=== PATIENT | male | born 1955 | race Caucasian/White ===

== ENCOUNTER → 2017-10-10 10:16 | Outpatient (CLI) | payer MEDICARE, SELFPAY ==
[2017-10-10 12:49] LABS: Anion Gap 10 (5-15); BUN 11 mg/dL (7-18); BUN/Creat Ratio 14.2 RATIO (10-20); Calcium,Total 8.2 mg/dL (8.5-10.1); Chloride 101 mmol/L (98-107); Cholesterol 176 mg/dL (200); Creatinine, Serum 0.78 mg/dL (0.70-1.30); EST Glomerular Filtration Rate 109 mL/min (>60); Est Glom Filt Rate - Afr Amer 131 mL/min (>60); Glucose 101 mg/dL (74-106); High Density Lipoprotein 30 mg/dL; Potassium 3.9 mmol/L (3.5-5.1); Sodium Level 134 mmol/L (136-145); Triglycerides 336 mg/dL; Very Low Density Lipoprotein 67 mg/dL (5-40)
== END ==
PROVIDERS: Family Provider Family Medicine; PCP Family Medicine; Visit Provider Family Medicine
DX: I10 Essential (primary) hypertension (principal)
CPT/HCPCS: 36415; 80048; 80061

== ENCOUNTER → 2018-04-12 08:56 | Outpatient (CLI) | payer MEDICARE, SELFPAY ==
[2018-04-12 10:44] LABS: Anion Gap 6 (5-15); BUN 10 mg/dL (7-18); BUN/Creat Ratio 11.1 RATIO (10-20); Calcium,Total 8.6 mg/dL (8.5-10.1); Chloride 101 mmol/L (98-107); Cholesterol 181 mg/dL (200); EST Glomerular Filtration Rate 91 mL/min (>60); Est Glom Filt Rate - Afr Amer 110 mL/min (>60); Glucose 114 mg/dL (74-106); High Density Lipoprotein 31 mg/dL; PSA,Total - Annual Screen 4.51 ng/mL (0.00-4.00); Potassium 4.2 mmol/L (3.5-5.1); Sodium Level 134 mmol/L (136-145); Triglycerides 270 mg/dL; Very Low Density Lipoprotein 54 mg/dL (5-40)
== END ==
PROVIDERS: Family Provider Family Medicine; PCP Family Medicine; Visit Provider Family Medicine
DX: Z00.00 Encounter for general adult medical examination without abnormal findings (principal); I10 Essential (primary) hypertension
CPT/HCPCS: 36415; 80048; 80061; 84153; G0103

== ENCOUNTER → 2018-10-13 15:08 | Outpatient (CLI) | payer MEDICARE, SELFPAY ==
[2018-10-13 18:01] LABS: PSA,Total - Annual Screen 5.21 ng/mL (0.00-4.00)
== END ==
PROVIDERS: Family Provider Family Medicine; PCP Family Medicine; Referring Provider Family Medicine; Visit Provider Family Medicine
DX: N40.0 Benign prostatic hyperplasia without lower urinary tract symptoms (principal)
CPT/HCPCS: 36415; 84153; G0103

== ENCOUNTER 2018-12-03 04:43 | Inpatient (IN) | payer MEDICARE, MEDICAID, SELFPAY ==
[2018-12-03] VITALS (28 sets, daily range): BP systolic 104–141; BP diastolic 60–85; PULSE 103–135; RESP 12–34; TEMP 36.6–37; O2SAT 89–96; BMI 33.5; BMI 29.5
[2018-12-03 05:02] LABS: Bedside Glucose > 500 mg/dL (70-110)
--- NOTE | 2018-12-03 05:02 | ED.DCSUM_ITS ---
- ER Visit Summary Date of Service: 12/03/18 Chief Complaint: Hyperglycemia History of Present Illness: The patient is a 63 M who presents with elevated blood sugar that was noticed today. EMS reports that the patient's blood sugar on their fingerstick was reading high. Patient is confused and is a poor h istorian. EMS reports that the patient had been having some polyuria at the care home today. Patient denies any fevers. Physical Examination: Vital signs are stable except for mild tachycardia of 107. Patient is afebrile. Oral mucosa is dry. Neck is supple. Trachea is midline. There is no JVD noted. Heart was regular and tachycardic. Lungs are clear and equal bilaterally. Abdomen is soft and nontender. Cranial nerves II through XII are intact. There are no focal motor or sensory deficits noted. Patient is alert and oriented to person only. Test Results: CBC was essentially within normal limits. Metabolic profile showed an elevated glucose of 1518, BUN was elevated at 38, and creatinine was elevated 2.68. These values are new compared to previous results. Arterial blood gas showed a pH of 7.28, PCO2 of 31.2, PO2 of 70, bicarb of 14, and oxygen saturation 92%. Emergency Department Course and Treatment: Patient was given IV fluids. Patient was started on insulin IV drip. Case was discussed with the hospitalist. She will be in to evaluate the patient and admit the patient to the hospital. Disposition: Admit to ICU Impression: 1. Diabetic ketoacidosis 2. Acute kidney injury Critical care time was 30 minutes independent of procedures. This note was generated with [employer] dictation software. It may contain incorrect words, spelling, and punctuation that were not noted in review of the chart prior to signing ED Disposition - Plan for ED Patient: Disposition: Acute Care Hospital [facility] Diagnosis: DKA (diabetic ketoacidoses), Acute kidney injury
[2018-12-03 05:15] LABS: Absolute Lymphocyte Count 1.28 X10^3/ul (0.83-4.51); Absolute Neutrophil Count 5.1 X10^3/uL (2.0-7.7); Basophil# 0.06 X10^3/uL; Basophil% 0.8 % (0-1); Hemoglobin 12.7 g/dl (13.0-16.5); Lymphocyte # 1.28 X10^3/ul (4.0); Lymphocyte % 17.6 % (19-41); Mean Corp Hgb Conc 29.5 g/gl (32-36); Mean Corpuscular Hgb 30.1 pg (27.0-32.0); Mean Corpuscular Volume 101.9 fL (80-94); Mean Platelet Vol. 11.5 fl (6.2-12.0); Monocyte# 0.86 X10^3/uL; Monocyte% 11.8 % (0-10); Neutrophil # 5.05 X10^3/uL (2.7-7.7); Neutrophil % 69.7 % (47-70); POSITIVE COUNT NO; POSITIVE DIFFERENTIAL NO; POSITIVE MORPHOLOGY NO; Platelet Count 330 K/mm3 (150-450); RBC Distribution Width SD 55.8 fl (35.1-43.9); Red Blood Count 4.22 M/mm3 (4.6-6.2); White Blood Count 7.3 K/mm3 (4.4-11.0)
[2018-12-03] MEDS: 0.9% Normal Saline 1,000 ML 1000 ML IV ×3 (05:19→05:49)
[2018-12-03 05:21] LABS: Allen Test POS; Base Excess -12 mmol/L (-2 to +2); Bicarbonate 14.7 mmol/L (22-26); Blood Gas Specimen Type ART; O2 Delivery Device Nasal Can; PO2 70 mmHG (75-100); SITE R Radial; SO2 92 % (95-99); Time Given 510; Total Carbon Dioxide 16 mmol/L; pCO2 31.2 mmHg (35-45); pH 7.28 (7.35-7.45)
[2018-12-03 05:40] LABS: ALB/GLOB Ratio 0.6 RATIO (0.9-2.4); AST(SGOT) 11 U/L (15-37); Alanine Aminotransfer ALT/SGPT 24 U/L (16-61); Albumin, Serum 3.3 g/dL (3.2-5.0); Alkaline Phosphatase 178 U/L (45-117); Anion Gap 19 (5-15); BUN 38 mg/dL (7-18); BUN/Creat Ratio 14.2 RATIO (10-20); Calcium,Total 10.7 mg/dL (8.5-10.1); Chloride 93 mmol/L (98-107); Creatinine, Serum 2.68 mg/dL (0.70-1.30); EST Glomerular Filtration Rate 26 mL/min (>60); Est Glom Filt Rate - Afr Amer 31 mL/min (>60); Globulin 5.8 g/dL (2.2-4.2); Glucose 1518 mg/dL (74-106); Protein, Total 9.1 g/dL (6.4-8.2); Sodium Level 128 mmol/L (136-145)
--- NOTE | 2018-12-03 05:42 | ED.RN ---
DR OLVERA NOTIFIED OF GLUCOSE
[2018-12-03 05:43] LABS: Lactic Acid 1.5 mmol/L (0.4-2.0)
--- NOTE | 2018-12-03 05:46 | PCM.HP.STD ---
Problem List (1) DKA (diabetic ketoacidoses) Status: Acute Qualifiers: Diabetes mellitus type: type 2 (2) HTN (hypertension) Status: Chronic Qualifiers: Hypertension type: essential hypertension Qualified Code(s): I10 - Essential (primary) hypertension (3) Anxiety and depression Status: Chronic (4) Tobacco use Status: Chronic History of Present Illness Date of Admission: 12/03/18 Chief Complaint: Hyperglycemia, polyuria, confusion The patient is a 63 y/o M [facility] w/ PMHx: Anxiety and Depression/Bipolar disorder, HTN, Obesity, Tobacco use who presents to the [facility] ED on 12/03/18 with history of elevated BS at facility, unclear why they had been checking, but no history per family present of diabetes mellitus. The alf report noted patient w/ increased confusion without any recent illnesses. No alf staff present. Family present noted that he has been complaining of increased thirst and polyuria. Work-up in the ED included T 98.6, heart rate 106, BP 111/68, respiratory rate 20 initially 89% on room air with improvement to 92 on 2 L nasal cannula, CBC with WBC 7.3, hemoglobin 12.7, platelet 330 without market left shift, ABG with pH 7.28, bicarb 14.7, oxygen saturation 92, PCO2 31.2, PO2 70 on 2 L nasal cannula, CMP with sodium 128, chloride 93, carbon dioxide 16, anion gap 19, BUN/creatinine 38/2.68, glucose 1518, lactic acid 1.5, acetone moderate. In the ED patient initiated on insulin drip. Past Medical History Past Medical History (Chronic Problems): Chronic Problems HTN (hypertension) (Chronic) Anxiety and depression (Chronic) Tobacco use (Chronic) Allergies No Known Allergies Allergy (Verified 08/11/14 12:25) Home Medications: Ambulatory Orders Medication Instructions Recorded Amlodipine [Norvasc] 10 mg PO DAILY 12/03/18 Doxazosin Mesylate 2 mg PO DAILY 12/03/18 Haloperidol Decanoate 100 mg IM QWEEK 12/03/18 Lisinopril [Zestril] 20 mg PO DAILY 12/03/18 Oxcarbazepine 300 mg PO DAILY 12/03/18 Quetiapine Fumarate 100 mg PO DAILY 12/03/18 Surgical History: - - Left lower extremity surgery secondary to fracture, hernia repair. Psychiatric History: Schizophrenia Lives: - - She lives in a alf. Smoking Status: Current every day smoker - Approximately 1 pack/day cigarette tobacco usage. Tobacco Use: Cigarettes Alcohol: None Drugs: None - *Family History Maternal History Items: - - Patient with maternal family history of hypertension. Paternal History Items: - - Patient with a paternal family history of hypertension, coronary disease, [place] at age 75. Review of Systems Constitutional: Reports: Malaise, Weakness, Fatigue. Denies: Chills, Fever, Weight Change HEENT: Denies: Head Aches, Sinus Congestion, Sinus Drainage Cardiovascular: Denies: Chest Pain, Palpitations Respiratory: Denies: Cough, Shortness of breath at rest, Sputum production Gastrointestinal: Denies: Abdominal Pain, Nausea, Vomiting Genitourinary: Denies: Dysuria Musculoskeletal: Denies: Joint Pain, Joint Tenderness Skin: Denies: Rash, Wounds Neurological: Reports: Confusion. Denies: Focal weakness, Numbness, Tingling Psychiatric: Reports: - - Schiophrenia. Denies: Anxiety, Depression, Homicidal Ideations, Suicidal Ideations Endocrine: Reports: Polydipsia, Polyuria Hematologic/ Lymphatic: Denies: Easy Bruising, Easy Bleeding VTE Information - Inpt Only VTE Present on Admission: No VTE Mechan Device Prophylaxis: SCD's VTE Pharm Prophylaxis ordered?: Yes Patient Problems: Active and Suspected Problems DKA (diabetic ketoacidoses) (Acute) Subjective: Patient is seated upright in ED bed, improved appearance, more alert and awake, answering questions appropriately. Objective: Physical Examination: General: awake, alert, oriented to self, place, recent events, improved since initial presentation is very lethargic encephalopathic upon initial ED hesitation, remains cooperative, seated upright in ED bed, notes feeling improved. Skin: normal color, turgor, no icterus, cyanosis. HEENT: AT/NC, EOMI, PERRLA, dry MM, no carotid bruits or JVD noted. Lungs: CTA bilaterally, moderate effort, mild decrease BL bases, no rales, ronchi or wheezing. Heart: Tachycardic with regular rhythm; no gallop, rub audible. Abdomen: soft, obese, NTTP, ND, normal BS, no HSM. Extremities: no cyanosis, clubbing, or edema. Neurological: patient awake, alert, oriented as noted; cognitive function improving since initial presentation, suspect not yet baseline intact; pupils equally reactive to light and accomodation; cranial nerves II-XII grossly normal, moving all 4 extremities, no focal deficits, strength severely globally decreased secondary to acute presentation. Psychiatric: affect appears fatigued, no acute evidence of depressive or anxiety feelings. - Physical Exam Vital Signs Temp Pulse Resp BP Pulse Ox 98.6 F 107 H 20 H 111/68 92 12/03/18 04:46 12/03/18 04:46 12/03/18 04:46 12/03/18 04:46 12/03/18 04:46 Oxygen Flow Rate (L/min) 2 Oxygen Delivery Method Nasal Cannula Weight: 220 lb 7.396 oz Body Mass Index (BMI) 33.5 Finger Stick Blood Glucose 600 Laboratory Tests Past 24 Hrs 12/03/18 12/03/18 12/03/18 04:45 04:45 04:45 WBC 7.3 RBC 4.22 L Hgb 12.7 L Hct 43.0 MCV 101.9 H MCH 30.1 MCHC 29.5 L RDW 15.0 H RDW Differential 55.8 H Plt Count 330 MPV 11.5 Immature Gran % (Auto) 0.100 Neut % (Auto) 69.7 Lymph % (Auto) 17.6 L [place] % (Auto) 11.8 H Eos % (Auto) 0.0 Baso % (Auto) 0.8 Absolute Neuts (auto) 5.1 Absolute Lymphs (auto) 1.28 Total Counted Not Reportable Specimen Type Sample Site pH Bicarbonate Actual POC Total CO2 Base Excess O2 Saturation ABG pCO2 ABG pO2 Ben Test O2 Delivery Device Liter Flow Blood Gas Notified Whom Blood Gas Notified Time Sodium 128 L Potassium 5.0 Chloride 93 L Carbon Dioxide 16.0 L Anion Gap 19 H BUN 38 H Creatinine 2.68 H Estim Creat Clear Calc 28.00 Est GFR (MDRD) Af Amer 31 L Est GFR (MDRD) Non-Af 26 L BUN/Creatinine Ratio 14.2 Glucose 1518 H* Lactic Acid Calcium 10.7 H Total Bilirubin 0.60 AST 11 L ALT 24 Alkaline Phosphatase 178 H Total Protein 9.1 H Albumin 3.3 Globulin 5.8 H Albumin/Globulin Ratio 0.6 L Acetone Level MODERATE H 12/03/18 12/03/18 05:14 05:15 WBC RBC Hgb Hct MCV MCH MCHC RDW RDW Differential Plt Count MPV Immature Gran % (Auto) Neut % (Auto) Lymph % (Auto) [place] % (Auto) Eos % (Auto) Baso % (Auto) Absolute Neuts (auto) Absolute Lymphs (auto) Total Counted Specimen Type ART Sample Site R Radial pH 7.28 L Bicarbonate Actual 14.7 L POC Total CO2 16 Base Excess -12 L O2 Saturation 92 L ABG pCO2 31.2 L ABG pO2 70 L Ben Test POS O2 Delivery Device Nasal Can Liter Flow 2.0 Blood Gas Notified Whom ED MD Blood Gas Notified Time 510 Sodium Potassium Chloride Carbon Dioxide Anion Gap BUN Creatinine Estim Creat Clear Calc Est GFR (MDRD) Af Amer Est GFR (MDRD) Non-Af BUN/Creatinine Ratio Glucose Lactic Acid 1.5 Calcium Total Bilirubin AST ALT Alkaline Phosphatase Total Protein Albumin Globulin Albumin/Globulin Ratio Acetone Level POC Glucose 12/03/18 04:48 POC Glucose > 500 H* Assessment/Plan All Active Problems DKA (diabetic ketoacidoses) (Acute) The patient is a 63 y/o M living [facility] w/ PMHx: Anxiety and Depression/Bipolar disorder, HTN, Obesity, Tobacco use who presents to the [facility] ED on 12/03/18 with history of elevated BS at facility, unclear why they had been checking, but no history per family present of diabetes mellitus. The alf report noted patient w/ increased confusion without any recent illnesses. No alf staff present. (1) Acute Encephalopathy (metabolic) secondary to Acute DKA w/ New Diabetes mellitus diagnosis: Work-up in the ED included T 98.6, heart rate 106, BP 111/68, respiratory rate 20 initially 89% on room air with improvement to 92 on 2 L nasal cannula, CBC with WBC 7.3, hemoglobin 12.7, platelet 330 without market left shift, ABG with pH 7.28, bicarb 14.7, oxygen saturation 92, PCO2 31.2, PO2 70 on 2 L nasal cannula, CMP with sodium 128, chloride 93, carbon dioxide 16, anion gap 19, BUN/creatinine 38/2.68, glucose 1518, lactic acid 1.5, acetone moderate. Will admit to the ICU, continue on insulin drip, check serial K+, glucose w/ IVF changes pending these levels, serial chemistry, obtain mag, phos daily w/ repletion as needed, transition to home SC regimen when gap closed w/ overlap on drip, nutrition consultation. Encouraged diet and insulin regimen compliance. Requested UA, UCx and CXR. HgBA1c pending. (2) Acute kidney injury: Secondary to acute presentation #1. Admission BUN/Cr 38/2.68, prior baseline creatinine noted to be 0.8. Will hydrate, hold nephrotoxic medications and repeat chemistry in AM. (3) Hypertension: Continue home regimen including Norvasc, holding lisinopril given acute kidney injury, PRN hydralazine. (4) Schizophrenia: We will continue home psychiatric regimen including oxcarbazepine, Seroquel and patient of note receives IM weekly Haldol with requested check on last dosing. Family present notes he becomes agitated if he does receive his medications. (5) Tobacco Abuse: Encouraged cessation, inpatient consultation per RT, NR if desired, declined upon admission. (6) DVT Prophylaxis: SCDs, heparin. Code Visit Inpatient E&M: 53452 Init Hosp L3
--- NOTE | 2018-12-03 05:54 | HP.PCM_ITS ---
Problem List (1) DKA (diabetic ketoacidoses) Status: Acute Qualifiers: Diabetes mellitus type: type 2 (2) HTN (hypertension) Status: Chronic Qualifiers: Hypertension type: essential hypertension Qualified Code(s): I10 - Essential (primary) hypertension (3) Anxiety and depression Status: Chronic (4) Tobacco use Status: Chronic History of Present Illness Date of Admission: 12/03/18 Chief Complaint: Hyperglycemia, polyuria, confusion The patient is a 63 y/o M living in [facility] w/ PMHx: Anxiety and Depression/Bipolar disorder, HTN, Obesity, Tobacco use who presents to the [facility] ED on 12/03/18 with history of elevated BS at facility, unclear why they had been checking, but no history per family present of diabetes mellitus. The senior care report noted patient w/ increased confusion without any recent illnesses. No senior care staff present. Family present noted that he has been complaining of increased thirst and polyuria. Work-up in the ED included T 98.6, heart rate 106, BP 111/68, respiratory rate 20 initially 89% on room air with improvement to 92 on 2 L nasal cannula, CBC with WBC 7.3, hemoglobin 12.7, platelet 330 without market left shift, ABG with pH 7.28, bicarb 14.7, oxygen saturation 92, PCO2 31.2, PO2 70 on 2 L nasal cannula, CMP with sodium 128, chloride 93, carbon dioxide 16, anion gap 19, BUN/creatinine 38/2.68, glucose 1518, lactic acid 1.5, acetone moderate. In the ED patient initiated on insulin drip. Past Medical History Past Medical History (Chronic Problems): Chronic Problems HTN (hypertension) (Chronic) Anxiety and depression (Chronic) Tobacco use (Chronic) Allergies No Known Allergies Allergy (Verified 08/11/14 12:25) Home Medications: Ambulatory Orders Medication Instructions Recorded Amlodipine [Norvasc] 10 mg PO DAILY 12/03/18 Doxazosin Mesylate 2 mg PO DAILY 12/03/18 Haloperidol Decanoate 100 mg IM QWEEK 12/03/18 Lisinopril [Zestril] 20 mg PO DAILY 12/03/18 Oxcarbazepine 300 mg PO DAILY 12/03/18 Quetiapine Fumarate 100 mg PO DAILY 12/03/18 Surgical History: - - Left lower extremity surgery secondary to fracture, hernia repair. Psychiatric History: Schizophrenia Lives: - - She lives in a senior care. Smoking Status: Current every day smoker - Approximately 1 pack/day cigarette tobacco usage. Tobacco Use: Cigarettes Alcohol: None Drugs: None - *Family History Maternal History Items: - - Patient with maternal family history of hypertension. Paternal History Items: - - Patient with a paternal family history of hypertension, coronary disease, [place] at age 75. Review of Systems Constitutional: Reports: Malaise, Weakness, Fatigue. Denies: Chills, Fever, Weight Change HEENT: Denies: Head Aches, Sinus Congestion, Sinus Drainage Cardiovascular: Denies: Chest Pain, Palpitations Respiratory: Denies: Cough, Shortness of breath at rest, Sputum production Gastrointestinal: Denies: Abdominal Pain, Nausea, Vomiting Genitourinary: Denies: Dysuria Musculoskeletal: Denies: Joint Pain, Joint Tenderness Skin: Denies: Rash, Wounds Neurological: Reports: Confusion. Denies: Focal weakness, Numbness, Tingling Psychiatric: Reports: - - Schiophrenia. Denies: Anxiety, Depression, Homicidal Ideations, Suicidal Ideations Endocrine: Reports: Polydipsia, Polyuria Hematologic/ Lymphatic: Denies: Easy Bruising, Easy Bleeding VTE Information - Inpt Only VTE Present on Admission: No VTE Mechan Device Prophylaxis: SCD's VTE Pharm Prophylaxis ordered?: Yes Patient Problems: Active and Suspected Problems DKA (diabetic ketoacidoses) (Acute) Subjective: Patient is seated upright in ED bed, improved appearance, more alert and awake, answering questions appropriately. Objective: Physical Examination: General: awake, alert, oriented to self, place, recent events, improved since initial presentation is very lethargic encephalopathic upon initial ED hesitation, remains cooperative, seated upright in ED bed, notes feeling improved. Skin: normal color, turgor, no icterus, cyanosis. HEENT: AT/NC, EOMI, PERRLA, dry MM, no carotid bruits or JVD noted. Lungs: CTA bilaterally, moderate effort, mild decrease BL bases, no rales, ronchi or wheezing. Heart: Tachycardic with regular rhythm; no gallop, rub audible. Abdomen: soft, obese, NTTP, ND, normal BS, no HSM. Extremities: no cyanosis, clubbing, or edema. Neurological: patient awake, alert, oriented as noted; cognitive function improving since initial presentation, suspect not yet baseline intact; pupils equally reactive to light and accomodation; cranial nerves II-XII grossly normal, moving all 4 extremities, no focal deficits, strength severely globally decreased secondary to acute presentation. Psychiatric: affect appears fatigued, no acute evidence of depressive or anxiety feelings. - Physical Exam Vital Signs Temp Pulse Resp BP Pulse Ox 98.6 F 107 H 20 H 111/68 92 12/03/18 04:46 12/03/18 04:46 12/03/18 04:46 12/03/18 04:46 12/03/18 04:46 Oxygen Flow Rate (L/min) 2 Oxygen Delivery Method Nasal Cannula Weight: 220 lb 7.396 oz Body Mass Index (BMI) 33.5 Finger Stick Blood Glucose 600 Laboratory Tests Past 24 Hrs 12/03/18 12/03/18 12/03/18 04:45 04:45 04:45 WBC 7.3 RBC 4.22 L Hgb 12.7 L Hct 43.0 MCV 101.9 H MCH 30.1 MCHC 29.5 L RDW 15.0 H RDW Differential 55.8 H Plt Count 330 MPV 11.5 Immature Gran % (Auto) 0.100 Neut % (Auto) 69.7 Lymph % (Auto) 17.6 L [place] % (Auto) 11.8 H Eos % (Auto) 0.0 Baso % (Auto) 0.8 Absolute Neuts (auto) 5.1 Absolute Lymphs (auto) 1.28 Total Counted Not Reportable Specimen Type Sample Site pH Bicarbonate Actual POC Total CO2 Base Excess O2 Saturation ABG pCO2 ABG pO2 Ben Test O2 Delivery Device Liter Flow Blood Gas Notified Whom Blood Gas Notified Time Sodium 128 L Potassium 5.0 Chloride 93 L Carbon Dioxide 16.0 L Anion Gap 19 H BUN 38 H Creatinine 2.68 H Estim Creat Clear Calc 28.00 Est GFR (MDRD) Af Amer 31 L Est GFR (MDRD) Non-Af 26 L BUN/Creatinine Ratio 14.2 Glucose 1518 H* Lactic Acid Calcium 10.7 H Total Bilirubin 0.60 AST 11 L ALT 24 Alkaline Phosphatase 178 H Total Protein 9.1 H Albumin 3.3 Globulin 5.8 H Albumin/Globulin Ratio 0.6 L Acetone Level MODERATE H 12/03/18 12/03/18 05:14 05:15 WBC RBC Hgb Hct MCV MCH MCHC RDW RDW Differential Plt Count MPV Immature Gran % (Auto) Neut % (Auto) Lymph % (Auto) [place] % (Auto) Eos % (Auto) Baso % (Auto) Absolute Neuts (auto) Absolute Lymphs (auto) Total Counted Specimen Type ART Sample Site R Radial pH 7.28 L Bicarbonate Actual 14.7 L POC Total CO2 16 Base Excess -12 L O2 Saturation 92 L ABG pCO2 31.2 L ABG pO2 70 L Ben Test POS O2 Delivery Device Nasal Can Liter Flow 2.0 Blood Gas Notified Whom ED MD Blood Gas Notified Time 510 Sodium Potassium Chloride Carbon Dioxide Anion Gap BUN Creatinine Estim Creat Clear Calc Est GFR (MDRD) Af Amer Est GFR (MDRD) Non-Af BUN/Creatinine Ratio Glucose Lactic Acid 1.5 Calcium Total Bilirubin AST ALT Alkaline Phosphatase Total Protein Albumin Globulin Albumin/Globulin Ratio Acetone Level POC Glucose 12/03/18 04:48 POC Glucose > 500 H* Assessment/Plan All Active Problems DKA (diabetic ketoacidoses) (Acute) The patient is a 63 y/o M living in [facility] w/ PMHx: Anxiety and Depression/Bipolar disorder, HTN, Obesity, Tobacco use who presents to the [facility] ED on 12/03/18 with history of elevated BS at facility, unclear why they had been checking, but no history per family present of diabetes mellitus. The senior care report noted patient w/ increased confusion without any recent illnesses. No senior care staff present. (1) Acute Encephalopathy (metabolic) secondary to Acute DKA w/ New Diabetes mellitus diagnosis: Work-up in the ED included T 98.6, heart rate 106, BP 111/68, respiratory rate 20 initially 89% on room air with improvement to 92 on 2 L nasal cannula, CBC with WBC 7.3, hemoglobin 12.7, platelet 330 without market left shift, ABG with pH 7.28, bicarb 14.7, oxygen saturation 92, PCO2 31.2, PO2 70 on 2 L nasal cannula, CMP with sodium 128, chloride 93, carbon dioxide 16, anion gap 19, BUN/creatinine 38/2.68, glucose 1518, lactic acid 1.5, acetone moderate. Will admit to the ICU, continue on insulin drip, check serial K+, glucose w/ IVF changes pending these levels, serial chemistry, obtain mag, phos daily w/ repletion as needed, transition to home SC regimen when gap closed w/ overlap on drip, nutrition consultation. Encouraged diet and insulin regimen compliance. Requested UA, UCx and CXR. HgBA1c pending. (2) Acute kidney injury: Secondary to acute presentation #1. Admission BUN/Cr 38/2.68, prior baseline creatinine noted to be 0.8. Will hydrate, hold nephrotoxic medications and repeat chemistry in AM. (3) Hypertension: Continue home regimen including Norvasc, holding lisinopril given acute kidney injury, PRN hydralazine. (4) Schizophrenia: We will continue home psychiatric regimen including oxcarbazepine, Seroquel and patient of note receives IM weekly Haldol with requested check on last dosing. Family present notes he becomes agitated if he does receive his medications. (5) Tobacco Abuse: Encouraged cessation, inpatient consultation per RT, NR if desired, declined upon admission. (6) DVT Prophylaxis: SCDs, heparin. Code Visit Inpatient E&M: 22522 Init Hosp L3
[2018-12-03 05:56] LABS: Bacteria 0 SEEN /hpf (None Seen); Mucous, Urine 0 SEEN /hpf (<or=2+); Red Blood Cells-Urine 0 SEEN /hpf (0-5); Squamous Epithelial Cells - UA 0 SEEN /hpf (0-5); White Blood Cells 0 SEEN /hpf (0-5)
--- NOTE | 2018-12-03 06:00 | RAD_ITS ---
STUDY: X-RAY CHEST REASON FOR EXAM: Male, 63 years old. Shortness of breath TECHNIQUE: Frontal view COMPARISON: None. FINDINGS: Lungs are well expanded. There are mild fibrotic lung changes. There are NO acute infiltrates. There is no demonstrated pleural abnormality. Normal size heart. Normal mediastinum and william. Normal visualized pulmonary arteries. Normal visualized aortic arch and descending thoracic aorta. Normal visualized thoracic spine. Normal visualized ribs, clavicles, and shoulders. There is no demonstrated abnormality of the visualized soft tissue structures of the upper abdomen. RAD/Chest 1 View (Portable) IMPRESSION: Lungs are well expanded. There are mild fibrotic lung changes. There are NO acute infiltrates. There is no demonstrated pleural abnormality. Normal size heart. Electronically Signed: Rafy Vega MD at 7:04 EDT , Service support ,
[2018-12-03 06:06] LABS: Bedside Glucose > 500 mg/dL (70-110)
--- NOTE | 2018-12-03 06:16 | NURSING ---
patient received last dose of haldol 10/30/18 and is due for a dose 12/04/18, per family he does get agitated when he does not receive. Info passed on to AUTHOR
[2018-12-03 06:18] LABS: Color, Urine Yellow (Yellow); Glucose, Dipstick 1000 mg/dl (Normal); Ketone-Dipstick 15 mg/dl (Negative); Leukocyte Esterase-Dipstick Negative /ul (Negative); Nitrite-Dipstick Negative (Negative); Occult Blood-Urine 50 /ul (Negative); Protein-Dipstick 15 mg/dl (Negative); Urine Bilirubin Dipstick Negative (Negative); Urine Clarity Clear (Clear); Urine Urobilinogen Normal (Normal)
[2018-12-03 07:28] LABS: Magnesium 2.9 mg/dL (1.6-2.6); Phosphorus 6.2 mg/dL (2.5-4.9)
--- NOTE | 2018-12-03 07:32 | PCM.CON.CC ---
Reason for Consult Date of Consultation: 12/03/18 Reason for Consultation: Diabetic ketoacidosis History of Present Illness: The patient is a 63-year-old male, with a history as outlined below, who presented to the emergency department on December 03 with hyperglycemia, polyuria and increased confusion. The patient has a known history of underlying bipolar disorder and tobacco dependency, but had never previously been diagnosed with diabetes previously, per report. On presentation to the emergency department, the patient was noted to be afebrile and hemodynamically stable. Laboratory evaluation revealed no evidence of a leukocytosis. Chemistry profile revealed a sodium of 128, chloride of 93, bicarbonate of 16 and creatinine of 2.68. Glucose was increased to 1518. Hemoglobin A1c was noted to be 11.0. Moderate serum acetone was noted. The patient received supplemental IV fluid hydration was started on an insulin infusion. Plain film chest x-ray revealed no acute cardiopulmonary process. He was subsequently transferred to the medical intensive care unit for ongoing management. Past Medical History Past Medical History (Chronic Problems): Chronic Problems HTN (hypertension) (Chronic) Anxiety and depression (Chronic) Bipolar disorder (Chronic) Tobacco use (Chronic) Allergies No Known Allergies Allergy (Verified 08/11/14 12:25) Home Medications: Ambulatory Orders Medication Instructions Recorded Amlodipine [Norvasc] 10 mg PO DAILY 12/03/18 Doxazosin Mesylate 2 mg PO DAILY 12/03/18 Haloperidol Decanoate 100 mg IM QWEEK 12/03/18 Lisinopril [Zestril] 20 mg PO DAILY 12/03/18 Oxcarbazepine 300 mg PO DAILY 12/03/18 Quetiapine Fumarate 100 mg PO DAILY 12/03/18 Surgical History: - - Left lower extremity surgery secondary to fracture, hernia repair. Psychiatric History: Schizophrenia Lives: - - She lives in a snf. Smoking Status: Current every day smoker - Approximately 1 pack/day cigarette tobacco usage. Tobacco Use: Cigarettes Alcohol: None Drugs: None - *Family History Maternal History Items: - - Patient with maternal family history of hypertension. Paternal History Items: - - Patient with a paternal family history of hypertension, coronary disease, OR at age 75. Review of Systems Constitutional: Denies: Chills, Fever Eyes: Denies: Blurred vision, Double vision HEENT: Denies: Head Aches, Sinus Congestion, Sinus Drainage Cardiovascular: Denies: Chest Pain, Palpitations Respiratory: Denies: Cough, Shortness of breath at rest, Sputum production Gastrointestinal: Denies: Abdominal Pain, Nausea, Vomiting Genitourinary: Reports: Frequency Musculoskeletal: Denies: Joint Pain, Joint Tenderness Skin: Denies: Rash, Wounds Neurological: Denies: Numbness, Tingling, Focal weakness Psychiatric: Reports: - - Schizophrenia Hematologic/ Lymphatic: Denies: Easy Bruising, Easy Bleeding Patient Problems: Active and Suspected Problems DKA (diabetic ketoacidoses) (Acute) Acute kidney injury (Acute) Objective: The patient's most recent lab work, culture data and imaging studies have all been personally reviewed. - Physical Exam General: Alert, Cooperative, No apparent distress HEENT: Atraumatic, PERRLA, Normocephalic Oral: Dry Mucosa Neck: Supple, No Nodes, Trachea Midline Lungs: No rhonchi, No wheeze, No rales, Diminished, Tachypneic Cardiovascular: Normal S1, Normal S2, No murmurs, Tachycardic Abdomen: Bowel Sounds Present, Soft, Non Tender, Non-Distended Extremities: No clubbing, No cyanosis, No edema Skin: No breakdown Musculoskeletal: No Tenderness to Palpation of Joints or Extremities, No Muscle Wasting Lymphatic: No Cervical, Supraclavicular, or Inguinal Adenopathy Neurological: Neuro grossly intact Psych/Mental Status: Flat Affect Vital Signs Temp Pulse Resp BP Pulse Ox 98.2 F 105 H 25 H 120/69 94 12/03/18 07:00 12/03/18 07:00 12/03/18 07:00 12/03/18 07:00 12/03/18 07:00 Oxygen Flow Rate (L/min) 3 Oxygen Delivery Method Venturi Mask Weight: 194 lb 10.691 oz Body Mass Index (BMI) 29.5 Finger Stick Blood Glucose 600 Laboratory Tests Past 24 Hrs 12/03/18 12/03/18 12/03/18 04:45 04:45 04:45 WBC 7.3 RBC 4.22 L Hgb 12.7 L Hct 43.0 MCV 101.9 H MCH 30.1 MCHC 29.5 L RDW 15.0 H RDW Differential 55.8 H Plt Count 330 MPV 11.5 Immature Gran % (Auto) 0.100 Neut % (Auto) 69.7 Lymph % (Auto) 17.6 L [place] % (Auto) 11.8 H Eos % (Auto) 0.0 Baso % (Auto) 0.8 Absolute Neuts (auto) 5.1 Absolute Lymphs (auto) 1.28 Total Counted Not Reportable Specimen Type Sample Site pH Bicarbonate Actual POC Total CO2 Base Excess O2 Saturation ABG pCO2 ABG pO2 Ben Test O2 Delivery Device Liter Flow Blood Gas Notified Whom Blood Gas Notified Time Sodium 128 L Potassium 5.0 Chloride 93 L Carbon Dioxide 16.0 L Anion Gap 19 H BUN 38 H Creatinine 2.68 H Estim Creat Clear Calc 28.00 Est GFR (MDRD) Af Amer 31 L Est GFR (MDRD) Non-Af 26 L BUN/Creatinine Ratio 14.2 Glucose 1518 H* Hemoglobin A1c Lactic Acid Calcium 10.7 H Phosphorus Magnesium Total Bilirubin 0.60 AST 11 L ALT 24 Alkaline Phosphatase 178 H Total Protein 9.1 H Albumin 3.3 Globulin 5.8 H Albumin/Globulin Ratio 0.6 L Urine Color Urine Clarity Urine pH Ur Specific [place] Urine Protein Urine Glucose (UA) Urine Ketones Urine Occult Blood Urine Nitrite Urine Bilirubin Urine Urobilinogen Ur Leukocyte Esterase Urine RBC Urine WBC Ur Squamous Epith Cells Urine Bacteria Urine Mucus Acetone Level MODERATE H 12/03/18 12/03/18 12/03/18 04:45 04:45 05:14 WBC RBC Hgb Hct MCV MCH MCHC RDW RDW Differential Plt Count MPV Immature Gran % (Auto) Neut % (Auto) Lymph % (Auto) [place] % (Auto) Eos % (Auto) Baso % (Auto) Absolute Neuts (auto) Absolute Lymphs (auto) Total Counted Specimen Type ART Sample Site R Radial pH 7.28 L Bicarbonate Actual 14.7 L POC Total CO2 16 Base Excess -12 L O2 Saturation 92 L ABG pCO2 31.2 L ABG pO2 70 L Ben Test POS O2 Delivery Device Nasal Can Liter Flow 2.0 Blood Gas Notified Whom ED Blood Gas Notified Time 510 Sodium Potassium Chloride Carbon Dioxide Anion Gap BUN Creatinine Estim Creat Clear Calc Est GFR (MDRD) Af Amer Est GFR (MDRD) Non-Af BUN/Creatinine Ratio Glucose Hemoglobin A1c 11.0 H Lactic Acid Calcium Phosphorus 6.2 H Magnesium 2.9 H Total Bilirubin AST ALT Alkaline Phosphatase Total Protein Albumin Globulin Albumin/Globulin Ratio Urine Color Urine Clarity Urine pH Ur Specific [place] Urine Protein Urine Glucose (UA) Urine Ketones Urine Occult Blood Urine Nitrite Urine Bilirubin Urine Urobilinogen Ur Leukocyte Esterase Urine RBC Urine WBC Ur Squamous Epith Cells Urine Bacteria Urine Mucus Acetone Level 12/03/18 12/03/18 05:15 05:40 WBC RBC Hgb Hct MCV MCH MCHC RDW RDW Differential Plt Count MPV Immature Gran % (Auto) Neut % (Auto) Lymph % (Auto) [place] % (Auto) Eos % (Auto) Baso % (Auto) Absolute Neuts (auto) Absolute Lymphs (auto) Total Counted Specimen Type Sample Site pH Bicarbonate Actual POC Total CO2 Base Excess O2 Saturation ABG pCO2 ABG pO2 Ben Test O2 Delivery Device Liter Flow Blood Gas Notified Whom Blood Gas Notified Time Sodium Potassium Chloride Carbon Dioxide Anion Gap BUN Creatinine Estim Creat Clear Calc Est GFR (MDRD) Af Amer Est GFR (MDRD) Non-Af BUN/Creatinine Ratio Glucose Hemoglobin A1c Lactic Acid 1.5 Calcium Phosphorus Magnesium Total Bilirubin AST ALT Alkaline Phosphatase Total Protein Albumin Globulin Albumin/Globulin Ratio Urine Color Yellow Urine Clarity Clear Urine pH 6.0 Ur Specific [place] 1.010 Urine Protein 15 H Urine Glucose (UA) 1000 H Urine Ketones 15 H Urine Occult Blood 50 H Urine Nitrite Negative Urine Bilirubin Negative Urine Urobilinogen Normal Ur Leukocyte Esterase Negative Urine RBC 0 SEEN Urine WBC 0 SEEN Ur Squamous Epith Cells 0 SEEN Urine Bacteria 0 SEEN Urine Mucus 0 SEEN Acetone Level POC Glucose 12/03/18 12/03/18 05:59 04:48 POC Glucose > 500 H* > 500 H* Clinical Impression(s) from Imaging Studies Chest X-Ray 12/03/18 06:00 IMPRESSION: Lungs are well expanded. There are mild fibrotic lung changes. There are NO acute infiltrates. There is no demonstrated pleural abnormality. Normal size heart. Electronically Signed: Rafy Vega MD at 7:04 EDT , Service support , Assessment/Plan Active and Suspected Problems DKA (diabetic ketoacidoses) (Acute) Acute kidney injury (Acute) RECOMMENDATIONS: 1. Continue supplemental IV fluid hydration and insulin infusion per DKA protocol. 2. Continue serial monitoring of metabolic profiles. 3. Transition to basal insulin, once anion gap has been closed x2. 4. Aggressive electrolyte repletion as needed. 5. Continue bronchodilators, given the patient's tobacco abuse history. 6. Wean supplemental oxygen as tolerated. Encourage incentive spirometer use. IMPRESSIONS: 1. Diabetic ketoacidosis Although the patient presented with a hemoglobin A1c of 11.0, he was reportedly never previously diagnosed with diabetes. We will continue current supportive measures per DKA protocol with supplemental IV fluid hydration and continuous insulin infusion. Continue to monitor metabolic profiles. Continue electrolyte repletion as needed. The patient will require diabetic education. 2. Acute kidney injury/anion gap metabolic acidosis Likely prerenal in etiology. Anticipate improvement with volume expansion. Continue to monitor urine output. No indication for renal replacement therapy. 3. Tobacco dependency/schizophrenia/bipolar/hypertension Complicates care, management, recovery and prognosis. Consideration can be given to initiating nicotine replacement therapy while the patient is admitted to the hospital. This note was generated with [employer] dictation software. It may contain incorrect words, spelling, and punctuation that were not noted in checking the note before signing. Code Visit Inpatient E&M: 03486 Init Hosp L3
[2018-12-03] MEDS: 0.9% Normal Saline 1,000 ML 999 ML IV (07:42)
[2018-12-03 07:47] LABS: Bacteria 0 SEEN /hpf (None Seen); Mucous, Urine 0 SEEN /hpf (<or=2+); Squamous Epithelial Cells - UA 0 SEEN /hpf (0-5); White Blood Cells 0 SEEN /hpf (0-5)
[2018-12-03 08:05] LABS: Anion Gap 10 (5-15); BUN 36 mg/dL (7-18); BUN/Creat Ratio 15.3 RATIO (10-20); Calcium,Total 9.6 mg/dL (8.5-10.1); Chloride 108 mmol/L (98-107); Creatinine, Serum 2.36 mg/dL (0.70-1.30); EST Glomerular Filtration Rate 30 mL/min (>60); Est Glom Filt Rate - Afr Amer 36 mL/min (>60); Glucose 1129 mg/dL (74-106); Potassium 4.4 mmol/L (3.5-5.1); Sodium Level 137 mmol/L (136-145)
[2018-12-03 08:39] LABS: Color, Urine Yellow (Yellow); Glucose, Dipstick 1000 mg/dl (Normal); Ketone-Dipstick 15 mg/dl (Negative); Leukocyte Esterase-Dipstick Negative /ul (Negative); Nitrite-Dipstick Negative (Negative); Occult Blood-Urine 150 /ul (Negative); Protein-Dipstick 15 mg/dl (Negative); Urine Bilirubin Dipstick Negative (Negative); Urine Clarity Clear (Clear); Urine Urobilinogen Normal (Normal)
[2018-12-03] MEDS: 0.9% Normal Saline 1,000 ML 150 ML IV (08:46)
[2018-12-03 08:57] LABS: Red Blood Cells-Urine 0-5 SEEN /hpf (0-5)
[2018-12-03 09:01] LABS: Glucose 934 mg/dL (74-106)
--- NOTE | 2018-12-03 09:45 | PCM.PN.HOSP ---
Patient Problems: Active and Suspected Problems DKA (diabetic ketoacidoses) (Acute) Acute kidney injury (Acute) Subjective: Patient seen and examined. He was admitted in the early hours of this morning from his senior care with a complaint of increased confusion and was found to have hypoglycemia. He had also been complaining of polyuria and polydipsia. He did have any previous diagnosis of diabetes. Blood sugar was thousand 518 on admission and A1c check was 11.8. He also had moderate acetone level and anion gap was 19 with sodium of 128. He has been hydrated with IV fluids and is on insulin drip. Patient had no complaints at time of review this morning. He denied any shortness of breath, chest pain, palpitations or dizziness, diarrhea vomiting. He was alert and oriented and confusion seems to have improved. Labs and vitals reviewed. Vitals/I&O's: Vital Signs Temp Pulse Resp BP Pulse Ox 98.2 F 112 H 18 115/73 93 12/03/18 07:00 12/03/18 09:00 12/03/18 09:00 12/03/18 09:00 12/03/18 09:00 Oxygen Flow Rate (L/min) 3 Oxygen Delivery Method Nasal Cannula Weight: 194 lb 10.691 oz Body Mass Index (BMI) 29.5 Finger Stick Blood Glucose 934 General: Alert, Oriented x3, Cooperative, No apparent distress HEENT: Atraumatic, PERRLA, EOMI, Normocephalic Oral: Dry Mucosa Neck: Supple, No JVD, Negative Carotid Bruits Lungs: Clear to auscultation, Normal air movement, No rhonchi, No wheeze, No rales Cardiovascular: Regular rate, Regular Rhythm, Normal S1, Normal S2, No murmurs Abdomen: Bowel Sounds Present, Soft, Non Tender, Non-Distended, No Hepato-splenomegaly Extremities: No clubbing, No cyanosis, No edema, Capillary Refill Less than 3 Seconds Skin: No rashes, No breakdown, Ulcer/ Wound Musculoskeletal: No Tenderness to Palpation of Joints or Extremities Lymphatic: No Cervical, Supraclavicular, or Inguinal Adenopathy Neurological: Cranial nerves II-XII grossly intact, Neuro grossly intact, Motor Exam 5/5 strength throughout Psych/Mental Status: Normal Affect, Appropriate, Alert and oriented to time, place, person, mood and affect Laboratory Results 12/03/18 04:45: WBC 7.3, RBC 4.22 L, Hgb 12.7 L, Hct 43.0, MCV 101.9 H, MCH 30.1, MCHC 29.5 L, RDW 15.0 H, RDW Differential 55.8 H, Plt Count 330, MPV 11.5, Immature Gran % (Auto) 0.100, Neut % (Auto) 69.7, Lymph % (Auto) 17.6 L, [place] % (Auto) 11.8 H, Eos % (Auto) 0.0, Baso % (Auto) 0.8, Absolute Neuts (auto) 5.1, Absolute Lymphs (auto) 1.28, Total Counted Not Reportable 12/03/18 04:45: Sodium 128 L, Potassium 5.0, Chloride 93 L, Carbon Dioxide 16.0 L, Anion Gap 19 H, BUN 38 H, Creatinine 2.68 H, Estim Creat Clear Calc 28.00, Est GFR (MDRD) Af Amer 31 L, Est GFR (MDRD) Non-Af 26 L, BUN/Creatinine Ratio 14.2, Glucose 1518 H*, Calcium 10.7 H, Total Bilirubin 0.60, AST 11 L, ALT 24, Alkaline Phosphatase 178 H, Total Protein 9.1 H, Albumin 3.3, Globulin 5.8 H, Albumin/Globulin Ratio 0.6 L 12/03/18 04:45: Acetone Level MODERATE H 12/03/18 04:45: Phosphorus 6.2 H, Magnesium 2.9 H 12/03/18 04:45: Hemoglobin A1c 11.0 H 12/03/18 04:48: POC Glucose > 500 H* 12/03/18 05:14: Specimen Type ART, Sample Site R Radial, pH 7.28 L, Bicarbonate Actual 14.7 L, POC Total CO2 16, Base Excess -12 L, O2 Saturation 92 L, ABG pCO2 31.2 L, ABG pO2 70 L, Ben Test POS, O2 Delivery Device Nasal Can, Liter Flow 2.0, Blood Gas Notified Whom ED , Blood Gas Notified Time 510 12/03/18 05:15: Lactic Acid 1.5 12/03/18 05:40: Urine Color Yellow, Urine Clarity Clear, Urine pH 6.0, Ur Specific [place] 1.010, Urine Protein 15 H, Urine Glucose (UA) 1000 H, Urine Ketones 15 H, Urine Occult Blood 50 H, Urine Nitrite Negative, Urine Bilirubin Negative, Urine Urobilinogen Normal, Ur Leukocyte Esterase Negative, Urine RBC 0 SEEN, Urine WBC 0 SEEN, Ur Squamous Epith Cells 0 SEEN, Urine Bacteria 0 SEEN, Urine Mucus 0 SEEN 12/03/18 05:59: POC Glucose > 500 H* 12/03/18 07:35: Sodium 137, Potassium 4.4, Chloride 108 H, Carbon Dioxide 19.0 L, Anion Gap 10, BUN 36 H, Creatinine 2.36 H, Estim Creat Clear Calc 31.80, Est GFR (MDRD) Af Amer 36 L, Est GFR (MDRD) Non-Af 30 L, BUN/Creatinine Ratio 15.3, Glucose 1129 H*, Calcium 9.6 12/03/18 07:35: Troponin I < 0.015 12/03/18 07:40: Urine Color Yellow, Urine Clarity Clear, Urine pH 6.0, Ur Specific [place] 1.010, Urine Protein 15 H, Urine Glucose (UA) 1000 H, Urine Ketones 15 H, Urine Occult Blood 150 H, Urine Nitrite Negative, Urine Bilirubin Negative, Urine Urobilinogen Normal, Ur Leukocyte Esterase Negative, Urine RBC 0-5 SEEN, Urine WBC 0 SEEN, Ur Squamous Epith Cells 0 SEEN, Urine Bacteria 0 SEEN, Urine Mucus 0 SEEN 12/03/18 08:40: Glucose 934 H* 12/03/18 09:35: Glucose Pending Diagnostic Data Chest X-Ray 12/03/18 06:00 IMPRESSION: Lungs are well expanded. There are mild fibrotic lung changes. There are NO acute infiltrates. There is no demonstrated pleural abnormality. Normal size heart. Electronically Signed: aRfy Vega MD at 7:04 EDT , Service support , Current Medications Acetaminophen (Tylenol) 650 mg PO Q6H PRN PRN PRN Reason: Non-cardiac pain (mod-severe) Hydrocodone Bitart/Acetaminophen ([place] 5mg-325mg) 1 - 2 tablet PO Q6H PRN PRN PRN Reason: MOD-SEVERE PAIN (4-10/10) Albuterol Sulfate (Ventolin Aerosols) 2.5 mg INHALATION Q2H PRN PRN PRN Reason: dyspnea, wheezing Albuterol/Ipratropium (Duoneb) 3 ml INHALATION Q4HWA.RT BERNIE Amlodipine Besylate (Norvasc) 10 mg PO DAILY [facility] Dextrose (D50w Syringe) 0 gm IV X1 PRN; Protocol PRN Reason: HYPOGLYCEMIA Doxazosin Mesylate (Cardura) 2 mg PO DAILY [facility] Heparin Sodium (Porcine) (Heparin Na) 5,000 unit SC Q12 BERNIE Hydralazine HCl (Apresoline Iv) 10 mg IV Q4H PRN PRN PRN Reason: SBP > 160 Insulin Human Lispro 100 unit/ (Sodium Chloride) 100 mls @ 5 mls/hr IV .Q20H BERNIE; Protocol Last Admin: 12/03/18 06:04 Dose: 5 mls/hr Sodium Chloride () 250 mls @ 15 mls/hr IV .[id number] PRN PRN Reason: SALINE FLUSH Sodium Chloride () 1,000 mls @ 150 mls/hr IV .[id number] [facility] Last Admin: 12/03/18 08:46 Dose: 150 mls/hr Pantoprazole Sodium 40 mg/ (Sodium Chloride) 110 mls @ 330 mls/hr IV Q12 [facility] Lorazepam (Ativan) 0.5 mg PO Q4H PRN PRN PRN Reason: ANXIETY Magnesium Hydroxide (Milk Of Magnesia) 30 ml PO DAILY PRN PRN PRN Reason: Constipation Morphine Sulfate () 1 - 2 mg IV Q4H PRN PRN PRN Reason: PAIN Ondansetron HCl (Zofran) 4 mg IV Q8H PRN PRN PRN Reason: NAUSEA/VOMITING Oxcarbazepine (Trileptal) 300 mg PO DAILY [facility] Quetiapine Fumarate (Seroquel) 100 mg PO DAILY [facility] Sodium Chloride () 5 - 15 ml IV UD PRN PRN Reason: SALINE FLUSH Medical Necessity - Tobacco Use Smoking Status: Current every day smoker - Approximately 1 pack/day cigarette tobacco usage. Tobacco Use: Cigarettes Assessment/Plan All Active Problems DKA (diabetic ketoacidoses) (Acute) Acute kidney injury (Acute) 1. Acute metabolic encephalopathy due to DKA in a newly diagnosed diabetic currenlty on heparin drip and IVF anion gap was 19, and blood glucose was 1518; came down to 934 this morning phosphorous is elevated at 6.2 and magnesium also elevated at 2.9 continue insulin drip; switch to D5 1/2 NS when blood glucose drops to <250 and transition to sc insulin dose UA showed no evidence of infection accuchecks q1hrly; BMP q2 hourly manager bilingual on board 2. DKA: as under 1. 3. Newly diagnosed diabetes mellitus: as under 1 4. ADRIEL: ]Cr on admission was 2.68, with baseline being <1. Cr is down to 2.36. Likely due to dehydration. WIll continue hydrating with IVF 5. Hypertension: on norvasc. lisinopril on hold o/a of ADRIEL. Hydralazine prn 6. Schizophrenia: On oxcarbazepine and Seroquel. Also on IM Haldol, per discussion with manager bilingual, seems to be on a dose of around 100 mg which is quite high. We will hold IM Haldol and give IM Haldol 1 mg as needed as needed. 7. Nicotine dependence: Nicotine patch. Counseled to quit DVT prophylaxis: Heparin Code Visit Inpatient E&M: 07734 Subs Hosp L3
--- NOTE | 2018-12-03 09:53 | PN_ITS ---
Patient Problems: Active and Suspected Problems DKA (diabetic ketoacidoses) (Acute) Acute kidney injury (Acute) Subjective: Patient seen and examined. He was admitted in the early hours of this morning from his assisted with a complaint of increased confusion and was found to have hypoglycemia. He had also been complaining of polyuria and polydipsia. He did have any previous diagnosis of diabetes. Blood sugar was thousand 518 on admission and A1c check was 11.8. He also had moderate acetone level and anion gap was 19 with sodium of 128. He has been hydrated with IV fluids and is on insulin drip. Patient had no complaints at time of review this morning. He denied any shortness of breath, chest pain, palpitations or dizziness, diarrhea vomiting. He was alert and oriented and confusion seems to have improved. Labs and vitals reviewed. Vitals/I&O's: Vital Signs Temp Pulse Resp BP Pulse Ox 98.2 F 112 H 18 115/73 93 12/03/18 07:00 12/03/18 09:00 12/03/18 09:00 12/03/18 09:00 12/03/18 09:00 Oxygen Flow Rate (L/min) 3 Oxygen Delivery Method Nasal Cannula Weight: 194 lb 10.691 oz Body Mass Index (BMI) 29.5 Finger Stick Blood Glucose 934 General: Alert, Oriented x3, Cooperative, No apparent distress HEENT: Atraumatic, PERRLA, EOMI, Normocephalic Oral: Dry Mucosa Neck: Supple, No JVD, Negative Carotid Bruits Lungs: Clear to auscultation, Normal air movement, No rhonchi, No wheeze, No rales Cardiovascular: Regular rate, Regular Rhythm, Normal S1, Normal S2, No murmurs Abdomen: Bowel Sounds Present, Soft, Non Tender, Non-Distended, No Hepato- splenomegaly Extremities: No clubbing, No cyanosis, No edema, Capillary Refill Less than 3 Seconds Skin: No rashes, No breakdown, Ulcer/ Wound Musculoskeletal: No Tenderness to Palpation of Joints or Extremities Lymphatic: No Cervical, Supraclavicular, or Inguinal Adenopathy Neurological: Cranial nerves II-XII grossly intact, Neuro grossly intact, Motor Exam 5/5 strength throughout Psych/Mental Status: Normal Affect, Appropriate, Alert and oriented to time, place, person, mood and affect Laboratory Results 12/03/18 04:45: WBC 7.3, RBC 4.22 L, Hgb 12.7 L, Hct 43.0, MCV 101.9 H, MCH 30.1, MCHC 29.5 L, RDW 15.0 H, RDW Differential 55.8 H, Plt Count 330, MPV 11.5, Immature Gran % (Auto) 0.100, Neut % (Auto) 69.7, Lymph % (Auto) 17.6 L, [place] % (Auto) 11.8 H, Eos % (Auto) 0.0, Baso % (Auto) 0.8, Absolute Neuts (auto) 5.1, Absolute Lymphs (auto) 1.28, Total Counted Not Reportable 12/03/18 04:45: Sodium 128 L, Potassium 5.0, Chloride 93 L, Carbon Dioxide 16.0 L, Anion Gap 19 H, BUN 38 H, Creatinine 2.68 H, Estim Creat Clear Calc 28.00, Est GFR (MDRD) Af Amer 31 L, Est GFR (MDRD) Non-Af 26 L, BUN/Creatinine Ratio 14.2, Glucose 1518 H*, Calcium 10.7 H, Total Bilirubin 0.60, AST 11 L, ALT 24, Alkaline Phosphatase 178 H, Total Protein 9.1 H, Albumin 3.3, Globulin 5.8 H, Albumin/Globulin Ratio 0.6 L 12/03/18 04:45: Acetone Level MODERATE H 12/03/18 04:45: Phosphorus 6.2 H, Magnesium 2.9 H 12/03/18 04:45: Hemoglobin A1c 11.0 H 12/03/18 04:48: POC Glucose > 500 H* 12/03/18 05:14: Specimen Type ART, Sample Site R Radial, pH 7.28 L, Bicarbonate Actual 14.7 L, POC Total CO2 16, Base Excess -12 L, O2 Saturation 92 L, ABG pCO2 31.2 L, ABG pO2 70 L, Ben Test POS, O2 Delivery Device Nasal Can, Liter Flow 2.0, Blood Gas Notified Whom ED , Blood Gas Notified Time 510 12/03/18 05:15: Lactic Acid 1.5 12/03/18 05:40: Urine Color Yellow, Urine Clarity Clear, Urine pH 6.0, Ur Specific [place] 1.010, Urine Protein 15 H, Urine Glucose (UA) 1000 H, Urine Ketones 15 H, Urine Occult Blood 50 H, Urine Nitrite Negative, Urine Bilirubin Negative, Urine Urobilinogen Normal, Ur Leukocyte Esterase Negative, Urine RBC 0 SEEN, Urine WBC 0 SEEN, Ur Squamous Epith Cells 0 SEEN, Urine Bacteria 0 SEEN, Urine Mucus 0 SEEN 12/03/18 05:59: POC Glucose > 500 H* 12/03/18 07:35: Sodium 137, Potassium 4.4, Chloride 108 H, Carbon Dioxide 19.0 L , Anion Gap 10, BUN 36 H, Creatinine 2.36 H, Estim Creat Clear Calc 31.80, Est GFR (MDRD) Af Amer 36 L, Est GFR (MDRD) Non-Af 30 L, BUN/Creatinine Ratio 15.3, Glucose 1129 H*, Calcium 9.6 12/03/18 07:35: Troponin I < 0.015 12/03/18 07:40: Urine Color Yellow, Urine Clarity Clear, Urine pH 6.0, Ur Specific [place] 1.010, Urine Protein 15 H, Urine Glucose (UA) 1000 H, Urine Ketones 15 H, Urine Occult Blood 150 H, Urine Nitrite Negative, Urine Bilirubin Negative, Urine Urobilinogen Normal, Ur Leukocyte Esterase Negative, Urine RBC 0-5 SEEN, Urine WBC 0 SEEN, Ur Squamous Epith Cells 0 SEEN, Urine Bacteria 0 SEEN, Urine Mucus 0 SEEN 12/03/18 08:40: Glucose 934 H* 12/03/18 09:35: Glucose Pending Diagnostic Data Chest X-Ray 12/03/18 06:00 IMPRESSION: Lungs are well expanded. There are mild fibrotic lung changes. There are NO acute infiltrates. There is no demonstrated pleural abnormality. Normal size heart. Electronically Signed: Rafy Vega MD at 7:04 EDT , Service support , Current Medications Acetaminophen (Tylenol) 650 mg PO Q6H PRN PRN PRN Reason: Non-cardiac pain (mod-severe) Hydrocodone Bitart/Acetaminophen ([place] 5mg-325mg) 1 - 2 tablet PO Q6H PRN PRN PRN Reason: MOD-SEVERE PAIN (4-10/10) Albuterol Sulfate (Ventolin Aerosols) 2.5 mg INHALATION Q2H PRN PRN PRN Reason: dyspnea, wheezing Albuterol/Ipratropium (Duoneb) 3 ml INHALATION Q4HWA.RT [facility] Amlodipine Besylate (Norvasc) 10 mg PO DAILY [facility] Dextrose (D50w Syringe) 0 gm IV X1 PRN; Protocol PRN Reason: HYPOGLYCEMIA Doxazosin Mesylate (Cardura) 2 mg PO DAILY [facility] Heparin Sodium (Porcine) (Heparin Na) 5,000 unit SC Q12 [facility] Hydralazine HCl (Apresoline Iv) 10 mg IV Q4H PRN PRN PRN Reason: SBP > 160 Insulin Human Lispro 100 unit/ (Sodium Chloride) 100 mls @ 5 mls/hr IV .Q20H BERNIE; Protocol Last Admin: 12/03/18 06:04 Dose: 5 mls/hr Sodium Chloride () 250 mls @ 15 mls/hr IV .[id number] PRN PRN Reason: SALINE FLUSH Sodium Chloride () 1,000 mls @ 150 mls/hr IV .Q6H40M [facility] Last Admin: 12/03/18 08:46 Dose: 150 mls/hr Pantoprazole Sodium 40 mg/ (Sodium Chloride) 110 mls @ 330 mls/hr IV Q12 [facility] Lorazepam (Ativan) 0.5 mg PO Q4H PRN PRN PRN Reason: ANXIETY Magnesium Hydroxide (Milk Of Magnesia) 30 ml PO DAILY PRN PRN PRN Reason: Constipation Morphine Sulfate () 1 - 2 mg IV Q4H PRN PRN PRN Reason: PAIN Ondansetron HCl (Zofran) 4 mg IV Q8H PRN PRN PRN Reason: NAUSEA/VOMITING Oxcarbazepine (Trileptal) 300 mg PO DAILY [facility] Quetiapine Fumarate (Seroquel) 100 mg PO DAILY [facility] Sodium Chloride () 5 - 15 ml IV UD PRN PRN Reason: SALINE FLUSH Medical Necessity - Tobacco Use Smoking Status: Current every day smoker - Approximately 1 pack/day cigarette tobacco usage. Tobacco Use: Cigarettes Assessment/Plan All Active Problems DKA (diabetic ketoacidoses) (Acute) Acute kidney injury (Acute) 1. Acute metabolic encephalopathy due to DKA in a newly diagnosed diabetic * currenlty on heparin drip and IVF * anion gap was 19, and blood glucose was 1518; came down to 934 this morning * phosphorous is elevated at 6.2 and magnesium also elevated at 2.9 * continue insulin drip; switch to D5 1/2 NS when blood glucose drops to <250 and transition to sc insulin dose * UA showed no evidence of infection * accuchecks q1hrly; BMP q2 hourly * atmospheric drier tender on board * 2. DKA: as under 1. 3. Newly diagnosed diabetes mellitus: as under 1 4. ADRIEL: * ]Cr on admission was 2.68, with baseline being <1. * Cr is down to 2.36. Likely due to dehydration. * WIll continue hydrating with IVF * 5. Hypertension: on norvasc. lisinopril on hold o/a of ADRIEL. Hydralazine prn 6. Schizophrenia: * On oxcarbazepine and Seroquel. * Also on IM Haldol, per discussion with atmospheric drier tender, seems to be on a dose of around 100 mg which is quite high. We will hold IM Haldol and give IM Haldol 1 mg as needed as needed. * 7. Nicotine dependence: Nicotine patch. Counseled to quit DVT prophylaxis: Heparin Code Visit Inpatient E&M: 18757 Subs Hosp L3
[2018-12-03 09:58] LABS: Glucose 885 mg/dL (74-106)
[2018-12-03] MEDS: Ipratropium/Albuterol Sulfate 3 ML AMPUL.NEB INHALATION ×3 (09:58→19:06)
[2018-12-03 10:59] LABS: Glucose 795 mg/dL (74-106)
[2018-12-03] MEDS: amLODIPine 10 MG Tablet PO (11:22)
[2018-12-03] MEDS: Doxazosin 1 MG Tablet 2 MG PO (11:22)
[2018-12-03] MEDS: QUEtiapine 100 MG Tablet PO (11:22)
[2018-12-03 11:53] LABS: Anion Gap 9 (5-15); BUN 31 mg/dL (7-18); BUN/Creat Ratio 16.9 RATIO (10-20); Calcium,Total 9.4 mg/dL (8.5-10.1); Chloride 119 mmol/L (98-107); Creatinine, Serum 1.83 mg/dL (0.70-1.30); EST Glomerular Filtration Rate 40 mL/min (>60); Est Glom Filt Rate - Afr Amer 49 mL/min (>60); Estimated Creatinine Clearance 41.01 ml/min; Glucose 722 mg/dL (74-106); Potassium 4.3 mmol/L (3.5-5.1); Sodium Level 148 mmol/L (136-145)
[2018-12-03 13:00] LABS: Glucose 581 mg/dL (74-106)
[2018-12-03 13:31] LABS: Bedside Glucose > 500 mg/dL (70-110)
[2018-12-03 14:04] LABS: Glucose 659 mg/dL (74-106)
[2018-12-03] MEDS: 0.45% Normal Saline 1,000 ML 150 ML IV ×2 (14:15→20:59)
[2018-12-03 15:25] LABS: Anion Gap 9 (5-15); BUN 29 mg/dL (7-18); BUN/Creat Ratio 17.3 RATIO (10-20); Calcium,Total 9.6 mg/dL (8.5-10.1); Chloride 122 mmol/L (98-107); Creatinine, Serum 1.68 mg/dL (0.70-1.30); EST Glomerular Filtration Rate 44 mL/min (>60); Est Glom Filt Rate - Afr Amer 54 mL/min (>60); Estimated Creatinine Clearance 44.67 ml/min; Glucose 617 mg/dL (74-106); Potassium 4.3 mmol/L (3.5-5.1); Sodium Level 151 mmol/L (136-145)
--- NOTE | 2018-12-03 16:00 | RAD_ITS ---
STUDY: X-RAY CHEST REASON FOR EXAM: Male, 63 years old. Shortness of breath TECHNIQUE: Single AP portable view of the chest. COMPARISON: Previous study of 12/03/2018 FINDINGS: program coordinator leads are present. The lungs are clear and expanded. There is no demonstrated pleural abnormality. Normal size heart. Normal mediastinum and william. Normal visualized pulmonary arteries. Normal visualized aortic arch and descending thoracic aorta. Normal visualized thoracic spine. Normal visualized ribs, clavicles, and shoulders. There is no demonstrated abnormality of the visualized soft tissue structures of the upper abdomen. RAD/Chest 1 View (Portable) IMPRESSION: Normal x-ray examination of the chest. Electronically Signed: Doc Rubi MD at 18:02 EDT , Service support ,
[2018-12-03 16:37] LABS: Glucose 529 mg/dL (74-106)
[2018-12-03 17:40] LABS: Glucose 476 mg/dL (74-106)
[2018-12-03 18:11] LABS: Bedside Glucose 406 mg/dL (70-110)
[2018-12-03 20:11] LABS: Bedside Glucose 404 mg/dL (70-110)
[2018-12-03] MEDS: Heparin Injection (Vial) 5,000 UNIT/ML VIAL 5000 UNIT SC (20:59)
[2018-12-03 21:00] LABS: Bedside Glucose 398 mg/dL (70-110)
[2018-12-03 21:56] LABS: Anion Gap 4 (5-15); BUN 27 mg/dL (7-18); BUN/Creat Ratio 18.2 RATIO (10-20); Calcium,Total 9.3 mg/dL (8.5-10.1); Chloride 126 mmol/L (98-107); Creatinine, Serum 1.48 mg/dL (0.70-1.30); EST Glomerular Filtration Rate 51 mL/min (>60); Est Glom Filt Rate - Afr Amer 62 mL/min (>60); Estimated Creatinine Clearance 50.71 ml/min; Glucose 366 mg/dL (74-106); Potassium 3.9 mmol/L (3.5-5.1); Sodium Level 154 mmol/L (136-145)
[2018-12-03 22:01] LABS: Bedside Glucose 328 mg/dL (70-110)
[2018-12-03 23:01] LABS: Bedside Glucose 340 mg/dL (70-110)
--- NOTE | 2018-12-03 23:46 | NURSING ---
pt dentures removed, placed in denture cup at bedside.
[2018-12-04] VITALS (27 sets, daily range): BP systolic 103–140; BP diastolic 56–88; PULSE 99–120; RESP 12–27; TEMP 36.6–37.1; O2SAT 90–97
[2018-12-04 00:01] LABS: Bedside Glucose 317 mg/dL (70-110)
[2018-12-04 01:16] LABS: Bedside Glucose 350 mg/dL (70-110)
[2018-12-04 01:39] LABS: Anion Gap 2 (5-15); BUN 27 mg/dL (7-18); BUN/Creat Ratio 16.5 RATIO (10-20); Calcium,Total 9.4 mg/dL (8.5-10.1); Chloride 126 mmol/L (98-107); Creatinine, Serum 1.64 mg/dL (0.70-1.30); EST Glomerular Filtration Rate 46 mL/min (>60); Est Glom Filt Rate - Afr Amer 55 mL/min (>60); Estimated Creatinine Clearance 45.76 ml/min; Glucose 345 mg/dL (74-106); Potassium 3.8 mmol/L (3.5-5.1); Sodium Level 154 mmol/L (136-145)
[2018-12-04 02:11] LABS: Bedside Glucose 300 mg/dL (70-110)
[2018-12-04 03:11] LABS: Bedside Glucose 343 mg/dL (70-110)
[2018-12-04 04:06] LABS: Bedside Glucose 293 mg/dL (70-110)
[2018-12-04 05:01] LABS: Bedside Glucose 272 mg/dL (70-110)
[2018-12-04 05:35] LABS: Anion Gap 3 (5-15); BUN 28 mg/dL (7-18); BUN/Creat Ratio 15.8 RATIO (10-20); Calcium,Total 9.3 mg/dL (8.5-10.1); Chloride 128 mmol/L (98-107); Creatinine, Serum 1.77 mg/dL (0.70-1.30); EST Glomerular Filtration Rate 42 mL/min (>60); Est Glom Filt Rate - Afr Amer 51 mL/min (>60); Glucose 275 mg/dL (74-106); Potassium 3.6 mmol/L (3.5-5.1); Sodium Level 156 mmol/L (136-145)
[2018-12-04 06:00] LABS: Bedside Glucose 236 mg/dL (70-110)
[2018-12-04 06:02] LABS: Absolute Lymphocyte Count 2.87 X10^3/ul (0.83-4.51); Absolute Neutrophil Count 8.3 X10^3/uL (2.0-7.7); Basophil# 0.06 X10^3/uL; Basophil% 0.5 % (0-1); Hematocrit 37.3 % (40-54); Hemoglobin 12.1 g/dl (13.0-16.5); Lymphocyte # 2.87 X10^3/ul (4.0); Lymphocyte % 23.2 % (19-41); Mean Corp Hgb Conc 32.4 g/gl (32-36); Mean Corpuscular Hgb 29.2 pg (27.0-32.0); Mean Corpuscular Volume 90.1 fL (80-94); Mean Platelet Vol. 10.7 fl (6.2-12.0); Monocyte# 1.11 X10^3/uL; Neutrophil % 67.1 % (47-70); Platelet Count 326 K/mm3 (150-450); RBC Distribution Width CV 14.9 % (11.6-14.6); RBC Distribution Width SD 48.3 fl (35.1-43.9); Red Blood Count 4.14 M/mm3 (4.6-6.2); White Blood Count 12.4 K/mm3 (4.4-11.0)
[2018-12-04 06:03] LABS: POSITIVE COUNT NO; POSITIVE DIFFERENTIAL NO; POSITIVE MORPHOLOGY NO
[2018-12-04 07:01] LABS: Bedside Glucose 217 mg/dL (70-110)
[2018-12-04] MEDS: Ipratropium/Albuterol Sulfate 3 ML AMPUL.NEB INHALATION (07:01)
[2018-12-04 07:55] LABS: Bedside Glucose 222 mg/dL (70-110)
--- NOTE | 2018-12-04 08:10 | PCM.PN.INT ---
Subjective: Patient did okay overnight. No hemodynamic instability has been reported. Patient's remained confused, but directable. Patient has remained on an insulin drip overnight. Patient is currently n.p.o. Patient is reporting thirst, but otherwise no complaints. Objective: Just called from microbiology. Patient has staph, MSSA, reported in a blood culture. General: Alert, Cooperative, No apparent distress, Disoriented, - - No conversational dyspnea noted. RASS 0. HEENT: Atraumatic, PERRLA, EOMI, Normocephalic, - - No scleral icterus or injection noted. Oral: Moist Mucosa, No Gingival or Mucosal Lesions/ Ulcerations Neck: Supple, No JVD, No Nodes, Trachea Midline Lungs: No rhonchi, No wheeze, No rales, Diminished, - - Fair effort. Cardiovascular: Normal S1, Normal S2, No murmurs, No rub noted, No Gallop, Tachycardic Abdomen: Bowel Sounds Present, Soft, Non Tender, Non-Distended Extremities: No clubbing, No cyanosis, No edema, Capillary Refill Less than 3 Seconds Skin: No rashes, No breakdown Musculoskeletal: No Tenderness to Palpation of Joints or Extremities Lymphatic: No Cervical, Supraclavicular, or Inguinal Adenopathy Neurological: Cranial nerves II-XII grossly intact, Neuro grossly intact, Motor Exam 5/5 strength throughout Psych/Mental Status: Anxious Vital Signs Temp Pulse Resp BP Pulse Ox 37.1 C 115 H 20 H 139/84 H 93 12/04/18 04:00 12/04/18 07:05 12/04/18 07:01 12/04/18 07:00 12/04/18 07:01 Oxygen Flow Rate (L/min) 2 Oxygen Delivery Method Nasal Cannula Weight: 87.5 kg Body Mass Index (BMI) 29.5 Finger Stick Blood Glucose 217 Intake and Output for Last 24 Hours 12/02/18 12/03/18 12/04/18 23:59 23:59 23:59 Intake Total 4615 / 4615 1905 / 1905 Output Total 2950 / 2950 450 / 450 Balance 1665 / 1665 1455 / 1455 Labs (Last 48 Hours) 12/03/18 12/03/18 12/03/18 04:45 04:45 04:45 WBC 7.3 RBC 4.22 L Hgb 12.7 L Hct 43.0 MCV 101.9 H MCH 30.1 MCHC 29.5 L RDW 15.0 H RDW Differential 55.8 H Plt Count 330 MPV 11.5 Immature Gran % (Auto) 0.100 Neut % (Auto) 69.7 Lymph % (Auto) 17.6 L [place] % (Auto) 11.8 H Eos % (Auto) 0.0 Baso % (Auto) 0.8 Absolute Neuts (auto) 5.1 Absolute Lymphs (auto) 1.28 Total Counted Not Reportable Specimen Type Sample Site pH Bicarbonate Actual POC Total CO2 Base Excess O2 Saturation ABG pCO2 ABG pO2 Ben Test O2 Delivery Device Liter Flow Blood Gas Notified Whom Blood Gas Notified Time Sodium 128 L Potassium 5.0 Chloride 93 L Carbon Dioxide 16.0 L Anion Gap 19 H BUN 38 H Creatinine 2.68 H Estim Creat Clear Calc 28.00 Est GFR (MDRD) Af Amer 31 L Est GFR (MDRD) Non-Af 26 L BUN/Creatinine Ratio 14.2 Glucose 1518 H* Hemoglobin A1c Lactic Acid Calcium 10.7 H Phosphorus Magnesium Total Bilirubin 0.60 AST 11 L ALT 24 Alkaline Phosphatase 178 H Troponin I Total Protein 9.1 H Albumin 3.3 Globulin 5.8 H Albumin/Globulin Ratio 0.6 L Urine Color Urine Clarity Urine pH Ur Specific [place] Urine Protein Urine Glucose (UA) Urine Ketones Urine Occult Blood Urine Nitrite Urine Bilirubin Urine Urobilinogen Ur Leukocyte Esterase Urine RBC Urine WBC Ur Squamous Epith Cells Urine Bacteria Urine Mucus Acetone Level MODERATE H POC Glucose 12/03/18 12/03/18 12/03/18 04:45 04:45 04:48 WBC RBC Hgb Hct MCV MCH MCHC RDW RDW Differential Plt Count MPV Immature Gran % (Auto) Neut % (Auto) Lymph % (Auto) [place] % (Auto) Eos % (Auto) Baso % (Auto) Absolute Neuts (auto) Absolute Lymphs (auto) Total Counted Specimen Type Sample Site pH Bicarbonate Actual POC Total CO2 Base Excess O2 Saturation ABG pCO2 ABG pO2 Ben Test O2 Delivery Device Liter Flow Blood Gas Notified Whom Blood Gas Notified Time Sodium Potassium Chloride Carbon Dioxide Anion Gap BUN Creatinine Estim Creat Clear Calc Est GFR (MDRD) Af Amer Est GFR (MDRD) Non-Af BUN/Creatinine Ratio Glucose Hemoglobin A1c 11.0 H Lactic Acid Calcium Phosphorus 6.2 H Magnesium 2.9 H Total Bilirubin AST ALT Alkaline Phosphatase Troponin I Total Protein Albumin Globulin Albumin/Globulin Ratio Urine Color Urine Clarity Urine pH Ur Specific [place] Urine Protein Urine Glucose (UA) Urine Ketones Urine Occult Blood Urine Nitrite Urine Bilirubin Urine Urobilinogen Ur Leukocyte Esterase Urine RBC Urine WBC Ur Squamous Epith Cells Urine Bacteria Urine Mucus Acetone Level POC Glucose > 500 H* 12/03/18 12/03/18 12/03/18 05:14 05:15 05:40 WBC RBC Hgb Hct MCV MCH MCHC RDW RDW Differential Plt Count MPV Immature Gran % (Auto) Neut % (Auto) Lymph % (Auto) [place] % (Auto) Eos % (Auto) Baso % (Auto) Absolute Neuts (auto) Absolute Lymphs (auto) Total Counted Specimen Type ART Sample Site R Radial pH 7.28 L Bicarbonate Actual 14.7 L POC Total CO2 16 Base Excess -12 L O2 Saturation 92 L ABG pCO2 31.2 L ABG pO2 70 L Ben Test POS O2 Delivery Device Nasal Can Liter Flow 2.0 Blood Gas Notified Whom ED MD Blood Gas Notified Time 510 Sodium Potassium Chloride Carbon Dioxide Anion Gap BUN Creatinine Estim Creat Clear Calc Est GFR (MDRD) Af Amer Est GFR (MDRD) Non-Af BUN/Creatinine Ratio Glucose Hemoglobin A1c Lactic Acid 1.5 Calcium Phosphorus Magnesium Total Bilirubin AST ALT Alkaline Phosphatase Troponin I Total Protein Albumin Globulin Albumin/Globulin Ratio Urine Color Yellow Urine Clarity Clear Urine pH 6.0 Ur Specific [place] 1.010 Urine Protein 15 H Urine Glucose (UA) 1000 H Urine Ketones 15 H Urine Occult Blood 50 H Urine Nitrite Negative Urine Bilirubin Negative Urine Urobilinogen Normal Ur Leukocyte Esterase Negative Urine RBC 0 SEEN Urine WBC 0 SEEN Ur Squamous Epith Cells 0 SEEN Urine Bacteria 0 SEEN Urine Mucus 0 SEEN Acetone Level POC Glucose 12/03/18 12/03/18 12/03/18 05:59 07:35 07:35 WBC RBC Hgb Hct MCV MCH MCHC RDW RDW Differential Plt Count MPV Immature Gran % (Auto) Neut % (Auto) Lymph % (Auto) [place] % (Auto) Eos % (Auto) Baso % (Auto) Absolute Neuts (auto) Absolute Lymphs (auto) Total Counted Specimen Type Sample Site pH Bicarbonate Actual POC Total CO2 Base Excess O2 Saturation ABG pCO2 ABG pO2 Ben Test O2 Delivery Device Liter Flow Blood Gas Notified Whom Blood Gas Notified Time Sodium 137 Potassium 4.4 Chloride 108 H Carbon Dioxide 19.0 L Anion Gap 10 BUN 36 H Creatinine 2.36 H Estim Creat Clear Calc 31.80 Est GFR (MDRD) Af Amer 36 L Est GFR (MDRD) Non-Af 30 L BUN/Creatinine Ratio 15.3 Glucose 1129 H* Hemoglobin A1c Lactic Acid Calcium 9.6 Phosphorus Magnesium Total Bilirubin AST ALT Alkaline Phosphatase Troponin I < 0.015 Total Protein Albumin Globulin Albumin/Globulin Ratio Urine Color Urine Clarity Urine pH Ur Specific [place] Urine Protein Urine Glucose (UA) Urine Ketones Urine Occult Blood Urine Nitrite Urine Bilirubin Urine Urobilinogen Ur Leukocyte Esterase Urine RBC Urine WBC Ur Squamous Epith Cells Urine Bacteria Urine Mucus Acetone Level POC Glucose > 500 H* 12/03/18 12/03/18 12/03/18 07:40 08:40 09:35 WBC RBC Hgb Hct MCV MCH MCHC RDW RDW Differential Plt Count MPV Immature Gran % (Auto) Neut % (Auto) Lymph % (Auto) [place] % (Auto) Eos % (Auto) Baso % (Auto) Absolute Neuts (auto) Absolute Lymphs (auto) Total Counted Specimen Type Sample Site pH Bicarbonate Actual POC Total CO2 Base Excess O2 Saturation ABG pCO2 ABG pO2 Ben Test O2 Delivery Device Liter Flow Blood Gas Notified Whom Blood Gas Notified Time Sodium Potassium Chloride Carbon Dioxide Anion Gap BUN Creatinine Estim Creat Clear Calc Est GFR (MDRD) Af Amer Est GFR (MDRD) Non-Af BUN/Creatinine Ratio Glucose 934 H* 885 H* Hemoglobin A1c Lactic Acid Calcium Phosphorus Magnesium Total Bilirubin AST ALT Alkaline Phosphatase Troponin I Total Protein Albumin Globulin Albumin/Globulin Ratio Urine Color Yellow Urine Clarity Clear Urine pH 6.0 Ur Specific [place] 1.010 Urine Protein 15 H Urine Glucose (UA) 1000 H Urine Ketones 15 H Urine Occult Blood 150 H Urine Nitrite Negative Urine Bilirubin Negative Urine Urobilinogen Normal Ur Leukocyte Esterase Negative Urine RBC 0-5 SEEN Urine WBC 0 SEEN Ur Squamous Epith Cells 0 SEEN Urine Bacteria 0 SEEN Urine Mucus 0 SEEN Acetone Level POC Glucose 12/03/18 12/03/18 12/03/18 10:30 11:30 12:35 WBC RBC Hgb Hct MCV MCH MCHC RDW RDW Differential Plt Count MPV Immature Gran % (Auto) Neut % (Auto) Lymph % (Auto) [place] % (Auto) Eos % (Auto) Baso % (Auto) Absolute Neuts (auto) Absolute Lymphs (auto) Total Counted Specimen Type Sample Site pH Bicarbonate Actual POC Total CO2 Base Excess O2 Saturation ABG pCO2 ABG pO2 Ben Test O2 Delivery Device Liter Flow Blood Gas Notified Whom Blood Gas Notified Time Sodium 148 H Potassium 4.3 Chloride 119 H Carbon Dioxide 20.0 L Anion Gap 9 BUN 31 H Creatinine 1.83 H Estim Creat Clear Calc 41.01 Est GFR (MDRD) Af Amer 49 L Est GFR (MDRD) Non-Af 40 L BUN/Creatinine Ratio 16.9 Glucose 795 H* 722 H* 581 H* Hemoglobin A1c Lactic Acid Calcium 9.4 Phosphorus Magnesium Total Bilirubin AST ALT Alkaline Phosphatase Troponin I Total Protein Albumin Globulin Albumin/Globulin Ratio Urine Color Urine Clarity Urine pH Ur Specific [place] Urine Protein Urine Glucose (UA) Urine Ketones Urine Occult Blood Urine Nitrite Urine Bilirubin Urine Urobilinogen Ur Leukocyte Esterase Urine RBC Urine WBC Ur Squamous Epith Cells Urine Bacteria Urine Mucus Acetone Level POC Glucose 12/03/18 12/03/18 12/03/18 13:24 13:30 14:50 WBC RBC Hgb Hct MCV MCH MCHC RDW RDW Differential Plt Count MPV Immature Gran % (Auto) Neut % (Auto) Lymph % (Auto) [place] % (Auto) Eos % (Auto) Baso % (Auto) Absolute Neuts (auto) Absolute Lymphs (auto) Total Counted Specimen Type Sample Site pH Bicarbonate Actual POC Total CO2 Base Excess O2 Saturation ABG pCO2 ABG pO2 Ben Test O2 Delivery Device Liter Flow Blood Gas Notified Whom Blood Gas Notified Time Sodium 151 H Potassium 4.3 Chloride 122 H Carbon Dioxide 20.0 L Anion Gap 9 BUN 29 H Creatinine 1.68 H Estim Creat Clear Calc 44.67 Est GFR (MDRD) Af Amer 54 L Est GFR (MDRD) Non-Af 44 L BUN/Creatinine Ratio 17.3 Glucose 659 H* 617 H* Hemoglobin A1c Lactic Acid Calcium 9.6 Phosphorus Magnesium Total Bilirubin AST ALT Alkaline Phosphatase Troponin I Total Protein Albumin Globulin Albumin/Globulin Ratio Urine Color Urine Clarity Urine pH Ur Specific [place] Urine Protein Urine Glucose (UA) Urine Ketones Urine Occult Blood Urine Nitrite Urine Bilirubin Urine Urobilinogen Ur Leukocyte Esterase Urine RBC Urine WBC Ur Squamous Epith Cells Urine Bacteria Urine Mucus Acetone Level POC Glucose > 500 H* 12/03/18 12/03/18 12/03/18 16:00 17:05 18:07 WBC RBC Hgb Hct MCV MCH MCHC RDW RDW Differential Plt Count MPV Immature Gran % (Auto) Neut % (Auto) Lymph % (Auto) [place] % (Auto) Eos % (Auto) Baso % (Auto) Absolute Neuts (auto) Absolute Lymphs (auto) Total Counted Specimen Type Sample Site pH Bicarbonate Actual POC Total CO2 Base Excess O2 Saturation ABG pCO2 ABG pO2 Ben Test O2 Delivery Device Liter Flow Blood Gas Notified Whom Blood Gas Notified Time Sodium Potassium Chloride Carbon Dioxide Anion Gap BUN Creatinine Estim Creat Clear Calc Est GFR (MDRD) Af Amer Est GFR (MDRD) Non-Af BUN/Creatinine Ratio Glucose 529 H* 476 H* Hemoglobin A1c Lactic Acid Calcium Phosphorus Magnesium Total Bilirubin AST ALT Alkaline Phosphatase Troponin I Total Protein Albumin Globulin Albumin/Globulin Ratio Urine Color Urine Clarity Urine pH Ur Specific [place] Urine Protein Urine Glucose (UA) Urine Ketones Urine Occult Blood Urine Nitrite Urine Bilirubin Urine Urobilinogen Ur Leukocyte Esterase Urine RBC Urine WBC Ur Squamous Epith Cells Urine Bacteria Urine Mucus Acetone Level POC Glucose 406 H 12/03/18 12/03/18 12/03/18 20:04 20:55 21:30 WBC RBC Hgb Hct MCV MCH MCHC RDW RDW Differential Plt Count MPV Immature Gran % (Auto) Neut % (Auto) Lymph % (Auto) [place] % (Auto) Eos % (Auto) Baso % (Auto) Absolute Neuts (auto) Absolute Lymphs (auto) Total Counted Specimen Type Sample Site pH Bicarbonate Actual POC Total CO2 Base Excess O2 Saturation ABG pCO2 ABG pO2 Ben Test O2 Delivery Device Liter Flow Blood Gas Notified Whom Blood Gas Notified Time Sodium 154 H Potassium 3.9 Chloride 126 H Carbon Dioxide 24.0 Anion Gap 4 L BUN 27 H Creatinine 1.48 H Estim Creat Clear Calc 50.71 Est GFR (MDRD) Af Amer 62 Est GFR (MDRD) Non-Af 51 L BUN/Creatinine Ratio 18.2 Glucose 366 H Hemoglobin A1c Lactic Acid Calcium 9.3 Phosphorus Magnesium Total Bilirubin AST ALT Alkaline Phosphatase Troponin I Total Protein Albumin Globulin Albumin/Globulin Ratio Urine Color Urine Clarity Urine pH Ur Specific [place] Urine Protein Urine Glucose (UA) Urine Ketones Urine Occult Blood Urine Nitrite Urine Bilirubin Urine Urobilinogen Ur Leukocyte Esterase Urine RBC Urine WBC Ur Squamous Epith Cells Urine Bacteria Urine Mucus Acetone Level POC Glucose 404 H 398 H 12/03/18 12/03/18 12/03/18 21:58 22:53 23:55 WBC RBC Hgb Hct MCV MCH MCHC RDW RDW Differential Plt Count MPV Immature Gran % (Auto) Neut % (Auto) Lymph % (Auto) [place] % (Auto) Eos % (Auto) Baso % (Auto) Absolute Neuts (auto) Absolute Lymphs (auto) Total Counted Specimen Type Sample Site pH Bicarbonate Actual POC Total CO2 Base Excess O2 Saturation ABG pCO2 ABG pO2 Ben Test O2 Delivery Device Liter Flow Blood Gas Notified Whom Blood Gas Notified Time Sodium Potassium Chloride Carbon Dioxide Anion Gap BUN Creatinine Estim Creat Clear Calc Est GFR (MDRD) Af Amer Est GFR (MDRD) Non-Af BUN/Creatinine Ratio Glucose Hemoglobin A1c Lactic Acid Calcium Phosphorus Magnesium Total Bilirubin AST ALT Alkaline Phosphatase Troponin I Total Protein Albumin Globulin Albumin/Globulin Ratio Urine Color Urine Clarity Urine pH Ur Specific [place] Urine Protein Urine Glucose (UA) Urine Ketones Urine Occult Blood Urine Nitrite Urine Bilirubin Urine Urobilinogen Ur Leukocyte Esterase Urine RBC Urine WBC Ur Squamous Epith Cells Urine Bacteria Urine Mucus Acetone Level POC Glucose 328 H 340 H 317 H 12/04/18 12/04/18 12/04/18 01:02 01:05 02:05 WBC RBC Hgb Hct MCV MCH MCHC RDW RDW Differential Plt Count MPV Immature Gran % (Auto) Neut % (Auto) Lymph % (Auto) [place] % (Auto) Eos % (Auto) Baso % (Auto) Absolute Neuts (auto) Absolute Lymphs (auto) Total Counted Specimen Type Sample Site pH Bicarbonate Actual POC Total CO2 Base Excess O2 Saturation ABG pCO2 ABG pO2 Ben Test O2 Delivery Device Liter Flow Blood Gas Notified Whom Blood Gas Notified Time Sodium 154 H Potassium 3.8 Chloride 126 H Carbon Dioxide 26.0 Anion Gap 2 L BUN 27 H Creatinine 1.64 H Estim Creat Clear Calc 45.76 Est GFR (MDRD) Af Amer 55 L Est GFR (MDRD) Non-Af 46 L BUN/Creatinine Ratio 16.5 Glucose 345 H Hemoglobin A1c Lactic Acid Calcium 9.4 Phosphorus Magnesium Total Bilirubin AST ALT Alkaline Phosphatase Troponin I Total Protein Albumin Globulin Albumin/Globulin Ratio Urine Color Urine Clarity Urine pH Ur Specific [place] Urine Protein Urine Glucose (UA) Urine Ketones Urine Occult Blood Urine Nitrite Urine Bilirubin Urine Urobilinogen Ur Leukocyte Esterase Urine RBC Urine WBC Ur Squamous Epith Cells Urine Bacteria Urine Mucus Acetone Level POC Glucose 350 H 300 H 12/04/18 12/04/18 12/04/18 03:02 04:00 04:55 WBC RBC Hgb Hct MCV MCH MCHC RDW RDW Differential Plt Count MPV Immature Gran % (Auto) Neut % (Auto) Lymph % (Auto) [place] % (Auto) Eos % (Auto) Baso % (Auto) Absolute Neuts (auto) Absolute Lymphs (auto) Total Counted Specimen Type Sample Site pH Bicarbonate Actual POC Total CO2 Base Excess O2 Saturation ABG pCO2 ABG pO2 Ben Test O2 Delivery Device Liter Flow Blood Gas Notified Whom Blood Gas Notified Time Sodium Potassium Chloride Carbon Dioxide Anion Gap BUN Creatinine Estim Creat Clear Calc Est GFR (MDRD) Af Amer Est GFR (MDRD) Non-Af BUN/Creatinine Ratio Glucose Hemoglobin A1c Lactic Acid Calcium Phosphorus Magnesium Total Bilirubin AST ALT Alkaline Phosphatase Troponin I Total Protein Albumin Globulin Albumin/Globulin Ratio Urine Color Urine Clarity Urine pH Ur Specific [place] Urine Protein Urine Glucose (UA) Urine Ketones Urine Occult Blood Urine Nitrite Urine Bilirubin Urine Urobilinogen Ur Leukocyte Esterase Urine RBC Urine WBC Ur Squamous Epith Cells Urine Bacteria Urine Mucus Acetone Level POC Glucose 343 H 293 H 272 H 12/04/18 12/04/18 12/04/18 05:00 05:00 05:55 WBC 12.4 H RBC 4.14 L Hgb 12.1 L Hct 37.3 L MCV 90.1 MCH 29.2 MCHC 32.4 RDW 14.9 H RDW Differential 48.3 H Plt Count 326 MPV 10.7 Immature Gran % (Auto) 0.200 Neut % (Auto) 67.1 Lymph % (Auto) 23.2 [place] % (Auto) 9.0 Eos % (Auto) 0.0 Baso % (Auto) 0.5 Absolute Neuts (auto) 8.3 H Absolute Lymphs (auto) 2.87 Total Counted Not Reportable Specimen Type Sample Site pH Bicarbonate Actual POC Total CO2 Base Excess O2 Saturation ABG pCO2 ABG pO2 Ben Test O2 Delivery Device Liter Flow Blood Gas Notified Whom Blood Gas Notified Time Sodium 156 H Potassium 3.6 Chloride 128 H* Carbon Dioxide 25.0 Anion Gap 3 L BUN 28 H Creatinine 1.77 H Estim Creat Clear Calc 42.40 Est GFR (MDRD) Af Amer 51 L Est GFR (MDRD) Non-Af 42 L BUN/Creatinine Ratio 15.8 Glucose 275 H Hemoglobin A1c Lactic Acid Calcium 9.3 Phosphorus Magnesium Total Bilirubin AST ALT Alkaline Phosphatase Troponin I Total Protein Albumin Globulin Albumin/Globulin Ratio Urine Color Urine Clarity Urine pH Ur Specific [place] Urine Protein Urine Glucose (UA) Urine Ketones Urine Occult Blood Urine Nitrite Urine Bilirubin Urine Urobilinogen Ur Leukocyte Esterase Urine RBC Urine WBC Ur Squamous Epith Cells Urine Bacteria Urine Mucus Acetone Level POC Glucose 236 H 12/04/18 12/04/18 06:58 07:48 WBC RBC Hgb Hct MCV MCH MCHC RDW RDW Differential Plt Count MPV Immature Gran % (Auto) Neut % (Auto) Lymph % (Auto) [place] % (Auto) Eos % (Auto) Baso % (Auto) Absolute Neuts (auto) Absolute Lymphs (auto) Total Counted Specimen Type Sample Site pH Bicarbonate Actual POC Total CO2 Base Excess O2 Saturation ABG pCO2 ABG pO2 Ben Test O2 Delivery Device Liter Flow Blood Gas Notified Whom Blood Gas Notified Time Sodium Potassium Chloride Carbon Dioxide Anion Gap BUN Creatinine Estim Creat Clear Calc Est GFR (MDRD) Af Amer Est GFR (MDRD) Non-Af BUN/Creatinine Ratio Glucose Hemoglobin A1c Lactic Acid Calcium Phosphorus Magnesium Total Bilirubin AST ALT Alkaline Phosphatase Troponin I Total Protein Albumin Globulin Albumin/Globulin Ratio Urine Color Urine Clarity Urine pH Ur Specific [place] Urine Protein Urine Glucose (UA) Urine Ketones Urine Occult Blood Urine Nitrite Urine Bilirubin Urine Urobilinogen Ur Leukocyte Esterase Urine RBC Urine WBC Ur Squamous Epith Cells Urine Bacteria Urine Mucus Acetone Level POC Glucose 217 H 222 H Clinical Impression(s) from Imaging Studies Chest X-Ray 12/03/18 16:00 IMPRESSION: Normal x-ray examination of the chest. Electronically Signed: Doc Rubi MD at 18:02 EDT , Service support , Medical Necessity - Tobacco Use Smoking Status: Current every day smoker Tobacco Use: Cigarettes Assessment/Plan All Active Problems DKA (diabetic ketoacidoses) (Acute) Acute kidney injury (Acute) RECOMMENDATIONS: 1. Continue supplemental IV fluid hydration and insulin infusion per DKA protocol. 2. Continue serial monitoring of metabolic profiles. 3. Transition to basal insulin, once anion gap has been closed x2. 4. Aggressive electrolyte repletion as needed. 5. Continue bronchodilators, given the patient's tobacco abuse history. 6. Wean supplemental oxygen as tolerated. Encourage incentive spirometer use. 7. Monitor in the intensive care unit following initiation of antibiotics, possible transition to the floor later today. IMPRESSIONS: 1. Diabetic ketoacidosis Although the patient presented with a hemoglobin A1c of 11.0, he was reportedly never previously diagnosed with diabetes. Patient will be transitioned over to subcutaneous insulin. Electrolyte repletion as indicated with daily labs. Patient still with significant hypernatremia and hyperchloremia, likely secondary to resuscitation. 2. Acute kidney injury/anion gap metabolic acidosis Appears to be improving. Likely prerenal in etiology. Anticipate improvement with volume expansion. Continue to monitor urine output. No indication for renal replacement therapy. 3. Tobacco dependency/schizophrenia/bipolar/hypertension Complicates care, management, recovery and prognosis. Consideration can be given to initiating nicotine replacement therapy while the patient is admitted to the hospital. 4. Reported positive blood culture Unclear etiology at this time. Patient does have staph growing in his blood and has continued to have leukocytosis. Will start patient on appropriate antibiotics. Repeat blood cultures. Possible contaminant. Code Visit Inpatient E&M: 14141 Subs Hosp L3
[2018-12-04] MEDS: Cefazolin 1 GM/50 ML BAG IV (09:15)
[2018-12-04] MEDS: QUEtiapine 100 MG Tablet PO (10:18)
[2018-12-04] MEDS: amLODIPine 10 MG Tablet PO (10:18)
[2018-12-04] MEDS: Doxazosin 1 MG Tablet 2 MG PO (10:18)
[2018-12-04] MEDS: Heparin Injection (Vial) 5,000 UNIT/ML VIAL 5000 UNIT SC ×2 (10:19→21:39)
[2018-12-04] MEDS: CHLORHEXIDINE GLUC 2% CLOTH 1 EACH TOWELETTE TOPICAL (10:19)
[2018-12-04] MEDS: OXcarbazepine 300 MG Tablet PO ×2 (10:19)
[2018-12-04] MEDS: Insulin Lispro 100 UNIT/ML INSULN.PEN SC ×3 (11:47→21:39)
[2018-12-04] MEDS: Haloperidol 5 MG Tablet PO ×2 (11:48→21:39)
[2018-12-04 12:01] LABS: Bedside Glucose 304 mg/dL (70-110)
--- NOTE | 2018-12-04 12:45 | CASEMGMT ---
RN CM Assessment Presentation: DKA. BS on admission 1518. HgA1C 11 Intro role of CM and purpose of RN CM assessment. Demographics, PCP and Pharmacy verified. PCP: Dr. Uriostegui Preferred [facility]acy: [facility], entered in chart Insurance: [facility], [facility] Prescription Benefit: yes LNOK: SisterMadai (reg notified to update chart as listed LNOK sister Sury is ) Living Arrangements: Shelter Transportation: Pt will call taxi if needs ride, or family will assist. SW Referral: detention resident Patient DC goals: Pt verbalizes wish to return to Shelter DC PLAN: PT/OT evaluations pending. SNF vs return [facility] prison. If pt returns home- Pt will need script for Blood Glucose monitoring machine and supplies. Possible [facility] for PT/OT, diabetic reinforcement. Sonido HOANGN RN ACM
--- NOTE | 2018-12-04 13:15 | PCM.PN.HOSP ---
Patient Problems: Active and Suspected Problems DKA (diabetic ketoacidoses) (Acute) Acute kidney injury (Acute) Subjective: Feels good. Requests me to call a family member so they can bring over his [employer]. Vitals/I&O's: Vital Signs Temp Pulse Resp BP Pulse Ox 37.1 C 100 20 H 135/79 H 93 12/04/18 08:00 12/04/18 11:00 12/04/18 11:00 12/04/18 11:00 12/04/18 11:00 Oxygen Flow Rate (L/min) 2 Oxygen Delivery Method Nasal Cannula Weight: 87.5 kg Body Mass Index (BMI) 29.5 Finger Stick Blood Glucose 222 Intake and Output for Last 24 Hours 12/02/18 12/03/18 12/04/18 23:59 23:59 23:59 Intake Total 4615 / 4615 3165 / 3165 Output Total 2950 / 2950 675 / 675 Balance 1665 / 1665 2490 / 2490 General: Alert, No apparent distress, - HEENT: Atraumatic, Normocephalic Oral: Moist Mucosa, No Gingival or Mucosal Lesions/ Ulcerations Neck: No Nodes, Thyroid Normal Size and Texture Lungs: Clear to auscultation, Normal air movement, No rhonchi, No wheeze Cardiovascular: Regular rate, Regular Rhythm, Normal S1, Normal S2, No murmurs Abdomen: Bowel Sounds Present, Soft, Non Tender, Non-Distended, No Hepato-splenomegaly Extremities: No edema, No Calf Tenderness Skin: No rashes, No breakdown Psych/Mental Status: Normal Affect, Appropriate Laboratory Results 12/03/18 13:24: POC Glucose > 500 H* 12/03/18 13:30: Glucose 659 H* 12/03/18 14:50: Sodium 151 H, Potassium 4.3, Chloride 122 H, Carbon Dioxide 20.0 L, Anion Gap 9, BUN 29 H, Creatinine 1.68 H, Estim Creat Clear Calc 44.67, Est GFR (MDRD) Af Amer 54 L, Est GFR (MDRD) Non-Af 44 L, BUN/Creatinine Ratio 17.3, Glucose 617 H*, Calcium 9.6 12/03/18 16:00: Glucose 529 H* 12/03/18 17:05: Glucose 476 H* 12/03/18 18:07: POC Glucose 406 H 12/03/18 19:11: POC Glucose Pending 12/03/18 20:04: POC Glucose 404 H 12/03/18 20:55: POC Glucose 398 H 12/03/18 21:30: Sodium 154 H, Potassium 3.9, Chloride 126 H, Carbon Dioxide 24.0, Anion Gap 4 L, BUN 27 H, Creatinine 1.48 H, Estim Creat Clear Calc 50.71, Est GFR (MDRD) Af Amer 62, Est GFR (MDRD) Non-Af 51 L, BUN/Creatinine Ratio 18.2, Glucose 366 H, Calcium 9.3 12/03/18 21:58: POC Glucose 328 H 12/03/18 22:53: POC Glucose 340 H 12/03/18 23:55: POC Glucose 317 H 12/04/18 01:02: POC Glucose 350 H 12/04/18 01:05: Sodium 154 H, Potassium 3.8, Chloride 126 H, Carbon Dioxide 26.0, Anion Gap 2 L, BUN 27 H, Creatinine 1.64 H, Estim Creat Clear Calc 45.76, Est GFR (MDRD) Af Amer 55 L, Est GFR (MDRD) Non-Af 46 L, BUN/Creatinine Ratio 16.5, Glucose 345 H, Calcium 9.4 12/04/18 02:05: POC Glucose 300 H 12/04/18 03:02: POC Glucose 343 H 12/04/18 04:00: POC Glucose 293 H 12/04/18 04:55: POC Glucose 272 H 12/04/18 05:00: WBC 12.4 H, RBC 4.14 L, Hgb 12.1 L, Hct 37.3 L, MCV 90.1, MCH 29.2, MCHC 32.4, RDW 14.9 H, RDW Differential 48.3 H, Plt Count 326, MPV 10.7, Immature Gran % (Auto) 0.200, Neut % (Auto) 67.1, Lymph % (Auto) 23.2, [place] % (Auto) 9.0, Eos % (Auto) 0.0, Baso % (Auto) 0.5, Absolute Neuts (auto) 8.3 H, Absolute Lymphs (auto) 2.87, Total Counted Not Reportable 12/04/18 05:00: Sodium 156 H, Potassium 3.6, Chloride 128 H*, Carbon Dioxide 25.0, Anion Gap 3 L, BUN 28 H, Creatinine 1.77 H, Estim Creat Clear Calc 42.40, Est GFR (MDRD) Af Amer 51 L, Est GFR (MDRD) Non-Af 42 L, BUN/Creatinine Ratio 15.8, Glucose 275 H, Calcium 9.3 12/04/18 05:55: POC Glucose 236 H 12/04/18 06:58: POC Glucose 217 H 12/04/18 07:48: POC Glucose 222 H 12/04/18 11:39: POC Glucose 304 H Current Medications Acetaminophen (Tylenol) 650 mg PO Q6H PRN PRN PRN Reason: Non-cardiac pain (mod-severe) Hydrocodone Bitart/Acetaminophen ([place] 5mg-325mg) 1 - 2 tablet PO Q6H PRN PRN PRN Reason: MOD-SEVERE PAIN (4-10/10) Albuterol Sulfate (Ventolin Aerosols) 2.5 mg INHALATION Q2H PRN PRN PRN Reason: dyspnea, wheezing Albuterol/Ipratropium (Duoneb) 3 ml INHALATION Q6HWA.RT BERNIE Amlodipine Besylate (Norvasc) 10 mg PO DAILY [facility] Last Admin: 12/04/18 10:18 Dose: 10 mg Chlorhexidine Gluconate () 1 each TOPICAL DAILY [facility] Last Admin: 12/04/18 10:19 Dose: 1 each Dextrose (D50w Syringe) 0 gm IV X1 PRN; Protocol PRN Reason: HYPOGLYCEMIA Doxazosin Mesylate (Cardura) 2 mg PO DAILY [facility] Last Admin: 12/04/18 10:18 Dose: 2 mg Haloperidol (Haldol) 5 mg PO BID [facility] Last Admin: 12/04/18 11:48 Dose: 5 mg Heparin Sodium (Porcine) (Heparin Na) 5,000 unit SC Q12 [facility] Last Admin: 12/04/18 10:19 Dose: 5,000 unit Hydralazine HCl (Apresoline Iv) 10 mg IV Q4H PRN PRN PRN Reason: SBP > 160 Sodium Chloride () 250 mls @ 15 mls/hr IV .[id number] PRN PRN Reason: SALINE FLUSH Pantoprazole Sodium 40 mg/ (Sodium Chloride) 110 mls @ 330 mls/hr IV Q12 [facility] Last Admin: 12/04/18 10:23 Dose: 330 mls/hr Cefazolin Sodium () 1 gm in 50 mls @ 100 mls/hr IV Q8 [facility] Last Admin: 12/04/18 09:15 Dose: 100 mls/hr Insulin Glargine (Lantus (Bkc)) 30 units SC BID [facility] Last Admin: 12/04/18 09:02 Dose: 30 u Insulin Human Lispro (Humalog Kwikpen (Bkc)) 0 unit SC ACHS [facility]; Protocol Last Admin: 12/04/18 11:47 Dose: 6 u Lorazepam (Ativan) 0.5 mg PO Q4H PRN PRN PRN Reason: ANXIETY Magnesium Hydroxide (Milk Of Magnesia) 30 ml PO DAILY PRN PRN PRN Reason: Constipation Morphine Sulfate () 1 - 2 mg IV Q4H PRN PRN PRN Reason: PAIN Ondansetron HCl (Zofran) 4 mg IV Q8H PRN PRN PRN Reason: NAUSEA/VOMITING Oxcarbazepine (Trileptal) 300 mg PO DAILY [facility] Last Admin: 12/04/18 10:19 Dose: 300 mg Quetiapine Fumarate (Seroquel) 100 mg PO DAILY [facility] Last Admin: 12/04/18 10:18 Dose: 100 mg Sodium Chloride () 5 - 15 ml IV UD PRN PRN Reason: SALINE FLUSH Medical Necessity - Tobacco Use Smoking Status: Current every day smoker Tobacco Use: Cigarettes Assessment/Plan All Active Problems DKA (diabetic ketoacidoses) (Acute) Acute kidney injury (Acute) 1. DKA resolved changed to Basal and SSI 2. DM, uncontrolled A1c 11 Add scheduled log in addition to basal and SSI check c-peptide 3. Bacteremia: ruled out DW nursing, who saw + blood cultures earlier, but was on another patient. BCx drawn today 4. hypernatremia 2/2 IVF replacement monitor 5. ADRIEL: likely prerenal +/- ATN monitor 6. VTE prophylaxis: SQ heparin 7. Disposition: anticipate another 24-48h will need to ensure no bacteremia and improved glycemic control. [facility]. Await PT/OT eval. Code Visit Inpatient E&M: 63338 Subs Hosp L2
[2018-12-04 13:16] LABS: Bedside Glucose 457 mg/dL (70-110)
--- NOTE | 2018-12-04 13:35 | PN_ITS ---
Patient Problems: Active and Suspected Problems DKA (diabetic ketoacidoses) (Acute) Acute kidney injury (Acute) Subjective: Feels good. Requests me to call a family member so they can bring over his [employer]. Vitals/I&O's: Vital Signs Temp Pulse Resp BP Pulse Ox 37.1 C 100 20 H 135/79 H 93 12/04/18 08:00 12/04/18 11:00 12/04/18 11:00 12/04/18 11:00 12/04/18 11:00 Oxygen Flow Rate (L/min) 2 Oxygen Delivery Method Nasal Cannula Weight: 87.5 kg Body Mass Index (BMI) 29.5 Finger Stick Blood Glucose 222 Intake and Output for Last 24 Hours 12/02/18 12/03/18 12/04/18 23:59 23:59 23:59 Intake Total 4615 / 4615 3165 / 3165 Output Total 2950 / 2950 675 / 675 Balance 1665 / 1665 2490 / 2490 General: Alert, No apparent distress, - HEENT: Atraumatic, Normocephalic Oral: Moist Mucosa, No Gingival or Mucosal Lesions/ Ulcerations Neck: No Nodes, Thyroid Normal Size and Texture Lungs: Clear to auscultation, Normal air movement, No rhonchi, No wheeze Cardiovascular: Regular rate, Regular Rhythm, Normal S1, Normal S2, No murmurs Abdomen: Bowel Sounds Present, Soft, Non Tender, Non-Distended, No Hepato- splenomegaly Extremities: No edema, No Calf Tenderness Skin: No rashes, No breakdown Psych/Mental Status: Normal Affect, Appropriate Laboratory Results 12/03/18 13:24: POC Glucose > 500 H* 12/03/18 13:30: Glucose 659 H* 12/03/18 14:50: Sodium 151 H, Potassium 4.3, Chloride 122 H, Carbon Dioxide 20.0 L, Anion Gap 9, BUN 29 H, Creatinine 1.68 H, Estim Creat Clear Calc 44.67, Est GFR (MDRD) Af Amer 54 L, Est GFR (MDRD) Non-Af 44 L, BUN/Creatinine Ratio 17.3, Glucose 617 H*, Calcium 9.6 12/03/18 16:00: Glucose 529 H* 12/03/18 17:05: Glucose 476 H* 12/03/18 18:07: POC Glucose 406 H 12/03/18 19:11: POC Glucose Pending 12/03/18 20:04: POC Glucose 404 H 12/03/18 20:55: POC Glucose 398 H 12/03/18 21:30: Sodium 154 H, Potassium 3.9, Chloride 126 H, Carbon Dioxide 24.0, Anion Gap 4 L, BUN 27 H, Creatinine 1.48 H, Estim Creat Clear Calc 50.71, Est GFR (MDRD) Af Amer 62, Est GFR (MDRD) Non-Af 51 L, BUN/Creatinine Ratio 18.2, Glucose 366 H, Calcium 9.3 12/03/18 21:58: POC Glucose 328 H 12/03/18 22:53: POC Glucose 340 H 12/03/18 23:55: POC Glucose 317 H 12/04/18 01:02: POC Glucose 350 H 12/04/18 01:05: Sodium 154 H, Potassium 3.8, Chloride 126 H, Carbon Dioxide 26.0, Anion Gap 2 L, BUN 27 H, Creatinine 1.64 H, Estim Creat Clear Calc 45.76, Est GFR (MDRD) Af Amer 55 L, Est GFR (MDRD) Non-Af 46 L, BUN/Creatinine Ratio 16.5, Glucose 345 H, Calcium 9.4 12/04/18 02:05: POC Glucose 300 H 12/04/18 03:02: POC Glucose 343 H 12/04/18 04:00: POC Glucose 293 H 12/04/18 04:55: POC Glucose 272 H 12/04/18 05:00: WBC 12.4 H, RBC 4.14 L, Hgb 12.1 L, Hct 37.3 L, MCV 90.1, MCH 29.2, MCHC 32.4, RDW 14.9 H, RDW Differential 48.3 H, Plt Count 326, MPV 10.7, Immature Gran % (Auto) 0.200, Neut % (Auto) 67.1, Lymph % (Auto) 23.2, [place] % (Auto) 9.0, Eos % (Auto) 0.0, Baso % (Auto) 0.5, Absolute Neuts (auto) 8.3 H, Absolute Lymphs (auto) 2.87, Total Counted Not Reportable 12/04/18 05:00: Sodium 156 H, Potassium 3.6, Chloride 128 H*, Carbon Dioxide 25.0, Anion Gap 3 L, BUN 28 H, Creatinine 1.77 H, Estim Creat Clear Calc 42.40, Est GFR (MDRD) Af Amer 51 L, Est GFR (MDRD) Non-Af 42 L, BUN/Creatinine Ratio 15.8, Glucose 275 H, Calcium 9.3 12/04/18 05:55: POC Glucose 236 H 12/04/18 06:58: POC Glucose 217 H 12/04/18 07:48: POC Glucose 222 H 12/04/18 11:39: POC Glucose 304 H Current Medications Acetaminophen (Tylenol) 650 mg PO Q6H PRN PRN PRN Reason: Non-cardiac pain (mod-severe) Hydrocodone Bitart/Acetaminophen ([place] 5mg-325mg) 1 - 2 tablet PO Q6H PRN PRN PRN Reason: MOD-SEVERE PAIN (4-10/10) Albuterol Sulfate (Ventolin Aerosols) 2.5 mg INHALATION Q2H PRN PRN PRN Reason: dyspnea, wheezing Albuterol/Ipratropium (Duoneb) 3 ml INHALATION Q6HWA.RT BERNIE Amlodipine Besylate (Norvasc) 10 mg PO DAILY [facility] Last Admin: 12/04/18 10:18 Dose: 10 mg Chlorhexidine Gluconate () 1 each TOPICAL DAILY [facility] Last Admin: 12/04/18 10:19 Dose: 1 each Dextrose (D50w Syringe) 0 gm IV X1 PRN; Protocol PRN Reason: HYPOGLYCEMIA Doxazosin Mesylate (Cardura) 2 mg PO DAILY [facility] Last Admin: 12/04/18 10:18 Dose: 2 mg Haloperidol (Haldol) 5 mg PO BID [facility] Last Admin: 12/04/18 11:48 Dose: 5 mg Heparin Sodium (Porcine) (Heparin Na) 5,000 unit SC Q12 [facility] Last Admin: 12/04/18 10:19 Dose: 5,000 unit Hydralazine HCl (Apresoline Iv) 10 mg IV Q4H PRN PRN PRN Reason: SBP > 160 Sodium Chloride () 250 mls @ 15 mls/hr IV .[id number] PRN PRN Reason: SALINE FLUSH Pantoprazole Sodium 40 mg/ (Sodium Chloride) 110 mls @ 330 mls/hr IV Q12 [facility] Last Admin: 12/04/18 10:23 Dose: 330 mls/hr Cefazolin Sodium () 1 gm in 50 mls @ 100 mls/hr IV Q8 [facility] Last Admin: 12/04/18 09:15 Dose: 100 mls/hr Insulin Glargine (Lantus (Bkc)) 30 units SC BID [facility] Last Admin: 12/04/18 09:02 Dose: 30 u Insulin Human Lispro (Humalog Kwikpen (Bkc)) 0 unit SC ACHS [facility]; Protocol Last Admin: 12/04/18 11:47 Dose: 6 u Lorazepam (Ativan) 0.5 mg PO Q4H PRN PRN PRN Reason: ANXIETY Magnesium Hydroxide (Milk Of Magnesia) 30 ml PO DAILY PRN PRN PRN Reason: Constipation Morphine Sulfate () 1 - 2 mg IV Q4H PRN PRN PRN Reason: PAIN Ondansetron HCl (Zofran) 4 mg IV Q8H PRN PRN PRN Reason: NAUSEA/VOMITING Oxcarbazepine (Trileptal) 300 mg PO DAILY [facility] Last Admin: 12/04/18 10:19 Dose: 300 mg Quetiapine Fumarate (Seroquel) 100 mg PO DAILY [facility] Last Admin: 12/04/18 10:18 Dose: 100 mg Sodium Chloride () 5 - 15 ml IV UD PRN PRN Reason: SALINE FLUSH Medical Necessity - Tobacco Use Smoking Status: Current every day smoker Tobacco Use: Cigarettes Assessment/Plan All Active Problems DKA (diabetic ketoacidoses) (Acute) Acute kidney injury (Acute) 1. DKA * resolved * changed to Basal and SSI 2. DM, uncontrolled * A1c 11 * Add scheduled log in addition to basal and SSI * check c-peptide 3. Bacteremia: * ruled out * nursing, who saw + blood cultures earlier, but was on another patient. * BCx drawn today 4. hypernatremia * 2/2 IVF replacement * monitor 5. ADRIEL: * likely prerenal +/- ATN * monitor 6. VTE prophylaxis: SQ heparin 7. Disposition: * anticipate another 24-48h * will need to ensure no bacteremia and improved glycemic control. * back to long-term v SNF. Await PT/OT eval. Code Visit Inpatient E&M: 27103 Subs Hosp L2
[2018-12-04 16:31] LABS: Bedside Glucose 426 mg/dL (70-110)
[2018-12-04] MEDS: Insulin Lispro 100 UNIT/ML INSULN.PEN 8 UNIT SC (18:03)
[2018-12-04 22:16] LABS: Bedside Glucose 266 mg/dL (70-110)
[2018-12-05] VITALS (14 sets, daily range): BP systolic 114–146; BP diastolic 67–77; PULSE 76–108; RESP 16–30; TEMP 36.6–36.9; O2SAT 93–96
[2018-12-05 06:37] LABS: Absolute Lymphocyte Count 2.56 X10^3/ul (0.83-4.51); Absolute Neutrophil Count 4.6 X10^3/uL (2.0-7.7); Basophil# 0.02 X10^3/uL; Basophil% 0.3 % (0-1); Differential Indicated SCAN CRITERIA MET; Hematocrit 36.6 % (40-54); Hemoglobin 11.8 g/dl (13.0-16.5); Lymphocyte # 2.56 X10^3/ul (4.0); Lymphocyte % 32.2 % (19-41); Mean Corp Hgb Conc 32.2 g/gl (32-36); Mean Corpuscular Hgb 29.4 pg (27.0-32.0); Mean Corpuscular Volume 91.3 fL (80-94); Mean Platelet Vol. 10.9 fl (6.2-12.0); Monocyte# 0.73 X10^3/uL; Monocyte% 9.2 % (0-10); Neutrophil # 4.61 X10^3/uL (2.7-7.7); POSITIVE COUNT NO; POSITIVE DIFFERENTIAL NO; POSITIVE MORPHOLOGY YES; Platelet Count 258 K/mm3 (150-450); RBC Distribution Width CV 15.1 % (11.6-14.6); RBC Distribution Width SD 49.7 fl (35.1-43.9); Red Blood Count 4.01 M/mm3 (4.6-6.2); White Blood Count 7.9 K/mm3 (4.4-11.0)
[2018-12-05 06:39] LABS: Differential Comment SCANNED
[2018-12-05 06:50] LABS: Anion Gap 6 (5-15); BUN 30 mg/dL (7-18); Calcium,Total 8.6 mg/dL (8.5-10.1); Chloride 121 mmol/L (98-107); Creatinine, Serum 1.87 mg/dL (0.70-1.30); EST Glomerular Filtration Rate 39 mL/min (>60); Est Glom Filt Rate - Afr Amer 47 mL/min (>60); Estimated Creatinine Clearance 40.13 ml/min; Glucose 220 mg/dL (74-106); Magnesium 2.5 mg/dL (1.6-2.6); Phosphorus 3.7 mg/dL (2.5-4.9); Potassium 3.7 mmol/L (3.5-5.1); Sodium Level 150 mmol/L (136-145)
[2018-12-05] MEDS: Ipratropium/Albuterol Sulfate 3 ML AMPUL.NEB INHALATION ×3 (07:18→18:41)
--- NOTE | 2018-12-05 08:22 | PN_ITS ---
Subjective: Patient transferred out of the intensive care unit yesterday. Patient with no complaints this morning. Blood sugars have been controlled. Patient has been able to tolerate a p.o. diet. Patient was placed on nasal cannula oxygen with sleep. General: Alert, Cooperative, No apparent distress, Disoriented, - - No convers ational dyspnea noted. HEENT: Atraumatic, PERRLA, EOMI, Normocephalic, - - Scleral icterus or injection noted. Glasses not in place on my evaluation. Oral: Moist Mucosa, No Gingival or Mucosal Lesions/ Ulcerations Neck: Supple, No JVD, No Nodes, Trachea Midline Lungs: Clear to auscultation, Normal air movement, No rhonchi, No wheeze, No rales, - - Expansion. No dullness to percussion. Cardiovascular: Regular rate, Regular Rhythm, Normal S1, Normal S2, No murmurs, No rub noted, No Gallop Abdomen: Bowel Sounds Present, Soft, Non Tender, Non-Distended Extremities: No clubbing, No cyanosis, Edema - Trace Skin: - - No change from previous Musculoskeletal: No Tenderness to Palpation of Joints or Extremities Lymphatic: No Cervical, Supraclavicular, or Inguinal Adenopathy Neurological: Cranial nerves II-XII grossly intact, Neuro grossly intact, Motor Exam 5/5 strength throughout Psych/Mental Status: Appropriate, Anxious Vital Signs Temp Pulse Resp BP Pulse Ox 36.9 C 92 18 146/75 H 94 12/05/18 03:39 12/05/18 08:09 12/05/18 03:39 12/05/18 03:39 12/05/18 03:39 Oxygen Flow Rate (L/min) 3 Oxygen Delivery Method Nasal Cannula Weight: 90.1 kg Body Mass Index (BMI) 29.5 Finger Stick Blood Glucose 222 Intake and Output for Last 24 Hours 12/03/18 12/04/18 12/05/18 23:59 23:59 23:59 Intake Total 4615 / 4615 3165 / 3165 1800 / 1800 Output Total 2950 / 2950 675 / 675 Balance 1665 / 1665 2490 / 2490 1800 / 1800 Labs (Last 48 Hours) 12/03/18 12/03/18 12/03/18 07:40 08:40 09:35 WBC RBC Hgb Hct MCV MCH MCHC RDW RDW Differential Plt Count MPV Immature Gran % (Auto) Neut % (Auto) Lymph % (Auto) [place] % (Auto) Eos % (Auto) Baso % (Auto) Absolute Neuts (auto) Absolute Lymphs (auto) Total Counted Differential Comment Sodium Potassium Chloride Carbon Dioxide Anion Gap BUN Creatinine Estim Creat Clear Calc Est GFR (MDRD) Af Amer Est GFR (MDRD) Non-Af BUN/Creatinine Ratio Glucose 934 H* 885 H* C-Peptide Calcium Phosphorus Magnesium Urine Color Yellow Urine Clarity Clear Urine pH 6.0 Ur Specific [place] 1.010 Urine Protein 15 H Urine Glucose (UA) 1000 H Urine Ketones 15 H Urine Occult Blood 150 H Urine Nitrite Negative Urine Bilirubin Negative Urine Urobilinogen Normal Ur Leukocyte Esterase Negative Urine RBC 0-5 SEEN Urine WBC 0 SEEN Ur Squamous Epith Cells 0 SEEN Urine Bacteria 0 SEEN Urine Mucus 0 SEEN POC Glucose 12/03/18 12/03/18 12/03/18 10:30 11:30 12:35 WBC RBC Hgb Hct MCV MCH MCHC RDW RDW Differential Plt Count MPV Immature Gran % (Auto) Neut % (Auto) Lymph % (Auto) [place] % (Auto) Eos % (Auto) Baso % (Auto) Absolute Neuts (auto) Absolute Lymphs (auto) Total Counted Differential Comment Sodium 148 H Potassium 4.3 Chloride 119 H Carbon Dioxide 20.0 L Anion Gap 9 BUN 31 H Creatinine 1.83 H Estim Creat Clear Calc 41.01 Est GFR (MDRD) Af Amer 49 L Est GFR (MDRD) Non-Af 40 L BUN/Creatinine Ratio 16.9 Glucose 795 H* 722 H* 581 H* C-Peptide Calcium 9.4 Phosphorus Magnesium Urine Color Urine Clarity Urine pH Ur Specific [place] Urine Protein Urine Glucose (UA) Urine Ketones Urine Occult Blood Urine Nitrite Urine Bilirubin Urine Urobilinogen Ur Leukocyte Esterase Urine RBC Urine WBC Ur Squamous Epith Cells Urine Bacteria Urine Mucus POC Glucose 12/03/18 12/03/18 12/03/18 13:24 13:30 14:50 WBC RBC Hgb Hct MCV MCH MCHC RDW RDW Differential Plt Count MPV Immature Gran % (Auto) Neut % (Auto) Lymph % (Auto) [place] % (Auto) Eos % (Auto) Baso % (Auto) Absolute Neuts (auto) Absolute Lymphs (auto) Total Counted Differential Comment Sodium 151 H Potassium 4.3 Chloride 122 H Carbon Dioxide 20.0 L Anion Gap 9 BUN 29 H Creatinine 1.68 H Estim Creat Clear Calc 44.67 Est GFR (MDRD) Af Amer 54 L Est GFR (MDRD) Non-Af 44 L BUN/Creatinine Ratio 17.3 Glucose 659 H* 617 H* C-Peptide Calcium 9.6 Phosphorus Magnesium Urine Color Urine Clarity Urine pH Ur Specific [place] Urine Protein Urine Glucose (UA) Urine Ketones Urine Occult Blood Urine Nitrite Urine Bilirubin Urine Urobilinogen Ur Leukocyte Esterase Urine RBC Urine WBC Ur Squamous Epith Cells Urine Bacteria Urine Mucus POC Glucose > 500 H* 12/03/18 12/03/18 12/03/18 16:00 17:05 18:07 WBC RBC Hgb Hct MCV MCH MCHC RDW RDW Differential Plt Count MPV Immature Gran % (Auto) Neut % (Auto) Lymph % (Auto) [place] % (Auto) Eos % (Auto) Baso % (Auto) Absolute Neuts (auto) Absolute Lymphs (auto) Total Counted Differential Comment Sodium Potassium Chloride Carbon Dioxide Anion Gap BUN Creatinine Estim Creat Clear Calc Est GFR (MDRD) Af Amer Est GFR (MDRD) Non-Af BUN/Creatinine Ratio Glucose 529 H* 476 H* C-Peptide Calcium Phosphorus Magnesium Urine Color Urine Clarity Urine pH Ur Specific [place] Urine Protein Urine Glucose (UA) Urine Ketones Urine Occult Blood Urine Nitrite Urine Bilirubin Urine Urobilinogen Ur Leukocyte Esterase Urine RBC Urine WBC Ur Squamous Epith Cells Urine Bacteria Urine Mucus POC Glucose 406 H 12/03/18 12/03/18 12/03/18 19:11 20:04 20:55 WBC RBC Hgb Hct MCV MCH MCHC RDW RDW Differential Plt Count MPV Immature Gran % (Auto) Neut % (Auto) Lymph % (Auto) [place] % (Auto) Eos % (Auto) Baso % (Auto) Absolute Neuts (auto) Absolute Lymphs (auto) Total Counted Differential Comment Sodium Potassium Chloride Carbon Dioxide Anion Gap BUN Creatinine Estim Creat Clear Calc Est GFR (MDRD) Af Amer Est GFR (MDRD) Non-Af BUN/Creatinine Ratio Glucose C-Peptide Calcium Phosphorus Magnesium Urine Color Urine Clarity Urine pH Ur Specific [place] Urine Protein Urine Glucose (UA) Urine Ketones Urine Occult Blood Urine Nitrite Urine Bilirubin Urine Urobilinogen Ur Leukocyte Esterase Urine RBC Urine WBC Ur Squamous Epith Cells Urine Bacteria Urine Mucus POC Glucose 457 H* 404 H 398 H 12/03/18 12/03/18 12/03/18 21:30 21:58 22:53 WBC RBC Hgb Hct MCV MCH MCHC RDW RDW Differential Plt Count MPV Immature Gran % (Auto) Neut % (Auto) Lymph % (Auto) [place] % (Auto) Eos % (Auto) Baso % (Auto) Absolute Neuts (auto) Absolute Lymphs (auto) Total Counted Differential Comment Sodium 154 H Potassium 3.9 Chloride 126 H Carbon Dioxide 24.0 Anion Gap 4 L BUN 27 H Creatinine 1.48 H Estim Creat Clear Calc 50.71 Est GFR (MDRD) Af Amer 62 Est GFR (MDRD) Non-Af 51 L BUN/Creatinine Ratio 18.2 Glucose 366 H C-Peptide Calcium 9.3 Phosphorus Magnesium Urine Color Urine Clarity Urine pH Ur Specific [place] Urine Protein Urine Glucose (UA) Urine Ketones Urine Occult Blood Urine Nitrite Urine Bilirubin Urine Urobilinogen Ur Leukocyte Esterase Urine RBC Urine WBC Ur Squamous Epith Cells Urine Bacteria Urine Mucus POC Glucose 328 H 340 H 12/03/18 12/04/18 12/04/18 23:55 01:02 01:05 WBC RBC Hgb Hct MCV MCH MCHC RDW RDW Differential Plt Count MPV Immature Gran % (Auto) Neut % (Auto) Lymph % (Auto) [place] % (Auto) Eos % (Auto) Baso % (Auto) Absolute Neuts (auto) Absolute Lymphs (auto) Total Counted Differential Comment Sodium 154 H Potassium 3.8 Chloride 126 H Carbon Dioxide 26.0 Anion Gap 2 L BUN 27 H Creatinine 1.64 H Estim Creat Clear Calc 45.76 Est GFR (MDRD) Af Amer 55 L Est GFR (MDRD) Non-Af 46 L BUN/Creatinine Ratio 16.5 Glucose 345 H C-Peptide Calcium 9.4 Phosphorus Magnesium Urine Color Urine Clarity Urine pH Ur Specific [place] Urine Protein Urine Glucose (UA) Urine Ketones Urine Occult Blood Urine Nitrite Urine Bilirubin Urine Urobilinogen Ur Leukocyte Esterase Urine RBC Urine WBC Ur Squamous Epith Cells Urine Bacteria Urine Mucus POC Glucose 317 H 350 H 12/04/18 12/04/18 12/04/18 02:05 03:02 04:00 WBC RBC Hgb Hct MCV MCH MCHC RDW RDW Differential Plt Count MPV Immature Gran % (Auto) Neut % (Auto) Lymph % (Auto) [place] % (Auto) Eos % (Auto) Baso % (Auto) Absolute Neuts (auto) Absolute Lymphs (auto) Total Counted Differential Comment Sodium Potassium Chloride Carbon Dioxide Anion Gap BUN Creatinine Estim Creat Clear Calc Est GFR (MDRD) Af Amer Est GFR (MDRD) Non-Af BUN/Creatinine Ratio Glucose C-Peptide Calcium Phosphorus Magnesium Urine Color Urine Clarity Urine pH Ur Specific [place] Urine Protein Urine Glucose (UA) Urine Ketones Urine Occult Blood Urine Nitrite Urine Bilirubin Urine Urobilinogen Ur Leukocyte Esterase Urine RBC Urine WBC Ur Squamous Epith Cells Urine Bacteria Urine Mucus POC Glucose 300 H 343 H 293 H 12/04/18 12/04/18 12/04/18 04:55 05:00 05:00 WBC 12.4 H RBC 4.14 L Hgb 12.1 L Hct 37.3 L MCV 90.1 MCH 29.2 MCHC 32.4 RDW 14.9 H RDW Differential 48.3 H Plt Count 326 MPV 10.7 Immature Gran % (Auto) 0.200 Neut % (Auto) 67.1 Lymph % (Auto) 23.2 [place] % (Auto) 9.0 Eos % (Auto) 0.0 Baso % (Auto) 0.5 Absolute Neuts (auto) 8.3 H Absolute Lymphs (auto) 2.87 Total Counted Not Reportable Differential Comment Sodium 156 H Potassium 3.6 Chloride 128 H* Carbon Dioxide 25.0 Anion Gap 3 L BUN 28 H Creatinine 1.77 H Estim Creat Clear Calc 42.40 Est GFR (MDRD) Af Amer 51 L Est GFR (MDRD) Non-Af 42 L BUN/Creatinine Ratio 15.8 Glucose 275 H C-Peptide Calcium 9.3 Phosphorus Magnesium Urine Color Urine Clarity Urine pH Ur Specific [place] Urine Protein Urine Glucose (UA) Urine Ketones Urine Occult Blood Urine Nitrite Urine Bilirubin Urine Urobilinogen Ur Leukocyte Esterase Urine RBC Urine WBC Ur Squamous Epith Cells Urine Bacteria Urine Mucus POC Glucose 272 H 12/04/18 12/04/18 12/04/18 05:55 06:58 07:48 WBC RBC Hgb Hct MCV MCH MCHC RDW RDW Differential Plt Count MPV Immature Gran % (Auto) Neut % (Auto) Lymph % (Auto) [place] % (Auto) Eos % (Auto) Baso % (Auto) Absolute Neuts (auto) Absolute Lymphs (auto) Total Counted Differential Comment Sodium Potassium Chloride Carbon Dioxide Anion Gap BUN Creatinine Estim Creat Clear Calc Est GFR (MDRD) Af Amer Est GFR (MDRD) Non-Af BUN/Creatinine Ratio Glucose C-Peptide Calcium Phosphorus Magnesium Urine Color Urine Clarity Urine pH Ur Specific [place] Urine Protein Urine Glucose (UA) Urine Ketones Urine Occult Blood Urine Nitrite Urine Bilirubin Urine Urobilinogen Ur Leukocyte Esterase Urine RBC Urine WBC Ur Squamous Epith Cells Urine Bacteria Urine Mucus POC Glucose 236 H 217 H 222 H 12/04/18 12/04/18 12/04/18 11:39 14:10 15:55 WBC RBC Hgb Hct MCV MCH MCHC RDW RDW Differential Plt Count MPV Immature Gran % (Auto) Neut % (Auto) Lymph % (Auto) [place] % (Auto) Eos % (Auto) Baso % (Auto) Absolute Neuts (auto) Absolute Lymphs (auto) Total Counted Differential Comment Sodium Potassium Chloride Carbon Dioxide Anion Gap BUN Creatinine Estim Creat Clear Calc Est GFR (MDRD) Af Amer Est GFR (MDRD) Non-Af BUN/Creatinine Ratio Glucose C-Peptide Pending Calcium Phosphorus Magnesium Urine Color Urine Clarity Urine pH Ur Specific [place] Urine Protein Urine Glucose (UA) Urine Ketones Urine Occult Blood Urine Nitrite Urine Bilirubin Urine Urobilinogen Ur Leukocyte Esterase Urine RBC Urine WBC Ur Squamous Epith Cells Urine Bacteria Urine Mucus POC Glucose 304 H 426 H 12/04/18 12/05/18 12/05/18 21:38 05:26 05:26 WBC 7.9 RBC 4.01 L Hgb 11.8 L Hct 36.6 L MCV 91.3 MCH 29.4 MCHC 32.2 RDW 15.1 H RDW Differential 49.7 H Plt Count 258 MPV 10.9 Immature Gran % (Auto) 0.300 Neut % (Auto) 58.0 Lymph % (Auto) 32.2 [place] % (Auto) 9.2 Eos % (Auto) 0.0 Baso % (Auto) 0.3 Absolute Neuts (auto) 4.6 Absolute Lymphs (auto) 2.56 Total Counted Not Reportable Differential Comment SCANNED Sodium 150 H Potassium 3.7 Chloride 121 H Carbon Dioxide 23.0 Anion Gap 6 BUN 30 H Creatinine 1.87 H Estim Creat Clear Calc 40.13 Est GFR (MDRD) Af Amer 47 L Est GFR (MDRD) Non-Af 39 L BUN/Creatinine Ratio 16.0 Glucose 220 H C-Peptide Calcium 8.6 Phosphorus 3.7 Magnesium 2.5 Urine Color Urine Clarity Urine pH Ur Specific [place] Urine Protein Urine Glucose (UA) Urine Ketones Urine Occult Blood Urine Nitrite Urine Bilirubin Urine Urobilinogen Ur Leukocyte Esterase Urine RBC Urine WBC Ur Squamous Epith Cells Urine Bacteria Urine Mucus POC Glucose 266 H Microbiology 12/04/18 08:50 Blood Culture (Wb) - Left Wrist Blood Culture - Preliminary Medical Necessity - Tobacco Use Smoking Status: Current every day smoker Tobacco Use: Cigarettes Assessment/Plan All Active Problems DKA (diabetic ketoacidoses) (Acute) Acute kidney injury (Acute) RECOMMENDATIONS: 1. Continue q. before meals and at bedtime blood sugar checks 2. Wean oxygen as tolerated 3. Await culture results 4. Continue bronchodilators, given the patient's tobacco abuse history. 5. Wean supplemental oxygen as tolerated. Encourage incentive spirometer use. 6. Hemodynamically stable. Will sign off from a critical care perspective IMPRESSIONS: 1. Diabetic ketoacidosis/hypernatremia/hyperchloremia Although the patient presented with a hemoglobin A1c of 11.0, he was reportedly never previously diagnosed with diabetes. Patient will be transitioned over to subcutaneous insulin. Electrolyte repletion as indicated with daily labs. Patient still with significant hypernatremia and hyperchloremia, likely secondary to resuscitation. This has improved over the last 24 hours. Hemodynamically stable. Will sign off from a critical care perspective. 2. Acute kidney injury/anion gap metabolic acidosis Appears to be stable. Likely prerenal in etiology. Anticipate improvement with volume expansion. Continue to monitor urine output. No i ndication for renal replacement therapy. 3. Tobacco dependency/schizophrenia/bipolar/hypertension Complicates care, management, recovery and prognosis. Consideration can be given to initiating nicotine replacement therapy while the patient is admitted to the hospital. 4. Reported positive blood culture Unclear etiology at this time. Patient does have staph growing in his blood and has continued to have leukocytosis. Will start patient on appropriate antibiotics. Repeat blood cultures. Possible contaminant. Code Visit Inpatient E&M: 05405 Subs Hosp L2
[2018-12-05] MEDS: Insulin Lispro 100 UNIT/ML INSULN.PEN 8 UNIT SC ×2 (08:26→12:00)
[2018-12-05] MEDS: Insulin Lispro 100 UNIT/ML INSULN.PEN SC ×4 (08:27→23:35)
[2018-12-05 08:36] LABS: Bedside Glucose 242 mg/dL (70-110)
--- NOTE | 2018-12-05 09:07 | PCM.RX.CS ---
Consult Pharmacy has been consulted to manage selected antiobiotic: Vancomycin Type of Consult: New start Suspected Infection: Sepsis Prior Doses of Antibiotics Received/Current Regimen: 1X DOSE OF 1250MG Labs: Sodium 150 mmol/L (136-145) H 12/05/18 05:26 Potassium 3.7 mmol/L (3.5-5.1) 12/05/18 05:26 Chloride 121 mmol/L (98-107) H 12/05/18 05:26 Carbon Dioxide 23.0 mmol/L (21.0-32.0) 12/05/18 05:26 Anion Gap 6 (5-15) 12/05/18 05:26 BUN 30 mg/dL (7-18) H 12/05/18 05:26 Creatinine 1.87 mg/dL (0.70-1.30) H 12/05/18 05:26 Est GFR (MDRD) Af Amer 47 mL/min (>60) L 12/05/18 05:26 Est GFR (MDRD) Non-Af 39 mL/min (>60) L 12/05/18 05:26 BUN/Creatinine Ratio 16.0 RATIO (10-20) 12/05/18 05:26 Glucose 220 mg/dL (74-106) H 12/05/18 05:26 [place] 18312/06/18 PRIOR TO 4TH DOSE Microbiology: Microbiology 12/04/18 08:50 Blood Culture (Wb) - Left Wrist Bacteria Detection (PCR) - Final Coag Negative Staph 12/04/18 08:50 Blood Culture (Wb) - Left Wrist Blood Culture - Preliminary Weight used for dosin.5 kg Estimated Creatinine Clearance: 40.13 Goal Trough: 15-20 mcg/mL - VANCOMYCIN 1250MG LOADING DOSE THEN 750MG Q12H TO BEGIN 12/05/18 @ 1900 Pharmacy Plan for Drug Dosing: Pharmacy Service will continue to monitor and adjust dosing as required.
[2018-12-05] MEDS: Haloperidol 5 MG Tablet PO ×2 (11:29→23:31)
[2018-12-05] MEDS: Doxazosin 1 MG Tablet 2 MG PO (11:29)
[2018-12-05] MEDS: Heparin Injection (Vial) 5,000 UNIT/ML VIAL 5000 UNIT SC ×2 (11:30→23:34)
[2018-12-05] MEDS: amLODIPine 10 MG Tablet PO (11:31)
[2018-12-05] MEDS: QUEtiapine 100 MG Tablet PO (11:31)
--- NOTE | 2018-12-05 11:57 | CASEMGMT ---
Social Work Note LÓPEZ met with pt to confirm discharge plans. Pt is alert and orientated x3. Pt states that he wishes to return to [facility] at discharge. LÓPEZ informed pt that PT/OT are recommending Home Health for pt. Pt [facility]. Pt states that he wasn't wearing Oxygen at [facility]. Pt asked this worker to call his sister to ask for his Fixodent. LÓPEZ informed pt that this worker will call Jail to confirm they are able to accept pt back and will call his sister. LÓPEZ placed a call to [facility] [phone] and left message requesting call back. LÓPEZ placed a call to pt's sister Madai, updated her that PT/OT are recommending HHC for pt and that this worker has a call out to Jail to confirm they are able to accept pt back. Madai updated that pt is requesting Fixodent. Madai states she will bring Fixodent to [facility]. Pt is currently on Oxygen, this worker will have to confirm with [facility] if they are able to accommodate oxygen. LÓPEZ waiting for call back from [facility]. Plan: Return to Jail Nini Rivas [employer], [employer]
[2018-12-05 12:41] LABS: Bedside Glucose 277 mg/dL (70-110)
--- NOTE | 2018-12-05 12:57 | PCM.PN.HOSP ---
Patient Problems: Active and Suspected Problems DKA (diabetic ketoacidoses) (Acute) Acute kidney injury (Acute) Subjective: Denies any complaints at this time. Vitals/I&O's: Vital Signs Temp Pulse Resp BP Pulse Ox 36.6 C 95 18 116/68 95 12/05/18 12:52 12/05/18 12:52 12/05/18 12:52 12/05/18 12:52 12/05/18 12:52 Oxygen Flow Rate (L/min) 2.5 Oxygen Delivery Method Nasal Cannula Weight: 90.1 kg Body Mass Index (BMI) 29.5 Finger Stick Blood Glucose 222 Intake and Output for Last 24 Hours 12/03/18 12/04/18 12/05/18 23:59 23:59 23:59 Intake Total 4615 / 4615 3165 / 3165 2755 / 2755 Output Total 2950 / 2950 675 / 675 Balance 1665 / 1665 2490 / 2490 2755 / 2755 General: Alert, No apparent distress HEENT: Atraumatic, Normocephalic Oral: Moist Mucosa, No Gingival or Mucosal Lesions/ Ulcerations Neck: No Nodes, Thyroid Normal Size and Texture Lungs: Clear to auscultation, Normal air movement, No rhonchi, No wheeze Cardiovascular: Regular rate, Regular Rhythm, Normal S1, Normal S2, No murmurs Abdomen: Bowel Sounds Present, Soft, Non Tender, Non-Distended, No Hepato-splenomegaly Extremities: No edema, No Calf Tenderness Skin: No rashes, No breakdown Musculoskeletal: No Tenderness to Palpation of Joints or Extremities, No Muscle Wasting Psych/Mental Status: Normal Affect, Appropriate Microbiology Past 72 Hours 12/04/18 08:50 Blood Culture (Wb) - Left Wrist Bacteria Detection (PCR) - Final Coag Negative Staph 12/04/18 08:50 Blood Culture (Wb) - Left Wrist Blood Culture - Preliminary Laboratory Results 12/03/18 19:11: POC Glucose 457 H* 12/04/18 14:10: C-Peptide Pending 12/04/18 15:55: POC Glucose 426 H 12/04/18 21:38: POC Glucose 266 H 12/05/18 05:26: WBC 7.9, RBC 4.01 L, Hgb 11.8 L, Hct 36.6 L, MCV 91.3, MCH 29.4, MCHC 32.2, RDW 15.1 H, RDW Differential 49.7 H, Plt Count 258, MPV 10.9, Immature Gran % (Auto) 0.300, Neut % (Auto) 58.0, Lymph % (Auto) 32.2, [place] % (Auto) 9.2, Eos % (Auto) 0.0, Baso % (Auto) 0.3, Absolute Neuts (auto) 4.6, Absolute Lymphs (auto) 2.56, Total Counted Not Reportable, Differential Comment SCANNED 12/05/18 05:26: Sodium 150 H, Potassium 3.7, Chloride 121 H, Carbon Dioxide 23.0, Anion Gap 6, BUN 30 H, Creatinine 1.87 H, Estim Creat Clear Calc 40.13, Est GFR (MDRD) Af Amer 47 L, Est GFR (MDRD) Non-Af 39 L, BUN/Creatinine Ratio 16.0, Glucose 220 H, Calcium 8.6, Phosphorus 3.7, Magnesium 2.5 12/05/18 08:18: POC Glucose 242 H 12/05/18 11:39: POC Glucose 277 H Current Medications Acetaminophen (Tylenol) 650 mg PO Q6H PRN PRN PRN Reason: Non-cardiac pain (mod-severe) Albuterol Sulfate (Ventolin Aerosols) 2.5 mg INHALATION Q2H PRN PRN PRN Reason: dyspnea, wheezing Albuterol/Ipratropium (Duoneb) 3 ml INHALATION Q6HWA.RT [facility] Last Admin: 12/05/18 12:26 Dose: 3 ml Amlodipine Besylate (Norvasc) 10 mg PO DAILY [facility] Last Admin: 12/05/18 11:31 Dose: 10 mg Chlorhexidine Gluconate () 1 each TOPICAL DAILY [facility] Last Admin: 12/05/18 11:28 Dose: Not Given Dextrose (D50w Syringe) 0 gm IV X1 PRN; Protocol PRN Reason: HYPOGLYCEMIA Doxazosin Mesylate (Cardura) 2 mg PO DAILY [facility] Last Admin: 12/05/18 11:29 Dose: 2 mg Haloperidol (Haldol) 5 mg PO BID [facility] Last Admin: 12/05/18 11:29 Dose: 5 mg Heparin Sodium (Porcine) (Heparin Na) 5,000 unit SC Q12 [facility] Last Admin: 12/05/18 11:30 Dose: 5,000 unit Hydralazine HCl (Apresoline Iv) 10 mg IV Q4H PRN PRN PRN Reason: SBP > 160 Vancomycin IV Pharmacy to Dose (1 ea/ Sodium Chloride) 500 mls @ 250 mls/hr IV PRN PRN; Protocol PRN Reason: RX TO DOSE Vancomycin HCl 750 mg/ Sodium (Chloride) 265 mls @ 250 mls/hr IV Q12H [facility] Insulin Glargine (Lantus (Bkc)) 30 units SC BID [facility] Last Admin: 12/05/18 11:29 Dose: 30 u Insulin Human Lispro (Humalog Kwikpen (Bkc)) 0 unit SC ACHS [facility]; Protocol Last Admin: 12/05/18 12:01 Dose: 6 u Insulin Human Lispro (Humalog Kwikpen (Bkc)) 8 unit SC TIDAC [facility] Last Admin: 12/05/18 12:00 Dose: 8 units Magnesium Hydroxide (Milk Of Magnesia) 30 ml PO DAILY PRN PRN PRN Reason: Constipation Ondansetron HCl (Zofran) 4 mg IV Q8H PRN PRN PRN Reason: NAUSEA/VOMITING Oxcarbazepine (Trileptal) 300 mg PO DAILY [facility] Last Admin: 12/04/18 10:19 Dose: 300 mg Quetiapine Fumarate (Seroquel) 100 mg PO DAILY [facility] Last Admin: 12/05/18 11:31 Dose: 100 mg Sodium Chloride () 5 - 15 ml IV UD PRN PRN Reason: SALINE FLUSH Medical Necessity - Tobacco Use Smoking Status: Current every day smoker Tobacco Use: Cigarettes Assessment/Plan All Active Problems DKA (diabetic ketoacidoses) (Acute) Acute kidney injury (Acute) 1. DKA resolved changed to Basal and SSI 2. DM, uncontrolled A1c 11 Add scheduled log in addition to basal and SSI increase Basal and prandial (40 and 10, respectively) check c-peptide 3. Bacteremia: ruled out DW nursing, who saw + blood cultures earlier, but was on another patient. BCx drawn 12/04 and 1/2 + for TOP FORMER (likely contaminant) started on Vanc repeat BCx 4. hypernatremia 2/2 IVF replacement monitor 5. ADRIEL: improving likely prerenal +/- ATN monitor 6. VTE prophylaxis: SQ heparin 7. Disposition: anticipate another 24-48h will need to ensure no bacteremia and improved glycemic control. back to shelter v SNF. Await PT/OT eval. Code Visit Inpatient E&M: 62844 Subs Hosp L2
--- NOTE | 2018-12-05 13:02 | PN_ITS ---
Patient Problems: Active and Suspected Problems DKA (diabetic ketoacidoses) (Acute) Acute kidney injury (Acute) Subjective: Denies any complaints at this time. Vitals/I&O's: Vital Signs Temp Pulse Resp BP Pulse Ox 36.6 C 95 18 116/68 95 12/05/18 12:52 12/05/18 12:52 12/05/18 12:52 12/05/18 12:52 12/05/18 12:52 Oxygen Flow Rate (L/min) 2.5 Oxygen Delivery Method Nasal Cannula Weight: 90.1 kg Body Mass Index (BMI) 29.5 Finger Stick Blood Glucose 222 Intake and Output for Last 24 Hours 12/03/18 12/04/18 12/05/18 23:59 23:59 23:59 Intake Total 4615 / 4615 3165 / 3165 2755 / 2755 Output Total 2950 / 2950 675 / 675 Balance 1665 / 1665 2490 / 2490 2755 / 2755 General: Alert, No apparent distress HEENT: Atraumatic, Normocephalic Oral: Moist Mucosa, No Gingival or Mucosal Lesions/ Ulcerations Neck: No Nodes, Thyroid Normal Size and Texture Lungs: Clear to auscultation, Normal air movement, No rhonchi, No wheeze Cardiovascular: Regular rate, Regular Rhythm, Normal S1, Normal S2, No murmurs Abdomen: Bowel Sounds Present, Soft, Non Tender, Non-Distended, No Hepato- splenomegaly Extremities: No edema, No Calf Tenderness Skin: No rashes, No breakdown Musculoskeletal: No Tenderness to Palpation of Joints or Extremities, No Muscle Wasting Psych/Mental Status: Normal Affect, Appropriate Microbiology Past 72 Hours 12/04/18 08:50 Blood Culture (Wb) - Left Wrist Bacteria Detection (PCR) - Final Coag Negative Staph 12/04/18 08:50 Blood Culture (Wb) - Left Wrist Blood Culture - Preliminary Laboratory Results 12/03/18 19:11: POC Glucose 457 H* 12/04/18 14:10: C-Peptide Pending 12/04/18 15:55: POC Glucose 426 H 12/04/18 21:38: POC Glucose 266 H 12/05/18 05:26: WBC 7.9, RBC 4.01 L, Hgb 11.8 L, Hct 36.6 L, MCV 91.3, MCH 29.4, MCHC 32.2, RDW 15.1 H, RDW Differential 49.7 H, Plt Count 258, MPV 10.9, Immature Gran % (Auto) 0.300, Neut % (Auto) 58.0, Lymph % (Auto) 32.2, [place] % (Auto) 9.2, Eos % (Auto) 0.0, Baso % (Auto) 0.3, Absolute Neuts (auto) 4.6, Absolute Lymphs (auto) 2.56, Total Counted Not Reportable, Differential Comment SCANNED 12/05/18 05:26: Sodium 150 H, Potassium 3.7, Chloride 121 H, Carbon Dioxide 23.0, Anion Gap 6, BUN 30 H, Creatinine 1.87 H, Estim Creat Clear Calc 40.13, Est GFR (MDRD) Af Amer 47 L, Est GFR (MDRD) Non-Af 39 L, BUN/Creatinine Ratio 16.0, Glucose 220 H, Calcium 8.6, Phosphorus 3.7, Magnesium 2.5 12/05/18 08:18: POC Glucose 242 H 12/05/18 11:39: POC Glucose 277 H Current Medications Acetaminophen (Tylenol) 650 mg PO Q6H PRN PRN PRN Reason: Non-cardiac pain (mod-severe) Albuterol Sulfate (Ventolin Aerosols) 2.5 mg INHALATION Q2H PRN PRN PRN Reason: dyspnea, wheezing Albuterol/Ipratropium (Duoneb) 3 ml INHALATION Q6HWA.RT [facility] Last Admin: 12/05/18 12:26 Dose: 3 ml Amlodipine Besylate (Norvasc) 10 mg PO DAILY [facility] Last Admin: 12/05/18 11:31 Dose: 10 mg Chlorhexidine Gluconate () 1 each TOPICAL DAILY [facility] Last Admin: 12/05/18 11:28 Dose: Not Given Dextrose (D50w Syringe) 0 gm IV X1 PRN; Protocol PRN Reason: HYPOGLYCEMIA Doxazosin Mesylate (Cardura) 2 mg PO DAILY [facility] Last Admin: 12/05/18 11:29 Dose: 2 mg Haloperidol (Haldol) 5 mg PO BID [facility] Last Admin: 12/05/18 11:29 Dose: 5 mg Heparin Sodium (Porcine) (Heparin Na) 5,000 unit SC Q12 [facility] Last Admin: 12/05/18 11:30 Dose: 5,000 unit Hydralazine HCl (Apresoline Iv) 10 mg IV Q4H PRN PRN PRN Reason: SBP > 160 Vancomycin IV Pharmacy to Dose (1 ea/ Sodium Chloride) 500 mls @ 250 mls/hr IV PRN PRN; Protocol PRN Reason: RX TO DOSE Vancomycin HCl 750 mg/ Sodium (Chloride) 265 mls @ 250 mls/hr IV Q12H [facility] Insulin Glargine (Lantus (Bkc)) 30 units SC BID [facility] Last Admin: 12/05/18 11:29 Dose: 30 u Insulin Human Lispro (Humalog Kwikpen (Bkc)) 0 unit SC ACHS [facility]; Protocol Last Admin: 12/05/18 12:01 Dose: 6 u Insulin Human Lispro (Humalog Kwikpen (Bkc)) 8 unit SC TIDAC [facility] Last Admin: 12/05/18 12:00 Dose: 8 units Magnesium Hydroxide (Milk Of Magnesia) 30 ml PO DAILY PRN PRN PRN Reason: Constipation Ondansetron HCl (Zofran) 4 mg IV Q8H PRN PRN PRN Reason: NAUSEA/VOMITING Oxcarbazepine (Trileptal) 300 mg PO DAILY [facility] Last Admin: 12/04/18 10:19 Dose: 300 mg Quetiapine Fumarate (Seroquel) 100 mg PO DAILY [facility] Last Admin: 12/05/18 11:31 Dose: 100 mg Sodium Chloride () 5 - 15 ml IV UD PRN PRN Reason: SALINE FLUSH Medical Necessity - Tobacco Use Smoking Status: Current every day smoker Tobacco Use: Cigarettes Assessment/Plan All Active Problems DKA (diabetic ketoacidoses) (Acute) Acute kidney injury (Acute) 1. DKA * resolved * changed to Basal and SSI 2. DM, uncontrolled * A1c 11 * Add scheduled log in addition to basal and SSI * increase Basal and prandial (40 and 10, respectively) * check c-peptide 3. Bacteremia: * ruled out * DW nursing, who saw + blood cultures earlier, but was on another patient. 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 hypernatremia * 2/2 IVF replacement * monitor 5. ADRIEL: * improving * likely prerenal +/- ATN * monitor 6. VTE prophylaxis: SQ heparin 7. Disposition: * anticipate another 24-48h * will need to ensure no bacteremia and improved glycemic control. * back to skilled nursing v SNF. Await PT/OT eval. Code Visit Inpatient E&M: 27536 Subs Hosp L2
--- NOTE | 2018-12-05 15:30 | CASEMGMT ---
Social Work Note LÓPEZ placed another phone call to pt's halfway. LÓPEZ spoke with staff at halfway who informed this worker to call Nisha Eunice at [facility] ([phone]). LÓPEZ placed a call to Nisha and updated her on pt's admission to [facility] and that PT/OT are recommending pt return to halfway with PT/OT. Nisha states pt is able to return to halfway with HH for detention, PT/OT. LÓPEZ asked Nisha about oxygen as pt is currently on oxygen. Nisha states that if pt requires oxygen then he won't be able to return to halfway and will need SNF placement. Nisha states pt's CM at [facility] is Rodriguez Vasquez and pt's guardian is Rima Cisneros ([phone]). LÓPEZ asked Nisha to fax rae ship paperwork to [facility]. LÓPEZ placed a call to pt's guardian Rima. LÓPEZ updated Rima on pt's admission to [facility]. LÓPEZ asked Rima if pt is unable to return to halfway with oxygen where she would like pt to go for SNF. Rima states [facility] and then states anywhere but [facility]. SW informed Rima that this worker will keep her updated. Rima thanked this worker. Plan: Pt is able to return to halfway with [facility] if pt is off oxygen. If pt requires oxygen, pt will need SNF placement at discharge. SW to continue to follow for discharge plans. Nini Rivas ACCOUNT SUPERVISOR, SENIOR ARCHITECTURAL DESIGNER
[2018-12-05] MEDS: Insulin Lispro 100 UNIT/ML INSULN.PEN 10 UNIT SC (16:35)
[2018-12-05 16:45] LABS: Bedside Glucose 268 mg/dL (70-110)
[2018-12-05] MEDS: 0.9% NaCl Peripheral Flush Adult/Peds IV (19:00)
--- NOTE | 2018-12-05 23:04 | NURSING ---
Sister Madai Wilson called @ 2225 She States I went out to the custodial where my brother is staying and was horrified with the condition of his room. The room was in deplorable living condition(black mold,layers of dust,wet clothes,soiled depends in corner,clothes scattered all around the room, no bed sheets,and mattress is black. States I have not been allowed to go in his room and the person who would not allow me to go into his room has quit SO tonight she went and was hornified with her brothers living condition. Madai Tang am calling the health department and his guardian. REQUESTING he not be discharge back to the custodial.
[2018-12-05 23:50] LABS: Bedside Glucose 246 mg/dL (70-110)
[2018-12-06] VITALS (16 sets, daily range): BP systolic 109–134; BP diastolic 71–80; PULSE 78–102; RESP 14–22; TEMP 36.5–37; O2SAT 92–97
[2018-12-06 06:31] LABS: Anion Gap 5 (5-15); BUN 25 mg/dL (7-18); BUN/Creat Ratio 19.1 RATIO (10-20); Calcium,Total 8.2 mg/dL (8.5-10.1); Chloride 116 mmol/L (98-107); Creatinine, Serum 1.31 mg/dL (0.70-1.30); EST Glomerular Filtration Rate 59 mL/min (>60); Est Glom Filt Rate - Afr Amer 71 mL/min (>60); Estimated Creatinine Clearance 57.29 ml/min; Glucose 160 mg/dL (74-106); Potassium 3.4 mmol/L (3.5-5.1); Sodium Level 144 mmol/L (136-145)
[2018-12-06 06:44] LABS: Absolute Lymphocyte Count 2.15 X10^3/ul (0.83-4.51); Absolute Neutrophil Count 3.3 X10^3/uL (2.0-7.7); Basophil# 0.01 X10^3/uL; Basophil% 0.2 % (0-1); Hematocrit 35.4 % (40-54); Hemoglobin 11.3 g/dl (13.0-16.5); Lymphocyte # 2.15 X10^3/ul (4.0); Lymphocyte % 36.4 % (19-41); Mean Corp Hgb Conc 31.9 g/gl (32-36); Mean Corpuscular Hgb 28.8 pg (27.0-32.0); Mean Corpuscular Volume 90.3 fL (80-94); Mean Platelet Vol. 11.2 fl (6.2-12.0); Monocyte# 0.47 X10^3/uL; Neutrophil # 3.26 X10^3/uL (2.7-7.7); Neutrophil % 55.2 % (47-70); Platelet Count 229 K/mm3 (150-450); RBC Distribution Width CV 14.7 % (11.6-14.6); RBC Distribution Width SD 47.8 fl (35.1-43.9); Red Blood Count 3.92 M/mm3 (4.6-6.2); White Blood Count 5.9 K/mm3 (4.4-11.0)
[2018-12-06 06:53] LABS: Differential Indicated SCAN CRITERIA MET; POSITIVE COUNT NO; POSITIVE DIFFERENTIAL NO; POSITIVE MORPHOLOGY YES
[2018-12-06] MEDS: Ipratropium/Albuterol Sulfate 3 ML AMPUL.NEB INHALATION ×3 (07:08→19:19)
[2018-12-06 08:10] LABS: Bedside Glucose 166 mg/dL (70-110)
[2018-12-06] MEDS: Insulin Lispro 100 UNIT/ML INSULN.PEN 10 UNIT SC ×3 (09:16→17:28)
[2018-12-06] MEDS: Insulin Lispro 100 UNIT/ML INSULN.PEN SC ×2 (09:16→12:30)
[2018-12-06] MEDS: Doxazosin 1 MG Tablet 2 MG PO (10:55)
[2018-12-06] MEDS: OXcarbazepine 300 MG Tablet PO (10:56)
[2018-12-06] MEDS: QUEtiapine 100 MG Tablet PO (10:56)
[2018-12-06] MEDS: Heparin Injection (Vial) 5,000 UNIT/ML VIAL 5000 UNIT SC ×2 (10:56→22:45)
[2018-12-06] MEDS: amLODIPine 10 MG Tablet PO (10:56)
[2018-12-06] MEDS: Haloperidol 5 MG Tablet PO ×2 (10:56→22:45)
--- NOTE | 2018-12-06 11:14 | PCM.PN.HOSP ---
Patient Problems: Active and Suspected Problems DKA (diabetic ketoacidoses) (Acute) Acute kidney injury (Acute) Subjective: No new complaints. Vitals/I&O's: Vital Signs Temp Pulse Resp BP Pulse Ox 36.5 C L 85 16 127/80 H 94 12/06/18 08:21 12/06/18 08:21 12/06/18 08:21 12/06/18 08:21 12/06/18 09:14 Oxygen Flow Rate (L/min) [ 0 AMBULATING on Room Air] Oxygen Flow Rate (L/min) [At 0 REST on Room Air] Oxygen Flow Rate (L/min) 3 Oxygen Delivery Method Nasal Cannula Weight: 90.1 kg Body Mass Index (BMI) 29.5 Finger Stick Blood Glucose 222 Intake and Output for Last 24 Hours 12/04/18 12/05/18 12/06/18 23:59 23:59 23:59 Intake Total 3165 / 3165 3730 / 3730 1105 / 1105 Output Total 675 / 675 Balance 2490 / 2490 3730 / 3730 1105 / 1105 General: Alert, No apparent distress HEENT: Atraumatic, Normocephalic Oral: Moist Mucosa, No Gingival or Mucosal Lesions/ Ulcerations Neck: No Nodes, Thyroid Normal Size and Texture Lungs: Clear to auscultation, Normal air movement, No rhonchi, No wheeze Cardiovascular: Regular rate, Regular Rhythm, Normal S1, Normal S2, No murmurs Abdomen: Bowel Sounds Present, Soft, Non Tender, Non-Distended, No Hepato-splenomegaly Extremities: No edema, No Calf Tenderness Skin: No rashes, No breakdown Musculoskeletal: No Tenderness to Palpation of Joints or Extremities, No Muscle Wasting Psych/Mental Status: Normal Affect, Appropriate Microbiology Past 72 Hours 12/04/18 08:40 Blood Culture (Wb) - Anticubital Left Blood Culture - Preliminary No growth in 48 hours. 12/04/18 08:50 Blood Culture (Wb) - Left Wrist Bacteria Detection (PCR) - Final Coag Negative Staph 12/04/18 08:50 Blood Culture (Wb) - Left Wrist Blood Culture - Preliminary Coag Negative Staph Laboratory Results 12/05/18 11:39: POC Glucose 277 H 12/05/18 16:33: POC Glucose 268 H 12/05/18 23:33: POC Glucose 246 H 12/06/18 05:35: WBC 5.9, RBC 3.92 L, Hgb 11.3 L, Hct 35.4 L, MCV 90.3, MCH 28.8, MCHC 31.9 L, RDW 14.7 H, RDW Differential 47.8 H, Plt Count 229, MPV 11.2, Immature Gran % (Auto) 0.200, Neut % (Auto) 55.2, Lymph % (Auto) 36.4, [place] % (Auto) 8.0, Eos % (Auto) 0.0, Baso % (Auto) 0.2, Absolute Neuts (auto) 3.3, Absolute Lymphs (auto) 2.15, Total Counted Not Reportable 12/06/18 05:35: Sodium 144, Potassium 3.4 L, Chloride 116 H, Carbon Dioxide 23.0, Anion Gap 5, BUN 25 H, Creatinine 1.31 H, Estim Creat Clear Calc 57.29, Est GFR (MDRD) Af Amer 71, Est GFR (MDRD) Non-Af 59 L, BUN/Creatinine Ratio 19.1, Glucose 160 H, Calcium 8.2 L 12/06/18 08:06: POC Glucose 166 H Current Medications Acetaminophen (Tylenol) 650 mg PO Q6H PRN PRN PRN Reason: Non-cardiac pain (mod-severe) Albuterol Sulfate (Ventolin Aerosols) 2.5 mg INHALATION Q2H PRN PRN PRN Reason: dyspnea, wheezing Albuterol/Ipratropium (Duoneb) 3 ml INHALATION Q6HWA.RT [facility] Last Admin: 12/06/18 07:08 Dose: 3 ml Amlodipine Besylate (Norvasc) 10 mg PO DAILY [facility] Last Admin: 12/06/18 10:56 Dose: 10 mg Dextrose (D50w Syringe) 0 gm IV X1 PRN; Protocol PRN Reason: HYPOGLYCEMIA Doxazosin Mesylate (Cardura) 2 mg PO DAILY [facility] Last Admin: 12/06/18 10:55 Dose: 2 mg Haloperidol (Haldol) 5 mg PO BID [facility] Last Admin: 12/06/18 10:56 Dose: 5 mg Heparin Sodium (Porcine) (Heparin Na) 5,000 unit SC Q12 [facility] Last Admin: 12/06/18 10:56 Dose: 5,000 unit Hydralazine HCl (Apresoline Iv) 10 mg IV Q4H PRN PRN PRN Reason: SBP > 160 Vancomycin IV Pharmacy to Dose (1 ea/ Sodium Chloride) 500 mls @ 250 mls/hr IV PRN PRN; Protocol PRN Reason: RX TO DOSE Vancomycin HCl 750 mg/ Sodium (Chloride) 265 mls @ 250 mls/hr IV Q12H [facility] Last Admin: 12/06/18 06:22 Dose: 250 mls/hr Insulin Glargine (Lantus (Bkc)) 40 units SC BID [facility] Last Admin: 12/06/18 10:57 Dose: 40 u Insulin Human Lispro (Humalog Kwikpen (Bkc)) 0 unit SC ACHS [facility]; Protocol Last Admin: 12/06/18 09:16 Dose: 2 u Insulin Human Lispro (Humalog Kwikpen (Bkc)) 10 unit SC TIDAC [facility] Last Admin: 12/06/18 09:16 Dose: 10 units Magnesium Hydroxide (Milk Of Magnesia) 30 ml PO DAILY PRN PRN PRN Reason: Constipation Ondansetron HCl (Zofran) 4 mg IV Q8H PRN PRN PRN Reason: NAUSEA/VOMITING Oxcarbazepine (Trileptal) 300 mg PO DAILY [facility] Last Admin: 12/06/18 10:56 Dose: 300 mg Quetiapine Fumarate (Seroquel) 100 mg PO DAILY [facility] Last Admin: 12/06/18 10:56 Dose: 100 mg Sodium Chloride () 5 - 15 ml IV UD PRN PRN Reason: SALINE FLUSH Last Admin: 12/05/18 19:00 Dose: 10 ml Medical Necessity - Tobacco Use Smoking Status: Current every day smoker Tobacco Use: Cigarettes Assessment/Plan All Active Problems DKA (diabetic ketoacidoses) (Acute) Acute kidney injury (Acute) 1. DKA resolved changed to Basal and SSI 2. DM, uncontrolled A1c 11 Add scheduled log in addition to basal and SSI increase Basal and prandial (40 and 10, respectively) c-peptide pending 3. Bacteremia: ruled out? DW nursing, who saw + blood cultures earlier, but was on another patient. 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 4. hypernatremia resolved2/2 IVF replacement monitor 5. ADRIEL: improving likely prerenal +/- ATN monitor 6. VTE prophylaxis: SQ heparin 7. Disposition: anticipate another 24-48h will need to ensure no bacteremia and improved glycemic control. back to [facility] v SNF. Await PT/OT eval. Code Visit Inpatient E&M: 74186 Subs Hosp L2
--- NOTE | 2018-12-06 11:17 | PN_ITS ---
Patient Problems: Active and Suspected Problems DKA (diabetic ketoacidoses) (Acute) Acute kidney injury (Acute) Subjective: No new complaints. Vitals/I&O's: Vital Signs Temp Pulse Resp BP Pulse Ox 36.5 C L 85 16 127/80 H 94 12/06/18 08:21 12/06/18 08:21 12/06/18 08:21 12/06/18 08:21 12/06/18 09:14 Oxygen Flow Rate (L/min) [ 0 AMBULATING on Room Air] Oxygen Flow Rate (L/min) [At 0 REST on Room Air] Oxygen Flow Rate (L/min) 3 Oxygen Delivery Method Nasal Cannula Weight: 90.1 kg Body Mass Index (BMI) 29.5 Finger Stick Blood Glucose 222 Intake and Output for Last 24 Hours 12/04/18 12/05/18 12/06/18 23:59 23:59 23:59 Intake Total 3165 / 3165 3730 / 3730 1105 / 1105 Output Total 675 / 675 Balance 2490 / 2490 3730 / 3730 1105 / 1105 General: Alert, No apparent distress HEENT: Atraumatic, Normocephalic Oral: Moist Mucosa, No Gingival or Mucosal Lesions/ Ulcerations Neck: No Nodes, Thyroid Normal Size and Texture Lungs: Clear to auscultation, Normal air movement, No rhonchi, No wheeze Cardiovascular: Regular rate, Regular Rhythm, Normal S1, Normal S2, No murmurs Abdomen: Bowel Sounds Present, Soft, Non Tender, Non-Distended, No Hepato- splenomegaly Extremities: No edema, No Calf Tenderness Skin: No rashes, No breakdown Musculoskeletal: No Tenderness to Palpation of Joints or Extremities, No Muscle Wasting Psych/Mental Status: Normal Affect, Appropriate Microbiology Past 72 Hours 12/04/18 08:40 Blood Culture (Wb) - Anticubital Left Blood Culture - Preliminary No growth in 48 hours. 12/04/18 08:50 Blood Culture (Wb) - Left Wrist Bacteria Detection (PCR) - Final Coag Negative Staph 12/04/18 08:50 Blood Culture (Wb) - Left Wrist Blood Culture - Preliminary Coag Negative Staph Laboratory Results 12/05/18 11:39: POC Glucose 277 H 12/05/18 16:33: POC Glucose 268 H 12/05/18 23:33: POC Glucose 246 H 12/06/18 05:35: WBC 5.9, RBC 3.92 L, Hgb 11.3 L, Hct 35.4 L, MCV 90.3, MCH 28.8, MCHC 31.9 L, RDW 14.7 H, RDW Differential 47.8 H, Plt Count 229, MPV 11.2, Immature Gran % (Auto) 0.200, Neut % (Auto) 55.2, Lymph % (Auto) 36.4, [place] % (Auto) 8.0, Eos % (Auto) 0.0, Baso % (Auto) 0.2, Absolute Neuts (auto) 3.3, Absolute Lymphs (auto) 2.15, Total Counted Not Reportable 12/06/18 05:35: Sodium 144, Potassium 3.4 L, Chloride 116 H, Carbon Dioxide 23.0, Anion Gap 5, BUN 25 H, Creatinine 1.31 H, Estim Creat Clear Calc 57.29, Est GFR (MDRD) Af Amer 71, Est GFR (MDRD) Non-Af 59 L, BUN/Creatinine Ratio 19.1, Glucose 160 H, Calcium 8.2 L 12/06/18 08:06: POC Glucose 166 H Current Medications Acetaminophen (Tylenol) 650 mg PO Q6H PRN PRN PRN Reason: Non-cardiac pain (mod-severe) Albuterol Sulfate (Ventolin Aerosols) 2.5 mg INHALATION Q2H PRN PRN PRN Reason: dyspnea, wheezing Albuterol/Ipratropium (Duoneb) 3 ml INHALATION Q6HWA.RT [facility] Last Admin: 12/06/18 07:08 Dose: 3 ml Amlodipine Besylate (Norvasc) 10 mg PO DAILY [facility] Last Admin: 12/06/18 10:56 Dose: 10 mg Dextrose (D50w Syringe) 0 gm IV X1 PRN; Protocol PRN Reason: HYPOGLYCEMIA Doxazosin Mesylate (Cardura) 2 mg PO DAILY [facility] Last Admin: 12/06/18 10:55 Dose: 2 mg Haloperidol (Haldol) 5 mg PO BID [facility] Last Admin: 12/06/18 10:56 Dose: 5 mg Heparin Sodium (Porcine) (Heparin Na) 5,000 unit SC Q12 [facility] Last Admin: 12/06/18 10:56 Dose: 5,000 unit Hydralazine HCl (Apresoline Iv) 10 mg IV Q4H PRN PRN PRN Reason: SBP > 160 Vancomycin IV Pharmacy to Dose (1 ea/ Sodium Chloride) 500 mls @ 250 mls/hr IV PRN PRN; Protocol PRN Reason: RX TO DOSE Vancomycin HCl 750 mg/ Sodium (Chloride) 265 mls @ 250 mls/hr IV Q12H [facility] Last Admin: 12/06/18 06:22 Dose: 250 mls/hr Insulin Glargine (Lantus (Bkc)) 40 units SC BID [facility] Last Admin: 12/06/18 10:57 Dose: 40 u Insulin Human Lispro (Humalog Kwikpen (Bkc)) 0 unit SC ACHS [facility]; Protocol Last Admin: 12/06/18 09:16 Dose: 2 u Insulin Human Lispro (Humalog Kwikpen (Bkc)) 10 unit SC TIDAC [facility] Last Admin: 12/06/18 09:16 Dose: 10 units Magnesium Hydroxide (Milk Of Magnesia) 30 ml PO DAILY PRN PRN PRN Reason: Constipation Ondansetron HCl (Zofran) 4 mg IV Q8H PRN PRN PRN Reason: NAUSEA/VOMITING Oxcarbazepine (Trileptal) 300 mg PO DAILY [facility] Last Admin: 12/06/18 10:56 Dose: 300 mg Quetiapine Fumarate (Seroquel) 100 mg PO DAILY [facility] Last Admin: 12/06/18 10:56 Dose: 100 mg Sodium Chloride () 5 - 15 ml IV UD PRN PRN Reason: SALINE FLUSH Last Admin: 12/05/18 19:00 Dose: 10 ml Medical Necessity - Tobacco Use Smoking Status: Current every day smoker Tobacco Use: Cigarettes Assessment/Plan All Active Problems DKA (diabetic ketoacidoses) (Acute) Acute kidney injury (Acute) 1. DKA * resolved * changed to Basal and SSI 2. DM, uncontrolled * A1c 11 * Add scheduled log in addition to basal and SSI * increase Basal and prandial (40 and 10, respectively) * c-peptide pending 3. Bacteremia: * ruled out? * DW nursing, who saw + blood cultures earlier, but was on another patient. 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 4. hypernatremia * resolved2/2 IVF replacement * monitor 5. ADRIEL: * improving * likely prerenal +/- ATN * monitor 6. VTE prophylaxis: SQ heparin 7. Disposition: * anticipate another 24-48h * will need to ensure no bacteremia and improved glycemic control. * back to long-term v SNF. Await PT/OT eval. Code Visit Inpatient E&M: 96451 Subs Hosp L2
[2018-12-06 11:36] LABS: Magnesium 2.3 mg/dL (1.6-2.6)
[2018-12-06 11:40] LABS: Bedside Glucose 206 mg/dL (70-110)
--- NOTE | 2018-12-06 12:39 | NURSING ---
director community health nursing charting reviewed for educational learning purposes only,
--- NOTE | 2018-12-06 13:30 | CASEMGMT ---
Social Work Note LÓPEZ received call from pt's sister Madai. Madai states she has concerns with pt returning to [facility] and she went to [facility] yesterday and went into pt's room and was dirty. Madai states that there was dust everywhere and his mattress is bad. Madai states that the rest of the usp is clean and nice but not pt's room. Madai states that she contacted Nisha Dawson at [facility] and per Nisha she was going to send someone to the [facility] to clean pt's room for him. Madai states that she would also be willing to clean pt's room if necessary. Madai states that the [facility] kept telling her that they can't make pt clean his room or sleep in [facility]. LÓPEZ validated Madai's concerns and feelings but reiterated that the usp is not able to tell pt what he needs to do or how to clean his room and that overall pt's rae Abarca has the final say on where pt will go at discharge. LÓPEZ explained that pt is off oxygen and is walking 180 ft and returning to the [facility] may be best for pt. LÓPEZ informed Madai that this worker will call pt's guardian Rima today to determine discharge plans for pt. LÓPEZ informed Madai that pt is not medically cleared for discharge today. Madai states understanding, requested to be updated. LÓPEZ placed a call to pt's guardipradeep Abarca and left message regarding discharge plans. LÓPEZ did receive guardianship paperwork for pt and placed documents on pt's chart. LÓPEZ waiting for call back from pt's rae Abarca. Plan: Likely return to [facility] with [facility] Nini Rivas RETORT FIREMAN, FLORIST'S DECORATOR
[2018-12-06 18:31] LABS: Bedside Glucose 117 mg/dL (70-110)
[2018-12-06] MEDS: 0.9% NaCl Peripheral Flush Adult/Peds IV ×2 (18:44→22:45)
[2018-12-06 19:52] LABS: Vancomycin, Trough Level 10.6 ug/mL (5.0-15.0)
[2018-12-06 22:50] LABS: Bedside Glucose 112 mg/dL (70-110)
--- NOTE | 2018-12-06 23:26 | PCM.RX.CS ---
Consult Pharmacy has been consulted to manage selected antiobiotic: Vancomycin Type of Consult: Follow-up Suspected Infection: Sepsis Prior Doses of Antibiotics Received/Current Regimen: Medications Vancomycin HCl 1,250 mg/ (Sodium Chloride) 275 mls @ 167 mls/hr IV Q12H [facility] Discontinued Medications Vancomycin HCl 750 mg/ Sodium (Chloride) 265 mls @ 250 mls/hr IV Q12H [facility] Last Admin: 12/06/18 18:44 Dose: 250 mls/hr Labs: Sodium 144 mmol/L (136-145) 12/06/18 05:35 Potassium 3.4 mmol/L (3.5-5.1) L 12/06/18 05:35 Chloride 116 mmol/L (98-107) H 12/06/18 05:35 Carbon Dioxide 23.0 mmol/L (21.0-32.0) 12/06/18 05:35 Anion Gap 5 (5-15) 12/06/18 05:35 BUN 25 mg/dL (7-18) H 12/06/18 05:35 Creatinine 1.31 mg/dL (0.70-1.30) H 12/06/18 05:35 Est GFR (MDRD) Af Amer 71 mL/min (>60) 12/06/18 05:35 Est GFR (MDRD) Non-Af 59 mL/min (>60) L 12/06/18 05:35 BUN/Creatinine Ratio 19.1 RATIO (10-20) 12/06/18 05:35 Glucose 160 mg/dL (74-106) H 12/06/18 05:35 Vancomycin Trough 10.6 ug/mL (5.0-15.0) 12/06/18 18:38 Microbiology: Microbiology 12/04/18 08:40 Blood Culture (Wb) - Anticubital Left Blood Culture - Preliminary No growth in 48 hours. 12/04/18 08:50 Blood Culture (Wb) - Left Wrist Bacteria Detection (PCR) - Final Coag Negative Staph 12/04/18 08:50 Blood Culture (Wb) - Left Wrist Blood Culture - Preliminary Coag Negative Staph Weight used for dosin.1 kg Estimated Creatinine Clearance: 57 Goal Trough: 15-20 mcg/mL Pharmacy Plan for Drug Dosing: Trough level was measured at 10.6, below the target range of 15-20. Dose was increased to 1250mg q12h, and will redraw trough before 4th dose. Pharmacy Service will continue to monitor and adjust dosing as required. Follow-Up Labs: Trough Vancomycin Labs to be done on [date and time ordered]: 12/08/18 @1800
[2018-12-07] VITALS (11 sets, daily range): BP systolic 115–144; BP diastolic 68–78; PULSE 79–98; RESP 18–20; TEMP 36.9–37; O2SAT 95–98
[2018-12-07 06:05] LABS: Anion Gap 8 (5-15); BUN 13 mg/dL (7-18); Calcium,Total 7.8 mg/dL (8.5-10.1); Chloride 114 mmol/L (98-107); Creatinine, Serum 1.08 mg/dL (0.70-1.30); EST Glomerular Filtration Rate 74 mL/min (>60); Est Glom Filt Rate - Afr Amer 89 mL/min (>60); Estimated Creatinine Clearance 69.49 ml/min; Glucose 89 mg/dL (74-106); Potassium 3.1 mmol/L (3.5-5.1); Sodium Level 144 mmol/L (136-145)
[2018-12-07] MEDS: 0.9% NaCl Peripheral Flush Adult/Peds IV ×2 (06:22→21:36)
[2018-12-07] MEDS: Ipratropium/Albuterol Sulfate 3 ML AMPUL.NEB INHALATION ×2 (06:42→14:03)
[2018-12-07] MEDS: Insulin Lispro 100 UNIT/ML INSULN.PEN 10 UNIT SC ×2 (08:28→16:37)
[2018-12-07] MEDS: amLODIPine 10 MG Tablet PO (08:31)
[2018-12-07] MEDS: Heparin Injection (Vial) 5,000 UNIT/ML VIAL 5000 UNIT SC ×2 (08:31→21:38)
[2018-12-07] MEDS: OXcarbazepine 300 MG Tablet PO (08:31)
[2018-12-07] MEDS: Doxazosin 1 MG Tablet 2 MG PO (08:31)
[2018-12-07] MEDS: Haloperidol 5 MG Tablet PO ×2 (08:31→21:36)
[2018-12-07] MEDS: QUEtiapine 100 MG Tablet PO (08:31)
[2018-12-07 08:46] LABS: Bedside Glucose 81 mg/dL (70-110)
--- NOTE | 2018-12-07 09:16 | PCM.DC ---
- Discharge Diagnoses Current Active Problems: Current Active and Chronic Problems DKA (diabetic ketoacidoses) (Acute) HTN (hypertension) (Chronic) Anxiety and depression (Chronic) Bipolar disorder (Chronic) Tobacco use (Chronic) Acute kidney injury (Acute) You will use the following diet at home:: Calorie/Carbohydrate Controlled (specify 1200, 1400, etc) - 1800 Your food should be the consistency of: Regular Your liquids should be the consistency of: Regular/Thin Discharge Activity: Return to Normal Activity Call your doctor if you observe: Fever of 101 or Higher Allergies/Adverse Reactions: Allergies No Known Allergies Allergy (Verified 08/11/14 12:25) Medications to take at Discharge Amlodipine [Norvasc] 10 mg PO DAILY 12/03/18 Doxazosin Mesylate 2 mg PO DAILY 12/03/18 Haloperidol Decanoate 100 mg IM QWEEK 12/03/18 Lisinopril [Zestril] 20 mg PO DAILY 12/03/18 Oxcarbazepine 300 mg PO DAILY 12/03/18 Quetiapine Fumarate 100 mg PO DAILY 12/03/18 Acetaminophen [Tylenol Tablet] 650 mg PO Q6H PRN PRN tablet 12/07/18 Insulin Glargine [Lantus SoloStar Pen] 40 units SC BID #1 pen 12/07/18 Insulin Lispro [Humalog KwikPen] 10 unit SC TIDAC #1 insuln.pen 12/07/18 [place], Insulin Disposable [Novofine Autocover 30G Needle] 1 each MISCELL. UD #1 box 12/07/18 The following prescriptions were given: Insulin Lispro [Humalog KwikPen] 10 unit SC TIDAC #1 insuln.pen [place], Insulin Disposable [Novofine Autocover 30G Needle] 1 each MISCELL. UD #1 box Insulin Glargine [Lantus SoloStar Pen] 40 units SC BID #1 pen Orders to be completed after discharge: Glucometer Location: None Selected Primary Care Physician: Ayo Uriostegui MD [Primary Care Provider] - Within 2 Weeks Test Results: Test results from this visit will be discussed in further detail at your follow-up appointment, if applicable. Proposed Discharge Date: 12/07/18
--- NOTE | 2018-12-07 09:17 | PCM.DC.SUM ---
Discharge Date and Diagnosis - Problem List Patient Problems: Active and Suspected Problems DKA (diabetic ketoacidoses) (Acute) Acute kidney injury (Acute) Date of Admission: 12/03/18 Date of Discharge: 12/07/18 - Primary Discharge Diagnosis Active and Suspected Problems DKA (diabetic ketoacidoses) (Acute) Acute kidney injury (Acute) - Secondary Discharge Diagnosis Chronic Problems HTN (hypertension) (Chronic) Anxiety and depression (Chronic) Bipolar disorder (Chronic) Tobacco use (Chronic) 1. DKA resolved changed to Basal and SSI 2. DM, uncontrolled A1c 11 Add scheduled log in addition to basal and SSI increase Basal and prandial (40 and 10, respectively) c-peptide pending 3. Bacteremia: ruled out DW nursing, who saw + blood cultures earlier, but was on another patient. BCx drawn 12/04 and 1 + for RESEARCH INVESTIGATOR (likely contaminant) started on Vanc repeat BCx from the 16 negative. 4. hypernatremia resolved2/2 IVF replacement monitor 5. ADRIEL: resolved likely prerenal +/- ATN monitor Hospital Course and Treatment Imaging Results: Clinical Impression(s) from Imaging Studies Chest X-Ray 12/03/18 06:00 IMPRESSION: Lungs are well expanded. There are mild fibrotic lung changes. There are NO acute infiltrates. There is no demonstrated pleural abnormality. Normal size heart. Electronically Signed: Rafy Vega MD at 7:04 EDT , Service support , Chest X-Ray 12/03/18 16:00 IMPRESSION: Normal x-ray examination of the chest. Electronically Signed: Doc Rubi MD at 18:02 EDT , Service support , Sharan Michael CCM. Operations: None Procedures: None Summary of Care Provided: The patient is a 63 year old M presents with polyuria and confusion. Patient was found to be in diabetic ketoacidosis. Patient started on insulin drip and then changed over to based on pre-meal insulins. With presumed patient is a type II diabetic but a C-peptide is currently pending to determine if patient is type II versus type I. Nonetheless, patient will require insulin with basal and prandial insulins. Patient did have hypernatremia, acute kidney injury does have resolved. [] Patient Problems: Active and Suspected Problems DKA (diabetic ketoacidoses) (Acute) Acute kidney injury (Acute) - Physical Exam General: Alert, No apparent distress HEENT: Atraumatic, Normocephalic Oral: Moist Mucosa, No Gingival or Mucosal Lesions/ Ulcerations Neck: No Nodes, Thyroid Normal Size and Texture Lungs: Clear to auscultation, Normal air movement, No rhonchi, No wheeze Cardiovascular: Regular rate, Regular Rhythm, Normal S1, Normal S2, No murmurs Abdomen: Bowel Sounds Present, Soft, Non Tender, Non-Distended, No Hepato-splenomegaly Extremities: No edema, No Calf Tenderness Psych/Mental Status: Normal Affect, Appropriate Vital Signs Temp Pulse Resp BP Pulse Ox 36.9 C 97 20 H 134/68 H 98 12/07/18 07:43 12/07/18 07:43 12/07/18 07:43 12/07/18 07:43 12/07/18 07:43 Oxygen Flow Rate (L/min) [ 0 AMBULATING on Room Air] Oxygen Flow Rate (L/min) [At 0 REST on Room Air] Oxygen Flow Rate (L/min) 3 Oxygen Delivery Method Room Air Weight: 90.1 kg Body Mass Index (BMI) 29.5 Finger Stick Blood Glucose 222 Intake and Output for Last 24 Hours 12/05/18 12/06/18 12/07/18 23:59 23:59 23:59 Intake Total 3730 / 3730 1855 / 1855 1206 / 1206 Output Total 800 / 800 Balance 3730 / 3730 1055 / 1055 1206 / 1206 Microbiology Past 72 Hours 12/04/18 08:40 Blood Culture - Preliminary Blood Culture (Wb) - Anticubital Left No growth in 48 hours. 12/04/18 08:50 Bacteria Detection (PCR) - Final Blood Culture (Wb) - Left Wrist Coag Negative Staph Blood Culture - Preliminary Coag Negative Staph Laboratory Tests Past 24 Hrs 12/06/18 12/06/18 12/07/18 05:35 18:38 05:08 Sodium 144 Potassium 3.1 L Chloride 114 H Carbon Dioxide 22.0 Anion Gap 8 BUN 13 Creatinine 1.08 Estim Creat Clear Calc 69.49 Est GFR (MDRD) Af Amer 89 Est GFR (MDRD) Non-Af 74 BUN/Creatinine Ratio 12.0 Glucose 89 Calcium 7.8 L Magnesium 2.3 Vancomycin Trough 10.6 POC Glucose 12/07/18 12/06/18 12/06/18 07:40 22:42 16:27 POC Glucose 81 112 H 117 H 12/06/18 11:21 POC Glucose 206 H Discharge Diet: 1800 Calorie Control Diet Discharge Activity: Return to Normal Activity Call your doctor if you observe: Fever of 101 or Higher Home Medications: Medications to take at Discharge Amlodipine [Norvasc] 10 mg PO DAILY 12/03/18 Doxazosin Mesylate 2 mg PO DAILY 12/03/18 Haloperidol Decanoate 100 mg IM QWEEK 12/03/18 Lisinopril [Zestril] 20 mg PO DAILY 12/03/18 Oxcarbazepine 300 mg PO DAILY 12/03/18 Quetiapine Fumarate 100 mg PO DAILY 12/03/18 Acetaminophen [Tylenol Tablet] 650 mg PO Q6H PRN PRN tablet 12/07/18 Insulin Glargine [Lantus SoloStar Pen] 40 units SC BID #1 pen 12/07/18 Insulin Lispro [Humalog KwikPen] 10 unit SC TIDAC #1 insuln.pen 12/07/18 [place], Insulin Disposable [Novofine Autocover 30G Needle] 1 each MISCELL. UD #1 box 12/07/18 Following Prescrptions Were Given to Patient: Insulin Lispro [Humalog KwikPen] 10 unit SC TIDAC #1 insuln.pen [place], Insulin Disposable [Novofine Autocover 30G Needle] 1 each MISCELL. UD #1 box Insulin Glargine [Lantus SoloStar Pen] 40 units SC BID #1 pen Other Amb Orders: Glucometer Location: None Selected Primary Care Physician: Ayo Uriostegui MD [Primary Care Provider] - Within 2 Weeks Disposition: Home Minutes spent on discharge:: 32 Patient Condition:: Fair Medical Necessity - Tobacco Use Smoking Status: Current every day smoker Tobacco Use: Cigarettes Meaningful Use Info Meaningful Use Diagnoses (Choose all that apply): None applicable Code Visit Inpatient E&M: 32077 Disch Hosp
--- NOTE | 2018-12-07 09:21 | DS.PCM_ITS ---
Discharge Date and Diagnosis - Problem List Patient Problems: Active and Suspected Problems DKA (diabetic ketoacidoses) (Acute) Acute kidney injury (Acute) Date of Admission: 12/03/18 Date of Discharge: 12/07/18 - Primary Discharge Diagnosis Active and Suspected Problems DKA (diabetic ketoacidoses) (Acute) Acute kidney injury (Acute) - Secondary Discharge Diagnosis Chronic Problems HTN (hypertension) (Chronic) Anxiety and depression (Chronic) Bipolar disorder (Chronic) Tobacco use (Chronic) 1. DKA * resolved * changed to Basal and SSI 2. DM, uncontrolled * A1c 11 * Add scheduled log in addition to basal and SSI * increase Basal and prandial (40 and 10, respectively) * c-peptide pending 3. Bacteremia: * ruled out * DW nursing, who saw + blood cultures earlier, but was on another patient. * BCx drawn 12/04 and 1/2 + for ARCADE ATTENDANT (likely contaminant) * started on Vanc * repeat BCx from the 16th negative. 4. hypernatremia * resolved2/2 IVF replacement * monitor 5. ADRIEL: * resolved * likely prerenal +/- ATN * monitor Hospital Course and Treatment Imaging Results: Clinical Impression(s) from Imaging Studies Chest X-Ray 12/03/18 06:00 IMPRESSION: Lungs are well expanded. There are mild fibrotic lung changes. There are NO acute infiltrates. There is no demonstrated pleural abnormality. Normal size heart. Electronically Signed: Rafy Vega MD at 7:04 EDT , Service support , Chest X-Ray 12/03/18 16:00 IMPRESSION: Normal x-ray examination of the chest. Electronically Signed: Doc Rubi MD at 18:02 EDT , Service support , Sharan Michael CCM. Operations: None Procedures: None Summary of Care Provided: The patient is a 63 year old M presents with polyuria and confusion. Patient was found to be in diabetic ketoacidosis. Patient started on insulin drip and then changed over to based on pre-meal insulins. With presumed patient is a type II diabetic but a C-peptide is currently pending to determine if patient is type II versus type I. Nonetheless, patient will require insulin with basal and prandial insulins. Patient did have hypernatremia, acute kidney injury does have resolved. [] Patient Problems: Active and Suspected Problems DKA (diabetic ketoacidoses) (Acute) Acute kidney injury (Acute) - Physical Exam General: Alert, No apparent distress HEENT: Atraumatic, Normocephalic Oral: Moist Mucosa, No Gingival or Mucosal Lesions/ Ulcerations Neck: No Nodes, Thyroid Normal Size and Texture Lungs: Clear to auscultation, Normal air movement, No rhonchi, No wheeze Cardiovascular: Regular rate, Regular Rhythm, Normal S1, Normal S2, No murmurs Abdomen: Bowel Sounds Present, Soft, Non Tender, Non-Distended, No Hepato- splenomegaly Extremities: No edema, No Calf Tenderness Psych/Mental Status: Normal Affect, Appropriate Vital Signs Temp Pulse Resp BP Pulse Ox 36.9 C 97 20 H 134/68 H 98 12/07/18 07:43 12/07/18 07:43 12/07/18 07:43 12/07/18 07:43 12/07/18 07:43 Oxygen Flow Rate (L/min) [ 0 AMBULATING on Room Air] Oxygen Flow Rate (L/min) [At 0 REST on Room Air] Oxygen Flow Rate (L/min) 3 Oxygen Delivery Method Room Air Weight: 90.1 kg Body Mass Index (BMI) 29.5 Finger Stick Blood Glucose 222 Intake and Output for Last 24 Hours 12/05/18 12/06/18 12/07/18 23:59 23:59 23:59 Intake Total 3730 / 3730 1855 / 1855 1206 / 1206 Output Total 800 / 800 Balance 3730 / 3730 1055 / 1055 1206 / 1206 Microbiology Past 72 Hours 12/04/18 08:40 Blood Culture - Preliminary Blood Culture (Wb) - Anticubital Left No growth in 48 hours. 12/04/18 08:50 Bacteria Detection (PCR) - Final Blood Culture (Wb) - Left Wrist Coag Negative Staph Blood Culture - Preliminary Coag Negative Staph Laboratory Tests Past 24 Hrs 12/06/18 12/06/18 12/07/18 05:35 18:38 05:08 Sodium 144 Potassium 3.1 L Chloride 114 H Carbon Dioxide 22.0 Anion Gap 8 BUN 13 Creatinine 1.08 Estim Creat Clear Calc 69.49 Est GFR (MDRD) Af Amer 89 Est GFR (MDRD) Non-Af 74 BUN/Creatinine Ratio 12.0 Glucose 89 Calcium 7.8 L Magnesium 2.3 Vancomycin Trough 10.6 POC Glucose 12/07/18 12/06/18 12/06/18 07:40 22:42 16:27 POC Glucose 81 112 H 117 H 12/06/18 11:21 POC Glucose 206 H Discharge Diet: 1800 Calorie Control Diet Discharge Activity: Return to Normal Activity Call your doctor if you observe: Fever of 101 or Higher Home Medications: Medications to take at Discharge Amlodipine [Norvasc] 10 mg PO DAILY 12/03/18 Doxazosin Mesylate 2 mg PO DAILY 12/03/18 Haloperidol Decanoate 100 mg IM QWEEK 12/03/18 Lisinopril [Zestril] 20 mg PO DAILY 12/03/18 Oxcarbazepine 300 mg PO DAILY 12/03/18 Quetiapine Fumarate 100 mg PO DAILY 12/03/18 Acetaminophen [Tylenol Tablet] 650 mg PO Q6H PRN PRN tablet 12/07/18 Insulin Glargine [Lantus SoloStar Pen] 40 units SC BID #1 pen 12/07/18 Insulin Lispro [Humalog KwikPen] 10 unit SC TIDAC #1 insuln.pen 12/07/18 [place], Insulin Disposable [Novofine Autocover 30G Needle] 1 each MISCELL. UD #1 box 12/07/18 Following Prescrptions Were Given to Patient: Insulin Lispro [Humalog KwikPen] 10 unit SC TIDAC #1 insuln.pen [place], Insulin Disposable [Novofine Autocover 30G Needle] 1 each MISCELL. UD #1 box Insulin Glargine [Lantus SoloStar Pen] 40 units SC BID #1 pen Other Amb Orders: Glucometer Location: None Selected Primary Care Physician: Ayo Uriostegui MD [Primary Care Provider] - Within 2 Weeks Disposition: Home Minutes spent on discharge:: 32 Patient Condition:: Fair Medical Necessity - Tobacco Use Smoking Status: Current every day smoker Tobacco Use: Cigarettes Meaningful Use Info Meaningful Use Diagnoses (Choose all that apply): None applicable Code Visit Inpatient E&M: 00371 Disch Hosp
--- NOTE | 2018-12-07 12:00 | NURSING ---
Attempted to do some diabetic teaching with pt when checking his blood sugar at lunch time. Pt disinterested. Does not make eye contact or discuss teaching with undersigned.
[2018-12-07 12:10] LABS: Bedside Glucose 137 mg/dL (70-110)
[2018-12-07 12:10] LABS: Bedside Glucose 65 mg/dL (70-110)
--- NOTE | 2018-12-07 12:20 | CASEMGMT ---
Addendum entered by Nini Rivas 12/07/18 12:43: LÓPEZ also placed a call to Sophie Green, security field supervisor at [facility], and left message requesting call back. Original Note: Social Work Note SW has attempted twice to call pt's guardian Rima today. SW spoke with PT who states pt doesn't need a wheeled walker, is not unsteady and doesn't need PT/OT in the home. Pt does have diabetes and will have to check his diabetes. LÓPEZ placed a call to pt's residential and spoke with Noy who states pt will need to check his own diabetes and staff won't be able to help him. SW attempted to call pt's guardian again, with no answer and voicemail box is full. LÓPEZ received message from Nisha Dawson at [facility] who states she will be out of the office and for this worker to call pt's CM Rodriguez Vasquez or Nisha's security field supervisor Sophie Green. SW attempted to call [facility]. Per staff Sophie is in meeting, Nisha is out of the office and they are unsure if Rodriguez is in the office. LÓPEZ did leave voicemail for Rodriguez to call this worker back. Since pt is unable to be taught to check his own diabetes, due to his mental health history and staff at [facility] is unable to assist pt with checking his diabetes, pt will likely need SNF. LÓPEZ will fax referral to [facility] as per previous discussion with pt's guardian Rima, [facility] would be a first choice for pt if he needed SNF. LÓPEZ faxed referral to [facility]. Pt is ready for discharge today and has had qualifying stay for Medicare. LÓPEZ placed a call to [facility] and spoke with Eloisa. Eloisa states that it is likely they will need to do an onsite with pt and not sure that can be done today. LÓPEZ faxed referral. LÓPEZ waiting to hear from [facility]. SW is still waiting to hear from pt's guardian Rima. Plan: Likely SNF as pt is new diabetic and unable to check his own diabetes. Nini Rivas COMPUTER PROCESSING SCHEDULER, MANUFACTURING ENGINEER ASSEMBLY
--- NOTE | 2018-12-07 14:04 | CASEMGMT ---
Addendum entered by Nini Rivas 12/07/18 15:14: SW placed a call to Eloisa at [facility] and asked for updated regarding referral. LÓPEZ informed Eloisa that per pt's guardian it would be short term stay at SNF until she is able to find a different nursing home that is able to accept pt and assist with his diabetes. SW waiting for call back from [facility]. Original Note: Social Work Note SW finally was able to reach pt's guardian Rima. LÓPEZ updated Rima that nursing home is not able to provided Diabetes care to pt and that he will need placement at SNF. Rima states that she will look into a new nursing home for pt that is able to assist pt with his diabetes but at this time is agreeable to SNF for pt for short term while she looks for new nursing home. Rima states [facility] is first choice and is agreeable to this worker looking for any SNF in [facility] that is able to accept pt if [facility] is not able to. Rima states any SNF is fine for pt except for [facility]. SW informed Rima that pt is medically cleared for discharge but won't able to be discharged until SNF is found for pt. Rima states understanding. LÓPEZ still waiting to hear from [facility]. Plan: [facility] pending acceptance Nini Rivas NURSING OFFICER, ANTISQUEAK CHALKER
[2018-12-07] MEDS: Insulin Lispro 100 UNIT/ML INSULN.PEN SC (16:37)
--- NOTE | 2018-12-07 16:37 | CASEMGMT ---
Social Work Note SW still hasn't heard from [facility] regarding referral. SW will fax referrals tomorrow morning for SNF for pt. LÓPEZ did call pt's sister Madai and left her a message providing update that pt will need SNF at discharge. Plan: SNF pending acceptance Nini Rivas COATING MACHINE OPERATOR HELPER, CLIENT SUPPORT MANAGER
[2018-12-07 17:09] LABS: C-Peptide 0.7 ng/mL (1.1-4.4)
[2018-12-07 21:55] LABS: Bedside Glucose 146 mg/dL (70-110)
[2018-12-08] VITALS (9 sets, daily range): BP systolic 113–136; BP diastolic 63–79; PULSE 73–99; RESP 16–18; TEMP 36.6; O2SAT 94–98
[2018-12-08 00:10] LABS: Bedside Glucose 153 mg/dL (70-110)
--- NOTE | 2018-12-08 00:54 | NURSING ---
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 pt shared how he believes his dad has come back to him many times in previous lives and numerous times. pt remained calm and cooperative throughout assessment and was very receptive to care.
[2018-12-08 05:51] LABS: Anion Gap 5 (5-15); BUN 10 mg/dL (7-18); BUN/Creat Ratio 9.8 RATIO (10-20); Calcium,Total 8.1 mg/dL (8.5-10.1); Chloride 113 mmol/L (98-107); Creatinine, Serum 1.02 mg/dL (0.70-1.30); EST Glomerular Filtration Rate 79 mL/min (>60); Est Glom Filt Rate - Afr Amer 95 mL/min (>60); Estimated Creatinine Clearance 73.58 ml/min; Glucose 63 mg/dL (74-106); Magnesium 2.3 mg/dL (1.6-2.6); Potassium 3.3 mmol/L (3.5-5.1); Sodium Level 143 mmol/L (136-145)
[2018-12-08] MEDS: Ipratropium/Albuterol Sulfate 3 ML AMPUL.NEB INHALATION ×2 (06:45→13:09)
[2018-12-08] MEDS: Insulin Lispro 100 UNIT/ML INSULN.PEN SC ×3 (08:40→16:49)
[2018-12-08 08:45] LABS: Bedside Glucose 213 mg/dL (70-110)
[2018-12-08] MEDS: Insulin Lispro 100 UNIT/ML INSULN.PEN 10 UNIT SC ×3 (09:13→16:49)
[2018-12-08] MEDS: amLODIPine 10 MG Tablet PO (09:14)
[2018-12-08] MEDS: Doxazosin 1 MG Tablet 2 MG PO (09:14)
[2018-12-08] MEDS: QUEtiapine 100 MG Tablet PO (09:14)
[2018-12-08] MEDS: Haloperidol 5 MG Tablet PO (09:14)
[2018-12-08] MEDS: OXcarbazepine 300 MG Tablet PO (09:14)
[2018-12-08] MEDS: Heparin Injection (Vial) 5,000 UNIT/ML VIAL 5000 UNIT SC (09:14)
--- NOTE | 2018-12-08 09:43 | CASEMGMT ---
Social Work Note SW received message from Mesha at [facility] stating DON and Nurse will be at [facility] around 10:00-10:15am to do onsite with pt. RN and physician updated. Nini Rivas PASTRY DECORATOR, ALUM PLANT SUPERVISOR
--- NOTE | 2018-12-08 11:05 | CASEMGMT ---
Social Work Note Per RN no staff from [facility] has been at [facility]. placed a call to [facility] and spoke with Mesha who states ROSSY Villafuerte and CHRIS Samano left around 10:15am to come to [facility] and will be speaking to this worker once they speak with pt. SW waiting for staff from [facility] to evaluate pt. Plan: [facility] pending acceptance Nini Rivas BALANCE TRUING INSPECTOR, CIVIL ENGINEERING PROFESSOR
[2018-12-08 12:06] LABS: Bedside Glucose 185 mg/dL (70-110)
--- NOTE | 2018-12-08 14:28 | PCM.PN.HOSP ---
Patient Problems: Active and Suspected Problems DKA (diabetic ketoacidoses) (Acute) Acute kidney injury (Acute) Subjective: Was not discharged yesterday as long term would not accept patient with having to give him instructions about providing his insulin and checking his blood sugar. Patient was late for sniff and one was obtained to the patient be discharged to a fdc facility today. Please refer to the discharge summary from the for further details. Vitals/I&O's: Vital Signs Temp Pulse Resp BP Pulse Ox 36.6 C 88 16 136/79 H 94 12/08/18 07:15 12/08/18 13:09 12/08/18 13:09 12/08/18 07:15 12/08/18 07:15 Oxygen Flow Rate (L/min) [ 0 AMBULATING on Room Air] Oxygen Flow Rate (L/min) [At 0 REST on Room Air] Oxygen Flow Rate (L/min) 3 Oxygen Delivery Method Room Air Weight: 90.1 kg Body Mass Index (BMI) 29.5 Finger Stick Blood Glucose 222 Intake and Output for Last 24 Hours 12/06/18 12/07/18 12/08/18 23:59 23:59 23:59 Intake Total 1855 / 1855 2256 / 2256 580 / 580 Output Total 800 / 800 Balance 1055 / 1055 2256 / 2256 580 / 580 General: Alert, No apparent distress HEENT: Atraumatic, Normocephalic Oral: Moist Mucosa, No Gingival or Mucosal Lesions/ Ulcerations Neck: No Nodes, Thyroid Normal Size and Texture Lungs: Clear to auscultation, Normal air movement Cardiovascular: Regular rate, Regular Rhythm, Normal S1, Normal S2 Abdomen: Bowel Sounds Present, Soft, Non Tender, Non-Distended Extremities: No edema, No Calf Tenderness Psych/Mental Status: Normal Affect, Appropriate Microbiology Past 72 Hours 12/05/18 13:20 Blood Culture (Wb) - Arm Left Blood Culture - Preliminary No growth in 48 hours. 12/05/18 13:10 Blood Culture (Wb) - Anticubital Right Blood Culture - Preliminary No growth in 48 hours. 12/04/18 08:40 Blood Culture (Wb) - Anticubital Left Blood Culture - Preliminary No growth in 48 hours. 12/04/18 08:50 Blood Culture (Wb) - Left Wrist Bacteria Detection (PCR) - Final Coag Negative Staph 12/04/18 08:50 Blood Culture (Wb) - Left Wrist Blood Culture - Preliminary Coag Negative Staph Laboratory Results 12/04/18 14:10: C-Peptide 0.7 L 12/07/18 16:35: POC Glucose 153 H 12/07/18 21:35: POC Glucose 146 H 12/08/18 05:15: Sodium 143, Potassium 3.3 L, Chloride 113 H, Carbon Dioxide 25.0, Anion Gap 5, BUN 10, Creatinine 1.02, Estim Creat Clear Calc 73.58, Est GFR (MDRD) Af Amer 95, Est GFR (MDRD) Non-Af 79, BUN/Creatinine Ratio 9.8 L, Glucose 63 L, Calcium 8.1 L, Magnesium 2.3 12/08/18 08:39: POC Glucose 213 H 12/08/18 12:00: POC Glucose 185 H Current Medications Acetaminophen (Tylenol) 650 mg PO Q6H PRN PRN PRN Reason: Non-cardiac pain (mod-severe) Albuterol Sulfate (Ventolin Aerosols) 2.5 mg INHALATION Q2H PRN PRN PRN Reason: dyspnea, wheezing Albuterol/Ipratropium (Duoneb) 3 ml INHALATION Q6HWA.RT [facility] Last Admin: 12/08/18 13:09 Dose: 3 ml Amlodipine Besylate (Norvasc) 10 mg PO DAILY [facility] Last Admin: 12/08/18 09:14 Dose: 10 mg Dextrose (D50w Syringe) 0 gm IV X1 PRN; Protocol PRN Reason: HYPOGLYCEMIA Doxazosin Mesylate (Cardura) 2 mg PO DAILY [facility] Last Admin: 12/08/18 09:14 Dose: 2 mg Haloperidol (Haldol) 5 mg PO BID [facility] Last Admin: 12/08/18 09:14 Dose: 5 mg Heparin Sodium (Porcine) (Heparin Na) 5,000 unit SC Q12 [facility] Last Admin: 12/08/18 09:14 Dose: 5,000 unit Hydralazine HCl (Apresoline Iv) 10 mg IV Q4H PRN PRN PRN Reason: SBP > 160 Insulin Glargine (Lantus (Bkc)) 40 units SC BID [facility] Last Admin: 12/08/18 11:38 Dose: 40 u Insulin Human Lispro (Humalog Kwikpen (Bk)) 0 unit SC ACHS [facility]; Protocol Last Admin: 12/08/18 12:10 Dose: 2 u Insulin Human Lispro (Humalog Kwikpen (Bkc)) 10 unit SC TIDAC [facility] Last Admin: 12/08/18 12:10 Dose: 10 units Magnesium Hydroxide (Milk Of Magnesia) 30 ml PO DAILY PRN PRN PRN Reason: Constipation Ondansetron HCl (Zofran) 4 mg IV Q8H PRN PRN PRN Reason: NAUSEA/VOMITING Oxcarbazepine (Trileptal) 300 mg PO DAILY [facility] Last Admin: 12/08/18 09:14 Dose: 300 mg Potassium Chloride (K-Dur) 40 meq PO BIDCM [facility] Last Admin: 12/08/18 06:29 Dose: 40 meq Quetiapine Fumarate (Seroquel) 100 mg PO DAILY [facility] Last Admin: 12/08/18 09:14 Dose: 100 mg Sodium Chloride () 5 - 15 ml IV UD PRN PRN Reason: SALINE FLUSH Last Admin: 12/07/18 21:36 Dose: 10 ml Medical Necessity - Tobacco Use Smoking Status: Current every day smoker Tobacco Use: Cigarettes Assessment/Plan All Active Problems DKA (diabetic ketoacidoses) (Acute) Acute kidney injury (Acute) 1. DKA resolved changed to Basal and SSI 2. DM 2, uncontrolled A1c 11 Add scheduled log in addition to basal and SSI increase Basal and prandial (40 and 10, respectively) c-peptide 0.7, low, but not detectable. Therefore type 2 diabetes mellitus 3. Bacteremia: ruled out? DW nursing, who saw + blood cultures earlier, but was on another patient. BCx drawn 12/04 and 1/2 + for BACK STAYER (likely contaminant) started on Vanc repeat BCx from the still pending. 4. hypernatremia resolved2/2 IVF replacement monitor 5. ADRIEL: improving likely prerenal +/- ATN monitor 6. VTE prophylaxis: SQ heparin 7. Disposition: To fdc facility today. Given the patient's mental limitations, it is unclear how much patient would be able to fully comprehend regards to giving himself insulin but also checking his blood sugars and knowing what to do with the blood sugar checks as well. Code Visit Inpatient E&M: [id number] Disch Hosp
--- NOTE | 2018-12-08 14:31 | PN_ITS ---
Patient Problems: Active and Suspected Problems DKA (diabetic ketoacidoses) (Acute) Acute kidney injury (Acute) Subjective: Was not discharged yesterday as half-way would not accept patient with having to give him instructions about providing his insulin and checking his blood sugar. Patient was late for sniff and one was obtained to the patient be discharged to a prison facility today. Please refer to the discharge summary from the for further details. Vitals/I&O's: Vital Signs Temp Pulse Resp BP Pulse Ox 36.6 C 88 16 136/79 H 94 12/08/18 07:15 12/08/18 13:09 12/08/18 13:09 12/08/18 07:15 12/08/18 07:15 Oxygen Flow Rate (L/min) [ 0 AMBULATING on Room Air] Oxygen Flow Rate (L/min) [At 0 REST on Room Air] Oxygen Flow Rate (L/min) 3 Oxygen Delivery Method Room Air Weight: 90.1 kg Body Mass Index (BMI) 29.5 Finger Stick Blood Glucose 222 Intake and Output for Last 24 Hours 12/06/18 12/07/18 12/08/18 23:59 23:59 23:59 Intake Total 1855 / 1855 2256 / 2256 580 / 580 Output Total 800 / 800 Balance 1055 / 1055 2256 / 2256 580 / 580 General: Alert, No apparent distress HEENT: Atraumatic, Normocephalic Oral: Moist Mucosa, No Gingival or Mucosal Lesions/ Ulcerations Neck: No Nodes, Thyroid Normal Size and Texture Lungs: Clear to auscultation, Normal air movement Cardiovascular: Regular rate, Regular Rhythm, Normal S1, Normal S2 Abdomen: Bowel Sounds Present, Soft, Non Tender, Non-Distended Extremities: No edema, No Calf Tenderness Psych/Mental Status: Normal Affect, Appropriate Microbiology Past 72 Hours 12/05/18 13:20 Blood Culture (Wb) - Arm Left Blood Culture - Preliminary No growth in 48 hours. 12/05/18 13:10 Blood Culture (Wb) - Anticubital Right Blood Culture - Preliminary No growth in 48 hours. 12/04/18 08:40 Blood Culture (Wb) - Anticubital Left Blood Culture - Preliminary No growth in 48 hours. 12/04/18 08:50 Blood Culture (Wb) - Left Wrist Bacteria Detection (PCR) - Final Coag Negative Staph 12/04/18 08:50 Blood Culture (Wb) - Left Wrist Blood Culture - Preliminary Coag Negative Staph Laboratory Results 12/04/18 14:10: C-Peptide 0.7 L 12/07/18 16:35: POC Glucose 153 H 12/07/18 21:35: POC Glucose 146 H 12/08/18 05:15: Sodium 143, Potassium 3.3 L, Chloride 113 H, Carbon Dioxide 25.0, Anion Gap 5, BUN 10, Creatinine 1.02, Estim Creat Clear Calc 73.58, Est GFR (MDRD) Af Amer 95, Est GFR (MDRD) Non-Af 79, BUN/Creatinine Ratio 9.8 L, Glucose 63 L, Calcium 8.1 L, Magnesium 2.3 12/08/18 08:39: POC Glucose 213 H 12/08/18 12:00: POC Glucose 185 H Current Medications Acetaminophen (Tylenol) 650 mg PO Q6H PRN PRN PRN Reason: Non-cardiac pain (mod-severe) Albuterol Sulfate (Ventolin Aerosols) 2.5 mg INHALATION Q2H PRN PRN PRN Reason: dyspnea, wheezing Albuterol/Ipratropium (Duoneb) 3 ml INHALATION Q6HWA.RT [facility] Last Admin: 12/08/18 13:09 Dose: 3 ml Amlodipine Besylate (Norvasc) 10 mg PO DAILY [facility] Last Admin: 12/08/18 09:14 Dose: 10 mg Dextrose (D50w Syringe) 0 gm IV X1 PRN; Protocol PRN Reason: HYPOGLYCEMIA Doxazosin Mesylate (Cardura) 2 mg PO DAILY [facility] Last Admin: 12/08/18 09:14 Dose: 2 mg Haloperidol (Haldol) 5 mg PO BID [facility] Last Admin: 12/08/18 09:14 Dose: 5 mg Heparin Sodium (Porcine) (Heparin Na) 5,000 unit SC Q12 [facility] Last Admin: 12/08/18 09:14 Dose: 5,000 unit Hydralazine HCl (Apresoline Iv) 10 mg IV Q4H PRN PRN PRN Reason: SBP > 160 Insulin Glargine (Lantus (Bkc)) 40 units SC BID [facility] Last Admin: 12/08/18 11:38 Dose: 40 u Insulin Human Lispro (Humalog Kwikpen (Bk)) 0 unit SC ACHS [facility]; Protocol Last Admin: 12/08/18 12:10 Dose: 2 u Insulin Human Lispro (Humalog Kwikpen (Bkc)) 10 unit SC TIDAC [facility] Last Admin: 12/08/18 12:10 Dose: 10 units Magnesium Hydroxide (Milk Of Magnesia) 30 ml PO DAILY PRN PRN PRN Reason: Constipation Ondansetron HCl (Zofran) 4 mg IV Q8H PRN PRN PRN Reason: NAUSEA/VOMITING Oxcarbazepine (Trileptal) 300 mg PO DAILY [facility] Last Admin: 12/08/18 09:14 Dose: 300 mg Potassium Chloride (K-Dur) 40 meq PO BIDCM [facility] Last Admin: 12/08/18 06:29 Dose: 40 meq Quetiapine Fumarate (Seroquel) 100 mg PO DAILY [facility] Last Admin: 12/08/18 09:14 Dose: 100 mg Sodium Chloride () 5 - 15 ml IV UD PRN PRN Reason: SALINE FLUSH Last Admin: 12/07/18 21:36 Dose: 10 ml Medical Necessity - Tobacco Use Smoking Status: Current every day smoker Tobacco Use: Cigarettes Assessment/Plan All Active Problems DKA (diabetic ketoacidoses) (Acute) Acute kidney injury (Acute) 1. DKA * resolved * changed to Basal and SSI 2. DM 2, uncontrolled * A1c 11 * Add scheduled log in addition to basal and SSI * increase Basal and prandial (40 and 10, respectively) * c-peptide 0.7, low, but not detectable. Therefore type 2 diabetes mellitus 3. Bacteremia: * ruled out? * nursing, who saw + blood cultures earlier, but was on another patient. * BCx drawn 12/04 and 1/2 + for [employer]IST (likely contaminant) * started on Vanc * repeat BCx from the still pending. 4. hypernatremia * resolved2/2 IVF replacement * monitor 5. ADRIEL: * improving * likely prerenal +/- ATN * monitor 6. VTE prophylaxis: SQ heparin 7. Disposition: * To [facility] facility today. Given the patient's mental limitations, it is unclear how much patient would be able to fully comprehend regards to giving himself insulin but also checking his blood sugars and knowing what to do with the blood sugar checks as well. Code Visit Inpatient E&M: [id number] Disch Hosp
--- NOTE | 2018-12-08 14:33 | PCM.TXEXTCAR ---
- Diet 12/04/18 11:14 Diet: Carbohydrate Controlled Is pt able to select menu?: No - Routine Orders/Code Status Routine Lab Work: BMP - Wound(s) Right Hand Wound Type: Puncture - Therapies Weight Bearing: Full weight bearing Physical Therapy: Eval and Treat Occupational Therapy: Eval and Treat - Allergies/Procedures Done in Hospital Allergies/Adverse Reactions: Allergies No Known Allergies Allergy (Verified 08/11/14 12:25) - Type of Care/Length of Stay Estimated LOS: Convalescent Care Less Than 30 days Type of Care Needed: Skilled Rehab Potential: Fair Prognosis: Good - Additional Orders/Day of Discharge Day of Discharge: 12/08/18 - Dietary and Speech Recommendations Dietitian Recommendations/Changes: Rec continue carb controlled diet as indicated. - Follow Up Care Primary Care Physician: Ayo Uriostegui MD [Primary Care Provider] - Within 2 Weeks
--- NOTE | 2018-12-08 15:00 | CASEMGMT ---
Social Work Note LÓPEZ met with ROSSY Villafuerte and RN Jazmyne who asked this worker if pt has had any behaviors at [facility] or any psych hospitalizations. This worker informed Noy and Jazmyne that this worker didn't know but would call [facility] and guardian. LÓPEZ placed a call to [facility] and spoke with Noy who states pt hasn't had any behaviors at [facility] and no violence. LÓPEZ placed a call to pt's guardian Rima. Rima confirms pt hasn't had any behaviors, no violence, is med compliant and does well on his medications. Rima states that pt has been psych hospitalized in the past but it has been years and Rima can't recall when the last time pt was psych hospitalized. Rima states she has been pt's guardian for two years and has had no issues with pt misbehaving. LÓPEZ updated Mesha at [facility] of this. LÓPEZ received message from [facility] stating they are unable to accept due to pt's delusions and not sure how their residents would respond to pt. LÓPEZ placed a call to Esmer at [facility], updated her on referral. LÓPEZ faxed referral. LÓPEZ received call from Esmer who states she is able to accept pt today. Physician updated. LÓPEZ faxed completed discharge paperwork to [facility] including transfer to extended care facility, signed medication list and any scripts. Original in SNF folder and copy on pt's chart. LÓPEZ completed convalescent [facility] in [facility]. Original in SNF folder and copy on pt's chart. LÓPEZ arranged transportation through [facility] via cot for 5:00-5:30. Transportation form completed and placed on SNF folder, copy on pt's chart. LÓPEZ placed a call to pt's guardian Rima and pt's sister Madai on acceptance to [facility] and discharge/transportation time to [facility]. LÓPEZ updated RN and Esmer at [facility] of transportation time. Plan: Pt to discharge to [facility] today skilled with [facility] transporting via cot at 5:00-5:30pm Nini BEST, BU[employer]LE ATT[employer]
[2018-12-08 16:46] LABS: Bedside Glucose 228 mg/dL (70-110)
[2018-12-09 00:45] LABS: Bedside Glucose 97 mg/dL (70-110)
== END 2018-12-08 18:50 | disposition skilled nursing facility (03) | DRG 637 ==
LOC: ED 05:56 → ICU 06:27 → MS3 12-04 15:32
PROVIDERS: Hospitalist; Internal Medicine Critical Care Medicine; Student in an Organized Health Care Education/Training Program; Admitting Provider Family Medicine; Emergency Provider Emergency Medicine; Family Provider Family Medicine; PCP Family Medicine
DX: E11.10 Type 2 diabetes mellitus with ketoacidosis without coma (principal); G93.41 Metabolic encephalopathy; N17.9 Acute kidney failure, unspecified; E87.0 Hyperosmolality and hypernatremia; I10 Essential (primary) hypertension; F17.210 Nicotine dependence, cigarettes, uncomplicated; F31.9 Bipolar disorder, unspecified; F41.9 Anxiety disorder, unspecified
CPT/HCPCS: 36415; 36600; 71045; 80048; 80053; 80202; 81001; 82009; 82803; 82947; 82962; 83036; 83605; 83735; 84100; 84484; 84681; 85025; 87040; 87149; 94002; 94003; 94640; 94762; 97110; 97116; 97162; 97166; 97530; 97802; 99285; 99406; J7030; J7050; A4216

== ENCOUNTER → 2021-02-19 05:00 | Outpatient (REF) | payer MEDICARE, MEDICAID, SELFPAY ==
[2018-12-03 06:58] VITALS: BMI 29.5
[2021-02-19 08:08] LABS: Absolute Lymphocyte Count 1.87 X10^3/uL (0.83-4.51); Absolute Neutrophil Count 4.8 X10^3/uL (2.0-7.7); Basophil# 0.04 X10^3/uL; Basophil% 0.5 % (0-1); Eosinophil# 0.24 X10^3/uL; Eosinophils% 3.1 % (0-5); Hematocrit 43.5 % (40-54); Hemoglobin 14.2 g/dL (13.0-16.5); Lymphocyte # 1.87 X10^3/ul (0.83-4.51); Lymphocyte % 24.3 % (19-41); Mean Corp Hgb Conc 32.6 g/dL (32-36); Mean Corpuscular Hgb 29.6 pg (27.0-32.0); Mean Corpuscular Volume 90.6 fL (80-94); Mean Platelet Vol. 10.1 fl (6.2-12.0); Monocyte% 9.1 % (0-10); NRBC Flagged by Analyzer 0 % (0-5); Neutrophil # 4.81 X10^3/uL (2.7-7.7); Neutrophil % 62.6 % (47-70); Platelet Count 260 K/mm3 (150-450); RBC Distribution Width CV 13.8 % (11.6-14.6); RBC Distribution Width SD 46.5 fl (35.1-43.9); White Blood Count 7.7 K/mm3 (4.4-11.0)
[2021-02-19 08:13] LABS: AST(SGOT) 13 U/L (15-37); Alanine Aminotransfer ALT/SGPT 34 U/L (16-61); Albumin, Serum 3.6 g/dL (3.2-5.0); Alkaline Phosphatase 124 U/L (45-117); Anion Gap 7 (5-15); BUN 13 mg/dL (7-18); BUN/Creat Ratio 15.5 RATIO (10-20); Calcium,Total 8.4 mg/dL (8.5-10.1); Chloride 106 mmol/L (98-107); Creatinine, Serum 0.84 mg/dL (0.70-1.30); EST Glomerular Filtration Rate 98 mL/min (>60); Est Glom Filt Rate - Afr Amer 118 mL/min (>60); Globulin 3.5 g/dL (2.2-4.2); Glucose 160 mg/dL (74-106); Potassium 3.8 mmol/L (3.5-5.1); Protein, Total 7.1 g/dL (6.4-8.2); Sodium Level 139 mmol/L (136-145)
== END ==
LOC: OLS.SW300 05:00
PROVIDERS: PCP Family Medicine; Visit Provider Family Medicine
DX: E11.9 Type 2 diabetes mellitus without complications (principal)
CPT/HCPCS: 36415; 80053; 85025

== ENCOUNTER → 2021-03-20 05:00 | Outpatient (REF) | payer MEDICARE, MEDICAID, SELFPAY ==
[2018-12-03 06:58] VITALS: BMI 29.5
[2021-03-20 07:19] LABS: Cholesterol 145 mg/dL (200); High Density Lipoprotein 27 mg/dL; Triglycerides 235 mg/dL; Very Low Density Lipoprotein 47 mg/dL (5-40)
[2021-03-20 07:37] LABS: Hemoglobin A1c 8.3 % (3.8-5.6)
== END ==
LOC: OLS.SW300 05:00
PROVIDERS: PCP Family Medicine; Referring Provider Family Medicine; Visit Provider Family Medicine
DX: E11.9 Type 2 diabetes mellitus without complications (principal); E78.5 Hyperlipidemia, unspecified
CPT/HCPCS: 36415; 80061; 83036

== ENCOUNTER → 2021-05-21 05:00 | Outpatient (REF) | payer MEDICARE, MEDICAID, SELFPAY ==
[2021-05-21 09:09] LABS: Absolute Lymphocyte Count 2.03 X10^3/uL (0.83-4.51); Absolute Neutrophil Count 4.2 X10^3/uL (2.0-7.7); Basophil# 0.05 X10^3/uL; Basophil% 0.7 % (0-1); Eosinophil# 0.25 X10^3/uL; Eosinophils% 3.4 % (0-5); Hematocrit 42.5 % (40-54); Hemoglobin 14.2 g/dL (13.0-16.5); Lymphocyte # 2.03 X10^3/ul (0.83-4.51); Lymphocyte % 27.7 % (19-41); Mean Corp Hgb Conc 33.4 g/dL (32-36); Mean Corpuscular Hgb 30.6 pg (27.0-32.0); Mean Corpuscular Volume 91.6 fL (80-94); Mean Platelet Vol. 10.3 fl (6.2-12.0); Monocyte# 0.79 X10^3/uL; Monocyte% 10.8 % (0-10); NRBC Flagged by Analyzer 0 % (0-5); Neutrophil # 4.19 X10^3/uL (2.7-7.7); Neutrophil % 57.1 % (47-70); Platelet Count 266 K/mm3 (150-450); RBC Distribution Width CV 13.5 % (11.6-14.6); RBC Distribution Width SD 45.9 fl (35.1-43.9); Red Blood Count 4.64 M/mm3 (4.6-6.2); White Blood Count 7.3 K/mm3 (4.4-11.0)
[2021-05-21 09:23] LABS: ALB/GLOB Ratio 0.8 RATIO (0.9-2.4); AST(SGOT) 14 U/L (15-37); Alanine Aminotransfer ALT/SGPT 32 U/L (16-61); Albumin, Serum 3.2 g/dL (3.2-5.0); Alkaline Phosphatase 119 U/L (45-117); Anion Gap 8 (5-15); BUN 10 mg/dL (7-18); BUN/Creat Ratio 12.2 RATIO (10-20); Calcium,Total 8.3 mg/dL (8.5-10.1); Chloride 103 mmol/L (98-107); Creatinine, Serum 0.82 mg/dL (0.70-1.30); EST Glomerular Filtration Rate 100 mL/min (>60); Est Glom Filt Rate - Afr Amer 122 mL/min (>60); Glucose 147 mg/dL (74-106); Potassium 3.8 mmol/L (3.5-5.1); Protein, Total 7.2 g/dL (6.4-8.2); Sodium Level 136 mmol/L (136-145)
== END ==
LOC: OLS.SW300 05:00
PROVIDERS: PCP Family Medicine; Visit Provider Family Medicine
DX: D64.9 Anemia, unspecified (principal); R53.83 Other fatigue; R56.9 Unspecified convulsions
CPT/HCPCS: 36415; 80053; 85025

== ENCOUNTER → 2021-08-20 04:00 | Outpatient (REF) | payer MEDICARE, MEDICAID, SELFPAY ==
[2021-08-20 09:17] LABS: Absolute Lymphocyte Count 2.04 X10^3/uL (0.83-4.51); Absolute Neutrophil Count 4.2 X10^3/uL (2.0-7.7); Basophil# 0.04 X10^3/uL; Basophil% 0.6 % (0-1); Eosinophil# 0.21 X10^3/uL; Eosinophils% 2.9 % (0-5); Hematocrit 42.8 % (40-54); Hemoglobin 14.1 g/dL (13.0-16.5); Lymphocyte # 2.04 X10^3/ul (0.83-4.51); Lymphocyte % 28.4 % (19-41); Mean Corp Hgb Conc 32.9 g/dL (32-36); Mean Corpuscular Hgb 30.2 pg (27.0-32.0); Mean Corpuscular Volume 91.6 fL (80-94); Mean Platelet Vol. 10.3 fl (6.2-12.0); Monocyte# 0.66 X10^3/uL; Monocyte% 9.2 % (0-10); NRBC Flagged by Analyzer 0 % (0-5); Neutrophil # 4.19 X10^3/uL (2.7-7.7); Neutrophil % 58.3 % (47-70); Platelet Count 255 K/mm3 (150-450); RBC Distribution Width CV 13.4 % (11.6-14.6); RBC Distribution Width SD 45.4 fl (35.1-43.9); Red Blood Count 4.67 M/mm3 (4.6-6.2); White Blood Count 7.2 K/mm3 (4.4-11.0)
[2021-08-20 09:29] LABS: ALB/GLOB Ratio 0.9 RATIO (0.9-2.4); AST(SGOT) 18 U/L (15-37); Alanine Aminotransfer ALT/SGPT 40 U/L (16-61); Albumin, Serum 3.4 g/dL (3.2-5.0); Alkaline Phosphatase 110 U/L (45-117); Anion Gap 7 (5-15); BUN 12 mg/dL (7-18); Calcium,Total 8.2 mg/dL (8.5-10.1); Chloride 106 mmol/L (98-107); Creatinine, Serum 0.92 mg/dL (0.70-1.30); EST Glomerular Filtration Rate 88 mL/min (>60); Est Glom Filt Rate - Afr Amer 106 mL/min (>60); Globulin 3.7 g/dL (2.2-4.2); Glucose 165 mg/dL (74-106); Potassium 3.8 mmol/L (3.5-5.1); Protein, Total 7.1 g/dL (6.4-8.2); Sodium Level 138 mmol/L (136-145)
== END ==
LOC: OLS.SW300 04:00
PROVIDERS: PCP Family Medicine; Referring Provider Family Medicine; Visit Provider Family Medicine
DX: R53.83 Other fatigue (principal); R56.9 Unspecified convulsions; D64.9 Anemia, unspecified
CPT/HCPCS: 36415; 80053; 85025

== ENCOUNTER → 2021-09-17 | Outpatient (REF) | payer MEDICARE, MEDICAID, SELFPAY ==
[2021-09-17 08:52] LABS: Cholesterol 126 mg/dL (200); High Density Lipoprotein 26 mg/dL; Triglycerides 190 mg/dL; Very Low Density Lipoprotein 38 mg/dL (5-40)
[2021-09-17 09:10] LABS: Hemoglobin A1c 7.3 % (3.8-5.6)
== END | disposition home or self-care (01) ==
LOC: OLS.SW300 04:00
PROVIDERS: PCP Family Medicine; Referring Provider Family Medicine; Visit Provider Family Medicine
DX: E78.5 Hyperlipidemia, unspecified (principal); E11.9 Type 2 diabetes mellitus without complications
CPT/HCPCS: 36415; 80061; 83036

== ENCOUNTER → 2021-11-19 | Outpatient (REF) | payer MEDICARE, MEDICAID, SELFPAY ==
[2021-11-19 07:53] LABS: Absolute Lymphocyte Count 2.32 X10^3/uL (0.83-4.51); Absolute Neutrophil Count 3.7 X10^3/uL (2.0-7.7); Basophil# 0.04 X10^3/uL; Basophil% 0.6 % (0-1); Eosinophil# 0.23 X10^3/uL; Eosinophils% 3.3 % (0-5); Hematocrit 40.9 % (40-54); Hemoglobin 13.6 g/dL (13.0-16.5); Lymphocyte # 2.32 X10^3/ul (0.83-4.51); Mean Corp Hgb Conc 33.3 g/dL (32-36); Mean Corpuscular Hgb 30.7 pg (27.0-32.0); Mean Corpuscular Volume 92.3 fL (80-94); Mean Platelet Vol. 10.1 fl (6.2-12.0); Monocyte# 0.67 X10^3/uL; Monocyte% 9.5 % (0-10); NRBC Flagged by Analyzer 0 % (0-5); Neutrophil # 3.74 X10^3/uL (2.7-7.7); Neutrophil % 53.3 % (47-70); Platelet Count 237 K/mm3 (150-450); RBC Distribution Width CV 13.5 % (11.6-14.6); RBC Distribution Width SD 46.4 fl (35.1-43.9); Red Blood Count 4.43 M/mm3 (4.6-6.2)
[2021-11-19 08:15] LABS: AST(SGOT) 21 U/L (15-37); Alanine Aminotransfer ALT/SGPT 41 U/L (16-61); Albumin, Serum 3.4 g/dL (3.2-5.0); Alkaline Phosphatase 98 U/L (45-117); Anion Gap 5 (5-15); BUN 12 mg/dL (7-18); BUN/Creat Ratio 13.9 RATIO (10-20); Calcium,Total 8.4 mg/dL (8.5-10.1); Chloride 106 mmol/L (98-107); Creatinine, Serum 0.86 mg/dL (0.70-1.30); EST Glomerular Filtration Rate 95 mL/min (>60); Est Glom Filt Rate - Afr Amer 115 mL/min (>60); Globulin 3.5 g/dL (2.2-4.2); Glucose 110 mg/dL (74-106); Potassium 3.8 mmol/L (3.5-5.1); Protein, Total 6.9 g/dL (6.4-8.2); Sodium Level 137 mmol/L (136-145)
== END | disposition home or self-care (01) ==
LOC: OLS.SW300 04:00
PROVIDERS: PCP Family Medicine; Referring Provider Family Medicine; Visit Provider Family Medicine
DX: J44.9 Chronic obstructive pulmonary disease, unspecified (principal)
CPT/HCPCS: 36415; 80053; 85025

== ENCOUNTER → 2022-02-18 04:00 | Outpatient (REF) | payer MEDICARE, MEDICAID, SELFPAY ==
[2022-02-18 08:29] LABS: Absolute Lymphocyte Count 2.32 X10^3/uL (0.83-4.51); Absolute Neutrophil Count 4.6 X10^3/uL (2.0-7.7); Basophil# 0.04 X10^3/uL; Basophil% 0.5 % (0-1); Eosinophil# 0.26 X10^3/uL; Eosinophils% 3.2 % (0-5); Hematocrit 41.2 % (40-54); Hemoglobin 13.5 g/dL (13.0-16.5); Lymphocyte # 2.32 X10^3/ul (0.83-4.51); Lymphocyte % 28.7 % (19-41); Mean Corp Hgb Conc 32.8 g/dL (32-36); Mean Corpuscular Hgb 30.3 pg (27.0-32.0); Mean Corpuscular Volume 92.6 fL (80-94); Mean Platelet Vol. 10.3 fl (6.2-12.0); Monocyte# 0.88 X10^3/uL; Monocyte% 10.9 % (0-10); NRBC Flagged by Analyzer 0 % (0-5); Neutrophil # 4.55 X10^3/uL (2.7-7.7); Neutrophil % 56.3 % (47-70); Platelet Count 252 K/mm3 (150-450); RBC Distribution Width CV 13.4 % (11.6-14.6); RBC Distribution Width SD 46.1 fl (35.1-43.9); Red Blood Count 4.45 M/mm3 (4.6-6.2); White Blood Count 8.1 K/mm3 (4.4-11.0)
[2022-02-18 09:00] LABS: AST(SGOT) 20 U/L (15-37); Alanine Aminotransfer ALT/SGPT 37 U/L (16-61); Albumin, Serum 3.5 g/dL (3.2-5.0); Alkaline Phosphatase 104 U/L (45-117); Anion Gap 7 (5-15); BUN 15 mg/dL (7-18); BUN/Creat Ratio 16.5 RATIO (10-20); Calcium,Total 8.5 mg/dL (8.5-10.1); Chloride 106 mmol/L (98-107); Creatinine, Serum 0.91 mg/dL (0.70-1.30); EST Glomerular Filtration Rate 89 mL/min (>60); Est Glom Filt Rate - Afr Amer 108 mL/min (>60); Globulin 3.6 g/dL (2.2-4.2); Glucose 126 mg/dL (74-106); Potassium 3.8 mmol/L (3.5-5.1); Protein, Total 7.1 g/dL (6.4-8.2); Sodium Level 136 mmol/L (136-145)
== END ==
LOC: OLS.SW300 04:00
PROVIDERS: PCP Family Medicine; Visit Provider Family Medicine
DX: E11.9 Type 2 diabetes mellitus without complications (principal)
CPT/HCPCS: 36415; 80053; 85025

== ENCOUNTER → 2022-03-17 | Outpatient (REF) | payer MEDICARE, MEDICAID, SELFPAY ==
[2022-03-17 09:00] LABS: Cholesterol 135 mg/dL (200); High Density Lipoprotein 28 mg/dL; Triglycerides 231 mg/dL; Very Low Density Lipoprotein 46 mg/dL (5-40)
[2022-03-17 09:21] LABS: Hemoglobin A1c 7.6 % (3.8-5.6)
== END | disposition home or self-care (01) ==
LOC: OLS.SW300 04:00
PROVIDERS: PCP Family Medicine; Visit Provider Family Medicine
DX: E78.5 Hyperlipidemia, unspecified (principal); E11.9 Type 2 diabetes mellitus without complications
CPT/HCPCS: 36415; 80061; 83036

== ENCOUNTER → 2022-05-20 | Outpatient (REF) | payer MEDICARE, MEDICAID, SELFPAY ==
[2022-05-20 09:21] LABS: Absolute Lymphocyte Count 2.09 X10^3/uL (0.83-4.51); Absolute Neutrophil Count 4.1 X10^3/uL (2.0-7.7); Basophil# 0.03 X10^3/uL; Basophil% 0.4 % (0-1); Eosinophil# 0.32 X10^3/uL; Eosinophils% 4.4 % (0-5); Hematocrit 40.5 % (40-54); Hemoglobin 13.4 g/dL (13.0-16.5); Lymphocyte # 2.09 X10^3/ul (0.83-4.51); Lymphocyte % 28.6 % (19-41); Mean Corp Hgb Conc 33.1 g/dL (32-36); Mean Corpuscular Hgb 31.4 pg (27.0-32.0); Mean Corpuscular Volume 94.8 fL (80-94); Mean Platelet Vol. 10.1 fl (6.2-12.0); Monocyte# 0.77 X10^3/uL; Monocyte% 10.5 % (0-10); NRBC Flagged by Analyzer 0 % (0-5); Neutrophil # 4.09 X10^3/uL (2.7-7.7); Neutrophil % 55.8 % (47-70); Platelet Count 234 K/mm3 (150-450); RBC Distribution Width CV 13.3 % (11.6-14.6); RBC Distribution Width SD 46.5 fl (35.1-43.9); Red Blood Count 4.27 M/mm3 (4.6-6.2); White Blood Count 7.3 K/mm3 (4.4-11.0)
[2022-05-20 09:39] LABS: ALB/GLOB Ratio 0.9 RATIO (0.9-2.4); AST(SGOT) 19 U/L (15-37); Alanine Aminotransfer ALT/SGPT 38 U/L (16-61); Albumin, Serum 3.3 g/dL (3.2-5.0); Alkaline Phosphatase 98 U/L (45-117); Anion Gap 8 (5-15); BUN 11 mg/dL (7-18); BUN/Creat Ratio 14.3 RATIO (10-20); Calcium,Total 8.2 mg/dL (8.5-10.1); Chloride 107 mmol/L (98-107); Creatinine, Serum 0.77 mg/dL (0.70-1.30); EST Glomerular Filtration Rate 108 mL/min (>60); Est Glom Filt Rate - Afr Amer 131 mL/min (>60); Globulin 3.8 g/dL (2.2-4.2); Glucose 122 mg/dL (74-106); Potassium 3.7 mmol/L (3.5-5.1); Protein, Total 7.1 g/dL (6.4-8.2); Sodium Level 138 mmol/L (136-145)
== END ==
LOC: OLS.SW300 05:00
PROVIDERS: PCP Family Medicine; Visit Provider Family Medicine
DX: E11.9 Type 2 diabetes mellitus without complications (principal); I10 Essential (primary) hypertension
CPT/HCPCS: 36415; 80053; 85025

== ENCOUNTER → 2022-09-14 | Outpatient (REF) | payer MEDICARE, MEDICAID, SELFPAY ==
[2022-09-14 09:44] LABS: AST(SGOT) 23 U/L (15-37); Alanine Aminotransfer ALT/SGPT 37 U/L (16-61); Albumin, Serum 3.6 g/dL (3.2-5.0); Alkaline Phosphatase 99 U/L (45-117); Bilirubin, Direct 0.06 mg/dL (0.00-0.30); Globulin 3.7 g/dL (2.2-4.2); Protein, Total 7.3 g/dL (6.4-8.2)
[2022-09-14 09:49] LABS: Hemoglobin A1c 6.4 % (3.8-5.6)
== END ==
LOC: OLS.SW 05:00
PROVIDERS: PCP Family Medicine; Visit Provider Family Medicine
DX: E11.9 Type 2 diabetes mellitus without complications (principal); E78.5 Hyperlipidemia, unspecified
CPT/HCPCS: 36415; 80076; 83036

== ENCOUNTER → 2022-09-24 | Outpatient (REF) | payer MEDICARE, MEDICAID, SELFPAY ==
[2022-09-24 09:52] LABS: Hemoglobin A1c 6.3 % (3.8-5.6)
== END ==
LOC: OLS.SW 07:55
PROVIDERS: PCP Family Medicine; Visit Provider Family Medicine
DX: E11.9 Type 2 diabetes mellitus without complications (principal)
CPT/HCPCS: 36415; 83036

== ENCOUNTER → 2022-11-18 | Outpatient (REF) | payer MEDICARE, MEDICAID, SELFPAY ==
[2022-11-18 08:55] LABS: Absolute Lymphocyte Count 2.41 X10^3/uL (0.83-4.51); Absolute Neutrophil Count 4.8 X10^3/uL (2.0-7.7); Basophil# 0.05 X10^3/uL; Basophil% 0.6 % (0-1); Eosinophil# 0.35 X10^3/uL; Eosinophils% 4.2 % (0-5); Hematocrit 41.7 % (40-54); Hemoglobin 14.1 g/dL (13.0-16.5); Lymphocyte # 2.41 X10^3/ul (0.83-4.51); Lymphocyte % 28.9 % (19-41); Mean Corp Hgb Conc 33.8 g/dL (32-36); Mean Corpuscular Hgb 31.3 pg (27.0-32.0); Mean Corpuscular Volume 92.5 fL (80-94); Mean Platelet Vol. 9.9 fl (6.2-12.0); Monocyte# 0.76 X10^3/uL; Monocyte% 9.1 % (0-10); NRBC Flagged by Analyzer 0 % (0-5); Neutrophil # 4.76 X10^3/uL (2.7-7.7); Platelet Count 242 K/mm3 (150-450); RBC Distribution Width SD 44.1 fl (35.1-43.9); Red Blood Count 4.51 M/mm3 (4.6-6.2); White Blood Count 8.4 K/mm3 (4.4-11.0)
[2022-11-18 09:08] LABS: ALB/GLOB Ratio 0.9 RATIO (0.9-2.4); AST(SGOT) 17 U/L (15-37); Alanine Aminotransfer ALT/SGPT 36 U/L (16-61); Albumin, Serum 3.5 g/dL (3.2-5.0); Alkaline Phosphatase 99 U/L (45-117); Anion Gap 6 (5-15); BUN 16 mg/dL (7-18); BUN/Creat Ratio 18.3 RATIO (10-20); Calcium,Total 8.5 mg/dL (8.5-10.1); Chloride 105 mmol/L (98-107); Creatinine, Serum 0.87 mg/dL (0.70-1.30); EST Glomerular Filtration Rate 93 mL/min (>60); Est Glom Filt Rate - Afr Amer 113 mL/min (>60); Globulin 3.8 g/dL (2.2-4.2); Glucose 109 mg/dL (74-106); Potassium 3.7 mmol/L (3.5-5.1); Protein, Total 7.3 g/dL (6.4-8.2); Sodium Level 136 mmol/L (136-145)
== END ==
LOC: OLS.SW 05:00
PROVIDERS: PCP Family Medicine; Visit Provider Family Medicine
DX: R56.9 Unspecified convulsions (principal); D64.9 Anemia, unspecified; R53.83 Other fatigue
CPT/HCPCS: 36415; 80053; 85025

== ENCOUNTER → 2022-12-23 | Outpatient (REF) | payer MEDICARE, MEDICAID, SELFPAY ==
[2022-12-23 09:10] LABS: Hemoglobin A1c 6.6 % (3.8-5.6)
== END ==
LOC: OLS.SW 05:00
PROVIDERS: PCP Family Medicine; Visit Provider Family Medicine
DX: E11.9 Type 2 diabetes mellitus without complications (principal)
CPT/HCPCS: 36415; 83036

== ENCOUNTER → 2023-02-17 | Outpatient (REF) | payer MEDICARE, MEDICAID, SELFPAY ==
[2023-02-17 10:03] LABS: Absolute Lymphocyte Count 2.37 X10^3/uL (0.83-4.51); Absolute Neutrophil Count 4.3 X10^3/uL (2.0-7.7); Basophil# 0.06 X10^3/uL; Basophil% 0.8 % (0-1); Eosinophil# 0.41 X10^3/uL; Eosinophils% 5.2 % (0-5); Hematocrit 41.9 % (40-54); Hemoglobin 13.8 g/dL (13.0-16.5); Lymphocyte # 2.37 X10^3/ul (0.83-4.51); Lymphocyte % 29.9 % (19-41); Mean Corp Hgb Conc 32.9 g/dL (32-36); Mean Corpuscular Hgb 30.6 pg (27.0-32.0); Mean Corpuscular Volume 92.9 fL (80-94); Mean Platelet Vol. 9.8 fl (6.2-12.0); Monocyte# 0.72 X10^3/uL; Monocyte% 9.1 % (0-10); NRBC Flagged by Analyzer 0 % (0-5); Neutrophil # 4.34 X10^3/uL (2.7-7.7); Neutrophil % 54.6 % (47-70); Platelet Count 255 K/mm3 (150-450); RBC Distribution Width CV 13.4 % (11.6-14.6); RBC Distribution Width SD 45.8 fl (35.1-43.9); Red Blood Count 4.51 M/mm3 (4.6-6.2); White Blood Count 7.9 K/mm3 (4.4-11.0)
[2023-02-17 10:15] LABS: ALB/GLOB Ratio 0.9 RATIO (0.9-2.4); AST(SGOT) 19 U/L (15-37); Alanine Aminotransfer ALT/SGPT 33 U/L (16-61); Albumin, Serum 3.4 g/dL (3.2-5.0); Alkaline Phosphatase 95 U/L (45-117); Anion Gap 4 (5-15); BUN 12 mg/dL (7-18); BUN/Creat Ratio 14.1 RATIO (10-20); Calcium,Total 8.3 mg/dL (8.5-10.1); Chloride 106 mmol/L (98-107); Creatinine, Serum 0.85 mg/dL (0.70-1.30); EST Glomerular Filtration Rate 96 mL/min (>60); Est Glom Filt Rate - Afr Amer 116 mL/min (>60); Globulin 3.9 g/dL (2.2-4.2); Glucose 85 mg/dL (74-106); Potassium 3.8 mmol/L (3.5-5.1); Protein, Total 7.3 g/dL (6.4-8.2); Sodium Level 138 mmol/L (136-145)
== END ==
LOC: OLS.SW 05:00
PROVIDERS: PCP Family Medicine; Visit Provider Family Medicine
DX: D64.9 Anemia, unspecified (principal); R56.9 Unspecified convulsions; R53.83 Other fatigue
CPT/HCPCS: 36415; 80053; 85025

== ENCOUNTER → 2023-03-11 | Outpatient (REF) | payer MEDICARE, MEDICAID, SELFPAY ==
[2023-03-11 08:23] LABS: Absolute Lymphocyte Count 2.17 X10^3/uL (0.83-4.51); Absolute Neutrophil Count 4.8 X10^3/uL (2.0-7.7); Basophil# 0.05 X10^3/uL; Basophil% 0.6 % (0-1); Eosinophil# 0.28 X10^3/uL; Eosinophils% 3.5 % (0-5); Hematocrit 42.7 % (40-54); Lymphocyte # 2.17 X10^3/ul (0.83-4.51); Lymphocyte % 27.1 % (19-41); Mean Corp Hgb Conc 32.8 g/dL (32-36); Mean Corpuscular Hgb 30.3 pg (27.0-32.0); Mean Corpuscular Volume 92.4 fL (80-94); Monocyte# 0.71 X10^3/uL; Monocyte% 8.9 % (0-10); NRBC Flagged by Analyzer 0 % (0-5); Neutrophil # 4.76 X10^3/uL (2.7-7.7); Neutrophil % 59.5 % (47-70); Platelet Count 255 K/mm3 (150-450); RBC Distribution Width CV 13.2 % (11.6-14.6); RBC Distribution Width SD 45.1 fl (35.1-43.9); Red Blood Count 4.62 M/mm3 (4.6-6.2)
[2023-03-11 08:38] LABS: AST(SGOT) 16 U/L (15-37); Alanine Aminotransfer ALT/SGPT 36 U/L (16-61); Albumin, Serum 3.6 g/dL (3.2-5.0); Alkaline Phosphatase 104 U/L (45-117); Anion Gap 7 (5-15); BUN 12 mg/dL (7-18); BUN/Creat Ratio 14.3 RATIO (10-20); Calcium,Total 8.3 mg/dL (8.5-10.1); Chloride 107 mmol/L (98-107); Creatinine, Serum 0.84 mg/dL (0.70-1.30); EST Glomerular Filtration Rate 97 mL/min (>60); Est Glom Filt Rate - Afr Amer 118 mL/min (>60); Globulin 3.7 g/dL (2.2-4.2); Glucose 128 mg/dL (74-106); Potassium 3.7 mmol/L (3.5-5.1); Protein, Total 7.3 g/dL (6.4-8.2); Sodium Level 139 mmol/L (136-145)
== END ==
LOC: OLS.SW 05:00
PROVIDERS: PCP Family Medicine; Visit Provider Family Medicine
DX: E11.9 Type 2 diabetes mellitus without complications (principal); D64.9 Anemia, unspecified
CPT/HCPCS: 36415; 80053; 85025

== ENCOUNTER → 2023-03-21 | Outpatient (REF) | payer MEDICARE, MEDICAID, SELFPAY ==
[2023-03-21 09:14] LABS: Cholesterol 117 mg/dL (200); High Density Lipoprotein 28 mg/dL; Triglycerides 162 mg/dL; Very Low Density Lipoprotein 32 mg/dL (5-40)
[2023-03-23 07:22] LABS: Hemoglobin A1c 6.7 % (3.8-5.6)
== END ==
LOC: OLS.SW 05:00
PROVIDERS: PCP Family Medicine; Visit Provider Family Medicine
DX: E11.9 Type 2 diabetes mellitus without complications (principal); E78.5 Hyperlipidemia, unspecified
CPT/HCPCS: 36415; 80061; 83036

== ENCOUNTER → 2023-06-21 | Outpatient (REF) | payer MEDICARE, MEDICAID, SELFPAY ==
[2023-06-21 08:45] LABS: Hemoglobin A1c 7.3 % (3.8-5.6)
== END ==
LOC: OLS.SW 05:00
PROVIDERS: PCP Family Medicine; Visit Provider Family Medicine
DX: E11.9 Type 2 diabetes mellitus without complications (principal)
CPT/HCPCS: 36415; 83036

== ENCOUNTER → 2023-09-19 | Outpatient (REF) | payer MEDICARE, MEDICAID, SELFPAY ==
[2023-09-19 08:30] LABS: Hemoglobin A1c 7.5 % (3.8-5.6)
[2023-09-19 08:38] LABS: Cholesterol 139 mg/dL (200); High Density Lipoprotein 30 mg/dL; Triglycerides 201 mg/dL; Very Low Density Lipoprotein 40 mg/dL (5-40)
== END ==
LOC: OLS.SW 04:00
PROVIDERS: PCP Family Medicine; Referring Provider Family Medicine; Visit Provider Family Medicine
DX: E11.9 Type 2 diabetes mellitus without complications (principal); E78.5 Hyperlipidemia, unspecified
CPT/HCPCS: 36415; 80061; 83036

== ENCOUNTER → 2023-12-19 | Outpatient (REF) | payer MEDICARE, MEDICAID, SELFPAY ==
[2023-12-19 09:08] LABS: Hemoglobin A1c 7.4 % (3.8-5.6)
== END ==
LOC: OLS.SW 05:00
PROVIDERS: PCP Family Medicine; Visit Provider Family Medicine
DX: E11.9 Type 2 diabetes mellitus without complications (principal)
CPT/HCPCS: 36415; 83036

== ENCOUNTER → 2024-03-12 | Outpatient (REF) | payer MEDICARE, MEDICAID, SELFPAY ==
[2024-03-12 08:28] LABS: ALB/GLOB Ratio 0.9 RATIO (0.9-2.4); AST(SGOT) 20 U/L (15-37); Absolute Lymphocyte Count 2.71 X10^3/uL (0.83-4.51); Absolute Neutrophil Count 6.1 X10^3/uL (2.0-7.7); Alanine Aminotransfer ALT/SGPT 36 U/L (16-61); Albumin, Serum 3.6 g/dL (3.2-5.0); Alkaline Phosphatase 117 U/L (45-117); Anion Gap 7 (5-15); BUN 15 mg/dL (7-18); BUN/Creat Ratio 15.1 RATIO (10-20); Basophil# 0.04 X10^3/uL; Basophil% 0.4 % (0-1); Calcium,Total 8.6 mg/dL (8.5-10.1); Chloride 101 mmol/L (98-107); Creatinine, Serum 0.99 mg/dL (0.70-1.30); EST Glomerular Filtration Rate 80 mL/min (>60); Eosinophil# 0.44 X10^3/uL; Eosinophils% 4.4 % (0-5); Est Glom Filt Rate - Afr Amer 97 mL/min (>60); Globulin 3.9 g/dL (2.2-4.2); Glucose 179 mg/dL (74-106); Hematocrit 42.9 % (40-54); Lymphocyte # 2.71 X10^3/ul (0.83-4.51); Lymphocyte % 26.9 % (19-41); Mean Corp Hgb Conc 32.6 g/dL (32-36); Mean Corpuscular Hgb 30.2 pg (27.0-32.0); Mean Corpuscular Volume 92.5 fL (80-94); Mean Platelet Vol. 10.3 fl (6.2-12.0); Monocyte# 0.78 X10^3/uL; Monocyte% 7.7 % (0-10); NRBC Flagged by Analyzer 0 % (0-5); Neutrophil # 6.05 X10^3/uL (2.7-7.7); Neutrophil % 60.1 % (47-70); Platelet Count 251 K/mm3 (150-450); Potassium 3.8 mmol/L (3.5-5.1); Protein, Total 7.5 g/dL (6.4-8.2); RBC Distribution Width CV 13.2 % (11.6-14.6); RBC Distribution Width SD 44.3 fl (35.1-43.9); Red Blood Count 4.64 M/mm3 (4.6-6.2); Sodium Level 136 mmol/L (136-145); White Blood Count 10.1 K/mm3 (4.4-11.0)
== END ==
LOC: OLS.SW 05:45
PROVIDERS: PCP Family Medicine; Referring Provider Family Medicine; Visit Provider Family Medicine
DX: D64.9 Anemia, unspecified (principal); E11.9 Type 2 diabetes mellitus without complications; I10 Essential (primary) hypertension; E78.5 Hyperlipidemia, unspecified; R53.83 Other fatigue; R56.9 Unspecified convulsions
CPT/HCPCS: 36415; 80053; 85025

== ENCOUNTER → 2024-03-19 | Outpatient (REF) | payer MEDICARE, MEDICAID, SELFPAY ==
[2024-03-19 08:52] LABS: Hemoglobin A1c 8.8 % (3.8-5.6)
[2024-03-19 08:58] LABS: Cholesterol 148 mg/dL (200); High Density Lipoprotein 30 mg/dL; Triglycerides 210 mg/dL; Very Low Density Lipoprotein 42 mg/dL (5-40)
== END ==
LOC: OLS.SW 05:00
PROVIDERS: PCP Family Medicine; Visit Provider Family Medicine
DX: J44.9 Chronic obstructive pulmonary disease, unspecified (principal); E78.5 Hyperlipidemia, unspecified; E11.9 Type 2 diabetes mellitus without complications; F20.9 Schizophrenia, unspecified
CPT/HCPCS: 36415; 80061; 83036

== ENCOUNTER → 2024-09-13 05:00 | Outpatient (REF) | payer MEDICARE, MEDICAID, SELFPAY ==
[2024-09-13 09:32] LABS: Hemoglobin A1c 10.5 % (3.8-5.6)
== END ==
LOC: OLS.SW 05:00
PROVIDERS: PCP Family Medicine; Visit Provider Internal Medicine
DX: E11.9 Type 2 diabetes mellitus without complications (principal)
CPT/HCPCS: 36415; 83036

== ENCOUNTER 2024-10-03 21:48 | Emergency (ER) | payer MEDICARE, MEDICAID, SELFPAY ==
[2024-10-03 21:49] VITALS: BP 138/72; PULSE 104; RESP 33; TEMP 36.8; O2SAT 95; BMI 39.3
[2024-10-03 21:55] VITALS: BP 138/72; PULSE 104; RESP 36; TEMP 36.8; O2SAT 95
[2024-10-03 22:00] VITALS: O2SAT 94
--- NOTE | 2024-10-03 22:01 | ED.RN ---
Updated pt's sister via phone call. Questions and concerns answered
--- NOTE | 2024-10-03 22:11 | EKG12_ITS ---
Test Reason : DYSRHYTHMIA Blood Pressure : */* mmHG Vent. Rate : 103 BPM Atrial Rate : 103 BPM P-R Int : 126 ms QRS Dur : 96 ms QT Int : 366 ms P-R-T Axes : 39 83 61 degrees QTcB Int : 479 ms Sinus tachycardia Otherwise normal ECG Confirmed by DWIGHT PINZON, OSCAR ([id number]), editor greeting card ROBERT HADDAD ([id number]) on 10/05/2024 1:02:29 PM Referred By: DOROTHY Confirmed By: OSCAR QUINTANILLA MD
--- NOTE | 2024-10-03 22:18 | EDS_ITS ---
HPI History of Present Illness Chief Complaint: Shortness of Breath Informant: patient Onset/Context/Timing Onset: Days Context: gradual Timing: Continuous Current Severity: Mild Maximum Severity: Mild Worsened by: Coughing Relieved by: Oxygen Associated Symptoms cough; Negative for fever or green sputum Chest Pain: Positive for None Narrative Narrative: 69-year-old male reported history of COPD but he denies. Also history of diabetes. Patient is a resident of [facility]. States has been short of breath since Tuesday. He was recently started on oxygen. Which he previously was not on. Does state that he has been a smoker. He denies any cough fever or chills. He denies any history of DVT or PE. He denies any leg pain or swelling. He denies any hemoptysis. He denies any cardiac history. PE Risk Factors: Negative for Cancer, OCP + Smoking + > 35, Prior DVT or PE, Recent immobilization, Recent surgery or Recent travel Prior similar symptoms: No Recent Illness/Hospitalization: No [facility] Medical History (Updated 10/04/24 @ 00:[address] Mohsen [place] MD) COPD (chronic obstructive pulmonary disease) Home Medications ?Medication ?Instructions ?Recorded ?Last Taken ?Type amlodipine 10 mg tablet 10 mg PO DAILY 12/03/18 Unkn own History doxazosin 2 mg tablet 2 mg PO DAILY 12/03/18 Unkno wn History haloperidol decanoate 100 mg/mL 100 mg IM QWEEK Unknown History intramuscular solution lisinopril 20 mg tablet 20 mg PO DAILY 12/03/18 Unkn own History oxcarbazepine 300 mg tablet 300 mg PO DAILY 12/03/18 U nknown History quetiapine 100 mg tablet 100 mg PO DAILY 12/03/18 Unk nown History acetaminophen 325 mg tablet 650 mg (2 x 325 mg) PO Q6H PRN PRN 12/07/18 Unknown Rx (Tylenol) Non-cardiac pain (mod-severe ) lancets 30 gauge and blood glucose ##100 12/07/18 Unkn own Rx strips combo pack needle (disp) 16 G 16 gauge x 1 ##100 12/07/18 Unknow n Rx prednisone 20 mg tablet 40 mg (2 x 20 mg) PO DAILY 7 days 10/04/24 Unknown Rx #14 tabs Allergy/AdvReac Type Severity Reaction Status Date / Time No Known Allergies Allergy Verified 10/03/24 21:49 Social History Smoking Status: Current some day smoker tobacco type: cigarettes ROS ROS ED ROS Narrative Shortness of breath. Denies any significant cough. Denies any chest pain. Denies any fever. Constitutional Constitutional ED: Denies chills or fever(s) ENT ENT ED: Denies ear pain Cardiovascular Cardiovascular: Denies chest pain or palpitations Respiratory/Chest Respiratory/Chest: Reports dyspnea; Denies cough Gastrointestinal Gastrointestinal: Denies abdominal pain Genitourinary Genitourinary ED: Denies dysuria or hematuria Musculoskeletal Musculoskeletal: Denies arthralgias Integumentary Denies abscess Neurologic Neurologic: Denies headache(s) Psychiatric Psychiatric: Denies anxiety or depression Endocrine Endocrinology: Denies cold intolerance Hematologic/Lymphatic Hematologic/Lymphatic: Denies easy bleeding Allergic/Immunologic Allergic/Immunologic ED: Denies mouth swelling EXAM Physical Exam Narrative Exam Narrative: Well-appearing 69-year-old male. Vital signs are stable. Afebrile. Pulse ox on 4 L is 95%. Nonhypoxic on oxygen. H EENT exam pupils round react light. Neck motions are intact. Moist mucous membranes. No facial droop. Normal speech. Neck nontender no JVD. No lymphadenopathy. Lungs coarse breath sounds bilaterally. Prolonged expiratory phase. No significant wheezing. No rales or rhonchi. Equal symmetrical. Heart tachycardic 104 no murmur. Chest wall ribs nontender. Abdomen soft nontender. Back nontender. Moving all 4 extremities. Normal manager personal strength. Normal dorsi plantarflexion. Calves are nontender without edema or cords. Neurologically is awake and alert. Answering questions following commands. No focal motor deficits. Const Vital Signs: 10/03/24 21:49 10/03/24 21:55 10/03/24 22:00 Temperature 98.2 F 98.2 F Temperature Source Oral Oral Pulse Rate 104 H 104 H Respiratory Rate 33 H 36 H Respiratory Effort Respiratory Pattern Blood Pressure 138/72 H 138/72 H Blood Pressure Mean 94 94 Pulse Ox 95 95 94 Oxygen Delivery Method Nasal Cannula Nasal Cannula Nasal Cannula Oxygen Flow Rate (L/min) 4 4 2 10/03/24 22:19 10/03/24 22:26 10/03/24 22:28 Temperature Temperature Source Pulse Rate 101 H 105 H Respiratory Rate 22 H 32 H Respiratory Effort Short of Breath Respiratory Pattern Tachypnea Blood Pressure 121/71 H Blood Pressure Mean 87 Pulse Ox 93 Oxygen Delivery Method Nasal Cannula Oxygen Flow Rate (L/min) 2 Positive well nourished and well developed; Negative for cachectic, contractures or unkempt General Appearance ED: well developed and NAD; Negative for unkempt, cachectic, contractures or pallor Nutritional Appearance: Negative for cachectic HEENT Reports moist mucous membranes atraumatic; Negative for trauma or tenderness Eyes PERRL and EOMs intact bilaterally Neck no lymphadenopathy, supple, no meningeal signs and no JVD General: Negative for tenderness Lymph Lymphatic: Negative for other Resp normal respiratory effort and No clear to auscultation bilaterally Resp Narrative: Prolonged expiratory phase. Coarse breath sounds. Equal symmetrical. No rales or rhonchi. Auscultation: Negative for rales or rhonchi Cardio regular rhythm, S1 normal heart sound, S2 normal heart sound and no murmurs; Negative for regular rate Rate: tachycardic GI non-tender, non-distended and no masses Auscultation: normoactive bowel sounds Palpation: soft; Negative for tender, guarding, mass or rebound tenderness present Back/Spine no CVA tenderness and normal to inspection General Back: Negative for CVA tenderness or tenderness Extremity normal to inspection General Extremety ED: Negative for edema or tenderness General Extremity: Negative for edema Neuro oriented x3 and CN's II-XII intact bilaterally Sensorium / Orientation: alert, oriented to person, oriented to place and oriented to time; Negative for orientation impaired or confused Speech: speech normal Motor Exam: strength 5/5 throughout Psych mental status grossly normal Appearance: Negative for unkempt Attitude: No agitated and No other Mood & Affect: Negative for depressed, anxious or tearful Thought Process: normal thought process Skin no wounds and skin turgor normal General Skin Exam: Negative for jaundice or pallor Lesions: no lesions Rashes: no rashes Trauma: Negative for abrasion or laceration MDM MDM MDM Narrative Medical decision making narrative: 69-year-old male with shortness of breath with hypoxia and recent O2 requirement. Does have coarse breath sounds to be treated with Solu-Medrol DuoNeb and albuterol. Cardiac respiratory workup will be performed. This could be viral versus pneumonia versus effusions versus CHF versus cardiac or even emboli. Repeat exam at 11:23 PM patient doing well. Improved after the aerosol treatments. We went over his test results. Awaiting COVID flu results. Repeat exam patient is doing well at 12:17 AM. After the aerosols his breathing improved. There is no signs of this being a cardiac etiology. No signs of being pneumonia nor COVID or flu. Chest x-ray is unremarkable. He will be treated as a COPD flare. Placed on prednisone 40 mg a day for a week. Discharged back to [facility] facility for further evaluation. D-dimer was also negative. History & Record Review Discussion w/independent historian: Patient Additional record(s) reviewed:: Prior inpatient record, Prior outpatient record and Prior ED visit Lab Data Attestation: I reviewed the patient's lab results. Lab results narrative: CBC shows a normal white count of 6.9. H&H 13 and 39. Platelets 249. BMP shows a gap of 7. Normal BUN of 14 creatinine 0.9. Glucose 174. Troponin of 5. D-dimer is normal at 0.45. Chest x-ray shows chronic changes no acute process. No pneumonia. No effusions. Labs: Laboratory Results - last 24 hr 10/03/24 22:20 WBC 6.9 RBC 4.42 L Hgb 13.3 Hct 39.6 L MCV 89.6 MCH 30.1 MCHC 33.6 RDW Std Deviation 43.8 RDW Coeff of [place] 13.3 Plt Count 249 MPV 9.8 Immature Gran % (Auto) 0.300 Neut % (Auto) 57.2 Lymph % (Auto) 32.3 Sandoval % (Auto) 9.4 Eos % (Auto) 0.4 Baso % (Auto) 0.4 Absolute Neuts (auto) 4.0 Absolute Lymphs (auto) 2.23 Nucleated RBC % 0 Differential Comment SCANNED D-Dimer Quant (PE/DVT) 0.45 Sodium 136 Potassium 3.9 Chloride 103 Carbon Dioxide 26.0 Anion Gap 7 BUN 14 Creatinine 0.90 Estim Creat Clear Calc 96.05 Est GFR (MDRD) Af Amer 108 Est GFR (MDRD) Non-Af 89 BUN/Creatinine Ratio 15.5 Glucose 174 H Calcium 8.6 Troponin I High Sens 5 Radiography Chest X-Ray - ED: 2 View, Read by ED Physician, Normal, Heart, Lungs, Me diastinum, Bony Structures, No Acute Disease and Chronic Changes Diagnostic Testing: Clinical Impression(s) from Imaging Studies Chest X-Ray 10/03/24 23:00 IMPRESSION: No acute cardiopulmonary process. Reading Location: [facility] Chest x-ray, 2 views, AP and lateral, shows normal cardiac silhouette. No infiltrates. No pneumonia. No effusions. Chronic changes. No acute process. Interpreted by myself. Rhythm Strip Rhythm Strip: Sinus Tach Rate: 13 Ectopy: None EKG Initial EKG: Attestation: I personally reviewed and interpreted this EKG as follows: Interpretation: No Acute Injury Pattern and Sinus Tachycardia Comments: Sinus tachycardia rate of 103 no acute signs of [place] or ischemia. No dysrhythmia. Discharge Plan Triage Chief Complaint: Shortness of Breath ED Provider: Mohsen [place] Dx/Rx/DC Orders Clinical Impression: COPD exacerbation, History of diabetes mellitus Instructions: ED COPD Flare Prescriptions: New prednisone 20 mg tablet 40 mg PO DAILY 7 Days Qty: 14 0RF No Action haloperidol decanoate 100 MG/ML solution 100 mg IM QWEEK lisinopril 20 MG tablet 20 mg PO DAILY oxcarbazepine 300 MG tablet 300 mg PO DAILY quetiapine 100 MG tablet 100 mg PO DAILY amlodipine 10 MG tablet 10 mg PO DAILY doxazosin 2 MG tablet 2 mg PO DAILY acetaminophen [Tylenol] 325 MG tablet 650 mg PO Q6H PRN PRN (Reason: Non-cardiac pain (mod-severe)) 0RF (DME) needle (disp) 16 G 1 EACH needle 1 ea MC TIDCM Qty: 100 0RF (DME) lancets-blood glucose strips 1 EACH combo pack 1 ea MC TIDCM Qty: 100 0RF Primary Care Provider: Ayo Uriostegui Referrals: Ayo Uriostegui MD [Primary Care Provider] - 2 Days Activity Restrictions/Additional Instructions: Labs showed no signs of heart attack, no pneumonia. Negative for COVID and flu. Appears to be a COPD exacerbation. No signs of a blood clot. Aerosols as needed. Prednisone daily for a week. 40 mg/day. Follow-up with Dr. Uriostegui. Print Language: Faroese Disposition Disposition: Home, Self Care
[2024-10-03 22:19] VITALS: BP 121/71; PULSE 101; RESP 22; O2SAT 93
[2024-10-03 22:25] LABS: Absolute Lymphocyte Count 2.23 X10^3/uL (0.83-4.51); Basophil# 0.03 X10^3/uL; Basophil% 0.4 % (0-1); Eosinophil# 0.03 X10^3/uL; Eosinophils% 0.4 % (0-5); Hematocrit 39.6 % (40-54); Hemoglobin 13.3 g/dL (13.0-16.5); Lymphocyte # 2.23 X10^3/ul (0.83-4.51); Lymphocyte % 32.3 % (19-41); Mean Corp Hgb Conc 33.6 g/dL (32-36); Mean Corpuscular Hgb 30.1 pg (27.0-32.0); Mean Corpuscular Volume 89.6 fL (80-94); Mean Platelet Vol. 9.8 fl (6.2-12.0); Monocyte# 0.65 X10^3/uL; Monocyte% 9.4 % (0-10); NRBC Flagged by Analyzer 0 % (0-5); Neutrophil # 3.95 X10^3/uL (2.7-7.7); Neutrophil % 57.2 % (47-70); POSITIVE MORPHOLOGY YES; Platelet Count 249 K/mm3 (150-450); RBC Distribution Width CV 13.3 % (11.6-14.6); RBC Distribution Width SD 43.8 fl (35.1-43.9); Red Blood Count 4.42 M/mm3 (4.6-6.2); White Blood Count 6.9 K/mm3 (4.4-11.0)
[2024-10-03 22:26] VITALS: PULSE 105; RESP 32
[2024-10-03] MEDS: Ipratropium/Albuterol Sulfate 3 ML AMPUL.NEB INHALATION (22:26)
[2024-10-03] MEDS: Albuterol 2.5 MG/3 ML VIAL.NEB. INHALATION (22:26)
[2024-10-03] MEDS: MethylPREDNISolone 125 MG/2 ML Vial IV (22:26)
[2024-10-03 22:36] LABS: Differential Indicated SCAN CRITERIA MET
--- NOTE | 2024-10-03 22:40 | CPS ---
[2226] x1 Albuterol given to pt. in ER
[2024-10-03 22:44] LABS: Anion Gap 7 (5-15); BUN 14 mg/dL (7-18); BUN/Creat Ratio 15.5 RATIO (10-20); Calcium,Total 8.6 mg/dL (8.5-10.1); Chloride 103 mmol/L (98-107); EST Glomerular Filtration Rate 89 mL/min (>60); Est Glom Filt Rate - Afr Amer 108 mL/min (>60); Estimated Creatinine Clearance 96.05 ml/min; Glucose 174 mg/dL (74-106); Potassium 3.9 mmol/L (3.5-5.1); Sodium Level 136 mmol/L (136-145); Troponin-I HS 5 pg/mL (3.0-78.0)
--- NOTE | 2024-10-03 23:00 | RAD_ITS ---
PROCEDURE: CHEST PA AND LATERAL REASON FOR EXAM: Dyspnea. TECHNIQUE: Frontal and lateral views of the chest. COMPARISON: Chest x-ray from 12/03/2018. FINDINGS: Cardiac size and pulmonary vasculature are within normal limits. No consolidation, pleural effusion, or pneumothorax is present. There is hyperinflation of the lungs. Degenerative changes are identified. There is mild dextroscoliosis of the midthoracic spine. RAD/Chest PA and Lateral IMPRESSION: No acute cardiopulmonary process. Reading [facility]
[2024-10-03 23:21] LABS: D-Dimer Quantitative (DVT/PE) 0.45 FEU/ug/m (0.27-0.49)
[2024-10-03 23:54] LABS: Differential Comment SCANNED
[2024-10-04 00:38] VITALS: BP 150/82; PULSE 94; RESP 16; TEMP 36.9; O2SAT 93
== END 2024-10-04 01:10 | disposition skilled nursing facility (03) ==
PROVIDERS: Emergency Provider Emergency Medicine; PCP Family Medicine; Visit Provider Emergency Medicine
DX: J44.1 Chronic obstructive pulmonary disease with (acute) exacerbation (principal); E11.9 Type 2 diabetes mellitus without complications; F17.210 Nicotine dependence, cigarettes, uncomplicated
CPT/HCPCS: 71046; 80048; 84484; 85025; 85379; 87631; 93005; 94640; 96374; 99285; A4216

== ENCOUNTER → 2024-11-12 | Outpatient (REF) | payer MEDICARE, MEDICAID, SELFPAY ==
[2024-11-12 15:49] LABS: Microalbumin,Random Urine < 12.0 mg/L (NO RANGE EST.); Microalbumin:Creatinine Ratio UNABLE TO CALCULATE mg/g CRE
[2024-11-12 22:53] LABS: T4 Total, Thyroxin 6.1 ug/dL (4.5-12.1)
[2024-11-12 23:51] LABS: ALB/GLOB Ratio 1.3 RATIO (0.9-2.4); AST(SGOT) 22 U/L (<=37); Alanine Aminotransfer ALT/SGPT 26 U/L (<=46); Albumin, Serum 3.9 g/dL (3.4-4.8); Alkaline Phosphatase 98 U/L (40-129); Anion Gap 14 (5-15); BUN 15 mg/dL (4-19); BUN/Creat Ratio 16.6 RATIO (10-20); Carbon Dioxide 21.2 mmol/L (21.0-32.0); Chloride 100 mmol/L (98-108); Cholesterol 168 mg/dL (<=200); Creatinine, Serum 0.91 mg/dL (0.70-1.20); EST Glomerular Filtration Rate 92 (>60); Glucose 228 mg/dL (70-99); High Density Lipoprotein 32 mg/dL; Low Density Lipoprotein Calc. 90 mg/dL; Potassium 4.3 mmol/L (3.3-5.1); Sodium Level 135 mmol/L (133-145); Total Bilirubin 0.19 mg/dL (0.00-1.30); Triglycerides 232 mg/dL; Very Low Density Lipoprotein 46 mg/dL (5-40); cholesterol:hdl ratio screen 5.28
[2024-11-13 02:07] LABS: C-Peptide 1.9 ng/mL (1.1-4.4)
[2024-11-13 20:49] LABS: Hemoglobin A1c 9.7 % (<=5.6)
== END ==
LOC: OLS.SW 05:00
PROVIDERS: PCP Family Medicine; Visit Provider Internal Medicine
DX: E78.5 Hyperlipidemia, unspecified (principal); E11.11 Type 2 diabetes mellitus with ketoacidosis with coma
CPT/HCPCS: 36415; 80053; 80061; 82043; 82570; 83036; 84436; 84443; 84681

== ENCOUNTER → 2024-12-11 | Outpatient (REF) | payer MEDICARE, MEDICAID, SELFPAY ==
[2024-12-11 09:59] LABS: Hemoglobin A1c 9.7 % (<=5.6)
== END ==
LOC: OLS.SW 06:20
PROVIDERS: PCP Family Medicine; Visit Provider Family Medicine
DX: E11.9 Type 2 diabetes mellitus without complications (principal)
CPT/HCPCS: 36415; 83036

== ENCOUNTER → 2025-03-05 | Outpatient (REF) | payer MEDICARE, MEDICAID, SELFPAY ==
--- OUTSIDE RECORDS SUMMARY | 2025-03-05 04:15 | XMS RPT_ITS | CCD ---
Author Organization [facility] Inform ion Partnership [facility] Care Team Providers Care Office 365 Consultant Name Role Phone Gila PINZON, Dr. Rollins Primary Care Provider [phone] Jim PINZON, Dr. Charles Attending Provider Unavailtj [place] MD, Dr. Connolly Attending Provider Stanislav PINZON, Dr. Connolly Emergency Provider [phone] Wilman PINZON, Dr. Flores Attending Provider Unavail able Gila, Ayo Primary Care Unavailable Mohsen [place] Attending Unavailable Gila HAYES, Ayo Referring Unavailable Gila HAYES, Ayo Attending Unavailable Gila, Ayo Primary Care Unavailable Araceli Mcmahan Attending Unavailable Gila, Ayo Primary Care Unavailable Gila HAYES, Ayo Attending Unavailable Uriostegui, Ayo Primary Care Unavailable Gila, Ayo Primary Care Unavailable Mark Franco Attending Unavailable Gila, Ayo Primary Care Unavailable Araceli Mcmahan Attending Unavailable Medications Current Medications Medication Drug Class(es) Dates Sig (Normalized) Sig (Original) acetaminophen 325 mg oral tablet (12 sources) Start: 12-07-2018 take 2 tablets by mouth every six hours as needed for pain Acetaminophen (Tylenol) 325 MG tablet Active 650 mg PO EVERY 6 HOURS NEEDED as needed for Non-cardiac pain (mod-severe) December 07, 2018 12:00am amLODIPine 10 mg oral tablet (12 sources) Dihydropyridine Calcium Channel Anjel Start: 12-03-2018 take 1 tablet by mouth once daily Amlodipine 10 MG tablet Active 10 mg PO DAILY December 03, 2018 12:00am doxazosin 2 mg oral tablet (12 sources) alpha-Adrenergic Anjel Start: 12-03-2018 take 1 tablet by mouth once daily Doxazosin 2 MG tablet Active 2 mg PO DAILY December 03, 2018 12:00am 1 ml haloperidol decanoate 100 mg/ml injection (12 sources) Typical Antipsychotic Start: 12-03-2018 inject 100 mg by intramuscular injection every week Haloperidol Decanoate 100 MG/ML solution Active 100 mg IM EVERY WEEK December 03, 2018 12:00am Start: 12-03-2018 inject 100 mg by int ramuscular injection every week Haloperidol Decanoate Active 100 MG IM EVERY WEEK December 02, 2018 11:00pm lisinopril 20 mg oral tablet (12 sources) Angiotensin Converting Enzyme Inhibitor Start: 12-03-2018 take 1 tablet by mouth once daily Lisinopril 20 MG tablet Active 20 mg PO DAILY December 03, 2018 12:00am Needle (Disp) 16 G (10 sources) Start: 12-07-2018 Needle (Disp) 16 G Active 1 EACH MC 3 TIMES DAILY WITH MEALS 100 December 07, 2018 9:54am Start: 12-07-2018 Needle (Disp) 16 G Active 1 EACH MC 3 TIMES DAILY WITH MEALS 100 December 06, 2018 11:00pm Start: 12-07-2018 Needle (Disp) 16 G Active 1 EACH MC 3 TIMES DAILY WITH MEALS 100 December 07, 2018 12:00am Needle (Disp) 16 G 1 EACH needle (2 sources) Start: 12-07-2018 Needle (Disp) 16 G 1 EACH needle Active 1 NMA MC 3 TIMES DAILY WITH MEALS 100 December 07, 2018 12:00am OXcarbazepine 300 mg oral tablet (12 sources) Anti-epileptic Agent Start: 12-03-2018 take 1 tablet by mouth once daily Oxcarbazepine 300 MG tablet Active 300 mg PO DAILY December 03, 2018 12:00am predniSONE 20 mg oral tablet (2 sources) Start: 10-04-2024 take 2 tablets by mouth once daily Prednisone 20 mg tablet Active 40 mg PO DAILY 14 October 04, 2024 1:00am QUEtiapine 100 mg oral tablet (12 sources) Atypical Antipsychotic Start: 12-03-2018 take 1 tablet by mouth once daily Quetiapine 100 MG tablet Active 100 mg PO DAILY December 03, 2018 12:00am Completed/Discontinued Medications Medication Drug Class(es) Dates Sig (Normalized) Sig (Original) 3 ml insulin aspart, human 100 unt/ml pen injector (12 sources) Insulin Analog Start: 12-07-2018 End: 12-08-2018 Insulin Aspart U-100 100 UNITS/ML insulin pen Discontinued 10 U SC 3 TIMES DAILY WITH MEALS 1 December 07, 2018 12:00am December 07, 2018 12:00am December 08, 2018 12:08am Start: 12-07-2018 End: 12-08-2018 Insulin Aspart U-100 Discont inued 10 UNITS SC 3 TIMES DAILY WITH MEALS December 06, 2018 11:00pm December 07, 2018 11:08pm 3 ml insulin glargine 100 unt/ml pen injector (12 sources) Insulin Analog Start: 12-07-2018 End: 12-08-2018 Insulin Glargine 100 UNITS/ML insulin pen Discontinued 40 U SC TWICE A DAY December 07, 2018 12:00am December 07, 2018 12:00am December 08, 2018 12:08am Start: 12-07-2018 End: 12-08-2018 Insulin Glargine Discontinue d 40 UNITS SC TWICE A DAY December 06, 2018 11:00pm December 07, 2018 11:08pm Problems Active Problems Problem Classification Problem Date Documented Da te Episodic/Chronic Acute and unspecified renal failure (12 sources) Injury of kidney; Translations: [Acute kidney failure, unspecified] 12-03-2018 Episodic Anxiety disorders (12 sources) Mixed anxiety and depressive disorder; Translations: [Anxiety disorder, unspecified] 12-03-2018 Chronic Chronic obstructive pulmonary disease and bronchiectasis (3 sources) Acute exacerbation of chronic obstructive airways disease; Translations: [Chronic obstructive pulmonary disease with (acute) exacerbation] Onset: 05-02-2024 10-12-2024 Chronic Diabetes mellitus with complications (13 sources) Diabetic ketoacidosis; Translations: [Type 2 diabetes mellitus with ketoacidosis without coma] Onset: 01-17-2025 12-03-2018 Chronic Diabetes mellitus without complication (2 sources) Type 2 diabetes mellitus without complications; Translations: [Type 2 diabetes mellitus without complications] Onset: 09-20-2024 Chronic Disorders of lipid metabolism (1 source) Hyperlipidemia, unspecified; Translations: [Hyperlipidemia, unspecified] Onset: 01-17-2025 Chronic Essential hypertension (13 sources) Hypertensive disorder; Translations: [Essential (primary) hypertension] Onset: 04-03-2024 12-03-2018 Chronic Mood disorders (12 sources) Bipolar disorder; Translations: [Bipolar disorder, unspecified] 12-03-2018 Chronic Other nutritional; endocrine; and metabolic disorders (2 sources) H/O: diabetes mellitus; Translations: [Personal history of other endocrine, nutritional and metabolic disease] 10-12-2024 Episodic Residual codes; unclassified (12 sources) Tobacco use and exposure - finding; Translations: [Tobacco use] 12-03-2018 Episodic Schizophrenia and other psychotic disorders (1 source) Schizophrenia, unspecified; Translations: [Schizophrenia, unspecified] Onset: 05-02-2024 Chronic Past or Other Problems Problem Classification Problem Date Documented Da te Episodic/Chronic Deficiency and other anemia (1 source) Anemia, unspecified; Translations: [Anemia, unspecified] Onset: 04-03-2024 Episodic Epilepsy; convulsions (1 source) Unspecified convulsions; Translations: [Unspecified convulsions] Onset: 04-03-2024 Episodic Malaise and fatigue (1 source) Other fatigue; Translations: [Other fatigue] Onset: 04-03-2024 Episodic Other lower respiratory disease (1 source) Shortness of breath; Translations: [Shortness of breath] Onset: 10-18-2024 Episodic Results Test Name Value Interpretation Reference Range Facility Hemoglobin A1con 12-11-2024 HbA1c (Bld) [Mass fraction] 9.7 % High <=5.6 [facility] Comment on above: Result Comment: Norm al < 5.7 % Prediabetic 5.7 - 6.4 % Diabetic >or= 6.5 % Please note range changes. Performed By: #### L 501.9985 ####[facility] [address] [place], [address] Hemoglobin A1c percentageOrd ered By: Mark Stovall on 12-11-2024 HbA1c (Bld) [Mass fraction] 9.7 % High <5.7 [facility] Comment on above: Normal < 5.7 % Predi abetic 5.7 - 6.4 % Diabetic >or= 6.5 % Please note range changes. [id number] 11-16-2024 [facility] Misc. COMMENT Normal . [facility] Comment on above: Order Comment: SERUM ROOM [id number] ACID DECARBOXYLASE Result Comment: Test Ordered: [id number] HARI-65 Autoantibody HARI-65 <5.0 U/mL Reference Range: 0.0-5.0 Performed at: - [facility] [address] [id number] Hunting Sales Leader: Nataliia Catalan MD, Phone: [phone] Performed at: [place] [id number] [place], [place] [id number] Hunting Sales Leader: Osiel Vazquez PhD, Phone: [phone] Performed By: #### L 501.9985, L502.0250, L501.9520, L500.4100, L501.9310, L3100.7750, L500.4050, L3410.9998 ####[facility] [address] [place], [address] C-Peptideon 11-13-2024 C PEPTIDE 1.9 ng/mL Normal 1.1-4.4 [facility] Comment on above: Order Comment: 308.1 Result Comment: C-Pe ptide reference interval is for fasting patients. Performed at: [address] [id number] Hunting Sales Leader: Osiel Vazquez PhD, Phone: [phone] Performed By: #### L 501.9985, L502.0250, L501.9520, L500.4100, L501.9310, L3100.7750, L500.4050, L3410.9998 ####[facility] [address] [place], [address] Hemoglobin A1con 11-13-2024 HbA1c (Bld) [Mass fraction] 9.7 % Normal <=5.6 [facility] Comment on above: Order Comment: 308.1 Performed By: #### L 501.9985, L502.0250, L501.9520, L500.4100, L501.9310, L3100.7750, L500.4050, L3410.9998 ####[facility] [address] [place], [place], [id number] Anion gap in Serum or Plasma Ordered By: Araceli Fernandez on 11-12-2024 Anion gap [Moles/Vol] 14 mmol/L 5-15 [facility] BUN/creatinine ratioOrdered By: Araceli Fernandez on 11-12-2024 Urea nitrogen/Creatinine [Mass ratio] 16.6 mg/mg 10-20 [facility] Bilirubin, totalOrdered By: Araceli Fernandez on 11-12-2024 Bilirubin [Mass/Vol] 0.19 mg/dL 0.00-1.30 [facility] C-peptideOrdered By: Araceli Fernandez on 11-12-2024 C-Peptide 1.9 ng/mL 1.1-4.4 [facility] Comment on above: C-Peptide reference interval is for fasting patients.Performed at: [facility] [id number] Director: Osiel Vazquez PhD, Phone: [phone] Calculated very low density lipoprotein (VLDL) cholesterol measurementOrdered By: Araceli Fernandez on 11-12-2024 Calculated very low density lipoprotein (VLDL) cholesterol measurement 46 mg/dL High 5-40 [facility] VLDL Cholesterol 46 mg/dL High -40 [facility] Carbon dioxide, total [Moles /volume] in Central venous bloodOrdered By: Araceli Fernandez on 11-12-2024 CO2 [Moles/Vol] 21.2 mmol/L 21.0-32.0 [facility] Chloride assayOrdered By: Edwin Fernandez on 11-12-2024 Chloride [Moles/Vol] 100 mmol/L 98-108 [facility] Comprehensive Metabolic Prof ilon 11-12-2024 Albumin [Mass/Vol] 3.9 g/dL Normal 3.4-4.8 [facility] Comment on above: Order Comment: 308.1 Performed By: #### L 501.9985, L502.0250, L501.9520, L500.4100, L501.9310, L3100.7750, L500.4050, L3410.9998 ####[facility] [address] [place], [place], [id number] Albumin/Globulin [Mass ratio] 1.3 {ratio} Normal 0.9-2.4 [facility] Comment on above: Order Comment: 308.1 Performed By: #### L 501.9985, L502.0250, L501.9520, L500.4100, L501.9310, L3100.7750, L500.4050, L3410.9998 ####[facility] [address] [place], [address] ALK PHOS 98 U/L Normal 40-129 [facility] Comment on above: Order Comment: 308.1 Performed By: #### L 501.9985, L502.0250, L501.9520, L500.4100, L501.9310, L3100.7750, L500.4050, L3410.9998 ####[facility] [address] [place], [address] ALT [Catalytic activity/Vol] 26 U/L Normal <=46 [facility] Comment on above: Order Comment: 308.1 Performed By: #### L 501.9985, L502.0250, L501.9520, L500.4100, L501.9310, L3100.7750, L500.4050, L3410.9998 ####[facility] [address] [place], [address] AST [Catalytic activity/Vol] 22 U/L Normal <=37 [facility] Comment on above: Order Comment: 308.1 Performed By: #### L 501.9985, L502.0250, L501.9520, L500.4100, L501.9310, L3100.7750, L500.4050, L3410.9998 ####[facility] [address] [place], [address] Bilirubin [Mass/Vol] 0.19 mg/dL Normal 0.00-1.30 [facility] Comment on above: Order Comment: 308.1 Performed By: #### L 501.9985, L502.0250, L501.9520, L500.4100, L501.9310, L3100.7750, L500.4050, L3410.9998 ####[facility] [address] [place], [address] BUN/CRE 16.6 RATIO Normal 10-20 [facility] Comment on above: Order Comment: 308.1 Performed By: #### L 501.9985, L502.0250, L501.9520, L500.4100, L501.9310, L3100.7750, L500.4050, L3410.9998 ####[facility] [address] [place], [address] Calcium [Mass/Vol] 9.0 mg/dL Normal 7.6-11.0 [facility] Comment on above: Order Comment: 308.1 Performed By: #### L 501.9985, L502.0250, L501.9520, L500.4100, L501.9310, L3100.7750, L500.4050, L3410.9998 ####[facility] [address] [place], [address] Chloride [Moles/Vol] 100 mmol/L Normal 98-108 [facility] Comment on above: Order Comment: 308.1 Performed By: #### L 501.9985, L502.0250, L501.9520, L500.4100, L501.9310, L3100.7750, L500.4050, L3410.9998 ####[facility] [address] [place], [address] CO2 [Moles/Vol] 21.2 mmol/L Normal 21.0-32.0 [facility] Comment on above: Order Comment: 308.1 Performed By: #### L 501.9985, L502.0250, L501.9520, L500.4100, L501.9310, L3100.7750, L500.4050, L3410.9998 ####[facility] [address] [place], [place], [id number] Creatinine [Mass/Vol] 0.91 mg/dL Normal 0.70-1.20 [facility] Comment on above: Order Comment: 308.1 Performed By: #### L 501.9985, L502.0250, L501.9520, L500.4100, L501.9310, L3100.7750, L500.4050, L3410.9998 ####[facility] [address] [place], [place], [id number] GAP 14 Normal 5-15 [facility] Comment on above: Order Comment: 308.1 Performed By: #### L 501.9985, L502.0250, L501.9520, L500.4100, L501.9310, L3100.7750, L500.4050, L3410.9998 ####[facility] [address] [place], [place], [id number] GFR/1.73 sq M.predicted among non-blacks MDRD (S/P/Bld) [Vol rate/Area] 92 mL/min/{1.73_m2} Normal >60 [facility] Comment on above: Order Comment: 308.1 Result Comment: mL/m in/1.73m2 CKD-EPI Creatinine Equation (2020) Performed By: #### L 501.9985, L502.0250, L501.9520, L500.4100, L501.9310, L3100.7750, L500.4050, L3410.9998 ####[facility] [address] [place], [place], [phone]) Globulin (S) [Mass/Vol] 3.0 g/dL Normal 2.2-4.2 [facility] Comment on above: Order Comment: 308.1 Performed By: #### L 501.9985, L502.0250, L501.9520, L500.4100, L501.9310, L3100.7750, L500.4050, L3410.9998 ####[facility] [address] [place], [address] Glucose [Mass/Vol] 228 mg/dL High 70-99 [facility] Comment on above: Order Comment: 308.1 Performed By: #### L 501.9985, L502.0250, L501.9520, L500.4100, L501.9310, L3100.7750, L500.4050, L3410.9998 ####[facility] [address] [place], [address] Potassium [Moles/Vol] 4.3 mmol/L Normal 3.3-5.1 [facility] Comment on above: Order Comment: 308.1 Performed By: #### L 501.9985, L502.0250, L501.9520, L500.4100, L501.9310, L3100.7750, L500.4050, L3410.9998 ####[facility] [address] [place], [address] Sodium [Moles/Vol] 135 mmol/L Normal 133-145 [facility] Comment on above: Order Comment: 308.1 Performed By: #### L 501.9985, L502.0250, L501.9520, L500.4100, L501.9310, L3100.7750, L500.4050, L3410.9998 ####[facility] [address] [place], [address] T PROT 7.0 g/dL Normal 5.9-8.4 [facility] Comment on above: Order Comment: 308.1 Performed By: #### L 501.9985, L502.0250, L501.9520, L500.4100, L501.9310, L3100.7750, L500.4050, L3410.9998 ####[facility] [address] [place], [address] Urea nitrogen [Mass/Vol] 15 mg/dL Normal 4-19 [facility] Comment on above: Order Comment: 308.1 Performed By: #### L 501.9985, L502.0250, L501.9520, L500.4100, L501.9310, L3100.7750, L500.4050, L3410.9998 ####[facility] [address] [place], [place], [id number] GFR/1.73 sq M.predicted odell g non-blacks MDRD (S/P/Bld) [Vol rate/Area]Ordered By: Araceli Fernandez on 11-12-2024 Estimated GFR (MDRD) Non-Af Amer 92 >60 [facility] Comment on above: mL/min/1.73m2 CKD-EP I Creatinine Equation (2020) Glomerular filtration rate ( GFR) estimation/1.73 sq m using serum, plasma, or whole bOrdered By: Araceli Fernandez on 11-12-2024 GFR/1.73 sq M.predicted among non-blacks MDRD (S/P/Bld) [Vol rate/Area] 92 mL/min/{1.73_m2} >60 [facility] Comment on above: mL/min/1.73m2 CKD-EP I Creatinine Equation (2020) Hemoglobin A1c percentageOrd ered By: Araceli Fernandez on 11-12-2024 HbA1c (Bld) [Mass fraction] 9.7 % >5.7 [facility] LDL calc ser/plasOrdered By: Araceli Fernandez on 11-12-2024 Cholesterol in LDL [Mass/Vol] 90 mg/dL [facility] Comment on above: Yerkinmbcp=098-316 m g/dL & Higher Oqwg=154 mg/dL or greater LDL Cholesterol, Calculated 90 mg/dL [facility] Comment on above: Wrcisobsdx=476-702 m g/dL & Higher Gjax=152 mg/dL or greater Laboratory - Chemistry and C hemistry - challengeOrdered By: Araceli Fernandez on 11-12-2024 AST [Catalytic activity/Vol] 22 U/L <38 [facility] Lipid Profileon 11-12-2024 CHOL:HDL 5.28 Normal [facility] Comment on above: Order Comment: 308.1 Performed By: #### L 501.9985, L502.0250, L501.9520, L500.4100, L501.9310, L3100.7750, L500.4050, L3410.9998 ####[facility] [address] [place], [address] Cholesterol [Mass/Vol] 168 mg/dL Normal <=200 [facility] Comment on above: Order Comment: 308.1 Result Comment: Chol esterol level, Desirable <200 mg/dL Borderline high cholesterol 200-239 mg/dL High cholesterol >=240 mg/dL Recommendations of the NCEP Adult Treatment Panel for the following risk-cutoff thresholds for the [place] population. Performed By: #### L 501.9985, L502.0250, L501.9520, L500.4100, L501.9310, L3100.7750, L500.4050, L3410.9998 ####[facility] [address] [place], [address] Cholesterol in HDL [Mass/Vol] 32 mg/dL Low [facility] Comment on above: Order Comment: 308.1 Result Comment: Lakshmi onal Cholesterol Education Program (NCEP) guidelines: <40 mg/dL: Low HDL-cholesterol (major risk factor for CHD) >= 60 mg/dL: High HDL-cholesterol (negative risk factor for CHD) HDL-cholesterol is affected by a number of factors, e.g. smoking, exercise, hormones, sex and age. Performed By: #### L 501.9985, L502.0250, L501.9520, L500.4100, L501.9310, L3100.7750, L500.4050, L3410.9998 ####[facility] [address] [place], [address] Cholesterol in LDL [Mass/Vol] 90 mg/dL Normal [facility] Comment on above: Order Comment: 308.1 Result Comment: Bord ygvbqb=398-225 mg/dL Higher Pqlm=764 mg/dL or greater Performed By: #### L 501.9985, L502.0250, L501.9520, L500.4100, L501.9310, L3100.7750, L500.4050, L3410.9998 ####[facility] [address] [place], [place], [phone]) Cholesterol in VLDL [Mass/Vol] 46 mg/dL High 5-40 [facility] Comment on above: Order Comment: 308.1 Performed By: #### L 501.9985, L502.0250, L501.9520, L500.4100, L501.9310, L3100.7750, L500.4050, L3410.9998 ####[facility] [address] [place], [place], [id number] Triglyceride [Mass/Vol] 232 mg/dL High [facility] Comment on above: Order Comment: 308.1 Result Comment: The drugs N-Acetylcysteine and Metamizole may falsely depress this assay. Normal range: <150 mg/dL Borderline High: 150-199 mg/dL High: 200-499 mg/dL Very High: >500 mg/dL Performed By: #### L 501.9985, L502.0250, L501.9520, L500.4100, L501.9310, L3100.7750, L500.4050, L3410.9998 ####[facility] [address] [place], [place], [id number] Microalb:Creat Ratio,Random URon 11-12-2024 Creatinine [Mass/Vol] 95.30 mg/dL Normal 39.00-259.00 [facility] Comment on above: Performed By: #### L 501.9985, L502.0250, L501.9520, L500.4100, L501.9310, L3100.7750, L500.4050, L3410.9998 #### [facility] [address] [place], [place], [address] MALB:CREAT UNABLE TO CALCULATE Normal [facility] Comment on above: Performed By: #### L 501.9985, L502.0250, L501.9520, L500.4100, L501.9310, L3100.7750, L500.4050, L3410.9998 #### [facility] [address] [place], [place], [id number] MICROALBUMIN,UR < 12.0 Normal NO RANGE EST. [facility] Comment on above: Performed By: #### L 501.9985, L502.0250, L501.9520, L500.4100, L501.9310, L3100.7750, L500.4050, L3410.9998 #### [facility] [address] [place], [place], [id number] No Panel InformationOrdered By: Araceli Fernandez on 11-12-2024 Miscellaneous Test COMMENT . [facility] Comment on above: Test Ordered: [id number] HARI-65 AutoantibodyGAD-65 <5.0 U/mL Reference Range: 0.0-5.0Performed at: [facility] - [facility] [address] [id number] Director: Nataliia Catalan MD, Phone: [phone] at: [facility] - [facility] [address] [id number] Director: Osiel Vazquez PhD, Phone: [phone] Potassium (Unsp spec) [Mass/ Vol]Ordered By: Araceli Fernandez on 11-12-2024 Potassium [Moles/Vol] 4.3 mmol/L 3.3-5.1 [facility] Potassium measurement (mass/ volume)Ordered By: Araceli Fernandez on 11-12-2024 Potassium (Unsp spec) [Mass/Vol] 4.3 mmol/L 3.3-5.1 [facility] Screening total cholesterol/ high density lipoprotein (HDL) cholesterol ratioOrdered By: Araceli Fernnadez on 11-12-2024 Cholesterol.total/Cholest natividad in HDL [Mass ratio] 5.28 {ratio} [facility] Serum creatinine measurement (mass/volume)Ordered By: Araceli Fernandez on 11-12-2024 Creatinine [Mass/Vol] 0.91 mg/dL 0.70-1.20 [facility] Serum globulin measurementOr dered By: Araceli Fernandez on 11-12-2024 Globulin (S) [Mass/Vol] 3.0 g/dL 2.2-4.2 [facility] Serum glucose measurement (m ass/volume)Ordered By: Araceli Fernandez on 11-12-2024 Glucose [Mass/Vol] 228 mg/dL High 70-99 [facility] Serum or plasma alanine moy otransferase (ALT) measurementOrdered By: Araceli Fernandez on 11-12-2024 ALT [Catalytic activity/Vol] 26 U/L <47 [facility] Serum or plasma albumin karissa urement (mass/volume)Ordered By: Araceli Fernandez on 11-12-2024 Albumin [Mass/Vol] 3.9 g/dL 3.4-4.8 [facility] Serum or plasma albumin/glob ulin mass ratioOrdered By: Araceli Fernandez on 11-12-2024 Albumin/Globulin [Mass ratio] 1.3 {ratio} 0.9-2.4 [facility] Serum or plasma alkaline cyril sphatase measurementOrdered By: Araceli Fernandez on 11-12-2024 ALP [Catalytic activity/Vol] 98 U/L 40-129 [facility] Serum or plasma calcium karissa urement (mass/volume)Ordered By: Araceli Fernandez on 11-12-2024 Calcium [Mass/Vol] 9.0 mg/dL 7.6-11.0 [facility] Serum or plasma cholesterol in HDL measurement (mass/volume)Ordered By: Araceli Fernandez on 11-12-2024 Cholesterol in HDL [Mass/Vol] 32 mg/dL Low >40 [facility] Comment on above: National Cholesterol Education Program (NCEP) guidelines:<40 mg/dL: Low HDL-cholesterol (major risk factor for CHD)>= 60 mg/dL: High HDL-cholesterol (negative risk factor for CHD)HDL-cholesterol is affected by a number of factors, e.g. smoking, exercise, hormones, sex and age. Serum or plasma cholesterol measurement (mass/volume)Ordered By: Araceli Fernandez on 11-12-2024 Cholesterol [Mass/Vol] 168 mg/dL <201 [facility] Comment on above: Cholesterol level, D esirable <200 mg/dLBorderline high cholesterol 200-239 mg/dLHigh cholesterol >=240 mg/dLRecommendations of the NCEP Adult Treatment Panel for the following risk-cutoff thresholds for the [place] population. Serum or plasma urea nitroge n measurement (mass/volume)Ordered By: Araceli Fernandez on 11-12-2024 Urea nitrogen [Mass/Vol] 15 mg/dL 4-19 [facility] Sodium levelOrdered By: Megan Fernandez on 11-12-2024 Sodium [Moles/Vol] 135 mmol/L 133-145 [facility] T4 Total, Thyroxinon 025 T4 [Mass/Vol] 6.1 ug/dL Normal 4.5-12.1 [facility] Comment on above: Order Comment: 308.1 Performed By: #### L 501.9985, L502.0250, L501.9520, L500.4100, L501.9310, L3100.7750, L500.4050, L3410.9998 #### [facility] [address] [place], [address] TSH DL <= 0.005 mIU/L QnOrde red By: Araceli Fernandez on 11-12-2024 Thyroid Stimulating Hormone (TSH) 1.510 uIU/mL 0.300-4.200 [facility] TSH Qn 1.510 uIU/mL 0.300-4.200 [facility] Thyroid Stim Hormone (TSH)on 11-12-2024 TSH 1.510 uIU/mL Normal 0.300-4.200 [facility] Comment on above: Order Comment: 308.1 Performed By: #### L 501.9985, L502.0250, L501.9520, L500.4100, L501.9310, L3100.7750, L500.4050, L3410.9998 #### [facility] [place], [address] ThyroxineOrdered By: Araceli Fernandez on 11-12-2024 T4 [Mass/Vol] 6.1 ug/dL 4.5-12.1 [facility] Total proteinOrdered By: Sera Fernandez on 11-12-2024 Protein [Mass/Vol] 7.0 g/dL 5.9-8.4 [facility] Triglycerides measurementOrd ered By: Araceli Fernandez on 11-12-2024 Triglyceride [Mass/Vol] 232 mg/dL High <199 [facility] Comment on above: The drugs N-Acetylcy steine and Metamizole may falsely depress this assay. Normal range: <150 mg/dLBorderline High: 150-199 mg/dLHigh: 200-499 mg/dLVery High: >500 mg/dL Albumin DL <= 20 mg/L (U) [M ass/Vol]Ordered By: Araceli Fernandez on 11-11-2024 Urine Random Microalbumin < 12.0 mg/L NO RANGE EST. [facility] Creatinine Unsp time (U) [Ma ss/Vol]Ordered By: Araceli Fernandez on 11-11-2024 Creatinine (U) [Mass/Vol] 95.30 mg/dL 39.00-259 .00 [facility] Microalbumin/creat ratio urO rdered By: Araceli Fernandez on 11-11-2024 Urine Microalbumin/Creatinine Ratio UNABLE TO CALCULATE mg/g CRE [facility] Urine microalbumin/creatinine ratio measurement UNABLE TO CALCULATE mg/g CRE [facility] Random urine creatinine karissa urement (mass/volume)Ordered By: Araceli Fernandez on 11-11-2024 Creatinine Unsp time (U) [Mass/Vol] 95.30 mg/dL 39.00-259.00 [facility] Urine albumin measurement wi th detection limit of 20 mg/L or less (mass/volume)Ordered By: Araceli Fernandez on 11-11-2024 Albumin DL <= 20 mg/L (U) [Mass/Vol] < 12.0 mg/L NO RANGE EST. [facility] 12 Lead EKGon 10-03-2024 12 Lead EKG [facility] Cardiovascular Services [address] [place] [address] 12 Lead EKG 10/03/24 2156 MR#: [id number] Acct: [id number] Name: SNEHA ROBLERO Jr. Rep #: [id number] : 1955 69 From: David Oscar MD Attending Dr: Status: DEP ER Ordering Dr: Mohsen Colorado MD Date: 10/03/24 Location: ED Sex: M C Admitted: Test Reason : DYSRHYTHMIA Blood Pressure : */* mmHG Vent. Rate : 103 BPM Atrial Rate : 103 BPM P-R Int : 126 ms QRS Dur : 96 ms QT Int : 366 ms P-R-T Axes : 39 83 61 degrees QTcB Int : 479 ms Sinus tachycardia Otherwise normal ECG Confirmed by DWIGHT PINZON, OSCAR ([id number]), makeup editor ROBERT HADDAD ([id number]) on 10/05/2024 1:02:29 PM Referred By: JW Confirmed By: OSCAR OSCAR MD 10/05/24 1302 Date David Oscar MD CC: Dr. Mohsen Colorado MD; Dr. Ayo Uriostegui MD Signed Normal [facility] Absolute lymphocyte countOrd ered By: Mohsen Colorado on 10-03-2024 Lymphocytes Auto (Unsp spec) [#/Vol] 2.23 10*3/uL 0.83-4.51 [facility] Absolute neutrophil countOrd ered By: Mohsen Colorado on 10-03-2024 Neutrophils (Bld) [#/Vol] 4.0 10*3/uL 2.0-7.7 [facility] Automated lymphocyte count a s percentage of total leukocytesOrdered By: Mohsen Colorado on 10-03-2024 Lymphocytes/100 WBC Auto (Unsp spec) 32.3 % 19-41 [facility] Basic Metabolic Profile (BMP )on 10-03-2024 BUN/CRE 15.5 RATIO Normal 10-20 [facility] Comment on above: Order Comment: 'TROP ' Serial specimen #1, #2 or #3: 1 Performed By: #### L 501.4020, L500.2500, L100.0100 #### [facility] [address] [place], [address] CA,Total 8.6 mg/dL Normal 8.5-10.1 [facility] Comment on above: Order Comment: 'TROP ' Serial specimen #1, #2 or #3: 1 Performed By: #### L 501.4020, L500.2500, L100.0100 #### [facility] [address] [place], [address] Chloride [Moles/Vol] 103 mmol/L Normal 98-107 [facility] Comment on above: Order Comment: 'TROP ' Serial specimen #1, #2 or #3: 1 Performed By: #### L 501.4020, L500.2500, L100.0100 #### [facility] [address] [place], [address] CO2 [Moles/Vol] 26.0 mmol/L Normal 21.0-32.0 [facility] Comment on above: Order Comment: 'TROP ' Serial specimen #1, #2 or #3: 1 Performed By: #### L 501.4020, L500.2500, L100.0100 #### [facility] [address] [place], [address] Creatinine [Mass/Vol] 0.90 mg/dL Normal 0.70-1.30 [facility] Comment on above: Order Comment: 'TROP ' Serial specimen #1, #2 or #3: 1 Result Comment: The validity of the calculated GFR GFRAA in patients over 70 years has not been determined. Clinical correlation is essential. Performed By: #### L 501.4020, L500.2500, L100.0100 #### [facility] [address] [place], [address] ECRCL 96.05 ml/min Normal [facility] Comment on above: Order Comment: 'TROP ' Serial specimen #1, #2 or #3: 1 Performed By: #### L 501.4020, L500.2500, L100.0100 #### [facility] [address] [place], [address] EST GFR - AA 108 mL/min Normal >60 [facility] Comment on above: Order Comment: 'TROP ' Serial specimen #1, #2 or #3: 1 Result Comment: Afri can Irish GFR Calc Performed By: #### L 501.4020, L500.2500, L100.0100 #### [facility] [address] [place], [address] GAP 7 Normal 5-15 [facility] Comment on above: Order Comment: 'TROP ' Serial specimen #1, #2 or #3: 1 Performed By: #### L 501.4020, L500.2500, L100.0100 #### [facility] [address] [place], [address] GFR/1.73 sq M.predicted among non-blacks MDRD (S/P/Bld) [Vol rate/Area] 89 mL/min/{1.73_m2} Normal >60 [facility] Comment on above: Order Comment: 'TROP ' Serial specimen #1, #2 or #3: 1 Result Comment: Non- GFR Calc Performed By: #### L 501.4020, L500.2500, L100.0100 #### [facility] [address] [place], [address] Glucose [Mass/Vol] 174 mg/dL High 74-106 [facility] Comment on above: Order Comment: 'TROP ' Serial specimen #1, #2 or #3: 1 Result Comment: Fast ing Glucose result greater than or equal to 126 mg/dL suggests DIABETES MELLITUS per A.D.A. criteria. Performed By: #### L 501.4020, L500.2500, L100.0100 #### [facility] [address] [place], [address] Potassium [Moles/Vol] 3.9 mmol/L Normal 3.5-5.1 [facility] Comment on above: Order Comment: 'TROP ' Serial specimen #1, #2 or #3: 1 Performed By: #### L 501.4020, L500.2500, L100.0100 #### [facility] [address] [place], [address] Sodium [Moles/Vol] 136 mmol/L Normal 136-145 [facility] Comment on above: Order Comment: 'TROP ' Serial specimen #1, #2 or #3: 1 Performed By: #### L 501.4020, L500.2500, L100.0100 #### [facility] [address] [place], [address] Urea nitrogen [Mass/Vol] 14 mg/dL Normal 7-18 [facility] Comment on above: Order Comment: 'TROP ' Serial specimen #1, #2 or #3: 1 Performed By: #### L 501.4020, L500.2500, L100.0100 #### [facility] [address] [place], [address] Basophil percentageOrdered B y: Mohsen Colorado on 10-03-2024 Basophils/100 WBC (Bld) 0.4 % 0-1 [facility] Blood manual differential co mment interpretation (narrative result)Ordered By: Mohsen Colorado on 10-03-2024 Manual differential comment Jayme (Bld) [Interp] SCANNED [facility] Blood urea nitrogen (BUN)/cr eatinine ratioOrdered By: Mohsen Colorado on 10-03-2024 Urea nitrogen/Creatinine [Mass ratio] 15.5 mg/mg 10-20 [facility] CBC W/Diff, Automatedon 09-22 SMEAR COMMENT SCANNED Normal [facility] Comment on above: Performed By: #### L 501.4020, L500.2500, L100.0100 #### [facility] [address] [place], [address] Carbon dioxide measurementOr dered By: Mohsen Colorado on 10-03-2024 CO2 [Moles/Vol] 26.0 mmol/L 21.0-32.0 [facility] Chest PA and Lateralon 10-03 Chest PA and Lateral [facility] Imaging Services [address] [place] [address] Chest PA and Lateral MR#: [id number] Acct: [id number] Name: SNEHA ROBLERO Jr. Rep #: [id number] : 1955 M 69 From: Eddie Valencia DO PCP: Dr. Ayo Uriostegui MD Status: REG ER Study: Chest PA and Lateral Date of Exam: 10/03/24 Exam# [id number] Ordering Dr: Mohsen Colorado MD PROCEDURE: CHEST PA AND LATERAL REASON FOR EXAM: Dyspnea. TECHNIQUE: Frontal and lateral views of the chest. COMPARISON: Chest x-ray from 12/03/2018. FINDINGS: Cardiac size and pulmonary vasculature are within normal limits. No consolidation, pleural effusion, or pneumothorax is present. There is hyperinflation of the lungs. Degenerative changes are identified. There is mild dextroscoliosis of the midthoracic spine. RAD/Chest PA and Lateral IMPRESSION: No acute cardiopulmonary process. Reading Location: [facility] CC: Dr. Mohsen Colorado MD; Dr. Ayo Uriostegui MD Stock Transfer Clerk: Signed Normal [facility] Chloride measurementOrdered By: Mohsen Colorado on 10-03-2024 Chloride [Moles/Vol] 103 mmol/L 98-107 [facility] D-Dimer Quantitative (DVT/PE )on 10-03-2024 D-DIMER QUANT 0.45 FEU/ug/m Normal 0.27-0.49 [facility] Comment on above: Result Comment: NORM AL D-Dimer level (<0.50) indicates no DVT or PE. Performed By: #### L 300.8000 ####[facility] [address] [place], [address] D-dimer measurement for deep venous thrombosisOrdered By: Mohsen Colorado on 10-03-2024 D-Dimer Quantitative (PE/DVT) 0.45 FEU/ug/m 0.27-0.49 [facility] Comment on above: NORMAL D-Dimer level (<0.50) indicates no DVT or PE. Emergency Department Summary on 10-03-2024 Emergency Department Summary [facility] Medical Records Department [address] [place] [address] Emergency Department Summary 10/03/24 MR#: [id number] Acct: [id number] Name: SNEHA ROBLERO JrMaryam Rep #: [id number] : 1955 69 From: Mohsen Colorado MD PCP: Dr. Ayo Uriostegui MD Status:DEP ER Location: ED HPI History of Present Illness Chief Complaint: Shortness of Breath Informant: patient Onset/Context/Timin g Onset: Days Context: gradual Timing: Continuous Current Severity: Mild Maximum Severity: Mild Worsened by: Coughing Relieved by: Oxygen Associated Symptoms cough; Negative for fever or green sputum Chest Pain: Positive for None Narrative Narrative: 69-year-old male reported history of COPD but he denies. Also history of diabetes. Patient is a resident of [facility]. States has been short of breath since Tuesday. He was recently started on oxygen. Which he previously was not on. Does state that he has been a smoker. He denies any cough fever or chills. He denies any history of DVT or PE. He denies any leg pain or swelling. He denies any hemoptysis. He denies any cardiac history. PE Risk Factors: Negative for Cancer, OCP + Smoking + > 35, Prior DVT or PE, Recent immobilization, Recent surgery or Recent travel Prior similar symptoms: No Recent Illness/Hospitaliza tion: No PFSH [facility] Medical History (Updated 10/04/24 @ 00:[address] Mohsen Colorado MD) COPD (chronic obstructive pulmonary disease) Home Medications ???Medication ???Instructions ???Recorded ???Last Taken ???Type amlodipine 10 mg tablet 10 mg PO DAILY 12/03/18 Unknown Hi story doxazosin 2 mg tablet 2 mg PO DAILY 12/03/18 Unknown His tory haloperidol decanoate 100 mg/mL 100 mg IM QWEEK 12/03/18 Unknown H istory intramuscular solution lisinopril 20 mg tablet 20 mg PO DAILY 12/03/18 Unknown Hi story oxcarbazepine 300 mg tablet 300 mg PO DAILY 12/03/18 Unknown H istory quetiapine 100 mg tablet 100 mg PO DAILY 12/03/18 Unknown H istory acetaminophen 325 mg tablet 650 mg (2 x 325 mg) PO Q6H PRN PRN 12/07/18 Unknown Rx (Tylenol) Non-cardiac pain (mod-severe) lancets 30 gauge and blood glucose ##100 12/07/18 Unknown Rx strips combo pack needle (disp) 16 G 16 gauge x 1" ##100 12/07/18 Unknown Rx prednisone 20 mg tablet 40 mg (2 x 20 mg) PO DAILY 7 days 10/04/24 Unknown Rx #14 tabs Allergy/AdvReac Type Severity Reaction Status Date / Time No Known Allergies Allergy Verified 10/03/24 21:49 Social History Smoking Status: Current some day smoker tobacco type: cigarettes ROS ROS ED ROS Narrative Shortness of breath. Denies any significant cough. Denies any chest pain. Denies any fever. Constitutional Constitutional ED: Denies chills or fever(s) ENT ENT ED: Denies ear pain Cardiovascular Cardiovascular: Denies chest pain or palpitations Respiratory/Chest Respiratory/Chest: Reports dyspnea; Denies cough Gastrointestinal Gastrointestinal: Denies abdominal pain Genitourinary Genitourinary ED: Denies dysuria or hematuria Musculoskeletal Musculoskeletal: Denies arthralgias Integumentary Denies abscess Neurologic Neurologic: Denies headache(s) Psychiatric Psychiatric: Denies anxiety or depression Endocrine Endocrinology: Denies cold intolerance Hematologic/Lymphat ic Hematologic/Lymphat ic: Denies easy bleeding Allergic/Immunologi c Allergic/Immunologi c ED: Denies mouth swelling EXAM Physical Exam Narrative Exam Narrative: Well-appearing 69-year-old male. Vital signs are stable. Afebrile. Pulse ox on 4 L is 95%. Nonhypoxic on oxygen. H EENT exam pupils round react light. Neck motions are intact. Moist mucous membranes. No facial droop. Normal speech. Neck nontender no JVD. No lymphadenopathy. Lungs coarse breath sounds bilaterally. Prolonged expiratory phase. No significant wheezing. No rales or rhonchi. Equal symmetrical. Heart tachycardic 104 no murmur. Chest wall ribs nontender. Abdomen soft nontender. Back nontender. Moving all 4 extremities. Normal teacher aide strength. Normal dorsi plantarflexion. Calves are nontender without edema or cords. Neurologically is awake and alert. Answering questions following commands. No focal motor deficits. Const Vital Signs: 10/03/24 21:49 10/03/24 21:55 10/03/24 22:00 Temperature 98.2 F 98.2 F Temperature Source Oral Oral Pulse Rate 104 H 104 H Respiratory Rate 33 H 36 H Respiratory Effort Respiratory Pattern Blood Pressure 138/72 H 138/72 H Blood Pressure Mean 94 94 Pulse Ox 95 95 94 Oxygen Delivery Method Nasal Cannula Nasal Cannula Nasal Cannula Oxygen Flow Rate (L/min) 4 4 2 10/03/24 22:19 10/03/24 22:26 10/03/24 22:28 Temperature Temperature Source Pulse Rate 101 H 105 H (more content not included)... Normal [facility] Eosinophil percentageOrdered By: Mohsen Colorado on 10-03-2024 Eosinophils/100 WBC (Bld) 0.4 % 0-5 [facility] Erythrocyte distribution wid th (RBC) [Ratio]Ordered By: Mohsen Colorado on 10-03-2024 Erythrocyte distribution width (RBC) [Entitic vol] 43.8 fL 35.1-43.9 [facility] Erythrocyte distribution wid th ratioOrdered By: Mohsen [place] on 10-03-2024 Erythrocyte distribution width (RBC) [Ratio] 13.3 % 11.6-14.6 [facility] Erythrocyte distribution wid th standard deviationOrdered By: Mohsen Colorado on 10-03-2024 Erythrocyte distribution width (RBC) [Ratio] 43.8 fl 35.1-43.9 [facility] Estimated glomerular filtrat ion rate (GFR) AmericanOrdered By: Mohsen Colorado on 10-03-2024 Estimated GFR (MDRD) Amer 108 mL/min >60 [facility] Comment on above: GFR Calc Estimation of creatinine agus aranceOrdered By: Mohsen Colorado on 10-03-2024 Estimated Creatinine Clearance Calc 96.05 ml/min [facility] Glomerular filtration rate ( GFR) estimationOrdered By: Mohsen Colorado on 10-03-2024 Estimated GFR (MDRD) Non-Af Amer 89 mL/min >60 [facility] Comment on above: Non- GFR Calc GFR/1.73 sq M.predicted among non-blacks MDRD (S/P/Bld) [Vol rate/Area] 89 mL/min/{1.73_m2} >60 [facility] Comment on above: Non- GFR Calc Glucose measurementOrdered B y: Mohsen Colorado on 10-03-2024 Glucose [Mass/Vol] 174 mg/dL High 74-106 [facility] Comment on above: Fasting Glucose resu lt greater than or equal to 126 mg/dL suggests DIABETES MELLITUS per A.D.A. criteria. Hematocrit Auto (Bld) [Volum e fraction]Ordered By: Mohsen Colorado on 10-03-2024 Hematocrit (Bld) [Volume fraction] 39.6 % Low 40-54 [facility] Hemoglobin measurementOrdere d By: Mohsen Colorado on 10-03-2024 Hemoglobin (Bld) [Mass/Vol] 13.3 g/dL 13.0-16.5 [facility] Immature granulocytes/100 WB C Auto (Bld)Ordered By: Mohsen Colorado on 10-03-2024 Immature granulocytes/100 WBC (Bld) 0.300 % 0.0-0.9 [facility] Comment on above: IG% - Immature Granu locytes (promyelocytes, myelocytes and metamyelocytes) > 1% indicates that a LEFT SHIFT is Present. Influenza virus A and B and SARS-CoV-2 (COVID-19) and Respiratory syncytial virus RNAOrdered By: Mohsen Colorado on 10-03-2024 SARS-CoV-2 (COVID-19) RNA DIXON+probe Ql (Unsp spec) [facility] L501.4020on 10-03-2024 TROPONIN-I HS 5 pg/mL Normal 3.0-78.0 [facility] Comment on above: Order Comment: 'TROP ' Serial specimen #1, #2 or #3: 1 Result Comment: Laila leong Note: New Test Units and Gender Specific Reference Ranges. For more information see Policy Stat Procedure [place] High Sensitivity Troponin (TNIH) and attachments. Performed By: #### L 501.4020, L500.2500, L100.0100 #### [facility] [address] [facility] [place], [address] Lymphocytes Auto (Unsp spec) [#/Vol]Ordered By: Mohsen Colorado on 10-03-2024 Lymphocytes (Bld) [#/Vol] 2.23 10*3/uL 0.83-4.5 1 [facility] Lymphocytes/100 WBC Auto (Un sp spec)Ordered By: Mohsen Colorado on 10-03-2024 Lymphocytes/100 WBC (Bld) 32.3 % 19-41 [facility] M100.678on 10-03-2024 M100.678 Normal Reference Range = Negative FLUABV+SARS-CoV-2+R SV Pnl Resp DIXON+probe GeneXpert Instrument, PCR method SARS-CoV-2 (COVID 19) Negative INFLUENZA A Negative INFLUENZA B Negative RSV PCR Negative Normal [facility] Comment on above: Performed By: #### L 500.4050, L100.0100 #### [facility] [address] [facility] [place], [address] MCV (mean corpuscular volume ) determinationOrdered By: Mohsen Colorado on 10-03-2024 MCV (RBC) [Entitic vol] 89.6 fL 80-94 [facility] Manual differential comment Jayme (Bld) [Interp]Ordered By: Mohsen Colorado on 10-03-2024 Differential Comment SCANNED [facility] Mean corpuscular hemoglobin (MCH) determinationOrdered By: Mohsen Colorado on 10-03-2024 MCH (RBC) [Entitic mass] 30.1 pg 27.0-32.0 [facility] Mean corpuscular hemoglobin concentration (MCHC) determinationOrdered By: Mohsen Colorado on 10-03-2024 MCHC (RBC) [Mass/Vol] 33.6 g/dL 32-36 [facility] Mean platelet volume determi nationOrdered By: Mohsen Colorado on 10-03-2024 Platelet mean volume (Bld) [Entitic vol] 9.8 fL 6.2-12.0 [facility] Monocyte percentageOrdered B y: Mohsen Colorado on 10-03-2024 Monocytes/100 WBC (Bld) 9.4 % 0-10 [facility] Neutrophil percentageOrdered By: Mohsen Colorado on 10-03-2024 Neutrophils/100 WBC (Bld) 57.2 % 47-70 [facility] Nucleated red blood cell per centageOrdered By: Mohsen Colorado on 10-03-2024 Nucleated RBC/100 WBC (Bld) [Ratio] 0 % 0-5 [facility] Platelet countOrdered By: Hussain Colorado on 10-03-2024 Platelets (Bld) [#/Vol] 249 10*3/uL 150-450 [facility] Potassium measurementOrdered By: Mohsen Colorado on 10-03-2024 Potassium [Moles/Vol] 3.9 mmol/L 3.5-5.1 [facility] RBC Auto (Bld) [#/Vol]Ordere d By: Mohsen [place] on 10-03-2024 RBC (Bld) [#/Vol] 4.42 10*6/uL Low 4.6-6.2 [facility] Serum anion gap measurementO rdered By: Mohsen [place] on 10-03-2024 Anion gap [Moles/Vol] 7 mmol/L 5-15 [facility] Serum or plasma calcium karissa urement (mass/volume)Ordered By: Mohsen Colorado on 10-03-2024 Calcium [Mass/Vol] 8.6 mg/dL 8.5-10.1 [facility] Serum or plasma creatinine m easurement (mass/volume)Ordered By: Mohsen Colorado on 10-03-2024 Creatinine [Mass/Vol] 0.90 mg/dL 0.70-1.30 [facility] Comment on above: The validity of the calculated GFR & GFRAA in patients over 70 years has not been determined. Clinical correlation is essential. Serum or plasma urea nitroge n measurement (mass/volume)Ordered By: Mohsen Colorado on 10-03-2024 Urea nitrogen [Mass/Vol] 14 mg/dL 7-18 [facility] Sodium levelOrdered By: Mohsen Colorado on 10-03-2024 Sodium [Moles/Vol] 136 mmol/L 136-145 [facility] Troponin IOrdered By: Mohsen banks on 10-03-2024 Troponin I 5 pg/mL 3.0-78.0 [facility] Comment on above: Please Note: New Lalita t Units and Gender Specific Reference Ranges. For more information see Policy Stat Procedure [place] High Sensitivity Troponin (TNIH) and attachments. Troponin I High Sensitivity 5 pg/mL 3.0-78.0 [facility] Comment on above: Please Note: New Lalita t Units and Gender Specific Reference Ranges. For more information see Policy Stat Procedure [place] High Sensitivity Troponin (TNIH) and attachments. White blood cell (WBC) count Ordered By: Mohsen Colorado on 10-03-2024 WBC (Bld) [#/Vol] 6.9 10*3/uL 4.4-11.0 [facility] Hemoglobin A1con 09-13-2024 HbA1c (Bld) [Mass fraction] 10.5 % High 3.8-5.6 [facility] Comment on above: Order Comment: 304.1 Result Comment: Norm al < 5.7 % Prediabetic 5.7 - 6.4 % Diabetic >or= 6.5 % Please note range changes. Performed By: #### L 501.9985 ####[facility] [address] [place], [place], [id number] Hemoglobin A1c percentageOrd ered By: Araceli Fernandez on 09-13-2024 HbA1c (Bld) [Mass fraction] 10.5 % High 3.8-5.6 [facility] Comment on above: Normal < 5.7 % Predi abetic 5.7 - 6.4 % Diabetic >or= 6.5 % Please note range changes. Hemoglobin A1con 03-19-2024 HbA1c (Bld) [Mass fraction] 8.8 % High 3.8-5.6 [facility] Comment on above: Order Comment: 511-1 Result Comment: Norm al < 5.7 % Prediabetic 5.7 - 6.4 % Diabetic >or= 6.5 % Please note range changes. Performed By: #### L 501.9985, L500.4100 ####[facility] [address] [place], [place], [id number] Lipid Profileon 03-19-2024 Cholesterol [Mass/Vol] 148 mg/dL Normal 200 [facility] Comment on above: Order Comment: Result Comment: <200 mg/dL Desirable 200-240 mg/dL Borderline >240 mg/dL High Risk Performed By: #### L 501.9985, L500.4100 ####[facility] [address] [place], [address] Cholesterol in HDL [Mass/Vol] 30 mg/dL Low [facility] Comment on above: Order Comment: Result Comment: The drugs N-Acetylcysteine and Metamizole may falsely depress this assay. Reference Range HDL <40 mg/dL Low HDL Cholesterol HDL >or= 60 mg/dL High HDL Cholesterol Performed By: #### L 501.9985, L500.4100 ####[facility] [address] [place], [address] Cholesterol in LDL [Mass/Vol] 76 mg/dL Normal 0-130 [facility] Comment on above: Order Comment: Performed By: #### L 501.9985, L500.4100 ####[facility] [id number] [place], [address] Cholesterol in VLDL [Mass/Vol] 42 mg/dL High 5-40 [facility] Comment on above: Order Comment: - Performed By: #### L 501.9985, L500.4100 ####[facility] [address] [place], [address] Triglyceride [Mass/Vol] 210 mg/dL High [facility] Comment on above: Order Comment: 511 Result Comment: The drugs N-Acetylcysteine and Metamizole may falsely depress this assay. Serum Triglycerides Reference Interval Normal <150 mg/dL Borderline high 150 - 199 mg/dL High 200 - 499 mg/dL Very High > or = 500 mg/dL Performed By: #### L 501.9985, L500.4100 ####[facility] [id number] [place], [address] CBC W/Diff, Automatedon 07-2 -2023 Absolute Lymph 2.71 X10 3/uL Normal 0.83-4.51 [facility] Comment on above: Performed By: #### L 500.4050, L100.0100 #### [facility] [address] [place], [address] Absolute Neut 6.1 X10 3/uL Normal 2.0-7.7 [facility] Comment on above: Performed By: #### L 500.4050, L100.0100 #### [facility] [address] [place], [address] Basophils/100 WBC (Bld) 0.4 % Normal 0-1 [facility] Comment on above: Performed By: #### L 500.4050, L100.0100 #### [facility] [address] [place], [address] Eosinophils/100 WBC (Bld) 4.4 % Normal 0-5 [facility] Comment on above: Performed By: #### L 500.4050, L100.0100 #### [facility] [address] [place], [address] Erythrocyte distribution width (RBC) [Ratio] 13.2 % Normal 11.6-14.6 [facility] Comment on above: Performed By: #### L [id number], L100.0100 #### [facility] [address] [place], [address] Hematocrit (Bld) [Volume fraction] 42.9 % Normal 40-54 [facility] Comment on above: Performed By: #### L 500.4050, L100.0100 #### [facility] [address] [place], [address] Hemoglobin (Bld) [Mass/Vol] 14.0 g/dL Normal 13.0-16.5 [facility] Comment on above: Performed By: #### L 500.4050, L100.0100 #### [facility] [address] [place], [address] IG% 0.500 Normal 0.0-0.9 [facility] Comment on above: Result Comment: IG% - Immature Granulocytes (promyelocytes, myelocytes and metamyelocytes) > 1% indicates that a LEFT SHIFT is Present. Performed By: #### L 500.4050, L100.0100 #### [facility] [address] [place], [address] Lymphocytes/100 WBC (Bld) 26.9 % Normal 19-41 [facility] Comment on above: Performed By: #### L 500.4050, L100.0100 #### [facility] [address] [place], [address] MCH (RBC) [Entitic mass] 30.2 pg Normal 27.0-32.0 [facility] Comment on above: Performed By: #### L 500.4050, L100.0100 #### [facility] [address] [place], [address] MCHC (RBC) [Mass/Vol] 32.6 g/dL Normal 32-36 [facility] Comment on above: Performed By: #### L 500.4050, L100.0100 #### [facility] [address] [place], [address] MCV (RBC) [Entitic vol] 92.5 fL Normal 80-94 [facility] Comment on above: Performed By: #### L 500.4050, L100.0100 #### [facility] [address] [place], [address] Monocytes/100 WBC (Bld) 7.7 % Normal 0-10 [facility] Comment on above: Performed By: #### L 500.4050, L100.0100 #### [facility] [address] [place], [address] Neutrophils/100 WBC (Bld) 60.1 % Normal 47-70 [facility] Comment on above: Performed By: #### L 500.4050, L100.0100 #### [facility] [address] [place], [address] Nucleated RBC (Bld) [#/Vol] 0 10*3/uL Normal 0-5 [facility] Comment on above: Performed By: #### L 500.4050, L100.0100 #### [facility] [address] [place], [address] Platelet mean volume (Bld) [Entitic vol] 10.3 fL Normal 6.2-12.0 [facility] Comment on above: Performed By: #### L 500.4050, L100.0100 #### [facility] [address] [place], [address] Platelets (Bld) [#/Vol] 251 10*3/uL Normal 150-450 [facility] Comment on above: Performed By: #### L 500.4050, L100.0100 #### [facility] [address] [place], [address] RBC (Bld) [#/Vol] 4.64 10*6/uL Normal 4.6-6.2 [facility] Comment on above: Performed By: #### L 500.4050, L100.0100 #### [facility] [address] [place], [address] RDW SD 44.3 fl High 35.1-43.9 [facility] Comment on above: Performed By: #### L 500.4050, L100.0100 #### [facility] [address] [place], [address] WBC (Bld) [#/Vol] 10.1 10*3/uL Normal 4.4-11.0 [facility] Comment on above: Performed By: #### L 500.4050, L100.0100 #### [facility] [address] [place], [address] Comprehensive Metabolic Prof ilon 03-12-2024 Albumin [Mass/Vol] 3.6 g/dL Normal 3.2-5.0 [facility] Comment on above: Performed By: #### L 500.4050, L100.0100 #### [facility] [address] [place], [address] Albumin/Globulin [Mass ratio] 0.9 {ratio} Normal 0.9-2.4 [facility] Comment on above: Performed By: #### L 500.4050, L100.0100 #### [facility] [address] [place], [address] ALK P 117 U/L Normal 45-117 [facility] Comment on above: Performed By: #### L 500.4050, L100.0100 #### [facility] [address] [place], [address] ALT [Catalytic activity/Vol] 36 U/L Normal 16-61 [facility] Comment on above: Performed By: #### L 500.4050, L100.0100 #### [facility] [address] [place], [address] AST [Catalytic activity/Vol] 20 U/L Normal 15-37 [facility] Comment on above: Performed By: #### L 500.4050, L100.0100 #### [facility] [address] [place], [address] Bilirubin [Mass/Vol] 0.30 mg/dL Normal 0.20-1.00 [facility] Comment on above: Result Comment: For patients on eltrombopag therapy, use of Dim[place] TBIL is not recommended. Performed By: #### L 500.4050, L100.0100 #### [facility] [address] [place], [address] BUN/CRE 15.1 RATIO Normal 10-20 [facility] Comment on above: Performed By: #### L 500.4050, L100.0100 #### [facility] [address] [place], [address] CA,Total 8.6 mg/dL Normal 8.5-10.1 [facility] Comment on above: Performed By: #### L 500.4050, L100.0100 #### [facility] [address] [place], [address] Chloride [Moles/Vol] 101 mmol/L Normal 98-107 [facility] Comment on above: Performed By: #### L 500.4050, L100.0100 #### [facility] [address] [place], [address] CO2 [Moles/Vol] 28.0 mmol/L Normal 21.0-32.0 [facility] Comment on above: Performed By: #### L 500.4050, L100.0100 #### [facility] [address] [place], [address] Creatinine [Mass/Vol] 0.99 mg/dL Normal 0.70-1.30 [facility] Comment on above: Result Comment: The validity of the calculated GFR GFRAA in patients over 70 years has not been determined. Clinical correlation is essential. Performed By: #### L 500.4050, L100.0100 #### [facility] [address] [place], [address] EST GFR - AA 97 mL/min Normal >60 [facility] Comment on above: Result Comment: Afri can Irish GFR Calc Performed By: #### L 500.4050, L100.0100 #### [facility] [address] [place], [address] GAP 7 Normal 5-15 [facility] Comment on above: Performed By: #### L 500.4050, L100.0100 #### [facility] [address] [place], [address] GFR/1.73 sq M.predicted among non-blacks MDRD (S/P/Bld) [Vol rate/Area] 80 mL/min/{1.73_m2} Normal >60 [facility] Comment on above: Result Comment: Non- GFR Calc Performed By: #### L 500.4050, L100.0100 #### [facility] [address] [place], [address] Globulin (S) [Mass/Vol] 3.9 g/dL Normal 2.2-4.2 [facility] Comment on above: Performed By: #### L 500.4050, L100.0100 #### [facility] [address] [place], [address] Glucose [Mass/Vol] 179 mg/dL High 74-106 [facility] Comment on above: Result Comment: Fast ing Glucose result greater than or equal to 126 mg/dL suggests DIABETES MELLITUS per A.D.A. criteria. Performed By: #### L 500.4050, L100.0100 #### [facility] [address] [place], [address] Potassium [Moles/Vol] 3.8 mmol/L Normal 3.5-5.1 [facility] Comment on above: Performed By: #### L 500.4050, L100.0100 #### [facility] [address] [place], [address] Sodium [Moles/Vol] 136 mmol/L Normal 136-145 [facility] Comment on above: Performed By: #### L 500.4050, L100.0100 #### [facility] [address] [place], [address] T PROT 7.5 g/dL Normal 6.4-8.2 [facility] Comment on above: Performed By: #### L 500.4050, L100.0100 #### [facility] [address] [place], [address] Urea nitrogen [Mass/Vol] 15 mg/dL Normal 7-18 [facility] Comment on above: Performed By: #### L 500.4050, L100.0100 #### [facility] [address] [place], [address] Basophil percentageOrdered B y: Ayo Uriostegui on 09-19-2023 Cholesterol [Mass/Vol] 139 mg/dL <200 [facility] Comment on above: <200 mg/dL Desirable 200-240 mg/dL Borderline >240 mg/dL High Risk Triglyceride [Mass/Vol] 201 mg/dL <199 [facility] Comment on above: The drugs N-Acetylcy steine and Metamizole may falsely depress this assay.Serum Triglycerides Reference Interval Normal <150 mg/dL Borderline high 150 - 199 mg/dL High 200 - 499 mg/dL Very High > or = 500 mg/dL Laboratory - Chemistry and C hemistry - challengeOrdered By: Ayo Uriostegui on 09-19-2023 Cholesterol in HDL (Body fld) [Mass/Vol] 30 mg/dL >40 [facility] Comment on above: The drugs N-Acetylcy steine and Metamizole may falsely depress this assay. Reference Range HDL <40 mg/dL Low HDL Cholesterol HDL >or= 60 mg/dL High HDL Cholesterol Cholesterol in LDL (Body fld) [Moles/Vol] 69 mg/dL 0-130 [facility] Cholesterol in VLDL Calc [Moles/Vol] 40 mg/dL 5-40 [facility] Whole blood hemoglobin A1c/t otal hemoglobin ratio (mass fraction)Ordered By: Ayo Uriostegui on 09-19-2023 HbA1c (Bld) [Mass fraction] 7.5 % 3.8-5.6 [facility] Comment on above: Normal < 5.7 % Predi abetic 5.7 - 6.4 % Diabetic >or= 6.5 % Please note range changes. Whole blood hemoglobin A1c/t otal hemoglobin ratio (mass fraction)Ordered By: Ayo Uriostegui on 06-21-2023 HbA1c (Bld) [Mass fraction] 7.3 % 3.8-5.6 [facility] Comment on above: Normal < 5.7 % Predi abetic 5.7 - 6.4 % Diabetic >or= 6.5 % Please note range changes. Whole blood hemoglobin A1c/t otal hemoglobin ratio (mass fraction)Ordered By: Ayo Uriostegui on 03-23-2023 HbA1c (Bld) [Mass fraction] 6.7 % 3.8-5.6 [facility] Comment on above: Normal < 5.7 % Predi abetic 5.7 - 6.4 % Diabetic >or= 6.5 % Please note range changes. Basophil percentageOrdered B y: Ayo Uriostegui on 03-21-2023 Cholesterol [Mass/Vol] 117 mg/dL <200 [facility] Comment on above: <200 mg/dL Desirable 200-240 mg/dL Borderline >240 mg/dL High Risk Triglyceride [Mass/Vol] 162 mg/dL <199 [facility] Comment on above: The drugs N-Acetylcy steine and Metamizole may falsely depress this assay.Serum Triglycerides Reference Interval Normal <150 mg/dL Borderline high 150 - 199 mg/dL High 200 - 499 mg/dL Very High > or = 500 mg/dL Serum or plasma cholesterol in HDL measurement (mass/volume)Ordered By: Ayo Uriostegui on 03-21-2023 Cholesterol in HDL [Mass/Vol] 28 mg/dL >40 [facility] Comment on above: The drugs N-Acetylcy steine and Metamizole may falsely depress this assay. Reference Range HDL <40 mg/dL Low HDL Cholesterol HDL >or= 60 mg/dL High HDL Cholesterol Serum or plasma cholesterol in VLDL measurement (mass/volume)Ordered By: Ayo Uriostegui on 03-21-2023 Cholesterol in VLDL [Mass/Vol] 32 mg/dL 5-40 [facility] Serum or plasma low density lipoprotein (LDL) cholesterol measurement (mass/volume)Ordered By: Ayo Uriostegui on 03-21-2023 Cholesterol in LDL [Mass/Vol] 57 mg/dL 0-130 [facility] Absolute lymphocyte countOrd ered By: Ayo Uriostegui on 03-11-2023 Lymphocytes Auto (Unsp spec) [#/Vol] 2.17 10*3/uL 0.83-4.51 [facility] Basophil percentageOrdered B y: Ayo Uriostegui on 03-11-2023 Basophils/100 WBC (Bld) 0.6 % 0-1 [facility] Bilirubin [Mass/Vol] 0.30 mg/dL 0.20-1.00 [facility] Comment on above: For patients on eltr ombopag therapy, use of [place] TBIL is not recommended. Chloride [Moles/Vol] 107 mmol/L 98-107 [facility] Eosinophils/100 WBC (Bld) 3.5 % 0-5 [facility] Glucose [Mass/Vol] 128 mg/dL 74-106 [facility] Comment on above: Fasting Glucose resu lt greater than or equal to 126 mg/dL suggests DIABETES MELLITUS per A.D.A. criteria. Neutrophils (Bld) [#/Vol] 4.8 10*3/uL 2.0-7.7 [facility] Neutrophils/100 WBC (Bld) 59.5 % 47-70 [facility] Potassium [Moles/Vol] 3.7 mmol/L 3.5-5.1 [facility] Protein [Mass/Vol] 7.3 g/dL 6.4-8.2 [facility] Sodium [Moles/Vol] 139 mmol/L 136-145 [facility] WBC (Bld) [#/Vol] 8.0 10*3/uL 4.4-11.0 [facility] Blood erythrocytes count (nu mber/volume)Ordered By: Ayo Uriostegui on 03-11-2023 RBC (Bld) [#/Vol] 4.62 10*6/uL 4.6-6.2 [facility] Blood hemoglobin measurement (mass/volume)Ordered By: Ayo Uriostegui on 03-11-2023 Hemoglobin (Bld) [Mass/Vol] 14.0 g/dL 13.0-16.5 [facility] Blood lymphocytes/100 leukoc ytesOrdered By: Ayo Uriostegui on 03-11-2023 Lymphocytes/100 WBC (Bld) 27.1 % 19-41 [facility] Blood monocytes/100 leukocyt esOrdered By: Ayo Uriostegui on 03-11-2023 Monocytes/100 WBC (Bld) 8.9 % 0-10 [facility] Blood platelet mean volumeOr dered By: Ayo Uriostegui on 03-11-2023 Platelet mean volume (Bld) [Entitic vol] 10.0 fL 6.2-12.0 [facility] Determination of erythrocyte mean corpuscular volume (MCV)Ordered By: Ayo Uriostegui on 03-11-2023 MCV (RBC) [Entitic vol] 92.4 fL 80-94 [facility] Hematocrit Auto (Bld) [Volum e fraction]Ordered By: Ayo Uriostegui on 03-11-2023 Hematocrit (Bld) [Volume fraction] 42.7 % 40-54 [facility] - Chemistry and C hemistry - challengeOrdered By: Ayo Uriostegui on 03-11-2023 ALP [Catalytic activity/Vol] 104 U/L 45-117 [facility] ALT [Catalytic activity/Vol] 36 U/L 16-61 [facility] CO2 [Moles/Vol] 25.0 mmol/L 21.0-32.0 [facility] Globulin (S) [Mass/Vol] 3.7 g/dL 2.2-4.2 [facility] Urea nitrogen/Creatinine [Mass ratio] 14.3 mg/mg 10-20 [facility] - Hematology and Cell countsOrdered By: Ayo Uriostegui on 03-11-2023 Erythrocyte distribution width (RBC) [Entitic vol] 45.1 fL 35.1-43.9 [facility] Erythrocyte distribution width (RBC) [Ratio] 13.2 % 11.6-14.6 [facility] Immature granulocytes/100 WBC (Bld) 0.400 % 0.0-0.9 [facility] Comment on above: IG% - Immature Granu locytes (promyelocytes, myelocytes and metamyelocytes) > 1% indicates that a LEFT SHIFT is Present. MCH (RBC) [Entitic mass] 30.3 pg 27.0-32.0 [facility] Nucleated RBC/100 WBC (Bld) [Ratio] 0 % 0-5 [facility] MCHC Auto (RBC) [Mass/Vol]Or dered By: Ayo Uriostegui on 03-11-2023 MCHC (RBC) [Mass/Vol] 32.8 g/dL 32-36 [facility] No Panel InformationOrdered By: Ayo Uriostegui on 03-11-2023 Estimated GFR (MDRD) Amer 118 mL/min >60 [facility] Comment on above: GFR Calc Estimated GFR (MDRD) Non-Af Amer 97 mL/min >60 [facility] Comment on above: Non- GFR Calc Platelets bldOrdered By: Nell Uriostegui on 03-11-2023 Platelets (Bld) [#/Vol] 255 10*3/uL 150-450 [facility] Serum or plasma albumin karissa urement (mass/volume)Ordered By: Ayo Uriostegui on 03-11-2023 Albumin [Mass/Vol] 3.6 g/dL 3.2-5.0 [facility] Serum or plasma albumin/glob ulin mass ratioOrdered By: Ayo Uriostegui on 03-11-2023 Albumin/Globulin [Mass ratio] 1.0 {ratio} 0.9-2.4 [facility] Serum or plasma calcium karissa urement (mass/volume)Ordered By: Ayo Uriostegui on 03-11-2023 Calcium [Mass/Vol] 8.3 mg/dL 8.5-10.1 [facility] Serum or plasma creatinine m easurement (mass/volume)Ordered By: Ayo Uriostegui on 03-11-2023 Creatinine [Mass/Vol] 0.84 mg/dL 0.70-1.30 [facility] Comment on above: The validity of the calculated GFR & GFRAA in patients over 70 years has not been determined. Clinical correlation is essential. Serum or plasma urea nitroge n measurement (mass/volume)Ordered By: Ayo Uriostegui on 03-11-2023 Urea nitrogen [Mass/Vol] 12 mg/dL 7-18 [facility] Thin prep Papanicolaou smear with manual screeningOrdered By: Ayo Uriostegui on 03-11-2023 Thin prep Papanicolaou smear with manual screening 16 U/L 15-37 [facility] Thin prep Papanicolaou smear with manual screening 7 5-15 [facility] Absolute lymphocyte countOrd ered By: Ayo Uriostegui on 02-17-2023 Lymphocytes Auto (Unsp spec) [#/Vol] 2.37 10*3/uL 0.83-4.51 [facility] Basophil percentageOrdered B y: Ayo Uriostegui on 02-17-2023 Basophils/100 WBC (Bld) 0.8 % 0-1 [facility] Bilirubin [Mass/Vol] 0.20 mg/dL 0.20-1.00 [facility] Comment on above: For patients on eltr ombopag therapy, use of [place] TBIL is not recommended. Chloride [Moles/Vol] 106 mmol/L 98-107 [facility] Eosinophils/100 WBC (Bld) 5.2 % 0-5 [facility] Glucose [Mass/Vol] 85 mg/dL 74-106 [facility] Neutrophils (Bld) [#/Vol] 4.3 10*3/uL 2.0-7.7 [facility] Neutrophils/100 WBC (Bld) 54.6 % 47-70 [facility] Potassium [Moles/Vol] 3.8 mmol/L 3.5-5.1 [facility] Protein [Mass/Vol] 7.3 g/dL 6.4-8.2 [facility] Sodium [Moles/Vol] 138 mmol/L 136-145 [facility] WBC (Bld) [#/Vol] 7.9 10*3/uL 4.4-11.0 [facility] Blood erythrocytes count (nu mber/volume)Ordered By: Ayo Uriostegui on 02-17-2023 RBC (Bld) [#/Vol] 4.51 10*6/uL 4.6-6.2 [facility] Blood hemoglobin measurement (mass/volume)Ordered By: Ayo Uriostegui on 02-17-2023 Hemoglobin (Bld) [Mass/Vol] 13.8 g/dL 13.0-16.5 [facility] Blood lymphocytes/100 leukoc ytesOrdered By: Ayo Uriostegui on 02-17-2023 Lymphocytes/100 WBC (Bld) 29.9 % 19-41 [facility] Blood monocytes/100 leukocyt esOrdered By: Ayo Uriostegui on 02-17-2023 Monocytes/100 WBC (Bld) 9.1 % 0-10 [facility] Blood platelet mean volumeOr dered By: Ayo Uriostegui on 02-17-2023 Platelet mean volume (Bld) [Entitic vol] 9.8 fL 6.2-12.0 [facility] Determination of erythrocyte mean corpuscular volume (MCV)Ordered By: Ayo Uriostegui on 02-17-2023 MCV (RBC) [Entitic vol] 92.9 fL 80-94 [facility] Hematocrit Auto (Bld) [Volum e fraction]Ordered By: Ayo Uriostegui on 02-17-2023 Hematocrit (Bld) [Volume fraction] 41.9 % 40-54 [facility] - Chemistry and C hemistry - challengeOrdered By: Ayo Uriostegui on 02-17-2023 ALP [Catalytic activity/Vol] 95 U/L 45-117 [facility] ALT [Catalytic activity/Vol] 33 U/L 16-61 [facility] CO2 [Moles/Vol] 28.0 mmol/L 21.0-32.0 [facility] Globulin (S) [Mass/Vol] 3.9 g/dL 2.2-4.2 [facility] Urea nitrogen/Creatinine [Mass ratio] 14.1 mg/mg 10-20 [facility] - Hematology and Cell countsOrdered By: Ayo Uriostegui on 02-17-2023 Erythrocyte distribution width (RBC) [Entitic vol] 45.8 fL 35.1-43.9 [facility] Erythrocyte distribution width (RBC) [Ratio] 13.4 % 11.6-14.6 [facility] Immature granulocytes/100 WBC (Bld) 0.400 % 0.0-0.9 [facility] Comment on above: IG% - Immature Granu locytes (promyelocytes, myelocytes and metamyelocytes) > 1% indicates that a LEFT SHIFT is Present. MCH (RBC) [Entitic mass] 30.6 pg 27.0-32.0 [facility] Nucleated RBC/100 WBC (Bld) [Ratio] 0 % 0-5 [facility] MCHC Auto (RBC) [Mass/Vol]Or dered By: Ayo Uriostegui on 02-17-2023 MCHC (RBC) [Mass/Vol] 32.9 g/dL 32-36 [facility] No Panel InformationOrdered By: Ayo Uriostegui on 02-17-2023 Estimated GFR (MDRD) Amer 116 mL/min >60 [facility] Comment on above: GFR Calc Estimated GFR (MDRD) Non-Af Amer 96 mL/min >60 [facility] Comment on above: Non- GFR Calc Platelets bldOrdered By: Nell Uriostegui on 02-17-2023 Platelets (Bld) [#/Vol] 255 10*3/uL 150-450 [facility] Serum or plasma albumin karissa urement (mass/volume)Ordered By: Ayo Uriostegui on 02-17-2023 Albumin [Mass/Vol] 3.4 g/dL 3.2-5.0 [facility] Serum or plasma albumin/glob ulin mass ratioOrdered By: Ayo Uriostegui on 02-17-2023 Albumin/Globulin [Mass ratio] 0.9 {ratio} 0.9-2.4 [facility] Serum or plasma calcium karissa urement (mass/volume)Ordered By: Ayo Uriostegui on 02-17-2023 Calcium [Mass/Vol] 8.3 mg/dL 8.5-10.1 [facility] Serum or plasma creatinine m easurement (mass/volume)Ordered By: Ayo Uriostegui on 02-17-2023 Creatinine [Mass/Vol] 0.85 mg/dL 0.70-1.30 [facility] Comment on above: The validity of the calculated GFR & GFRAA in patients over 70 years has not been determined. Clinical correlation is essential. Serum or plasma urea nitroge n measurement (mass/volume)Ordered By: Ayo Uriostegui on 02-17-2023 Urea nitrogen [Mass/Vol] 12 mg/dL 7-18 [facility] Thin prep Papanicolaou smear with manual screeningOrdered By: Ayo Uriostegui on 02-17-2023 Thin prep Papanicolaou smear with manual screening 19 U/L 15-37 [facility] Thin prep Papanicolaou smear with manual screening 4 5-15 [facility] Whole blood hemoglobin A1c/t otal hemoglobin ratio (mass fraction)Ordered By: Ayo Uriostegui on 12-23-2022 HbA1c (Bld) [Mass fraction] 6.6 % 3.8-5.6 [facility] Comment on above: Normal < 5.7 % Predi abetic 5.7 - 6.4 % Diabetic >or= 6.5 % Please note range changes. Absolute lymphocyte countOrd ered By: Ayo Uriostegui on 11-18-2022 Lymphocytes Auto (Unsp spec) [#/Vol] 2.41 10*3/uL 0.83-4.51 [facility] Basophil percentageOrdered B y: Ayo Uriostegui on 11-18-2022 Basophils/100 WBC (Bld) 0.6 % 0-1 [facility] Bilirubin [Mass/Vol] 0.30 mg/dL 0.20-1.00 [facility] Comment on above: For patients on eltr ombopag therapy, use of Dim[place] TBIL is not recommended. Chloride [Moles/Vol] 105 mmol/L 98-107 [facility] Eosinophils/100 WBC (Bld) 4.2 % 0-5 [facility] Glucose [Mass/Vol] 109 mg/dL 74-106 [facility] Comment on above: Fasting Glucose resu lt from 100 to 125 mg/dL suggests IMPAIRED HOMEOSTASIS per A.D.A. criteria. Neutrophils (Bld) [#/Vol] 4.8 10*3/uL 2.0-7.7 [facility] Neutrophils/100 WBC (Bld) 57.0 % 47-70 [facility] Potassium [Moles/Vol] 3.7 mmol/L 3.5-5.1 [facility] Protein [Mass/Vol] 7.3 g/dL 6.4-8.2 [facility] Sodium [Moles/Vol] 136 mmol/L 136-145 [facility] WBC (Bld) [#/Vol] 8.4 10*3/uL 4.4-11.0 [facility] Blood erythrocytes count (nu mber/volume)Ordered By: Ayo Uriostegui on 11-18-2022 RBC (Bld) [#/Vol] 4.51 10*6/uL 4.6-6.2 [facility] Blood hemoglobin measurement (mass/volume)Ordered By: Ayo Uriostegui on 11-18-2022 Hemoglobin (Bld) [Mass/Vol] 14.1 g/dL 13.0-16.5 [facility] Blood lymphocytes/100 leukoc ytesOrdered By: Ayo Uriostegui on 11-18-2022 Lymphocytes/100 WBC (Bld) 28.9 % 19-41 [facility] Blood monocytes/100 leukocyt esOrdered By: Ayo Urisotegui on 11-18-2022 Monocytes/100 WBC (Bld) 9.1 % 0-10 [facility] Blood platelet mean volumeOr dered By: Ayo Uriostegui on 11-18-2022 Platelet mean volume (Bld) [Entitic vol] 9.9 fL 6.2-12.0 [facility] Determination of erythrocyte mean corpuscular volume (MCV)Ordered By: Ayo Uriostegui on 11-18-2022 MCV (RBC) [Entitic vol] 92.5 fL 80-94 [facility] Hematocrit Auto (Bld) [Volum e fraction]Ordered By: Ayo Uriostegui on 11-18-2022 Hematocrit (Bld) [Volume fraction] 41.7 % 40-54 [facility] Laboratory - Chemistry and C hemistry - challengeOrdered By: Ayo Uriostegui on 11-18-2022 ALP [Catalytic activity/Vol] 99 U/L 45-117 [facility] ALT [Catalytic activity/Vol] 36 U/L 16-61 [facility] CO2 [Moles/Vol] 25.0 mmol/L 21.0-32.0 [facility] Globulin (S) [Mass/Vol] 3.8 g/dL 2.2-4.2 [facility] Urea nitrogen/Creatinine [Mass ratio] 18.3 mg/mg 10-20 [facility] Laboratory - Hematology and Cell countsOrdered By: Ayo Uriostegui on 11-18-2022 Erythrocyte distribution width (RBC) [Entitic vol] 44.1 fL 35.1-43.9 [facility] Erythrocyte distribution width (RBC) [Ratio] 13.0 % 11.6-14.6 [facility] Immature granulocytes/100 WBC (Bld) 0.200 % 0.0-0.9 [facility] Comment on above: IG% - Immature Granu locytes (promyelocytes, myelocytes and metamyelocytes) > 1% indicates that a LEFT SHIFT is Present. MCH (RBC) [Entitic mass] 31.3 pg 27.0-32.0 [facility] Nucleated RBC/100 WBC (Bld) [Ratio] 0 % 0-5 [facility] MCHC Auto (RBC) [Mass/Vol]Or dered By: Ayo Uriostegui on 11-18-2022 MCHC (RBC) [Mass/Vol] 33.8 g/dL 32-36 [facility] No Panel InformationOrdered By: Ayo Uriostegui on 11-18-2022 Estimated GFR (MDRD) Amer 113 mL/min >60 [facility] Comment on above: GFR Calc Estimated GFR (MDRD) Non-Af Amer 93 mL/min >60 [facility] Comment on above: Non- GFR Calc Platelets bldOrdered By: Nell Uriostegui on 11-18-2022 Platelets (Bld) [#/Vol] 242 10*3/uL 150-450 [facility] Serum or plasma albumin karissa urement (mass/volume)Ordered By: Ayo Uriostegui on 11-18-2022 Albumin [Mass/Vol] 3.5 g/dL 3.2-5.0 [facility] Serum or plasma albumin/glob ulin mass ratioOrdered By: Ayo Uriostegui on 11-18-2022 Albumin/Globulin [Mass ratio] 0.9 {ratio} 0.9-2.4 [facility] Serum or plasma calcium karissa urement (mass/volume)Ordered By: Ayo Uriostegui on 11-18-2022 Calcium [Mass/Vol] 8.5 mg/dL 8.5-10.1 [facility] Serum or plasma creatinine m easurement (mass/volume)Ordered By: Ayo Uriostegui on 11-18-2022 Creatinine [Mass/Vol] 0.87 mg/dL 0.70-1.30 [facility] Comment on above: The validity of the calculated GFR & GFRAA in patients over 70 years has not been determined. Clinical correlation is essential. Serum or plasma urea nitroge n measurement (mass/volume)Ordered By: Ayo Uriostegui on 11-18-2022 Urea nitrogen [Mass/Vol] 16 mg/dL 7-18 [facility] Thin prep Papanicolaou smear with manual screeningOrdered By: Ayo Uriostegui on 11-18-2022 Thin prep Papanicolaou smear with manual screening 17 U/L 15- [facility] Thin prep Papanicolaou smear with manual screening 6 5-15 [facility] Whole blood hemoglobin A1c/t otal hemoglobin ratio (mass fraction)Ordered By: Ayo Uriostegui on 09-24-2022 HbA1c (Bld) [Mass fraction] 6.3 % 3.8-5.6 [facility] Comment on above: Normal < 5.7 % Predi abetic 5.7 - 6.4 % Diabetic >or= 6.5 % Please note range changes. Basophil percentageOrdered B y: Ayo Uriostegui on 09-14-2022 Bilirubin [Mass/Vol] 0.30 mg/dL 0.20-1.00 [facility] Comment on above: For patients on eltr ombopag therapy, use of [place] TBIL is not recommended. Protein [Mass/Vol] 7.3 g/dL 6.4-8.2 [facility] Direct bilirubinOrdered By: Ayo Uriostegui on 09-14-2022 Bilirubin.direct [Mass/Vol] 0.06 mg/dL 0.00-0.30 [facility] Laboratory - Chemistry and C hemistry - challengeOrdered By: Ayo Uriostegui on 09-14-2022 ALP [Catalytic activity/Vol] 99 U/L 45-117 [facility] ALT [Catalytic activity/Vol] 37 U/L 16-61 [facility] Globulin (S) [Mass/Vol] 3.7 g/dL 2.2-4.2 [facility] Serum or plasma albumin karissa urement (mass/volume)Ordered By: Ayo Uriostegui on 09-14-2022 Albumin [Mass/Vol] 3.6 g/dL 3.2-5.0 [facility] Thin prep Papanicolaou smear with manual screeningOrdered By: Ayo Uriostegui on 09-14-2022 Thin prep Papanicolaou smear with manual screening 23 U/L 15 [facility] Whole blood hemoglobin A1c/t otal hemoglobin ratio (mass fraction)Ordered By: Ayo Uriostegui on 09-14-2022 HbA1c (Bld) [Mass fraction] 6.4 % 3.8-5.6 [facility] Comment on above: Normal < 5.7 % Predi abetic 5.7 - 6.4 % Diabetic >or= 6.5 % Please note range changes. Absolute lymphocyte countOrd ered By: Ayo Uriostegui on 08-19-2022 Lymphocytes Auto (Unsp spec) [#/Vol] 2.47 10*3/uL 0.83-4.51 [facility] Basophil percentageOrdered B y: Ayo Uriostegui on 08-19-2022 Basophils/100 WBC (Bld) 0.4 % 0-1 [facility] Bilirubin [Mass/Vol] 0.30 mg/dL 0.20-1.00 [facility] Comment on above: For patients on eltr ombopag therapy, use of [place] TBIL is not recommended. Chloride [Moles/Vol] 106 mmol/L 98-107 [facility] Eosinophils/100 WBC (Bld) 4.1 % 0-5 [facility] Glucose [Mass/Vol] 71 mg/dL 74-106 [facility] Neutrophils (Bld) [#/Vol] 5.6 10*3/uL 2.0-7.7 [facility] Neutrophils/100 WBC (Bld) 60.3 % 47-70 [facility] Potassium [Moles/Vol] 3.7 mmol/L 3.5-5.1 [facility] Protein [Mass/Vol] 7.2 g/dL 6.4-8.2 [facility] Sodium [Moles/Vol] 137 mmol/L 136-145 [facility] WBC (Bld) [#/Vol] 9.3 10*3/uL 4.4-11.0 [facility] Blood erythrocytes count (nu mber/volume)Ordered By: Ayo Uriostegui on 08-19-2022 RBC (Bld) [#/Vol] 4.45 10*6/uL 4.6-6.2 [facility] Blood hemoglobin measurement (mass/volume)Ordered By: Ayo Uriostegui on 08-19-2022 Hemoglobin (Bld) [Mass/Vol] 13.9 g/dL 13.0-16.5 [facility] Blood lymphocytes/100 leukoc ytesOrdered By: Ayo Uriostegui on 08-19-2022 Lymphocytes/100 WBC (Bld) 26.7 % 19-41 [facility] Blood monocytes/100 leukocyt esOrdered By: Ayo Uriostegui on 08-19-2022 Monocytes/100 WBC (Bld) 8.2 % 0-10 [facility] Blood platelet mean volumeOr dered By: Ayo Uriostegui on 08-19-2022 Platelet mean volume (Bld) [Entitic vol] 9.9 fL 6.2-12.0 [facility] Determination of erythrocyte mean corpuscular volume (MCV)Ordered By: Ayo Uriostegui on 08-19-2022 MCV (RBC) [Entitic vol] 93.5 fL 80-94 [facility] Hematocrit Auto (Bld) [Volum e fraction]Ordered By: Ayo Uriostegui on 08-19-2022 Hematocrit (Bld) [Volume fraction] 41.6 % 40-54 [facility] Laboratory - Chemistry and C hemistry - challengeOrdered By: Ayo Uriostegui on 08-19-2022 ALP [Catalytic activity/Vol] 96 U/L 45-117 [facility] ALT [Catalytic activity/Vol] 45 U/L 16-61 [facility] CO2 [Moles/Vol] 25.0 mmol/L 21.0-32.0 [facility] Globulin (S) [Mass/Vol] 3.8 g/dL 2.2-4.2 [facility] Urea nitrogen/Creatinine [Mass ratio] 15.9 mg/mg 10-20 [facility] Laboratory - Hematology and Cell countsOrdered By: Ayo Uriostegui on 08-19-2022 Erythrocyte distribution width (RBC) [Entitic vol] 45.5 fL 35.1-43.9 [facility] Erythrocyte distribution width (RBC) [Ratio] 13.2 % 11.6-14.6 [facility] Immature granulocytes/100 WBC (Bld) 0.300 % 0.0-0.9 [facility] Comment on above: IG% - Immature Granu locytes (promyelocytes, myelocytes and metamyelocytes) > 1% indicates that a LEFT SHIFT is Present. MCH (RBC) [Entitic mass] 31.2 pg 27.0-32.0 [facility] Nucleated RBC/100 WBC (Bld) [Ratio] 0 % 0-5 [facility] Auto (RBC) [Mass/Vol]Or dered By: Ayo Uriostegui on 08-19-2022 MCHC (RBC) [Mass/Vol] 33.4 g/dL 32-36 [facility] No Panel InformationOrdered By: Ayo Uriostegui on 08-19-2022 Estimated GFR (MDRD) Amer 122 mL/min >60 [facility] Comment on above: GFR Calc Estimated GFR (MDRD) Non-Af Amer 101 mL/min >60 [facility] Comment on above: Non- GFR Calc Platelets bldOrdered By: Nell Uriostegui on 08-19-2022 Platelets (Bld) [#/Vol] 283 10*3/uL 150-450 [facility] Serum or plasma albumin karissa urement (mass/volume)Ordered By: Ayo Uriostegui on 08-19-2022 Albumin [Mass/Vol] 3.4 g/dL 3.2-5.0 [facility] Serum or plasma albumin/glob ulin mass ratioOrdered By: Ayo Uriostegui on 08-19-2022 Albumin/Globulin [Mass ratio] 0.9 {ratio} 0.9-2.4 [facility] Serum or plasma calcium karissa urement (mass/volume)Ordered By: Ayo Uriostegui on 08-19-2022 Calcium [Mass/Vol] 8.3 mg/dL 8.5-10.1 [facility] Serum or plasma creatinine m easurement (mass/volume)Ordered By: Ayo Uriostegui on 08-19-2022 Creatinine [Mass/Vol] 0.82 mg/dL 0.70-1.30 [facility] Comment on above: The validity of the calculated GFR & GFRAA in patients over 70 years has not been determined. Clinical correlation is essential. Serum or plasma urea nitroge n measurement (mass/volume)Ordered By: Ayo Uriostegui on 08-19-2022 Urea nitrogen [Mass/Vol] 13 mg/dL 7-18 [facility] Thin prep Papanicolaou smear with manual screeningOrdered By: Ayo Uriostegui on 08-19-2022 Thin prep Papanicolaou smear with manual screening 24 U/L 15-37 [facility] Thin prep Papanicolaou smear with manual screening 6 5-15 [facility] Absolute lymphocyte counton 05-20-2022 Lymphocytes Auto (Unsp spec) [#/Vol] 2.09 10*3/uL 0.83-4.51 [facility] Work Phone: Basophil percentageon 2021 Basophils/100 WBC (Bld) 0.4 % 0-1 [facility] Work Phone: [phone] Bilirubin [Mass/Vol] 0.20 mg/dL 0.20-1.00 [facility] Work Phone: [phone] Comment on above: For patients on eltr ombopag therapy, use of [place] TBIL is not recommended. Chloride [Moles/Vol] 107 mmol/L 98-107 [facility] Work Phone: Eosinophils/100 WBC (Bld) 4.4 % 0-5 [facility] Work Phone: Glucose [Mass/Vol] 122 mg/dL 74-106 [facility] Work Phone: Comment on above: Fasting Glucose resu lt from 100 to 125 mg/dL suggests IMPAIRED HOMEOSTASIS per A.D.A. criteria. Neutrophils (Bld) [#/Vol] 4.1 10*3/uL 2.0-7.7 [facility] Work Phone: [phone] Neutrophils/100 WBC (Bld) 55.8 % 47-70 [facility] Work Phone: Potassium [Moles/Vol] 3.7 mmol/L 3.5-5.1 [facility] Work Phone: [phone] Comment on above: Slight Hemolysis, Re sult may be falsely increased. Protein [Mass/Vol] 7.1 g/dL 6.4-8.2 [facility] Work Phone: [phone] Sodium [Moles/Vol] 138 mmol/L 136-145 [facility] Work Phone: [phone] WBC (Bld) [#/Vol] 7.3 10*3/uL 4.4-11.0 [facility] Work Phone: Blood erythrocytes count (nu mber/volume)on 05-20-2022 RBC (Bld) [#/Vol] 4.27 10*6/uL 4.6-6.2 [facility]: Blood hemoglobin measurement (mass/volume)on 05-20-2022 Hemoglobin (Bld) [Mass/Vol] 13.4 g/dL 13.0-16.5 [facility] Work Phone: Blood lymphocytes/100 leukoc yteson 05-20-2022 Lymphocytes/100 WBC (Bld) 28.6 % 19-41 [facility] Work Phone: Blood monocytes/100 leukocyt eson 05-20-2022 Monocytes/100 WBC (Bld) 10.5 % 0-10 [facility] Work Phone: Blood platelet mean volumeon 05-20-2022 Platelet mean volume (Bld) [Entitic vol] 10.1 fL 6.2-12.0 [facility] Work Phone: Determination of erythrocyte mean corpuscular volume (MCV)on 05-20-2022 MCV (RBC) [Entitic vol] 94.8 fL 80-94 [facility] Work Phone: Hematocrit Auto (Bld) [Volum e fraction]on 05-20-2022 Hematocrit (Bld) [Volume fraction] 40.5 % 40-54 [facility] Work Phone: Laboratory - Chemistry and C hemistry - challengeon 05-20-2022 ALP [Catalytic activity/Vol] 98 U/L 45-117 [facility] Work Phone: ALT [Catalytic activity/Vol] 38 U/L 16-61 [facility] Work Phone: CO2 [Moles/Vol] 23.0 mmol/L 21.0-32.0 [facility] Work Phone: Globulin (S) [Mass/Vol] 3.8 g/dL 2.2-4.2 [facility] Work Phone: Urea nitrogen/Creatinine [Mass ratio] 14.3 mg/mg 10-20 [facility] Work Phone: Laboratory - Hematology and Cell countson 05-20-2022 Erythrocyte distribution width (RBC) [Entitic vol] 46.5 fL 35.1-43.9 [facility] Work Phone: Erythrocyte distribution width (RBC) [Ratio] 13.3 % 11.6-14.6 [facility] Work Phone: Immature granulocytes/100 WBC (Bld) 0.300 % 0.0-0.9 [facility] Work Phone: Comment on above: IG% - Immature Granu locytes (promyelocytes, myelocytes and metamyelocytes) > 1% indicates that a LEFT SHIFT is Present. MCH (RBC) [Entitic mass] 31.4 pg 27.0-32.0 [facility] Work Phone: Nucleated RBC/100 WBC (Bld) [Ratio] 0 % 0-5 [facility] Work Phone: MCHC Auto (RBC) [Mass/Vol]on 05-20-2022 MCHC (RBC) [Mass/Vol] 33.1 g/dL 32-36 [facility] Work Phone: No Panel Informationon 05-20 Estimated GFR (MDRD) Amer 131 mL/min >60 [facility] Work Phone: Comment on above: GFR Calc Estimated GFR (MDRD) Non-Af Amer 108 mL/min >60 [facility] Work Phone: Comment on above: Non- GFR Calc Platelets bldon 05-20-2022 Platelets (Bld) [#/Vol] 234 10*3/uL 150-450 [facility] Work Phone: Serum or plasma albumin karissa urement (mass/volume)on 05-20-2022 Albumin [Mass/Vol] 3.3 g/dL 3.2-5.0 [facility] Work Phone: Serum or plasma albumin/glob ulin mass ratioon 05-20-2022 Albumin/Globulin [Mass ratio] 0.9 {ratio} 0.9-2.4 [facility] Work Phone: Serum or plasma calcium karissa urement (mass/volume)on 05-20-2022 Calcium [Mass/Vol] 8.2 mg/dL 8.5-10.1 [facility] Work Phone: Serum or plasma creatinine m easurement (mass/volume)on 05-20-2022 Creatinine [Mass/Vol] 0.77 mg/dL 0.70-1.30 [facility] Work Phone: Comment on above: The validity of the calculated GFR & GFRAA in patients over 70 years has not been determined. Clinical correlation is essential. Serum or plasma urea nitroge n measurement (mass/volume)on 05-20-2022 Urea nitrogen [Mass/Vol] 11 mg/dL 7-18 [facility] Work Phone: Thin prep Papanicolaou smear with manual screeningon 05-20-2022 Thin prep Papanicolaou smear with manual screening 19 U/L 15-37 [facility] Work Phone: Comment on above: Slight Hemolysis, Re sult may be falsely increased. Thin prep Papanicolaou smear with manual screening 8 5-15 [facility] Work Phone: Basophil percentageon 2021 Cholesterol [Mass/Vol] 135 mg/dL <200 [facility] Work Phone: Comment on above: <200 mg/dL Desirable 200-240 mg/dL Borderline >240 mg/dL High Risk Triglyceride [Mass/Vol] 231 mg/dL <199 [facility] Work Phone: Comment on above: The drugs N-Acetylcy steine and Metamizole may falsely depress this assay.Serum Triglycerides Reference Interval Normal <150 mg/dL Borderline high 150 - 199 mg/dL High 200 - 499 mg/dL Very High > or = 500 mg/dL Serum or plasma cholesterol in HDL measurement (mass/volume)on 03-17-2022 Cholesterol in HDL [Mass/Vol] 28 mg/dL >40 [facility] Work Phone: Comment on above: The drugs N-Acetylcy steine and Metamizole may falsely depress this assay. Reference Range HDL <40 mg/dL Low HDL Cholesterol HDL >or= 60 mg/dL High HDL Cholesterol Serum or plasma cholesterol in VLDL measurement (mass/volume)on 03-17-2022 Cholesterol in VLDL [Mass/Vol] 46 mg/dL 5-40 [facility] Work Phone: Serum or plasma low density lipoprotein (LDL) cholesterol measurement (mass/volume)on 03-17-2022 Cholesterol in LDL [Mass/Vol] 61 mg/dL 0-130 [facility] Work Phone: Whole blood hemoglobin A1c/t otal hemoglobin ratio (mass fraction)on 03-17-2022 HbA1c (Bld) [Mass fraction] 7.6 % 3.8-5.6 [facility] Work Phone: Comment on above: Normal < 5.7 % Predi abetic 5.7 - 6.4 % Diabetic >or= 6.5 % Please note range changes. Absolute lymphocyte counton 02-18-2022 Lymphocytes Auto (Unsp spec) [#/Vol] 2.32 10*3/uL 0.83-4.51 [facility] Work Phone: Basophil percentageon 2021 Basophils/100 WBC (Bld) 0.5 % 0-1 [facility] Work Phone: Bilirubin [Mass/Vol] 0.40 mg/dL 0.20-1.00 [facility] Work Phone: Comment on above: For patients on eltr ombopag therapy, use of [place] TBIL is not recommended. Chloride [Moles/Vol] 106 mmol/L 98-107 [facility] Work Phone: Eosinophils/100 WBC (Bld) 3.2 % 0-5 [facility] Work Phone: Glucose [Mass/Vol] 126 mg/dL 74-106 [facility] Work Phone: Comment on above: Fasting Glucose resu lt greater than or equal to 126 mg/dL suggests DIABETES MELLITUS per A.D.A. criteria. Neutrophils (Bld) [#/Vol] 4.6 10*3/uL 2.0-7.7 [facility] Work Phone: Neutrophils/100 WBC (Bld) 56.3 % 47-70 [facility] Work Phone: Potassium [Moles/Vol] 3.8 mmol/L 3.5-5.1 [facility] Work Phone: Protein [Mass/Vol] 7.1 g/dL 6.4-8.2 [facility] Work Phone: [phone] Sodium [Moles/Vol] 136 mmol/L 136-145 [facility] Work Phone: WBC (Bld) [#/Vol] 8.1 10*3/uL 4.4-11.0 [facility] Work Phone: Blood erythrocytes count (nu mber/volume)on 02-18-2022 RBC (Bld) [#/Vol] 4.45 10*6/uL 4.6-6.2 [facility] Work Phone: Blood hemoglobin measurement (mass/volume)on 02-18-2022 Hemoglobin (Bld) [Mass/Vol] 13.5 g/dL 13.0-16.5 [facility] Work Phone: Blood lymphocytes/100 leukoc yteson 02-18-2022 Lymphocytes/100 WBC (Bld) 28.7 % 19-41 [facility] Work Phone: Blood monocytes/100 leukocyt eson 02-18-2022 Monocytes/100 WBC (Bld) 10.9 % 0-10 [facility] Work Phone: Blood platelet mean volumeon 02-18-2022 Platelet mean volume (Bld) [Entitic vol] 10.3 fL 6.2-12.0 [facility] Work Phone: Determination of erythrocyte mean corpuscular volume (MCV)on 02-18-2022 MCV (RBC) [Entitic vol] 92.6 fL 80-94 [facility] Work Phone: Hematocrit Auto (Bld) [Volum e fraction]on 02-18-2022 Hematocrit (Bld) [Volume fraction] 41.2 % 40-54 [facility] Work Phone: Laboratory - Chemistry and C hemistry - challengeon 02-18-2022 ALP [Catalytic activity/Vol] 104 U/L 45-117 [facility] Work Phone: ALT [Catalytic activity/Vol] 37 U/L 16-61 [facility] Work Phone: CO2 [Moles/Vol] 23.0 mmol/L 21.0-32.0 [facility] Work Phone: Globulin (S) [Mass/Vol] 3.6 g/dL 2.2-4.2 [facility] Work Phone: Urea nitrogen/Creatinine [Mass ratio] 16.5 mg/mg 10-20 [facility] Work Phone: Laboratory - Hematology and Cell countson 02-18-2022 Erythrocyte distribution width (RBC) [Entitic vol] 46.1 fL 35.1-43.9 [facility] Work Phone: Erythrocyte distribution width (RBC) [Ratio] 13.4 % 11.6-14.6 [facility] Work Phone: Immature granulocytes/100 WBC (Bld) 0.400 % 0.0-0.9 [facility] Work Phone: Comment on above: IG% - Immature Granu locytes (promyelocytes, myelocytes and metamyelocytes) > 1% indicates that a LEFT SHIFT is Present. MCH (RBC) [Entitic mass] 30.3 pg 27.0-32.0 [facility] Work Phone: Nucleated RBC/100 WBC (Bld) [Ratio] 0 % 0-5 [facility] Work Phone: MCHC Auto (RBC) [Mass/Vol]on 02-18-2022 MCHC (RBC) [Mass/Vol] 32.8 g/dL 32-36 [facility] Work Phone: No Panel Informationon 02-18 Estimated GFR (MDRD) Amer 108 mL/min >60 [facility] Work Phone: Comment on above: GFR Calc Estimated GFR (MDRD) Non-Af Amer 89 mL/min >60 [facility] Work Phone: Comment on above: Non- GFR Calc Platelets bldon 02-18-2022 Platelets (Bld) [#/Vol] 252 10*3/uL 150-450 [facility] Work Phone: Serum or plasma albumin karissa urement (mass/volume)on 02-18-2022 Albumin [Mass/Vol] 3.5 g/dL 3.2-5.0 [facility] Work Phone: Serum or plasma albumin/glob ulin mass ratioon 02-18-2022 Albumin/Globulin [Mass ratio] 1.0 {ratio} 0.9-2.4 [facility] Work Phone: Serum or plasma calcium karissa urement (mass/volume)on 02-18-2022 Calcium [Mass/Vol] 8.5 mg/dL 8.5-10.1 [facility] Work Phone: Serum or plasma creatinine m easurement (mass/volume)on 02-18-2022 Creatinine [Mass/Vol] 0.91 mg/dL 0.70-1.30 [facility] Work Phone: Comment on above: The validity of the calculated GFR & GFRAA in patients over 70 years has not been determined. Clinical correlation is essential. Serum or plasma urea nitroge n measurement (mass/volume)on 02-18-2022 Urea nitrogen [Mass/Vol] 15 mg/dL 7-18 [facility] Work Phone: Thin prep Papanicolaou smear with manual screeningon 02-18-2022 Thin prep Papanicolaou smear with manual screening 20 U/L 15-37 [facility] Work Phone: Thin prep Papanicolaou smear with manual screening 7 5-15 [facility] Work Phone: Absolute lymphocyte counton 11-19-2021 Lymphocytes Auto (Unsp spec) [#/Vol] 2.32 10*3/uL 0.83-4.51 [facility] Work Phone: Basophil percentageon 2021 Basophils/100 WBC (Bld) 0.6 % 0-1 [facility] Work Phone: Bilirubin [Mass/Vol] 0.30 mg/dL 0.20-1.00 [facility] Work Phone: Comment on above: For patients on eltr ombopag therapy, use of [place] TBIL is not recommended. Chloride [Moles/Vol] 106 mmol/L 98-107 [facility] Work Phone: Eosinophils/100 WBC (Bld) 3.3 % 0-5 [facility] Work Phone: Glucose [Mass/Vol] 110 mg/dL 74-106 [facility] Work Phone: Comment on above: Fasting Glucose resu lt from 100 to 125 mg/dL suggests IMPAIRED HOMEOSTASIS per A.D.A. criteria. Neutrophils (Bld) [#/Vol] 3.7 10*3/uL 2.0-7.7 [facility] Work Phone: Neutrophils/100 WBC (Bld) 53.3 % 47-70 [facility] Work Phone: Potassium [Moles/Vol] 3.8 mmol/L 3.5-5.1 [facility] Work Phone: Protein [Mass/Vol] 6.9 g/dL 6.4-8.2 [facility] Work Phone: Sodium [Moles/Vol] 137 mmol/L 136-145 [facility] Work Phone: WBC (Bld) [#/Vol] 7.0 10*3/uL 4.4-11.0 [facility] Work Phone: Blood erythrocytes count (nu mber/volume)on 11-19-2021 RBC (Bld) [#/Vol] 4.43 10*6/uL 4.6-6.2 [facility] Work Phone: Blood hemoglobin measurement (mass/volume)on 11-19-2021 Hemoglobin (Bld) [Mass/Vol] 13.6 g/dL 13.0-16.5 [facility] Work Phone: Blood lymphocytes/100 leukoc yteson 11-19-2021 Lymphocytes/100 WBC (Bld) 33.0 % 19-41 [facility] Work Phone: Blood monocytes/100 leukocyt eson 11-19-2021 Monocytes/100 WBC (Bld) 9.5 % 0-10 [facility] Work Phone: Blood platelet mean volumeon 11-19-2021 Platelet mean volume (Bld) [Entitic vol] 10.1 fL 6.2-12.0 [facility] Work Phone: Determination of erythrocyte mean corpuscular volume (MCV)on 11-19-2021 MCV (RBC) [Entitic vol] 92.3 fL 80-94 [facility] Work Phone: Hematocrit Auto (Bld) [Volum e fraction]on 11-19-2021 Hematocrit (Bld) [Volume fraction] 40.9 % 40-54 [facility] Work Phone: Laboratory - Chemistry and C hemistry - challengeon 11-19-2021 ALP [Catalytic activity/Vol] 98 U/L 45-117 [facility] Work Phone: ALT [Catalytic activity/Vol] 41 U/L 16-61 [facility] Work Phone: CO2 [Moles/Vol] 26.0 mmol/L 21.0-32.0 [facility] Work Phone: Globulin (S) [Mass/Vol] 3.5 g/dL 2.2-4.2 [facility] Work Phone: Urea nitrogen/Creatinine [Mass ratio] 13.9 mg/mg 10-20 [facility] Work Phone: Laboratory - Hematology and Cell countson 11-19-2021 Erythrocyte distribution width (RBC) [Entitic vol] 46.4 fL 35.1-43.9 [facility] Work Phone: Erythrocyte distribution width (RBC) [Ratio] 13.5 % 11.6-14.6 [facility] Work Phone: Immature granulocytes/100 WBC (Bld) 0.300 % 0.0-0.9 [facility] Work Phone: Comment on above: IG% - Immature Granu locytes (promyelocytes, myelocytes and metamyelocytes) > 1% indicates that a LEFT SHIFT is Present. MCH (RBC) [Entitic mass] 30.7 pg 27.0-32.0 [facility] Work Phone: Nucleated RBC/100 WBC (Bld) [Ratio] 0 % 0-5 [facility] Work Phone: MCHC Auto (RBC) [Mass/Vol]on 11-19-2021 MCHC (RBC) [Mass/Vol] 33.3 g/dL 32-36 [facility] Work Phone: No Panel Informationon 11-19 Estimated GFR (MDRD) Amer 115 mL/min >60 [facility] Work Phone: Comment on above: GFR Calc Estimated GFR (MDRD) Non-Af Amer 95 mL/min >60 [facility] Work Phone: Comment on above: Non- GFR Calc Platelets bldon 11-19-2021 Platelets (Bld) [#/Vol] 237 10*3/uL 150-450 [facility] Work Phone: Serum or plasma albumin karissa urement (mass/volume)on 11-19-2021 Albumin [Mass/Vol] 3.4 g/dL 3.2-5.0 [facility] Work Phone: Serum or plasma albumin/glob ulin mass ratioon 11-19-2021 Albumin/Globulin [Mass ratio] 1.0 {ratio} 0.9-2.4 [facility] Work Phone: Serum or plasma calcium karissa urement (mass/volume)on 11-19-2021 Calcium [Mass/Vol] 8.4 mg/dL 8.5-10.1 [facility] Work Phone: Serum or plasma creatinine m easurement (mass/volume)on 11-19-2021 Creatinine [Mass/Vol] 0.86 mg/dL 0.70-1.30 [facility] Work Phone: Comment on above: The validity of the calculated GFR & GFRAA in patients over 70 years has not been determined. Clinical correlation is essential. Serum or plasma urea nitroge n measurement (mass/volume)on 11-19-2021 Urea nitrogen [Mass/Vol] 12 mg/dL 7-18 [facility] Work Phone: Thin prep Papanicolaou smear with manual screeningon 11-19-2021 Thin prep Papanicolaou smear with manual screening 21 U/L 15-37 [facility] Work Phone: Thin prep Papanicolaou smear with manual screening 5 5-15 [facility] Work Phone: Vital Signs Date Time Vital Sign Value Performing Clinician Faci lity 10-04-2024 00:38-0500 Body temperature 98.5 [degF] Dr. Ayo Uriostegui MD Work Phone: [facility] 10-04-2024 00:38-0500 Diastolic blood pressure 82 mm[Hg] Dr. Ayo Uriostegui MD Work Phone: [facility] 10-04-2024 00:38-0500 Heart rate 94 /min Dr. Ayo Uriostegui MD Work Phone: [facility] 10-04-2024 00:38-0500 Respiratory rate 16 /min Dr. Ayo Uriostegui MD Work Phone: [facility] 10-04-2024 00:38-0500 SaO2% (BldA) [Mass fraction] 93 % Dr. Ayo Uriostegui MD Work Phone: [facility] 10-04-2024 00:38-0500 Systolic blood pressure 150 mm[Hg] Dr. Ayo Uriostegui MD Work Phone: [facility] 10-03-2024 22:19-0500 Inhaled oxygen flow rate 2 L/min Dr. Ayo Uriostegui MD Work Phone: [facility] 10-03-2024 21:49-0500 Body height 170.[address] Ayo Uriostegui MD Work Phone: [facility] 10-03-2024 21:49-0500 Body mass index (BMI) [Ratio] 39.3 kg/m2 Dr. Ayo Uriostegui MD Work Phone: [facility] 10-03-2024 21:49-0500 Body weight [address] Ayo Uriostegui MD Work Phone: [facility] Encounters Encounter Date Encounter Type Care Provider Facility Start: 12-11-2024 End: 12-11-[address] Ayo Uriostegui MD Work Phone: [facility] Work Phone: Start: 12-11-2024 End: 12-11-[address] Mark Stovall MD -[facility] Start: 12-11-2024 End: 12-11-2024 ambulatory Ayo Uriostegui Facility:[facility] Start: 11-12-2024 End: 11-12-[address] Ayo Uriostegui MD Work Phone: [facility] Work Phone: Start: 11-12-2024 End: 11-12-[address] Araceli Fernandez MD -[facility] Start: 11-12-2024 End: 11-12-2024 ambulatory Ayo Uriostegui Facility:[facility] Start: 10-03-2024 End: 10-04-2024 Emergency department patient visit Dr. Mohsen Colorado MD -Emergency Department Work Phone: Start: 09-13-2024 ambulatory Araceli HAYES Facili ty:[facility] Start: 09-13-[address] Araceli Fernandez MD -[facility] Start: 03-19-2024 End: 03-19-2024 ambulatory Ayo HAYES Facility:[facility] Start: 03-12-2024 End: 03-12-2024 ambulatory Ayo HAYES Facility:[facility] Start: 09-19-2023 End: 09-19-2023 ambulatory [facility] Work Phone: Start: 09-19-2023 End: 09-19-2023 Departed Referred [facility] Start: 06-21-2023 End: 06-21-2023 ambulatory [facility] Work Phone: Start: 06-21-2023 End: 06-21-2023 Departed Referred [facility] Start: 03-21-2023 End: 03-21-2023 ambulatory [facility] Work Phone: Start: 03-21-2023 End: 03-21-2023 Departed Referred [facility] Start: 03-11-2023 End: 03-11-2023 Departed Referred [facility] Start: 03-11-2023 Registered Referred [facility] Start: 02-17-2023 End: 02-17-2023 ambulatory [facility] Work Phone: Start: 02-17-2023 End: 02-17-2023 Departed Referred [facility] Start: 02-17-2023 Registered Referred [facility] Start: 12-23-2022 End: 12-23-2022 Departed Referred [facility] Start: 11-18-2022 End: 11-18-2022 ambulatory [facility] Work Phone: Start: 11-18-2022 End: 11-18-2022 Departed Referred [facility] Start: 09-24-2022 End: 09-24-2022 Departed Referred [facility] Start: 09-24-2022 Registered Referred [facility] Start: 09-14-2022 End: 09-14-2022 ambulatory [facility] Work Phone: Start: 09-14-2022 End: 09-14-2022 Departed Referred [facility] Start: 08-19-2022 Registered Referred [facility] Start: 05-20-2022 End: 05-20-2022 ambulatory [facility] Work Phone: Start: 05-20-2022 End: 05-20-2022 Departed Referred [place] [id number] Start: 03-17-2022 End: 03-17-2022 Departed Referred [place] [id number] Start: 02-18-2022 Registered Referred [place] [id number] Start: 11-19-2021 End: 11-19-2021 Departed Referred [place] [id number] Procedures Date Procedure Procedure Detail Performing Clinician Start: 11-12-2024 Insulin C-peptide measurement Dr. Ayo Uriostegui MD Work Phone: Comment on above: C-Peptide reference interval is for fasting patients.Performed at: [address] [id number] Director: Osiel Vazquez PhD, Phone: [phone] Start: 10-03-2024 X-ray of chest, PA a nd lateral views Dr. Ayo Uriostegui MD Work Phone: Start: 10-03-2024 D-dimer assay, quantitative Dr. Ayo Uriostegui MD Work Phone: Comment on above: NORMAL D-Dimer level (<0.50) indicates no DVT or PE. Start: 10-03-[address] Ayo Uriostegui MD Work Phone: Start: 10-03-2024 Measurement of renal function Dr. Ayo Uriostegui MD Work Phone: Comment on above: GFR Calc Start: 10-03-2024 SARS-CoV-2, Influenz a & RSV (PCR) Dr. Ayo Uriostegui MD Work Phone: Plan of Treatment Date Care Activity Detail Author Start: 10-04-2024 [facility] Start: 10-03-2024 [facility] Patient Education ED COPD Flare [facility] Work Phone: Patient referral [facility] Work Phone: Payers Date Payer Category Payer Self-pay [id number] 2024 Unknown [id number] 2024 Unknown [id number] 23 [id number] 2003 Medicare [id number] Unknown [id number] Unknown [id number] Unknown [id number] Unknown [id number] [id number] [id number] Unknown [id number] [id number] [id number] Unknown [id number] [id number] [id number] Unknown [id number] [id number] [id number] Social History Date Type Detail Facility Start: 12-08-2018 End: 12-08-2018 Tobacco smoking status NHIS Unknown if ever smoked [facility] Start: 12-03-2018 None [facility] Start: 12-03-2018 - [facility] Start: 12-08-2018 Cigarettes [facility] Start: 1955 Sex Assigned At Male [facility] Start: 10-03-2024 [facility] Start: 12-06-2024 Sex Male (finding) [facility] Medical Equipment Procedure Code Equipment Code Equipment Origin al Text Equipment Identifier Dates Lancets-Blood Glucose Strips Start: 12-07-2018 Lancets-Blood Glucose Strips Start: 12-07-2018 Lancets-Blood Glucose Strips Start: 12-07-2018 Lancets-Blood Glucose Strips Start: 12-07-2018 Lancets-Blood Glucose Strips Start: 12-07-2018 Lancets-Blood Glucose Strips Start: 12-07-2018 Lancets-Blood Glucose Strips Start: 12-07-2018 Lancets-Blood Glucose Strips Start: 12-07-2018 Lancets-Blood Glucose Strips Start: 12-07-2018 Lancets-Blood Glucose Strips Start: 12-07-2018 Lancets-Blood Glucose Strips 1 EACH combo pack Start: 12-07-2018 Lancets-Blood Glucose Strips 1 EACH combo pack Start: 12-07-2018 Evaluation note Note Date & Type Note Facility Evaluation note No assessment information availa ble [facility] Work Phone: Reason for referral (narrative) Note Date & Type Note Facility Reason for referral (narrative) No reason for referral information available [facility] Work Phone: Chief Complaint and Reason for Visit Chief Complaint [facility] K Chief Complaint NUSING HOME LAB WORK Chief Complaint NUSING HOME LAB WORK [facility] Chief Complaint LABWORK [facility] Chief Complaint LABWORK [facility]WORK [facility] Chief Complaint [facility] K [facility]WORK [facility]WORK LABWORK Chief Complaint [facility]WORK LABWORK [facility] Chief Complaint [facility] K [facility] Chief Complaint Admit Date [facility] September 13, 2024 5:00am SOB October 03, 2024 9:48pm [facility] November 12, 2024 5 :00am Chief Complaint Admit Date [facility] September 13, 2024 5:00am SOB October 03, 2024 9:48pm [facility] November 12, 2024 5 :00am [facility] December 11, 2024 6 :20am Family History No Family History Records Found Relationship Condition Age at Onset Recorded Date/T sammi Unknown Family History?- Unknown December 03, 2018 9:31am Family History?- Unknown December 03, 2018 9:31am Relationship Condition Age at Onset Recorded Date/T sammi Unknown Family History?- Unknown December 03, 2018 8:31am Family History?- Unknown December 03, 2018 8:31am Advance Directives No Advanced Directives Records Found Advance Directive Response Recorded Date/ Time Living Will No December 03, 2018 4:46am Power of [employer] No December 03 4:46am Advance Directive Response Recorded Date/ Time Living Will No December 03, 2018 3:46am Power of [employer] No December 03 3:46am Advance Directive Response Recorded Date/ Time Living Will No October 03 025 11:27pm Do you have a Healthcare Power of [employer]? No October 03, 2024 11:27pm Summary Purpose Additional Source Comments Goals (unrecognized section and content) Goals may be documented in a n alternate sectionGoals may be documented in an alternate sectionGoals may be documented in an alternate sectionGoals may be documented in an alternate sectionGoals may be documented in an alternate sectionGoals may be documented in an alternate sectionGoals may be documented in an alternate sectionGoals may be documented in an alternate sectionGoals may be documented in an alternate sectionGoals may be documented in an alternate sectionGoals may be documented in an alternate section Care Teams (unrecognized sec tion and content) Team Status: Active Member Role Status Dates Dr. Ayo Uriostegui MD Family Provider Active Dr. Ayo Uriostegui MD Primary Care Provider Active Team Status: Active Member Role Status Dates Dr. Ayo Uriostegui MD Primary Care Provider Active Ayo Uriostegui Attending Provider Active Team Status: Inactive Member Role Status Dates Dr. Ayo Uriostegui MD Primary Care Provider Active Ayo Uriostegui Attending Provider Active Team Status: Active Member Role Status Dates Dr. Ayo Uriostegui MD Primary Care Provider Active Ayo HAYES Attending Provider Active Team Status: Inactive Member Role Status Dates Dr. Ayo Uriostegui MD Primary Care Provider Active Ayo HAYES Attending Provider Active Team Status: Inactive Member Role Status Dates Dr. Ayo Uriostegui MD Primary Care Provider Active Ayo HAYES Attending Provider, Referring Provide r Active Team Status: Active Member Role Status Dates Dr. Ayo Uriostegui MD Primary Care Provider Active Team Status: Active Member Role Status Dates Dr. Ayo Uriostegui MD Primary Care Provider Active Start: September 13, 2024 Dr. Araceli HAYES MD Attending Provider Active Start: September 13, 2024 Team Status: Inactive Member Role Status Dates Dr. Ayo Uriostegui MD Primary Care Provider Active Start: October 03, 2024 End: October 04, 2024 Dr. Mohsen [place] MD Attending Provider Active S tart: October 03, 2024 End: October 04, 2024 Dr. Mohsen [place] MD Emergency Provider Active S tart: October 03, 2024 End: October 04, 2024 Team Status: Inactive Member Role Status Dates Dr. Ayo Uriostegiu MD Primary Care Provider Active Start: November 12, 2024 End: November 12, 2024 Dr. Araceli HAYES MD Attending Provider Active Start: November 12, 2024 End: November 12, 2024 Team Status: Inactive Member Role Status Dates Dr. Ayo Uriostegui MD Primary Care Provider Active Start: December 11, 2024 End: December 11, 2024 Dr. Mark HAYES MD Attending Provider Active Start: December 11, 2024 End: December 11, 2024 (unrecognized sect ion and content) No Status Records Found INFORMATION SOURCE (unrecogn ized section and content) DATE CREATED AUTHOR 01/19/2025 [facility] FOR RECORDS PERTAINING TO PATIENTS WHO ARE OR HAVE BEEN ENROLLED IN A CHEMICAL DEPENDENCY/SUBSTANCEABUSE PROGRAM, SOME INFORMATION MAY BE OMITTED. This clinical summary was aggregated from multiple sources. Caution should be exercised in using it in the provision of clinical care. This summary normalizes information from multiple sources, and as a consequence, information in this document may materially change the coding, format and clinical context of patient data. In addition, data may be omitted in some cases. CLINICAL DECISIONS SHOULD BE BASED ON THE PRIMARY CLINICAL RECORDS. [facility] [employer] provides no warranty or guarantee of the accuracy or completeness of information in this document.
[2025-03-05 09:10] LABS: AST(SGOT) 27 U/L (<=37); Alanine Aminotransfer ALT/SGPT 32 U/L (<=46); Albumin, Serum 4.0 g/dL (3.4-4.8); Alkaline Phosphatase 97 U/L (40-129); Anion Gap 14 (5-15); BUN 14 mg/dL (4-19); BUN/Creat Ratio 14.2 RATIO (10-20); Calcium,Total 9.0 mg/dL (7.6-11.0); Carbon Dioxide 22.5 mmol/L (21.0-32.0); Chloride 98 mmol/L (98-108); Globulin 3.0 g/dL (2.2-4.2); Glucose 172 mg/dL (70-99); Potassium 4.4 mmol/L (3.3-5.1)
[2025-03-05 10:19] LABS: Hematocrit 38.1 % (40-54); Hemoglobin 13.0 g/dL (13.0-16.5); Immature Granulocytes Count 0.030 X10^3/uL (0.0-0.0); Mean Corp Hgb Conc 34.1 g/dL (32-36); Mean Corpuscular Volume 89.2 fL (80-94); Mean Platelet Vol. 10.0 fl (6.2-12.0); NRBC Flagged by Analyzer 0 % (0-5); Platelet Count 268 K/mm3 (150-450); RBC Distribution Width CV 13.1 % (11.6-14.6); RBC Distribution Width SD 42.7 fl (35.1-43.9); Red Blood Count 4.27 M/mm3 (4.6-6.2); White Blood Count 9.3 K/mm3 (4.4-11.0)
== END ==
LOC: OLS.SW 05:00
PROVIDERS: PCP Family Medicine; Visit Provider Family Medicine
DX: E11.9 Type 2 diabetes mellitus without complications (principal); I10 Essential (primary) hypertension
CPT/HCPCS: 36415; 80053; 83036; 85025

== ENCOUNTER → 2025-03-14 05:00 | Outpatient (REF) | payer MEDICARE, MEDICAID, SELFPAY ==
--- OUTSIDE RECORDS SUMMARY | 2025-03-14 04:09 | XMS RPT_ITS | CCD ---
Author Organization [facility] Informat ion Partnership [facility] Care Team Providers Care Home Stereo Equipment Installer Name Role Phone Gila PINZON, Dr. Rollins Primary Care Provider Jim PINZON, Dr. Charles Attending Provider Unavailtj [place] MD, Dr. Connolly Attending Provider Stanislav PINZON, Dr. Connolly Emergency Provider Wilman PINZON, Dr. Flores Attending Provider Unavail able Gila, Ayo Primary Care Unavailable Araceli Mcmahan Attending Unavailable Gila, Ayo Primary Care Unavailable Ayo Gallegos Attending Unavailable Ayo Gallegos Referring Unavailable Ayo Uriostegui Primary Care Unavailable Araceli Mcmahan Attending Unavailable Gila, Ayo Primary Care Unavailable Mark Franco Attending Unavailable Gila, Ayo Primary Care Unavailable Mohsen Cloorado Attending Unavailable Gila, Ayo Primary Care Unavailable Mark Franco Attending Unavailable Gila, Ayo Primary Care Unavailable Ayo Gallegos Attending Unavailable Medications Current Medications Medication Drug [...] EACH MC 3 TIMES DAILY WITH MEALS December 06, 2018 11:00pm Start: 12-07-2018 Needle (Disp) 16 G Active 1 EACH MC 3 TIMES DAILY WITH MEALS 100 December 07, 2018 12:00am Needle (Disp) 16 G 1 EACH needle (2 sources) Start: 12-07-2018 Needle (Disp) 16 G 1 EACH needle Active 1 NMA MC 3 TIMES DAILY WITH MEALS December 07, 2018 12:00am OXcarbazepine 300 mg [...] U SC 3 TIMES DAILY WITH MEALS December 07, 2018 12:00am December 07, 2018 [...] Test Name Value Interpretation Reference Range Facility CBC W/Diff, Automatedon - Absolute Lymph 1.81 X10 3/uL Normal 0.83-4.51 [facility] Comment on above: Order Comment: 307.1 Performed By: #### M 100.678 #### [facility] [address] [place], [address] Absolute Neut 6.3 X10 3/uL Normal 2.0-7.7 [facility] Comment on above: Order Comment: 307.1 Result Comment: DESTINEE HAMILTON, SPOKE WITH MARCUS Performed By: #### M 100.678 #### [facility] [address] [place], [address] Basophils/100 WBC (Bld) 0.5 % Normal 0-[address] [facility] Comment on above: Order Comment: 307.1 Performed By: #### M 100.678 #### [facility] [address] [place], [address] Eosinophils/100 WBC (Bld) 2.8 % Normal 0-5 [facility] Comment on above: Order Comment: 307.1 Performed By: #### M 100.678 #### [facility] [address] [place], [address] Erythrocyte distribution width (RBC) [Ratio] 13.1 % Normal 11.6-14.6 [facility] Comment on above: Order Comment: 307.1 Result Comment: DESTINEE HAMILTON, SPOKE WITH MARCUS Performed By: #### M 100.678 #### [facility] [address] [place], [address] Hematocrit (Bld) [Volume fraction] 38.1 % Low 40-54 [facility] Comment on above: Order Comment: 307.1 Result Comment: DESTINEE HAMILTON, SPOKE WITH MARCUS Performed By: #### M 100.678 #### [facility] [address] [place], [address] Hemoglobin (Bld) [Mass/Vol] 13.0 g/dL Normal 13.0-16.5 [facility] Comment on above: Order Comment: 307.1 Result Comment: DESTINEE HAMILTON, SPOKE WITH MARCUS Performed By: #### M 100.678 #### [facility] [address] [place], [address] IG% 0.300 Normal 0.0-0.9 [facility] Comment on above: Order Comment: 307.1 Result Comment: IG% - Immature Granulocytes (promyelocytes, myelocytes and metamyelocytes) > 1% indicates that a LEFT SHIFT is Present. Performed By: #### M 100.678 #### [facility] [address] [place], [address] Lymphocytes/100 WBC (Bld) 19.5 % Normal 19-41 [facility] Comment on above: Order Comment: 307.1 Performed By: #### M 100.678 #### [facility] [address] [place], [address] MCH (RBC) [Entitic mass] 30.4 pg Normal 27.0-32.0 [facility] Comment on above: Order Comment: 307.1 Result Comment: DESTINEE HAMILTON, SPOKE WITH MARCUS Performed By: #### M 100.678 #### [facility] [address] [place], [address] MCHC (RBC) [Mass/Vol] 34.1 g/dL Normal 32-36 [facility] Comment on above: Order Comment: 307.1 Result Comment: DESTINEE HAMILTON, SPOKE WITH MARCUS Performed By: #### M 100.678 #### [facility] [address] [place], [address] MCV (RBC) [Entitic vol] 89.2 fL Normal 80-94 [facility] Comment on above: Order Comment: 307.1 Result Comment: DESTINEE HAMILTON, SPOKE WITH MARCUS Performed By: #### M 100.678 #### [facility] [address] [place], [address] Monocytes/100 WBC (Bld) 8.9 % Normal 0-10 [facility] Comment on above: Order Comment: 307.1 Performed By: #### M 100.678 #### [facility] [address] [place], [address] Neutrophils/100 WBC (Bld) 68.0 % Normal 47-70 [facility] Comment on above: Order Comment: 307.1 Result Comment: DESTINEE HAMILTON, SPOKE WITH MARCUS Performed By: #### M 100.678 #### [facility] [address] [place], [address] Nucleated RBC (Bld) [#/Vol] 0 10*3/uL Normal 0-5 [facility] Comment on above: Order Comment: 307.1 Performed By: #### M 100.678 #### [facility] [address] [place], [address] Platelet mean volume (Bld) [Entitic vol] 10.0 fL Normal 6.2-12.0 [facility] Comment on above: Order Comment: 307.1 Performed By: #### M 100.678 #### [facility] [address] [place], [address] Platelets (Bld) [#/Vol] 268 10*3/uL Normal 150-450 [facility] Comment on above: Order Comment: 307.1 Result Comment: DESTINEE HAMILTON, SPOKE WITH MARCUS Performed By: #### M 100.678 #### [facility] [address] [place], [address] RBC (Bld) [#/Vol] 4.27 10*6/uL Low 4.6-6.2 [facility] Comment on above: Order Comment: 307.1 Result Comment: DESTINEE HAMILTON, SPOKE WITH MARCUS Performed By: #### M 100.678 #### [facility] [address] [place], [address] RDW SD 42.7 fl Normal 35.1-43.9 [facility] Comment on above: Order Comment: 307.1 Result Comment: DESTINEE HAMILTON, SPOKE WITH MARCUS Performed By: #### M 100.678 #### [facility] [address] [place], [address] WBC (Bld) [#/Vol] 9.3 10*3/uL Normal 4.4-11.0 [facility] Comment on above: Order Comment: 307.1 Result Comment: DESTINEE HAMILTON, SPOKE WITH MARCUS Performed By: #### M 100.678 #### [facility] [address] [place], [address] Comprehensive Metabolic Prof [facility] 03-05-2025 Albumin [Mass/Vol] 4.0 g/dL Normal 3.4-4.8 [facility] Comment on above: Order Comment: 307.1 Performed By: #### M 100.678 #### [facility] [address] [place], [address] Albumin/Globulin [Mass ratio] 1.3 {ratio} Normal 0.9-2.4 [facility] Comment on above: Order Comment: 307.1 Performed By: #### M 100.678 #### [facility] [address] [place], [address] ALK PHOS 97 U/L Normal 40-129 [facility] Comment on above: Order Comment: 307.1 Performed By: #### M 100.678 #### [facility] [address] [place], [address] ALT [Catalytic activity/Vol] 32 U/L Normal <=46 [facility] Comment on above: Order Comment: 307.1 Performed By: #### M 100.678 #### [facility] [address] [place], [address] AST [Catalytic activity/Vol] 27 U/L Normal <=37 [facility] Comment on above: Order Comment: 307.1 Result Comment: Hemo lysis present, Results??could be affected. ?? Performed By: #### M 100.678 #### [facility] [address] [place], [address] Bilirubin [Mass/Vol] 0.17 mg/dL Normal 0.00-1.30 [facility] Comment on above: Order Comment: 307.1 Performed By: #### M 100.678 #### [facility] [address] [place], [address] BUN/CRE 14.2 RATIO Normal 10-20 [facility] Comment on above: Order Comment: 307.1 Performed By: #### M 100.678 #### [facility] [address] [place], [address] Calcium [Mass/Vol] 9.0 mg/dL Normal 7.6-11.0 [facility] Comment on above: Order Comment: 307.1 Performed By: #### M 100.678 #### [facility] [address] [place], [address] Chloride [Moles/Vol] 98 mmol/L Normal 98-108 [facility] Comment on above: Order Comment: 307.1 Performed By: #### M 100.678 #### [facility] [address] [place], [address] CO2 [Moles/Vol] 22.5 mmol/L Normal 21.0-32.0 [facility] Comment on above: Order Comment: 307.1 Performed By: #### M 100.678 #### [facility] [address] [place], [address] Creatinine [Mass/Vol] 0.99 mg/dL Normal 0.70-1.20 [facility] Comment on above: Order Comment: 307.1 Performed By: #### M 100.678 #### [facility] [address] [place], [address] GAP 14 Normal 5-15 [facility] Comment on above: Order Comment: 307.1 Performed By: #### M 100.678 #### [facility] [address] [place], [address] GFR/1.73 sq M.predicted among non-blacks MDRD (S/P/Bld) [Vol rate/Area] 84 mL/min/{1.73_m2} Normal >60 [facility] Comment on above: Order Comment: 307.1 Result Comment: mL/m in/1.73m2 CKD-EPI Creatinine Equation (2020) Performed By: #### M 100.678 #### [facility] [address] [place], [address] Globulin (S) [Mass/Vol] 3.0 g/dL Normal 2.2-4.2 [facility] Comment on above: Order Comment: 307.1 Performed By: #### M 100.678 #### [facility] [address] [place], [address] Glucose [Mass/Vol] 172 mg/dL High 70-99 [facility] Comment on above: Order Comment: 307.1 Performed By: #### M 100.678 #### [facility] [address] [place], [address] Potassium [Moles/Vol] 4.4 mmol/L Normal 3.3-5.1 [facility] Comment on above: Order Comment: 307.1 Result Comment: Hemo lysis present, Results??could be affected. ?? Performed By: #### M 100.678 #### [facility] [address] [place], [address] Sodium [Moles/Vol] 134 mmol/L Normal 133-145 [facility] Comment on above: Order Comment: 307.1 Performed By: #### M 100.678 #### [facility] [address] [place], [address] T PROT 7.1 g/dL Normal 5.9-8.4 [facility] Comment on above: Order Comment: 307.1 Performed By: #### M 100.678 #### [facility] [address] [place], [address] Urea nitrogen [Mass/Vol] 14 mg/dL Normal 4-19 [facility] Comment on above: Order Comment: 307.1 Performed By: #### M 100.678 #### [facility] [address] [place], [address] Hemoglobin A1con 03-05-2025 HbA1c (Bld) [Mass fraction] 8.5 % High <=5.6 [facility] Comment on above: Order Comment: 307.1 Result Comment: Norm al < 5.7 % Prediabetic 5.7 - 6.4 % Diabetic >or= 6.5 % Please note range changes. Performed By: #### M 100.678 #### [facility] [address] [place], [place], [address] Hemoglobin A1con 12-11-2024 HbA1c (Bld) [Mass fraction] 9.7 % High <=5.6 [facility] Comment on above: Result Comment: Norm al < 5.7 % Prediabetic 5.7 - 6.4 % Diabetic >or= 6.5 % Please note range changes. Performed By: #### L 501.9985 #### [facility] [address] [place], [address] Hemoglobin A1c percentageOrd ered By: Mark Stovall on 12-11-2024 HbA1c (Bld) [Mass fraction] 9.7 % High <5.7 [facility] Comment on above: Normal < 5.7 % Predi abetic 5.7 - 6.4 % Diabetic >or= 6.5 % Please note range changes. L3410.9998on 11-16-2024 [facility] Mis. COMMENT Normal . [facility] Comment on above: Order Comment: SERUM ROOM [id number] ACID DECARBOXYLASE Result Comment: Test Ordered: [id number] HARI-65 Autoantibody HARI-65 <5.0 U/mL Reference Range: 0.0-5.0 Performed at: - [facility] [id number] Director Of Government Sales: Nataliia Catalan MD, Phone: [phone] Performed at: - [facility] [address] [id number] Director Of Government Sales: Osiel Vazquez PhD, Phone: [phone] Performed By: #### M [id number] #### [facility] [address] [place], [address] C-Peptideon 11-13-2024 C PEPTIDE 1.9 ng/mL Normal 1.1-4.4 [facility] Comment on above: Order Comment: 308.1 Result Comment: C-Pe ptide reference interval is for fasting patients. Performed at: [facility] [address] [place], [place] [id number] Director Of Government Sales: Osiel Vazquez PhD, Phone: [phone] Performed By: #### L 3410.9998, L501.9985, L502.0250, L501.9520, L500.4100, L501.9310, L3100.7750, L500.4050 ####[facility] [address] [facility] [place], [place], [id number] Hemoglobin A1con 11-13-2024 HbA1c (Bld) [Mass fraction] 9.7 % Normal <=5.6 [facility] Comment on above: Order Comment: 308.1 Performed By: #### M 100.678 #### [facility] [address] [facility] [place], [place], [address] Anion gap in Serum or Plasma Ordered By: Araceli Fernandez on 11-12-2024 Anion gap [Moles/Vol] 14 mmol/L 01-03 [facility] BUN/creatinine ratioOrdered By: Araceli Fernandez on 11-12-2024 Urea nitrogen/Creatinine [Mass ratio] 16.6 mg/mg 06-10 [facility] Bilirubin, totalOrdered By: Araceli Fernandez on 11-12-2024 Bilirubin [Mass/Vol] 0.19 mg/dL 0.00-1.30 [facility] C-peptideOrdered By: Araceli Fernandez on 11-12-2024 C-Peptide 1.9 ng/mL 1.1-4.4 [facility] Comment on above: C-Peptide reference interval is for fasting patients.Performed at: [facility] [place], [place] [id number] Director: Osiel Vazquez PhD, Phone: [phone] Calculated very low density lipoprotein (VLDL) cholesterol measurementOrdered By: Araceli Fernandez on 11-12-2024 Calculated very low density lipoprotein (VLDL) cholesterol measurement 46 mg/dL High 5- [facility] VLDL Cholesterol 46 mg/dL High - [facility] Carbon dioxide, total [Moles /volume] in Central venous bloodOrdered By: Araceli Fernandez on 11-12-2024 CO2 [Moles/Vol] 21.2 mmol/L 21.0-32.0 [facility] Chloride assayOrdered By: Edwin Fernandez on 11-12-2024 Chloride [Moles/Vol] 100 mmol/L 98-108 [facility] Comprehensive Metabolic Prof ilon 11-12-2024 Albumin [Mass/Vol] 3.9 g/dL Normal 3.4-4.8 [facility] Comment on above: Order Comment: 308.1 Performed By: #### L 3410.9998, L501.9985, L502.0250, L501.9520, L500.4100, L501.9310, L3100.7750, L500.4050 ####[facility] [address] [place], [place], [phone] Albumin/Globulin [Mass ratio] 1.3 {ratio} Normal 0.9-2.4 [facility] Comment on above: Order Comment: 308.1 Performed By: #### L 3410.9998, L501.9985, L502.0250, L501.9520, L500.4100, L501.9310, L3100.7750, L500.4050 ####[facility] [address] [place], [place], [phone] ALK PHOS 98 U/L Normal 40-129 [facility] Comment on above: Order Comment: 308.1 Performed By: #### L 3410.9998, L501.9985, L502.0250, L501.9520, L500.4100, L501.9310, L3100.7750, L500.4050 ####[facility] [address] [place], [place], [phone]) ALT [Catalytic activity/Vol] 26 U/L Normal <=46 [facility] Comment on above: Order Comment: 308.1 Performed By: #### L 3410.9998, L501.9985, L502.0250, L501.9520, L500.4100, L501.9310, L3100.7750, L500.4050 ####[facility] [address] [place], [place], [id number] AST [Catalytic activity/Vol] 22 U/L Normal <=37 [facility] Comment on above: Order Comment: 308.1 Performed By: #### L 3410.9998, L501.9985, L502.0250, L501.9520, L500.4100, L501.9310, L3100.7750, L500.4050 ####[facility] [address] [place], [place], [id number] Bilirubin [Mass/Vol] 0.19 mg/dL Normal 0.00-1.30 [facility] Comment on above: Order Comment: 308.1 Performed By: #### L 3410.9998, L501.9985, L502.0250, L501.9520, L500.4100, L501.9310, L3100.7750, L500.4050 ####[facility] [address] [place], [place], [address] BUN/CRE 16.6 RATIO Normal 10-20 [facility] Comment on above: Order Comment: 308.1 Performed By: #### L [id number], L501.9985, L502.0250, L501.9520, L500.4100, L501.9310, L3100.7750, L500.4050 ####[facility] [address] [place], [address] Calcium [Mass/Vol] 9.0 mg/dL Normal 7.6-11.0 [facility] Comment on above: Order Comment: 308.1 Performed By: #### L 3410.9998, L501.9985, L502.0250, L501.9520, L500.4100, L501.9310, L3100.7750, L500.4050 ####[facility] [address] [place], [address] Chloride [Moles/Vol] 100 mmol/L Normal 98-108 [facility] Comment on above: Order Comment: 308.1 Performed By: #### L 3410.9998, L501.9985, L502.0250, L501.9520, L500.4100, L501.9310, L3100.7750, L500.4050 ####[facility] [address] [place], [address] CO2 [Moles/Vol] 21.2 mmol/L Normal 21.0-32.0 [facility] Comment on above: Order Comment: 308.1 Performed By: #### L 3410.9998, L501.9985, L502.0250, L501.9520, L500.4100, L501.9310, L3100.7750, L500.4050 ####[facility] [address] [place], [address] Creatinine [Mass/Vol] 0.91 mg/dL Normal 0.70-1.20 [facility] Comment on above: Order Comment: 308.1 Performed By: #### L 3410.9998, L501.9985, L502.0250, L501.9520, L500.4100, L501.9310, L3100.7750, L500.4050 ####[facility] [address] [place], [address] GAP 14 Normal 5-15 [facility] Comment on above: Order Comment: 308.1 Performed By: #### L [id number], L501.9985, L502.0250, L501.9520, L500.4100, L501.9310, L3100.7750, L500.4050 ####[facility] [address] [place], [address] GFR/1.73 sq M.predicted among non-blacks MDRD (S/P/Bld) [Vol rate/Area] 92 mL/min/{1.73_m2} Normal >60 [facility] Comment on above: Order Comment: 308.1 Result Comment: mL/m in/1.73m2 CKD-EPI Creatinine Equation (2020) Performed By: #### L 3410.9998, L501.9985, L502.0250, L501.9520, L500.4100, L501.9310, L3100.7750, L500.4050 ####[facility] [address] [place], [address] Globulin (S) [Mass/Vol] 3.0 g/dL Normal 2.2-4.2 [facility] Comment on above: Order Comment: 308.1 Performed By: #### L 3410.9998, L501.9985, L502.0250, L501.9520, L500.4100, L501.9310, L3100.7750, L500.4050 ####[facility] [address] [place], [address] Glucose [Mass/Vol] 228 mg/dL High 70-99 [facility] Comment on above: Order Comment: 308.1 Performed By: #### L 3410.9998, L501.9985, L502.0250, L501.9520, L500.4100, L501.9310, L3100.7750, L500.4050 ####[facility] [address] [place], [address] Potassium [Moles/Vol] 4.3 mmol/L Normal 3.3-5.1 [facility] Comment on above: Order Comment: 308.1 Performed By: #### L [id number], L501.9985, L502.0250, L501.9520, L500.4100, L501.9310, L3100.7750, L500.4050 ####[facility] [address] [place], [address] Sodium [Moles/Vol] 135 mmol/L Normal 133-145 [facility] Comment on above: Order Comment: 308.1 Performed By: #### L [id number], L501.9985, L502.0250, L501.9520, L500.4100, L501.9310, L3100.7750, L500.4050 ####[facility] [address] [place], [address] T PROT 7.0 g/dL Normal 5.9-8.4 [facility] Comment on above: Order Comment: 308.1 Performed By: #### L [id number], L501.9985, L502.0250, L501.9520, L500.4100, L501.9310, L3100.7750, L500.4050 ####[facility] [address] [place], [address] Urea nitrogen [Mass/Vol] 15 mg/dL Normal 4-19 [facility] Comment on above: Order Comment: 308.1 Performed By: #### L 3410.9998, L501.9985, L502.0250, L501.9520, L500.4100, L501.9310, L3100.7750, L500.4050 ####[facility] [address] [place], [address] GFR/1.73 sq M.predicted odell g non-blacks MDRD (S/P/Bld) [Vol rate/Area]Ordered By: Araceli Fernandez on 11-12-2024 Estimated GFR (MDRD) Non-Af Amer 92 >60 [facility] Comment on above: mL/min/1.73m2 CKD-EP I Creatinine Equation (2020) Glomerular filtration rate ( GFR) estimation/1.73 sq m using serum, plasma, or whole bOrdered By: Araceli Fernandez on 11-12-2024 GFR/1.73 sq M.predicted among non-blacks MDRD (S/P/Bld) [Vol rate/Area] 92 mL/min/{1.73_m2} >60 [facility] Comment on above: mL/min/1.73m2 CKD-EP I Creatinine Equation (2020) Hemoglobin A1c percentageOrd ered By: Araceli Fernandez on 11-12-2024 HbA1c (Bld) [Mass fraction] 9.7 % >5.7 [facility] LDL calc ser/plasOrdered By: Araceli Fernandez on 11-12-2024 Cholesterol in LDL [Mass/Vol] 90 mg/dL [facility] Comment on above: Hsjrzxfqex=149-653 m g/dL & Higher Ulor=711 mg/dL or greater LDL Cholesterol, Calculated 90 mg/dL [facility] Comment on above: Psfutrfkgl=992-890 m g/dL & Higher Kwyz=733 mg/dL or greater Laboratory - Chemistry and C hemistry - challengeOrdered By: Araceli Fernandez on 11-12-2024 AST [Catalytic activity/Vol] 22 U/L <38 [facility] Lipid Profileon 11-12-2024 CHOL:HDL 5.28 Normal [facility] Comment on above: Order Comment: 308.1 Performed By: #### L 3410.9998, L501.9985, L502.0250, L501.9520, L500.4100, L501.9310, L3100.7750, L500.4050 ####[facility] [address] [place], [place], [id number] Cholesterol [Mass/Vol] 168 mg/dL Normal <=200 [facility] Comment on above: Order Comment: 308.1 Result Comment: Chol esterol level, Desirable <200 mg/dL Borderline high cholesterol 200-239 mg/dL High cholesterol >=240 mg/dL Recommendations of the NCEP Adult Treatment Panel for the following risk-cutoff thresholds for the [place] population. Performed By: #### L 3410.9998, L501.9985, L502.0250, L501.9520, L500.4100, L501.9310, L3100.7750, L500.4050 ####[facility] [address] [place], [address] Cholesterol in HDL [Mass/Vol] 32 mg/dL Low [facility] Comment on above: Order Comment: 308.1 Result Comment: Lakshmi onal Cholesterol Education Program (NCEP) guidelines: <40 mg/dL: Low HDL-cholesterol (major risk factor for CHD) >= 60 mg/dL: High HDL-cholesterol (negative risk factor for CHD) HDL-cholesterol is affected by a number of factors, e.g. smoking, exercise, hormones, sex and age. Performed By: #### L 3410.9998, L501.9985, L502.0250, L501.9520, L500.4100, L501.9310, L3100.7750, L500.4050 ####[facility] [address] [place], [address] Cholesterol in LDL [Mass/Vol] 90 mg/dL Normal [facility] Comment on above: Order Comment: 308.1 Result Comment: Bord iljkon=298-024 mg/dL Higher Nidu=013 mg/dL or greater Performed By: #### L 3410.9998, L501.9985, L502.0250, L501.9520, L500.4100, L501.9310, L3100.7750, L500.4050 ####[facility] [address] [place], [address] Cholesterol in VLDL [Mass/Vol] 46 mg/dL High 5-40 [facility] Comment on above: Order Comment: 308.1 Performed By: #### L 3410.9998, L501.9985, L502.0250, L501.9520, L500.4100, L501.9310, L3100.7750, L500.4050 ####[facility] [address] [place], [address] Triglyceride [Mass/Vol] 232 mg/dL High [facility] Comment on above: Order Comment: 308.1 Result Comment: The drugs N-Acetylcysteine and Metamizole may falsely depress this assay. Normal range: <150 mg/dL Borderline High: 150-199 mg/dL High: 200-499 mg/dL Very High: >500 mg/dL Performed By: #### L 3410.9998, L501.9985, L502.0250, L501.9520, L500.4100, L501.9310, L3100.7750, L500.4050 ####[facility] [address] [place], [place], [id number] Microalb:Creat Ratio,Random URon 11-12-2024 Creatinine [Mass/Vol] 95.30 mg/dL Normal 39.00-259.00 [facility] Comment on above: Performed By: #### L 3410.9998, L501.9985, L502.0250, L501.9520, L500.4100, L501.9310, L3100.7750, L500.4050 ####[facility] [address] [place], [place], [id number] MALB:CREAT UNABLE TO CALCULATE Normal [facility] Comment on above: Performed By: #### L 3410.9998, L501.9985, L502.0250, L501.9520, L500.4100, L501.9310, L3100.7750, L500.4050 ####[facility] [address] [place], [place], [id number] MICROALBUMIN,UR < 12.0 Normal NO RANGE EST. [facility] Comment on above: Performed By: #### L 3410.9998, L501.9985, L502.0250, L501.9520, L500.4100, L501.9310, L3100.7750, L500.4050 ####[facility] [address] [place], [address] No Panel InformationOrdered By: Araceli Fernandez on 11-12-2024 Miscellaneous Test COMMENT . [facility] Comment on above: Test Ordered: [id number] HARI-65 AutoantibodyGAD-65 <5.0 U/mL BN Reference Range: 0.0-5.0Performed at: BN - [facility] [address] [id number] Director: Nataliia Catalan MD, Phone: [phone] at: - [facility] [id number] Director: Osiel Vazquez PhD, Phone: [phone] Potassium (Unsp spec) [Mass/ Vol]Ordered By: Araceli Fernandez on 11-12-2024 Potassium [Moles/Vol] 4.3 mmol/L 3.3-5.1 [facility] Potassium measurement (mass/ volume)Ordered By: Araceli Fernandez on 11-12-2024 Potassium (Unsp spec) [Mass/Vol] 4.3 mmol/L 3.3-5.1 [facility] Screening total cholesterol/ high density lipoprotein (HDL) cholesterol ratioOrdered By: Araceli Fernandez on 11-12-2024 Cholesterol.total/Cholest natividad in HDL [Mass ratio] 5.28 {ratio} [facility] Serum creatinine measurement (mass/volume)Ordered By: Araceli Fernandez on 11-12-2024 Creatinine [Mass/Vol] 0.91 mg/dL 0.70-1.20 [facility] Serum globulin measurementOr dered By: Araceli Fernandez on 11-12-2024 Globulin (S) [Mass/Vol] 3.0 g/dL 2.2-4.2 [facility] Serum glucose measurement (m ass/volume)Ordered By: Araceli Fernandez on 11-12-2024 Glucose [Mass/Vol] 228 mg/dL High 70-99 [facility] Serum or plasma alanine moy otransferase (ALT) measurementOrdered By: Araceli Fernandez on 11-12-2024 ALT [Catalytic activity/Vol] 26 U/L <47 [facility] Serum or plasma albumin karissa urement (mass/volume)Ordered By: Araceli Fernandez on 11-12-2024 Albumin [Mass/Vol] 3.9 g/dL 3.4-4.8 [facility] Serum or plasma albumin/glob ulin mass ratioOrdered By: Araceli Fernandez on 11-12-2024 Albumin/Globulin [Mass ratio] 1.3 {ratio} 0.9-2.4 [facility] Serum or plasma alkaline cyril sphatase measurementOrdered By: Araceli Fernandez on 11-12-2024 ALP [Catalytic activity/Vol] 98 U/L 40-129 [facility] Serum or plasma calcium karissa urement (mass/volume)Ordered By: Araceli Fernandez on 11-12-2024 Calcium [Mass/Vol] 9.0 mg/dL 7.6-11.0 [facility] Serum or plasma cholesterol in HDL measurement (mass/volume)Ordered By: Araceli Fernandez on 11-12-2024 Cholesterol in HDL [Mass/Vol] 32 mg/dL Low >40 [facility] Comment on above: National Cholesterol Education Program (NCEP) guidelines:<40 mg/dL: Low HDL-cholesterol (major risk factor for CHD)>= 60 mg/dL: High HDL-cholesterol (negative risk factor for CHD)HDL-cholesterol is affected by a number of factors, e.g. smoking, exercise, hormones, sex and age. Serum or plasma cholesterol measurement (mass/volume)Ordered By: Araceli Fernandez on 11-12-2024 Cholesterol [Mass/Vol] 168 mg/dL <201 [facility] Comment on above: Cholesterol level, D esirable <200 mg/dLBorderline high cholesterol 200-239 mg/dLHigh cholesterol >=240 mg/dLRecommendations of the NCEP Adult Treatment Panel for the following risk-cutoff thresholds for the [place] population. Serum or plasma urea nitroge n measurement (mass/volume)Ordered By: Araceli Fernandez on 11-12-2024 Urea nitrogen [Mass/Vol] 15 mg/dL 4-19 [facility] Sodium levelOrdered By: Megan Fernandez on 11-12-2024 Sodium [Moles/Vol] 135 mmol/L 133-145 [facility] T4 Total, Thyroxinon 025 T4 [Mass/Vol] 6.1 ug/dL Normal 4.5-12.1 [facility] Comment on above: Order Comment: 308.1 Performed By: #### L 3410.9998, L501.9985, L502.0250, L501.9520, L500.4100, L501.9310, L3100.7750, L500.4050 ####[facility] [address] [place], [place], [id number] TSH DL <= 0.005 mIU/L QnOrde red By: Araceli Fernandez on 11-12-2024 Thyroid Stimulating Hormone (TSH) 1.510 uIU/mL 0.300-4.200 [facility] TSH Qn 1.510 uIU/mL 0.300-4.200 [facility] Thyroid Stim Hormone (TSH)on 11-12-2024 TSH 1.510 uIU/mL Normal 0.300-4.200 [facility] Comment on above: Order Comment: 308.1 Performed By: #### L 3410.9998, L501.9985, L502.0250, L501.9520, L500.4100, L501.9310, L3100.7750, L500.4050 ####[facility] [address] [place], [address] ThyroxineOrdered By: Araceli Fernandez on 11-12-2024 T4 [Mass/Vol] 6.1 ug/dL 4.5-12.1 [facility] Total proteinOrdered By: Sera Fernandez on 11-12-2024 Protein [Mass/Vol] 7.0 g/dL 5.9-8.4 [facility] Triglycerides measurementOrd ered By: Araceli Fernandez on 11-12-2024 Triglyceride [Mass/Vol] 232 mg/dL High <[address] [facility] Comment on above: The drugs N-Acetylcy steine and Metamizole may falsely depress this assay. Normal range: <150 mg/dLBorderline High: 150-199 mg/dLHigh: 200-499 mg/dLVery High: >500 mg/dL Albumin DL <= 20 mg/L (U) [M ass/Vol]Ordered By: Araceli Fernandez on 11-11-2024 Urine Random Microalbumin < 12.0 mg/L NO RANGE EST. [facility] Creatinine Unsp time (U) [Ma ss/Vol]Ordered By: Araceli Fernandez on 11-11-2024 Creatinine (U) [Mass/Vol] 95.30 mg/dL 39.00-259 .00 [facility] Microalbumin/creat ratio urO rdered By: Araceli Fernandez on 11-11-2024 Urine Microalbumin/Creatinine Ratio UNABLE TO CALCULATE mg/g CRE [facility] Urine microalbumin/creatinine ratio measurement UNABLE TO CALCULATE mg/g CRE [facility] Random urine creatinine karissa urement (mass/volume)Ordered By: Araceli Fernandez on 11-11-2024 Creatinine Unsp time (U) [Mass/Vol] 95.30 mg/dL 39.00-259.00 [facility] Urine albumin measurement [facility] detection limit of 20 mg/L or less (mass/volume)Ordered By: Araceli Fernandez on 11-11-2024 Albumin DL <= 20 mg/L (U) [Mass/Vol] < 12.0 mg/L NO RANGE EST. [facility] 12 Lead EKGon 10-03-2024 12 Lead EKG [facility] Cardiovascular Services [address] [place] [address] 12 Lead EKG 10/03/24 2156 MR#: [id number] Acct: [id number] Name: SNEHA ROBLERO Jr. Rep #: [id number] : 1955 69 From: David Oscar MD [...] ECG Confirmed by DWIGHT PINZON, OSCAR ([id number]), editor house organ ROBERT HADDAD ([id number]) on 10/05/2024 1:02:29 PM Referred By: JW Confirmed By: OSCAR OSCAR MD 10/05/24 1302 Date David Oscar MD CC: Dr. Mohsen [place] MD; Dr. Ayo Uriostegui MD Signed Normal [facility] Absolute lymphocyte countOrd ered By: Mohsen [place] on 10-03-2024 Lymphocytes Auto (Unsp spec) [#/Vol] 2.23 10*3/uL 0.83-4.51 [facility] Absolute neutrophil countOrd ered By: Mohsen [place] on 10-03-2024 Neutrophils (Bld) [#/Vol] 4.0 10*3/uL 2.0-7.7 [facility] Automated lymphocyte count a s percentage of total leukocytesOrdered By: Mohsen [place] on 10-03-2024 Lymphocytes/100 WBC Auto (Unsp spec) 32.3 % 19-41 [facility] Basic Metabolic Profile (BMP )on 10-03-2024 BUN/CRE 15.5 RATIO Normal 10-20 [facility] Comment on above: Order Comment: 'TROP ' Serial specimen #1, #2 or #3: 1 Performed By: #### L 501.4020, L500.2500, L100.0100 #### [facility] [address] [place], [address] CA,Total 8.6 mg/dL Normal 8.5-10.1 [facility] Comment on above: Order Comment: 'TROP ' Serial specimen #1, #2 or #3: 1 Performed By: #### L 501.4020, L500.2500, L100.0100 #### [facility] [address] [place], [address] Chloride [Moles/Vol] 103 mmol/L Normal 98-107 [facility] Comment on above: Order Comment: 'TROP ' Serial specimen #1, #2 or #3: 1 Performed By: #### L 501.4020, L500.2500, L100.0100 #### [facility] [address] [place], [address] CO2 [Moles/Vol] 26.0 mmol/L Normal 21.0-32.0 [facility] Comment on above: Order Comment: 'TROP ' Serial specimen #1, #2 or #3: 1 Performed By: #### L 501.4020, L500.2500, L100.0100 #### [facility] [address] [place], [address] Creatinine [Mass/Vol] 0.90 mg/dL Normal 0.70-1.30 [facility] Comment on above: Order Comment: 'TROP ' Serial specimen #1, #2 or #3: 1 Result Comment: The validity of the calculated GFR GFRAA in patients over 70 years has not been determined. Clinical correlation is essential. Performed By: #### L 501.4020, L500.2500, L100.0100 #### [facility] [address] [place], [address] ECRCL 96.05 ml/min Normal [facility] Comment on above: Order Comment: 'TROP ' Serial specimen #1, #2 or #3: 1 Performed By: #### L 501.4020, L500.2500, L100.0100 #### [facility] [address] [place], [address] EST GFR - AA 108 mL/min Normal >60 [facility] Comment on above: Order Comment: 'TROP ' Serial specimen #1, #2 or #3: 1 Result Comment: Afri can Russian GFR Calc Performed By: #### L 501.4020, L500.2500, L100.0100 #### [facility] [address] [place], [address] GAP 7 Normal 5-15 [facility] Comment on above: Order Comment: 'TROP ' Serial specimen #1, #2 or #3: 1 Performed By: #### L 501.4020, L500.2500, L100.0100 #### [facility] [address] [place], [address] GFR/1.73 sq M.predicted among non-blacks MDRD (S/P/Bld) [Vol rate/Area] 89 mL/min/{1.73_m2} Normal >60 [facility] Comment on above: Order Comment: 'TROP ' Serial specimen #1, #2 or #3: 1 Result Comment: Non- GFR Calc Performed By: #### L 501.4020, L500.2500, L100.0100 #### [facility] [address] [place], [address] Glucose [Mass/Vol] 174 mg/dL High 74-106 [facility] Comment on above: Order Comment: 'TROP ' Serial specimen #1, #2 or #3: 1 Result Comment: Fast ing Glucose result greater than or equal to 126 mg/dL suggests DIABETES MELLITUS per A.D.A. criteria. Performed By: #### L 501.4020, L500.2500, L100.0100 #### [facility] [address] [place], [address] Potassium [Moles/Vol] 3.9 mmol/L Normal 3.5-5.1 [facility] Comment on above: Order Comment: 'TROP ' Serial specimen #1, #2 or #3: 1 Performed By: #### L 501.4020, L500.2500, L100.0100 #### [facility] [address] [place], [address] Sodium [Moles/Vol] 136 mmol/L Normal 136-145 [facility] Comment on above: Order Comment: 'TROP ' Serial specimen #1, #2 or #3: 1 Performed By: #### L 501.4020, L500.2500, L100.0100 #### [facility] [address] [place], [address] Urea nitrogen [Mass/Vol] 14 mg/dL Normal 7-18 [facility] Comment on above: Order Comment: 'TROP ' Serial specimen #1, #2 or #3: 1 Performed By: #### L 501.4020, L500.2500, L100.0100 #### [facility] [address] [place], [address] Basophil percentageOrdered B y: Mohsen [place] on 10-03-2024 Basophils/100 WBC (Bld) 0.4 % 0-[address] [facility] Blood manual differential co mment interpretation (narrative result)Ordered By: Mohsen [place] on 10-03-2024 Manual differential comment Jayme (Bld) [Interp] SCANNED [facility] Blood urea nitrogen (BUN)/cr eatinine ratioOrdered By: Mohsen [place] on 10-03-2024 Urea nitrogen/Creatinine [Mass ratio] 15.5 mg/mg 10-20 [facility] CBC W/Diff, Automatedon 09-22 SMEAR COMMENT SCANNED Normal [facility] Comment on above: Performed By: #### L 501.4020, L500.2500, L100.0100 #### [facility] [address] [place], [address] Carbon dioxide measurementOr dered By: Mohsen [place] on 10-03-2024 CO2 [Moles/Vol] 26.0 mmol/L 21.0-32.0 [facility] Chest PA and Lateralon 10-03 Chest PA and Lateral [facility] Imaging Services [address] [place] [address] Chest PA and Lateral MR#: [id number] Acct: [id number] Name: SNEHA ROBLERO Jr. Rep #: [id number] : 1955 M 69 From: [facility] DO PCP: Dr. Ayo Uriostegui MD Status: REG ER Study: Chest PA and Lateral Date of Exam: 10/03/24 Exam# [id number] Ordering Dr: Mohsen [place] MD PROCEDURE: CHEST [...] IMPRESSION: No acute cardiopulmonary process. Reading Location: [facility] CC: Dr. Mohsen [place] MD; Dr. Ayo Uriostegui MD Assistant Child Care Teacher: Signed Normal [facility] Chloride measurementOrdered By: Mohsen Colroado on 10-03-2024 Chloride [Moles/Vol] 103 mmol/L 98-107 [facility] D-Dimer Quantitative (DVT/PE )on 10-03-2024 D-DIMER QUANT 0.45 FEU/ug/m Normal 0.27-0.49 [facility] Comment on above: Result Comment: NORM AL D-Dimer level (<0.50) indicates no DVT or PE. Performed By: #### L 300.8000 ####[facility] [address] [facility] [place], [address] D-dimer measurement for deep venous thrombosisOrdered By: Mohsen [place] on 10-03-2024 D-Dimer Quantitative (PE/DVT) 0.45 FEU/ug/m 0.27-0.49 [facility] Comment on above: NORMAL D-Dimer level (<0.50) indicates no DVT or PE. Emergency Department Summary on 10-03-2024 Emergency Department Summary [facility] Medical Records Department [address] [place] [address] Emergency Department Summary 10/03/24 MR#: [id number] Acct: [id number] Name: SNEHA ROBLERO JrMaryam Rep #: [id number] : 1955 69 From: Mohsen [place] MD [...] of diabetes. Patient is a resident of [facility]. States has been short of breath since [...] similar symptoms: No Recent Illness[facility] t[facility] Medical History (Updated 10/04/24 @ 00:19 by [...] Back nontender. Moving all 4 extremities. Normal hemodialysis charge nurse strength. Normal dorsi plantarflexion. Calves are nontender [...] (L/min) 4 4 2 10/03/24 22:19 10/03/24 22:10/03/24 22:28 Temperature Temperature Source Pulse Rate 101 H 105 H (more content not included)... Normal [facility] Eosinophil percentageOrdered By: Mohsen [place] on 10-03-2024 Eosinophils/100 WBC (Bld) 0.4 % 0-5 [facility] Erythrocyte distribution wid th (RBC) [Ratio]Ordered By: Mohsen [place] on 10-03-2024 Erythrocyte distribution width (RBC) [Entitic vol] 43.8 fL 35.1-43.9 [facility] Erythrocyte distribution wid th ratioOrdered By: Mohsen [place] on 10-03-2024 Erythrocyte distribution width (RBC) [Ratio] 13.3 % 11.6-14.6 [facility] Erythrocyte distribution wid th standard deviationOrdered By: Mohsen [place] on 10-03-2024 Erythrocyte distribution width (RBC) [Ratio] 43.8 fl 35.1-43.9 [facility] Estimated glomerular filtrat ion rate (GFR) AmericanOrdered By: Mohsen [place] on 10-03-2024 Estimated GFR (MDRD) Amer 108 mL/min >60 [facility] Comment on above: GFR Calc Estimation of creatinine agus aranceOrdered By: Mohsen [place] on 10-03-2024 Estimated Creatinine Clearance Calc 96.05 ml/min [facility] Glomerular filtration rate ( GFR) estimationOrdered By: Mohsen [place] on 10-03-2024 Estimated GFR (MDRD) Non-Af Amer 89 mL/min >60 [facility] Comment on above: Non- GFR Calc GFR/1.73 sq M.predicted among non-blacks MDRD (S/P/Bld) [Vol rate/Area] 89 mL/min/{1.73_m2} >60 [facility] Comment on above: Non- GFR Calc Glucose measurementOrdered B y: oMhsen [place] on 10-03-2024 Glucose [Mass/Vol] 174 mg/dL High 74-106 [facility] Comment on above: Fasting Glucose resu lt greater than or equal to 126 mg/dL suggests DIABETES MELLITUS per A.D.A. criteria. Hematocrit Auto (Bld) [Volum e fraction]Ordered By: Mohsen [place] on 10-03-2024 Hematocrit (Bld) [Volume fraction] 39.6 % Low 40-54 [facility] Hemoglobin measurementOrdere d By: Mohsen [place] on 10-03-2024 Hemoglobin (Bld) [Mass/Vol] 13.3 g/dL 13.0-16.5 [facility] Immature granulocytes/100 WB C Auto (Bld)Ordered By: Mohsen [place] on 10-03-2024 Immature granulocytes/100 WBC (Bld) 0.300 % 0.0-0.9 [facility] Comment on above: IG% - Immature Granu locytes (promyelocytes, myelocytes and metamyelocytes) > 1% indicates that a LEFT SHIFT is Present. Influenza virus A and B and SARS-CoV-2 (COVID-19) and Respiratory syncytial virus RNAOrdered By: Mohsen [place] on 10-03-2024 SARS-CoV-2 (COVID-19) RNA DIXON+probe Ql (Unsp spec) [facility] [id number] 10-03-2024 TROPONIN-I HS 5 pg/mL Normal 3.0-78.0 [facility] Comment on above: Order Comment: 'TROP ' Serial specimen #1, #2 or #3: 1 Result Comment: Plea se Note: New Test Units and Gender Specific Reference Ranges. For more information see Policy Stat Procedure [place] High Sensitivity Troponin (TNIH) and attachments. Performed By: #### L 501.4020, L500.2500, L100.0100 #### [facility] [address] [place], [address] Lymphocytes Auto (Unsp spec) [#/Vol]Ordered By: Mohsen Colorado on 10-03-2024 Lymphocytes (Bld) [#/Vol] 2.23 10*3/uL 0.83-4.5 1 [facility] Lymphocytes/100 WBC Auto (Un sp spec)Ordered By: Mohsen [place] on 10-03-2024 Lymphocytes/100 WBC (Bld) 32.3 % 19-41 [facility] M100.678on 10-03-2024 M100.678 Normal Reference Range = Negative FLUABV+SARS-CoV-2+R SV Pnl Resp DIXON+probe GeneXpert Instrument, PCR method SARS-CoV-2 (COVID 19) Negative INFLUENZA A Negative INFLUENZA B Negative RSV PCR Negative Normal [facility] Comment on above: Performed By: #### M 100.678 #### [facility] [place], [address] MCV (mean corpuscular volume ) determinationOrdered By: Mohsen Colorado on 10-03-2024 MCV (RBC) [Entitic vol] 89.6 fL 80-[address] [facility] Manual differential comment Jayme (Bld) [Interp]Ordered By: Mohsen Colorado on 10-03-2024 Differential Comment SCANNED [facility] Mean corpuscular hemoglobin (MCH) determinationOrdered By: Mohsen Colorado on 10-03-2024 MCH (RBC) [Entitic mass] 30.1 pg 27.0-32.0 [facility] Mean corpuscular hemoglobin concentration (MCHC) determinationOrdered By: Mohsen [place] on 10-03-2024 MCHC (RBC) [Mass/Vol] 33.6 g/dL 32-36 [facility] Mean platelet volume determi nationOrdered By: Mohsen Colorado on 10-03-2024 Platelet mean volume (Bld) [Entitic vol] 9.8 fL 6.2-12.0 [facility] Monocyte percentageOrdered B y: Mohsen Colorado on 10-03-2024 Monocytes/100 WBC (Bld) 9.4 % 0-[address] [facility] Neutrophil percentageOrdered By: Mohsen Colorado on 10-03-2024 Neutrophils/100 WBC (Bld) 57.2 % 47-70 [facility] Nucleated red blood cell per centageOrdered By: Mohsen [place] on 10-03-2024 Nucleated RBC/100 WBC (Bld) [Ratio] 0 % 0-5 [facility] Platelet countOrdered By: Hussain Colorado on 10-03-2024 Platelets (Bld) [#/Vol] 249 10*3/uL 150-450 [facility] Potassium measurementOrdered By: Mohsen [place] on 10-03-2024 Potassium [Moles/Vol] 3.9 mmol/L 3.5-5.1 [facility] RBC Auto (Bld) [#/Vol]Ordere d By: Mohsen [place] on 10-03-2024 RBC (Bld) [#/Vol] 4.42 10*6/uL Low 4.6-6.2 [facility] Serum anion gap measurementO rdered By: Mohsen [place] on 10-03-2024 Anion gap [Moles/Vol] 7 mmol/L 5-15 [facility] Serum or plasma calcium karissa urement (mass/volume)Ordered By: Mohsen Colorado on 10-03-2024 Calcium [Mass/Vol] 8.6 mg/dL 8.5-10.1 [facility] Serum or plasma creatinine m easurement (mass/volume)Ordered By: Mohsen [place] on 10-03-2024 Creatinine [Mass/Vol] 0.90 mg/dL 0.70-1.30 [facility] Comment on above: The validity of the calculated GFR & GFRAA in patients over 70 years has not been determined. Clinical correlation is essential. Serum or plasma urea nitroge n measurement (mass/volume)Ordered By: Mohsen Colorado on 10-03-2024 Urea nitrogen [Mass/Vol] 14 mg/dL 7-18 [facility] Sodium levelOrdered By: Mohsen Colorado on 10-03-2024 Sodium [Moles/Vol] 136 mmol/L 136-145 [facility] Troponin IOrdered By: Mohsen banks on 10-03-2024 Troponin I 5 pg/mL 3.0-78.0 [facility] Comment on above: Please Note: New [place] t Units and Gender Specific Reference Ranges. For more information see Policy Stat Procedure [place] High Sensitivity Troponin (TNIH) and attachments. Troponin I High Sensitivity 5 pg/mL 3.0-78.0 [facility] Comment on above: Please Note: New [place] t Units and Gender Specific Reference Ranges. For more information see Policy Stat Procedure [place] High Sensitivity Troponin (TNIH) and attachments. White blood cell (WBC) count Ordered By: Mohsen Colorado on 10-03-2024 WBC (Bld) [#/Vol] 6.9 10*3/uL 4.4-11.0 [facility] Hemoglobin A1con 09-13-2024 HbA1c (Bld) [Mass fraction] 10.5 % High 3.8-5.6 [facility] Comment on above: Order Comment: 304.1 Result Comment: Norm al < 5.7 % Prediabetic 5.7 - 6.4 % Diabetic >or= 6.5 % Please note range changes. Performed By: #### L 501.9985 ####[facility] [address] [place], [address] Hemoglobin A1c percentageOrd ered By: Araceli Fernandez on 09-13-2024 HbA1c (Bld) [Mass fraction] 10.5 % High 3.8-5.6 [facility] Comment on above: Normal < 5.7 % Predi abetic 5.7 - 6.4 % Diabetic >or= 6.5 % Please note range changes. Hemoglobin A1con 03-19-2024 HbA1c (Bld) [Mass fraction] 8.8 % High 3.8-5.6 [facility] Comment on above: Order Comment: 511- Result Comment: Norm al < 5.7 % Prediabetic 5.7 - 6.4 % Diabetic >or= 6.5 % Please note range changes. Performed By: #### L 501.9985, L500.4100 ####[facility] [address] [place], [address] Lipid Profileon 03-19-2024 Cholesterol [Mass/Vol] 148 mg/dL Normal 200 [facility] Comment on above: Order Comment: 511-1 Result Comment: <200 mg/dL Desirable 200-240 mg/dL Borderline >240 mg/dL High Risk Performed By: #### L 501.9985, L500.4100 ####[facility] [address] [place], [address] Cholesterol in HDL [Mass/Vol] 30 mg/dL Low [facility] Comment on above: Order Comment: 511-1 Result Comment: The drugs N-Acetylcysteine and Metamizole may falsely depress this assay. Reference Range HDL <40 mg/dL Low HDL Cholesterol HDL >or= 60 mg/dL High HDL Cholesterol Performed By: #### L 501.9985, L500.4100 ####[facility] [address] [place], [address] Cholesterol in LDL [Mass/Vol] 76 mg/dL Normal 0-130 [facility] Comment on above: Order Comment: 511-1 Performed By: #### L 501.9985, L500.4100 ####[facility] [address] [place], [address] Cholesterol in VLDL [Mass/Vol] 42 mg/dL High 5-40 [facility] Comment on above: Order Comment: 511-1 Performed By: #### L [id number], L500.4100 ####[facility] [address] [place], [address] Triglyceride [Mass/Vol] 210 mg/dL High [facility] Comment on above: Order Comment: 511-1 Result Comment: The drugs N-Acetylcysteine and Metamizole may falsely depress this assay. Serum Triglycerides Reference Interval Normal <150 mg/dL Borderline high 150 - 199 mg/dL High 200 - 499 mg/dL Very High > or = 500 mg/dL Performed By: #### L 501.9985, L500.4100 ####[facility] [address] [place], [address] CBC W/Diff, Automatedon 07-2 -2023 Absolute Lymph 2.71 X10 3/uL Normal 0.83-4.51 [facility] Comment on above: Performed By: #### L [id number], L100.0100 #### [facility] [address] [place], [address] Absolute Neut 6.1 X10 3/uL Normal 2.0-7.7 [facility] Comment on above: Performed By: #### L [id number], L100.0100 #### [facility] [address] [place], [address] Basophils/100 WBC (Bld) 0.4 % Normal 0-[address] [facility] Comment on above: Performed By: #### L [id number], L100.0100 #### [facility] [address] [place], [address] Eosinophils/100 WBC (Bld) 4.4 % Normal 0-5 [facility] Comment on above: Performed By: #### L 500.4050, L100.0100 #### [facility] [address] [place], [address] Erythrocyte distribution width (RBC) [Ratio] 13.2 % Normal 11.6-14.6 [facility] Comment on above: Performed By: #### L [id number], L100.0100 #### [facility] [address] [place], [address] Hematocrit (Bld) [Volume fraction] 42.9 % Normal 40-54 [facility] Comment on above: Performed By: #### L [id number], L100.0100 #### [facility] [address] [place], [address] Hemoglobin (Bld) [Mass/Vol] 14.0 g/dL Normal 13.0-16.5 [facility] Comment on above: Performed By: #### L [id number], L100.0100 #### [facility] [address] [place], [address] IG% 0.500 Normal 0.0-0.9 [facility] Comment on above: Result Comment: IG% - Immature Granulocytes (promyelocytes, myelocytes and metamyelocytes) > 1% indicates that a LEFT SHIFT is Present. Performed By: #### L 500.4050, L100.0100 #### [facility] [address] [place], [address] Lymphocytes/100 WBC (Bld) 26.9 % Normal 19-41 [facility] Comment on above: Performed By: #### L 500.4050, L100.0100 #### [facility] [address] [place], [address] MCH (RBC) [Entitic mass] 30.2 pg Normal 27.0-32.0 [facility] Comment on above: Performed By: #### L 500.4050, L100.0100 #### [facility] [address] [place], [address] MCHC (RBC) [Mass/Vol] 32.6 g/dL Normal 32-36 [facility] Comment on above: Performed By: #### L [id number], L100.0100 #### [facility] [address] [place], [address] MCV (RBC) [Entitic vol] 92.5 fL Normal 80-[address] [facility] Comment on above: Performed By: #### L [id number], L100.0100 #### [facility] [address] [place], [address] Monocytes/100 WBC (Bld) 7.7 % Normal 0-10 [facility] Comment on above: Performed By: #### L [id number], L100.0100 #### [facility] [address] [place], [address] Neutrophils/100 WBC (Bld) 60.1 % Normal 47-70 [facility] Comment on above: Performed By: #### L [id number], L100.0100 #### [facility] [address] [place], [address] Nucleated RBC (Bld) [#/Vol] 0 10*3/uL Normal 0-5 [facility] Comment on above: Performed By: #### L [id number], L100.0100 #### [facility] [address] [place], [address] Platelet mean volume (Bld) [Entitic vol] 10.3 fL Normal 6.2-12.0 [facility] Comment on above: Performed By: #### L [id number], L100.0100 #### [facility] [address] [place], [address] Platelets (Bld) [#/Vol] 251 10*3/uL Normal 150-450 [facility] Comment on above: Performed By: #### L [id number], L100.0100 #### [facility] [address] [place], [address] RBC (Bld) [#/Vol] 4.64 10*6/uL Normal 4.6-6.2 [facility] Comment on above: Performed By: #### L 500.4050, L100.0100 #### [facility] [address] [place], [address] RDW SD 44.3 fl High 35.1-43.9 [facility] Comment on above: Performed By: #### L 500.4050, L100.0100 #### [facility] [address] [place], [address] WBC (Bld) [#/Vol] 10.1 10*3/uL Normal 4.4-11.0 [facility] Comment on above: Performed By: #### L 500.4050, L100.0100 #### [facility] [address] [place], [address] Comprehensive Metabolic Prof [facility] 03-12-2024 Albumin [Mass/Vol] 3.6 g/dL Normal 3.2-5.0 [facility] Comment on above: Performed By: #### L 500.4050, L100.0100 #### [facility] [address] [place], [address] Albumin/Globulin [Mass ratio] 0.9 {ratio} Normal 0.9-2.4 [facility] Comment on above: Performed By: #### L 500.4050, L100.0100 #### [facility] [address] [place], [address] ALK P 117 U/L Normal 45-117 [facility] Comment on above: Performed By: #### L 500.4050, L100.0100 #### [facility] [address] [place], [address] ALT [Catalytic activity/Vol] 36 U/L Normal 16-61 [facility] Comment on above: Performed By: #### L 500.4050, L100.0100 #### [facility] [address] [place], [address] AST [Catalytic activity/Vol] 20 U/L Normal 15-37 [facility] Comment on above: Performed By: #### L 500.4050, L100.0100 #### [facility] [address] [place], [address] Bilirubin [Mass/Vol] 0.30 mg/dL Normal 0.20-1.00 [facility] Comment on above: Result Comment: For patients on eltrombopag therapy, use of Dimension [place] TBIL is not recommended. Performed By: #### L 500.4050, L100.0100 #### [facility] [address] [place], [address] BUN/CRE 15.1 RATIO Normal 10-20 [facility] Comment on above: Performed By: #### L 500.4050, L100.0100 #### [facility] [address] [place], [address] CA,Total 8.6 mg/dL Normal 8.5-10.1 [facility] Comment on above: Performed By: #### L 500.4050, L100.0100 #### [facility] [address] [place], [address] Chloride [Moles/Vol] 101 mmol/L Normal 98-107 [facility] Comment on above: Performed By: #### L 500.4050, L100.0100 #### [facility] [address] [place], [address] CO2 [Moles/Vol] 28.0 mmol/L Normal 21.0-32.0 [facility] Comment on above: Performed By: #### L 500.4050, L100.0100 #### [facility] [address] [place], [address] Creatinine [Mass/Vol] 0.99 mg/dL Normal 0.70-1.30 [facility] Comment on above: Result Comment: The validity of the calculated GFR GFRAA in patients over 70 years has not been determined. Clinical correlation is essential. Performed By: #### L 500.4050, L100.0100 #### [facility] [address] [place], [address] EST GFR - AA 97 mL/min Normal >60 [facility] Comment on above: Result Comment: Afri can [place] GFR Calc Performed By: #### L 500.4050, L100.0100 #### [facility] [address] [place], [address] GAP 7 Normal 5-15 [facility] Comment on above: Performed By: #### L 500.4050, L100.0100 #### [facility] [address] [place], [address] GFR/1.73 sq M.predicted among non-blacks MDRD (S/P/Bld) [Vol rate/Area] 80 mL/min/{1.73_m2} Normal >60 [facility] Comment on above: Result Comment: Non- GFR Calc Performed By: #### L 500.4050, L100.0100 #### [facility] [address] [place], [address] Globulin (S) [Mass/Vol] 3.9 g/dL Normal 2.2-4.2 [facility] Comment on above: Performed By: #### L 500.4050, L100.0100 #### [facility] [address] [place], [address] Glucose [Mass/Vol] 179 mg/dL High 74-106 [facility] Comment on above: Result Comment: Fast ing Glucose result greater than or equal to 126 mg/dL suggests DIABETES MELLITUS per A.D.A. criteria. Performed By: #### L 500.4050, L100.0100 #### [facility] [address] [place], [address] Potassium [Moles/Vol] 3.8 mmol/L Normal 3.5-5.1 [facility] Comment on above: Performed By: #### L 500.4050, L100.0100 #### [facility] [address] [place], [address] Sodium [Moles/Vol] 136 mmol/L Normal 136-145 [facility] Comment on above: Performed By: #### L 500.4050, L100.0100 #### [facility] [address] [place], [address] T PROT 7.5 g/dL Normal 6.4-8.2 [facility] Comment on above: Performed By: #### L 500.4050, L100.0100 #### [facility] [address] [place], [address] Urea nitrogen [Mass/Vol] 15 mg/dL Normal 7-18 [facility] Comment on above: Performed By: #### L 500.4050, L100.0100 #### [facility] [address] [place], [address] Basophil percentageOrdered B y: Ayo Uriostegui on 09-19-2023 Cholesterol [Mass/Vol] 139 mg/dL <200 [facility] Comment on above: <200 mg/dL Desirable 200-240 mg/dL Borderline >240 mg/dL High Risk Triglyceride [Mass/Vol] 201 mg/dL <[address] [facility] Comment on above: The drugs N-Acetylcy steine and Metamizole may falsely depress this assay.Serum Triglycerides Reference Interval Normal <150 mg/dL Borderline high 150 - 199 mg/dL High 200 - 499 mg/dL Very High > or = 500 mg/dL Laboratory - Chemistry and C hemistry - challengeOrdered By: Ayo Uriostegui on 09-19-2023 Cholesterol in HDL (Body fld) [Mass/Vol] 30 mg/dL >40 [facility] Comment on above: The drugs N-Acetylcy steine and Metamizole may falsely depress this assay. Reference Range HDL <40 mg/dL Low HDL Cholesterol HDL >or= 60 mg/dL High HDL Cholesterol Cholesterol in LDL (Body fld) [Moles/Vol] 69 mg/dL 0-130 [facility] Cholesterol in VLDL Calc [Moles/Vol] 40 mg/dL 5-40 [facility] Whole blood hemoglobin A1c/t otal hemoglobin ratio (mass fraction)Ordered By: Ayo Uriostegui on 09-19-2023 HbA1c (Bld) [Mass fraction] 7.5 % 3.8-5.6 [facility] Comment on above: Normal < 5.7 % Predi abetic 5.7 - 6.4 % Diabetic >or= 6.5 % Please note range changes. Whole blood hemoglobin A1c/t otal hemoglobin ratio (mass fraction)Ordered By: Ayo Uriostegui on 06-21-2023 HbA1c (Bld) [Mass fraction] 7.3 % 3.8-5.6 [facility] Comment on above: Normal < 5.7 % Predi abetic 5.7 - 6.4 % Diabetic >or= 6.5 % Please note range changes. Whole blood hemoglobin A1c/t otal hemoglobin ratio (mass fraction)Ordered By: Ayo Uriostegui on 03-23-2023 HbA1c (Bld) [Mass fraction] 6.7 % 3.8-5.6 [facility] Comment on above: Normal < 5.7 % Predi abetic 5.7 - 6.4 % Diabetic >or= 6.5 % Please note range changes. Basophil percentageOrdered B y: Ayo Uriostegui on 03-21-2023 Cholesterol [Mass/Vol] 117 mg/dL <200 [facility] Comment on above: <200 mg/dL Desirable 200-240 mg/dL Borderline >240 mg/dL High Risk Triglyceride [Mass/Vol] 162 mg/dL <[address] [facility] Comment on above: The drugs N-Acetylcy steine and Metamizole may falsely depress this assay.Serum Triglycerides Reference Interval Normal <150 mg/dL Borderline high 150 - 199 mg/dL High 200 - 499 mg/dL Very High > or = 500 mg/dL Serum or plasma cholesterol in HDL measurement (mass/volume)Ordered By: Ayo Uriostegui on 03-21-2023 Cholesterol in HDL [Mass/Vol] 28 mg/dL >40 [facility] Comment on above: The drugs N-Acetylcy steine and Metamizole may falsely depress this assay. Reference Range HDL <40 mg/dL Low HDL Cholesterol HDL >or= 60 mg/dL High HDL Cholesterol Serum or plasma cholesterol in VLDL measurement (mass/volume)Ordered By: Ayo Uriostegui on 03-21-2023 Cholesterol in VLDL [Mass/Vol] 32 mg/dL 5-40 [facility] Serum or plasma low density lipoprotein (LDL) cholesterol measurement (mass/volume)Ordered By: Ayo Uriostegui on 03-21-2023 Cholesterol in LDL [Mass/Vol] 57 mg/dL 0-130 [facility] Absolute lymphocyte countOrd ered By: Ayo Uriostegui on 03-11-2023 Lymphocytes Auto (Unsp spec) [#/Vol] 2.17 10*3/uL 0.83-4.51 [facility] Basophil percentageOrdered B y: Ayo Uriostegui on 03-11-2023 Basophils/100 WBC (Bld) 0.6 % 0-[address] [facility] Bilirubin [Mass/Vol] 0.30 mg/dL 0.20-1.00 [facility] Comment on above: For patients on eltr ombopag therapy, use of Dimension [place] TBIL is not recommended. Chloride [Moles/Vol] 107 mmol/L 98-107 [facility] Eosinophils/100 WBC (Bld) 3.5 % 0-5 [facility] Glucose [Mass/Vol] 128 mg/dL 74-106 [facility] Comment on above: Fasting Glucose resu lt greater than or equal to 126 mg/dL suggests DIABETES MELLITUS per A.D.A. criteria. Neutrophils (Bld) [#/Vol] 4.8 10*3/uL 2.0-7.7 [facility] Neutrophils/100 WBC (Bld) 59.5 % 47-70 [facility] Potassium [Moles/Vol] 3.7 mmol/L 3.5-5.1 [facility] Protein [Mass/Vol] 7.3 g/dL 6.4-8.2 [facility] Sodium [Moles/Vol] 139 mmol/L 136-145 [facility] WBC (Bld) [#/Vol] 8.0 10*3/uL 4.4-11.0 [facility] Blood erythrocytes count (nu mber/volume)Ordered By: Ayo Uriostegui on 03-11-2023 RBC (Bld) [#/Vol] 4.62 10*6/uL 4.6-6.2 [facility] Blood hemoglobin measurement (mass/volume)Ordered By: Ayo Uriostegui on 03-11-2023 Hemoglobin (Bld) [Mass/Vol] 14.0 g/dL 13.0-16.5 [facility] Blood lymphocytes/100 leukoc ytesOrdered By: Ayo Uriostegui on 03-11-2023 Lymphocytes/100 WBC (Bld) 27.1 % 19-41 [facility] Blood monocytes/100 leukocyt esOrdered By: Ayo Uriostegui on 03-11-2023 Monocytes/100 WBC (Bld) 8.9 % 0-[address] [facility] Blood platelet mean volumeOr dered By: Ayo Uriostegui on 03-11-2023 Platelet mean volume (Bld) [Entitic vol] 10.0 fL 6.2-12.0 [facility] Determination of erythrocyte mean corpuscular volume (MCV)Ordered By: Ayo Uriostegui on 03-11-2023 MCV (RBC) [Entitic vol] 92.4 fL 80-[address] [facility] Hematocrit Auto (Bld) [Volum e fraction]Ordered By: Ayo Uriostegui on 03-11-2023 Hematocrit (Bld) [Volume fraction] 42.7 % 40-54 [facility] - Chemistry and C hemistry - challengeOrdered By: Ayo Uriostegui on 03-11-2023 ALP [Catalytic activity/Vol] 104 U/L 45-117 [facility] ALT [Catalytic activity/Vol] 36 U/L 16-61 [facility] CO2 [Moles/Vol] 25.0 mmol/L 21.0-32.0 [facility] Globulin (S) [Mass/Vol] 3.7 g/dL 2.2-4.[address] [facility] Urea nitrogen/Creatinine [Mass ratio] 14.3 mg/mg 10-20 [facility] - Hematology and Cell countsOrdered By: Ayo Uriostegui on 03-11-2023 Erythrocyte distribution width (RBC) [Entitic vol] 45.1 fL 35.1-43.9 [facility] Erythrocyte distribution width (RBC) [Ratio] 13.2 % 11.6-14.6 [facility] Immature granulocytes/100 WBC (Bld) 0.400 % 0.0-0.9 [facility] Comment on above: IG% - Immature Granu locytes (promyelocytes, myelocytes and metamyelocytes) > 1% indicates that a LEFT SHIFT is Present. MCH (RBC) [Entitic mass] 30.3 pg 27.0-32.0 [facility] Nucleated RBC/100 WBC (Bld) [Ratio] 0 % 0-5 [facility] MCHC Auto (RBC) [Mass/Vol]Or dered By: Ayo Uriostegui on 03-11-2023 MCHC (RBC) [Mass/Vol] 32.8 g/dL 32-36 [facility] No Panel InformationOrdered By: Ayo Uriostegui on 03-11-2023 Estimated GFR (MDRD) Amer 118 mL/min >60 [facility] Comment on above: GFR Calc Estimated GFR (MDRD) Non-Af Amer 97 mL/min >60 [facility] Comment on above: Non- GFR Calc Platelets bldOrdered By: Nell Uriostegui on 03-11-2023 Platelets (Bld) [#/Vol] 255 10*3/uL 150-450 [facility] Serum or plasma albumin kairssa urement (mass/volume)Ordered By: Ayo Uriostegui on 03-11-2023 Albumin [Mass/Vol] 3.6 g/dL 3.2-5.0 [facility] Serum or plasma albumin/glob ulin mass ratioOrdered By: Ayo Uriostegui on 03-11-2023 Albumin/Globulin [Mass ratio] 1.0 {ratio} 0.9-2.4 [facility] Serum or plasma calcium karissa urement (mass/volume)Ordered By: Ayo Uriostegui on 03-11-2023 Calcium [Mass/Vol] 8.3 mg/dL 8.5-10.1 [facility] Serum or plasma creatinine m easurement (mass/volume)Ordered By: Ayo Uriostegui on 03-11-2023 Creatinine [Mass/Vol] 0.84 mg/dL 0.70-1.30 [facility] Comment on above: The validity of the calculated GFR & GFRAA in patients over 70 years has not been determined. Clinical correlation is essential. Serum or plasma urea nitroge n measurement (mass/volume)Ordered By: Ayo Uriostegui on 03-11-2023 Urea nitrogen [Mass/Vol] 12 mg/dL 7-18 [facility] Thin prep Papanicolaou smear with manual screeningOrdered By: Ayo Uriostegui on 03-11-2023 Thin prep Papanicolaou smear with manual screening 16 U/L 15-37 [facility] Thin prep Papanicolaou smear with manual screening 7 5-15 [facility] Absolute lymphocyte countOrd ered By: Ayo Uriostegui on 02-17-2023 Lymphocytes Auto (Unsp spec) [#/Vol] 2.37 10*3/uL 0.83-4.51 [facility] Basophil percentageOrdered B y: Ayo Uriostegui on 02-17-2023 Basophils/100 WBC (Bld) 0.8 % 0-[address] [facility] Bilirubin [Mass/Vol] 0.20 mg/dL 0.20-1.00 [facility] Comment on above: For patients on eltr ombopag therapy, use of Dimension [place] TBIL is not recommended. Chloride [Moles/Vol] 106 mmol/L 98-107 [facility] Eosinophils/100 WBC (Bld) 5.2 % 0-5 [facility] Glucose [Mass/Vol] 85 mg/dL 74-106 [facility] Neutrophils (Bld) [#/Vol] 4.3 10*3/uL 2.0-7.7 [facility] Neutrophils/100 WBC (Bld) 54.6 % 47-70 [facility] Potassium [Moles/Vol] 3.8 mmol/L 3.5-5.1 [facility] Protein [Mass/Vol] 7.3 g/dL 6.4-8.2 [facility] Sodium [Moles/Vol] 138 mmol/L 136-145 [facility] WBC (Bld) [#/Vol] 7.9 10*3/uL 4.4-11.0 [facility] Blood erythrocytes count (nu mber/volume)Ordered By: Ayo Uriostegui on 02-17-2023 RBC (Bld) [#/Vol] 4.51 10*6/uL 4.6-6.2 [facility] Blood hemoglobin measurement (mass/volume)Ordered By: Ayo Uriostegui on 02-17-2023 Hemoglobin (Bld) [Mass/Vol] 13.8 g/dL 13.0-16.5 [facility] Blood lymphocytes/100 leukoc ytesOrdered By: Ayo Uriostegui on 02-17-2023 Lymphocytes/100 WBC (Bld) 29.9 % 19-41 [facility] Blood monocytes/100 leukocyt esOrdered By: Ayo Uriostegui on 02-17-2023 Monocytes/100 WBC (Bld) 9.1 % 0-[address] [facility] Blood platelet mean volumeOr dered By: Ayo Uriostegui on 02-17-2023 Platelet mean volume (Bld) [Entitic vol] 9.8 fL 6.2-12.0 [facility] Determination of erythrocyte mean corpuscular volume (MCV)Ordered By: Ayo Uriostegui on 02-17-2023 MCV (RBC) [Entitic vol] 92.9 fL 80-[address] [facility] Hematocrit Auto (Bld) [Volum e fraction]Ordered By: Ayo Uriostegui on 02-17-2023 Hematocrit (Bld) [Volume fraction] 41.9 % 40-54 [facility] - Chemistry and C hemistry - challengeOrdered By: Ayo Uriostegui on 02-17-2023 ALP [Catalytic activity/Vol] 95 U/L 45-117 [facility] ALT [Catalytic activity/Vol] 33 U/L 16-61 [facility] CO2 [Moles/Vol] 28.0 mmol/L 21.0-32.0 [facility] Globulin (S) [Mass/Vol] 3.9 g/dL 2.2-4.[address] [facility] Urea nitrogen/Creatinine [Mass ratio] 14.1 mg/mg 10-20 [facility] - Hematology and Cell countsOrdered By: Ayo Uriostegui on 02-17-2023 Erythrocyte distribution width (RBC) [Entitic vol] 45.8 fL 35.1-43.9 [facility] Erythrocyte distribution width (RBC) [Ratio] 13.4 % 11.6-14.6 [facility] Immature granulocytes/100 WBC (Bld) 0.400 % 0.0-0.9 [facility] Comment on above: IG% - Immature Granu locytes (promyelocytes, myelocytes and metamyelocytes) > 1% indicates that a LEFT SHIFT is Present. MCH (RBC) [Entitic mass] 30.6 pg 27.0-32.0 [facility] Nucleated RBC/100 WBC (Bld) [Ratio] 0 % 0-5 [facility] MCHC Auto (RBC) [Mass/Vol]Or dered By: Ayo Uriostegui on 02-17-2023 MCHC (RBC) [Mass/Vol] 32.9 g/dL 32-36 [facility] No Panel InformationOrdered By: Ayo Uriostegui on 02-17-2023 Estimated GFR (MDRD) Amer 116 mL/min >60 [facility] Comment on above: GFR Calc Estimated GFR (MDRD) Non-Af Amer 96 mL/min >60 [facility] Comment on above: Non- GFR Calc Platelets bldOrdered By: Nell Uriostegui on 02-17-2023 Platelets (Bld) [#/Vol] 255 10*3/uL 150-450 [facility] Serum or plasma albumin karissa urement (mass/volume)Ordered By: Ayo Uriostegui on 02-17-2023 Albumin [Mass/Vol] 3.4 g/dL 3.2-5.0 [facility] Serum or plasma albumin/glob ulin mass ratioOrdered By: Ayo Uriostegui on 02-17-2023 Albumin/Globulin [Mass ratio] 0.9 {ratio} 0.9-2.4 [facility] Serum or plasma calcium karissa urement (mass/volume)Ordered By: Ayo Uriostegui on 02-17-2023 Calcium [Mass/Vol] 8.3 mg/dL 8.5-10.1 [facility] Serum or plasma creatinine m easurement (mass/volume)Ordered By: Ayo Uriostegui on 02-17-2023 Creatinine [Mass/Vol] 0.85 mg/dL 0.70-1.30 [facility] Comment on above: The validity of the calculated GFR & GFRAA in patients over 70 years has not been determined. Clinical correlation is essential. Serum or plasma urea nitroge n measurement (mass/volume)Ordered By: Ayo Uriostegui on 02-17-2023 Urea nitrogen [Mass/Vol] 12 mg/dL 7-18 [facility] Thin prep Papanicolaou smear with manual screeningOrdered By: Ayo Uriostegui on 02-17-2023 Thin prep Papanicolaou smear with manual screening 19 U/L 15-37 [facility] Thin prep Papanicolaou smear with manual screening 4 5-15 [facility] Whole blood hemoglobin A1c/t otal hemoglobin ratio (mass fraction)Ordered By: Ayo Uriostegui on 12-23-2022 HbA1c (Bld) [Mass fraction] 6.6 % 3.8-5.6 [facility] Comment on above: Normal < 5.7 % Predi abetic 5.7 - 6.4 % Diabetic >or= 6.5 % Please note range changes. Absolute lymphocyte countOrd ered By: Ayo Uriostegui on 11-18-2022 Lymphocytes Auto (Unsp spec) [#/Vol] 2.41 10*3/uL 0.83-4.51 [facility] Basophil percentageOrdered B y: Ayo Uriostegui on 11-18-2022 Basophils/100 WBC (Bld) 0.6 % 0-[address] [facility] Bilirubin [Mass/Vol] 0.30 mg/dL 0.20-1.00 [facility] Comment on above: For patients on eltr ombopag therapy, use of Dimension [place] TBIL is not recommended. Chloride [Moles/Vol] 105 mmol/L 98-107 [facility] Eosinophils/100 WBC (Bld) 4.2 % 0-5 [facility] Glucose [Mass/Vol] 109 mg/dL 74-106 [facility] Comment on above: Fasting Glucose resu lt from 100 to 125 mg/dL suggests IMPAIRED HOMEOSTASIS per A.D.A. criteria. Neutrophils (Bld) [#/Vol] 4.8 10*3/uL 2.0-7.7 [facility] Neutrophils/100 WBC (Bld) 57.0 % 47-70 [facility] Potassium [Moles/Vol] 3.7 mmol/L 3.5-5.1 [facility] Protein [Mass/Vol] 7.3 g/dL 6.4-8.2 [facility] Sodium [Moles/Vol] 136 mmol/L 136-145 [facility] WBC (Bld) [#/Vol] 8.4 10*3/uL 4.4-11.0 [facility] Blood erythrocytes count (nu mber/volume)Ordered By: Ayo Uriostegui on 11-18-2022 RBC (Bld) [#/Vol] 4.51 10*6/uL 4.6-6.2 [facility] Blood hemoglobin measurement (mass/volume)Ordered By: Ayo Uriostegui on 11-18-2022 Hemoglobin (Bld) [Mass/Vol] 14.1 g/dL 13.0-16.5 [facility] Blood lymphocytes/100 leukoc ytesOrdered By: Ayo Uriostegui on 11-18-2022 Lymphocytes/100 WBC (Bld) 28.9 % 19-41 [facility] Blood monocytes/100 leukocyt esOrdered By: Ayo Uriostegui on 11-18-2022 Monocytes/100 WBC (Bld) 9.1 % 0-[address] [facility] Blood platelet mean volumeOr dered By: Ayo Uriostegui on 11-18-2022 Platelet mean volume (Bld) [Entitic vol] 9.9 fL 6.2-12.0 [facility] Determination of erythrocyte mean corpuscular volume (MCV)Ordered By: Ayo Uriostegui on 11-18-2022 MCV (RBC) [Entitic vol] 92.5 fL 80-[address] [facility] Hematocrit Auto (Bld) [Volum e fraction]Ordered By: Ayo Uriostegui on 11-18-2022 Hematocrit (Bld) [Volume fraction] 41.7 % 40-54 [facility] - Chemistry and C hemistry - challengeOrdered By: Ayo Uriostegui on 11-18-2022 ALP [Catalytic activity/Vol] 99 U/L 45-117 [facility] ALT [Catalytic activity/Vol] 36 U/L 16-61 [facility] CO2 [Moles/Vol] 25.0 mmol/L 21.0-32.0 [facility] Globulin (S) [Mass/Vol] 3.8 g/dL 2.2-4.[address] [facility] Urea nitrogen/Creatinine [Mass ratio] 18.3 mg/mg 10-20 [facility] - Hematology and Cell countsOrdered By: Ayo Uriostegui on 11-18-2022 Erythrocyte distribution width (RBC) [Entitic vol] 44.1 fL 35.1-43.9 [facility] Erythrocyte distribution width (RBC) [Ratio] 13.0 % 11.6-14.6 [facility] Immature granulocytes/100 WBC (Bld) 0.200 % 0.0-0.9 [facility] Comment on above: IG% - Immature Granu locytes (promyelocytes, myelocytes and metamyelocytes) > 1% indicates that a LEFT SHIFT is Present. MCH (RBC) [Entitic mass] 31.3 pg 27.0-32.0 [facility] Nucleated RBC/100 WBC (Bld) [Ratio] 0 % 0-5 [facility] MCHC Auto (RBC) [Mass/Vol]Or dered By: Ayo Uriostegui on 11-18-2022 MCHC (RBC) [Mass/Vol] 33.8 g/dL 32-36 [facility] No Panel InformationOrdered By: Ayo Uriostegui on 11-18-2022 Estimated GFR (MDRD) Amer 113 mL/min >60 [facility] Comment on above: GFR Calc Estimated GFR (MDRD) Non-Af Amer 93 mL/min >60 [facility] Comment on above: Non- GFR Calc Platelets bldOrdered By: Nell Uriostegui on 11-18-2022 Platelets (Bld) [#/Vol] 242 10*3/uL 150-450 [facility] Serum or plasma albumin karissa urement (mass/volume)Ordered By: Ayo Uriostegui on 11-18-2022 Albumin [Mass/Vol] 3.5 g/dL 3.2-5.0 [facility] Serum or plasma albumin/glob ulin mass ratioOrdered By: Ayo Uriostegui on 11-18-2022 Albumin/Globulin [Mass ratio] 0.9 {ratio} 0.9-2.4 [facility] Serum or plasma calcium karissa urement (mass/volume)Ordered By: Ayo Uriostegui on 11-18-2022 Calcium [Mass/Vol] 8.5 mg/dL 8.5-10.1 [facility] Serum or plasma creatinine m easurement (mass/volume)Ordered By: Ayo Uriostegui on 11-18-2022 Creatinine [Mass/Vol] 0.87 mg/dL 0.70-1.30 [facility] Comment on above: The validity of the calculated GFR & GFRAA in patients over 70 years has not been determined. Clinical correlation is essential. Serum or plasma urea nitroge n measurement (mass/volume)Ordered By: Ayo Uriostegui on 11-18-2022 Urea nitrogen [Mass/Vol] 16 mg/dL 7-18 [facility] Thin prep Papanicolaou smear with manual screeningOrdered By: Ayo Uriostegui on 11-18-2022 Thin prep Papanicolaou smear with manual screening 17 U/L 15-37 [facility] Thin prep Papanicolaou smear with manual screening 6 5-15 [facility] Whole blood hemoglobin A1c/t otal hemoglobin ratio (mass fraction)Ordered By: Ayo Uriostegui on 09-24-2022 HbA1c (Bld) [Mass fraction] 6.3 % 3.8-5.6 [facility] Comment on above: Normal < 5.7 % Predi abetic 5.7 - 6.4 % Diabetic >or= 6.5 % Please note range changes. Basophil percentageOrdered B y: Ayo Uriostegui on 09-14-2022 Bilirubin [Mass/Vol] 0.30 mg/dL 0.20-1.00 [facility] Comment on above: For patients on eltr ombopag therapy, use of Dimension [place] TBIL is not recommended. Protein [Mass/Vol] 7.3 g/dL 6.4-8.2 [facility] Direct bilirubinOrdered By: Ayo Uriostegui on 09-14-2022 Bilirubin.direct [Mass/Vol] 0.06 mg/dL 0.00-0.30 [facility] - Chemistry and C hemistry - challengeOrdered By: Ayo Uriostegui on 09-14-2022 ALP [Catalytic activity/Vol] 99 U/L 45-117 [facility] ALT [Catalytic activity/Vol] 37 U/L 16-61 [facility] Globulin (S) [Mass/Vol] 3.7 g/dL 2.2-4.[address] [facility] Serum or plasma albumin karissa urement (mass/volume)Ordered By: Ayo Uriostegui on 09-14-2022 Albumin [Mass/Vol] 3.6 g/dL 3.2-5.0 [facility] Thin prep Papanicolaou smear with manual screeningOrdered By: Ayo Uriostegui on 09-14-2022 Thin prep Papanicolaou smear with manual screening 23 U/L 15-37 [facility] Whole blood hemoglobin A1c/t otal hemoglobin ratio (mass fraction)Ordered By: Ayo Uriostegui on 09-14-2022 HbA1c (Bld) [Mass fraction] 6.4 % 3.8-5.6 [facility] Comment on above: Normal < 5.7 % Predi abetic 5.7 - 6.4 % Diabetic >or= 6.5 % Please note range changes. Absolute lymphocyte countOrd ered By: Ayo Uriostegui on 08-19-2022 Lymphocytes Auto (Unsp spec) [#/Vol] 2.47 10*3/uL 0.83-4.51 [facility] Basophil percentageOrdered B y: Ayo Uriostegui on 08-19-2022 Basophils/100 WBC (Bld) 0.4 % 0-[address] [facility] Bilirubin [Mass/Vol] 0.30 mg/dL 0.20-1.00 [facility] Comment on above: For patients on eltr ombopag therapy, use of Dimension [place] TBIL is not recommended. Chloride [Moles/Vol] 106 mmol/L 98-107 [facility] Eosinophils/100 WBC (Bld) 4.1 % 0-5 [facility] Glucose [Mass/Vol] 71 mg/dL 74-106 [facility] Neutrophils (Bld) [#/Vol] 5.6 10*3/uL 2.0-7.7 [facility] Neutrophils/100 WBC (Bld) 60.3 % 47-70 [facility] Potassium [Moles/Vol] 3.7 mmol/L 3.5-5.1 [facility] Protein [Mass/Vol] 7.2 g/dL 6.4-8.2 [facility] Sodium [Moles/Vol] 137 mmol/L 136-145 [facility] WBC (Bld) [#/Vol] 9.3 10*3/uL 4.4-11.0 [facility] Blood erythrocytes count (nu mber/volume)Ordered By: Ayo Uriostegui on 08-19-2022 RBC (Bld) [#/Vol] 4.45 10*6/uL 4.6-6.2 [facility] Blood hemoglobin measurement (mass/volume)Ordered By: Ayo Uriostegui on 08-19-2022 Hemoglobin (Bld) [Mass/Vol] 13.9 g/dL 13.0-16.5 [facility] Blood lymphocytes/100 leukoc ytesOrdered By: Ayo Uriostegui on 08-19-2022 Lymphocytes/100 WBC (Bld) 26.7 % 19-41 [facility] Blood monocytes/100 leukocyt esOrdered By: Ayo Uriostegui on 08-19-2022 Monocytes/100 WBC (Bld) 8.2 % 0-[address] [facility] Blood platelet mean volumeOr dered By: Ayo Uriostegui on 08-19-2022 Platelet mean volume (Bld) [Entitic vol] 9.9 fL 6.2-12.0 [facility] Determination of erythrocyte mean corpuscular volume (MCV)Ordered By: Ayo Uriostegui on 08-19-2022 MCV (RBC) [Entitic vol] 93.5 fL 80-[address] [facility] Hematocrit Auto (Bld) [Volum e fraction]Ordered By: Ayo Uriostegui on 08-19-2022 Hematocrit (Bld) [Volume fraction] 41.6 % 40-54 [facility] - Chemistry and C hemistry - challengeOrdered By: Ayo Uriostegui on 08-19-2022 ALP [Catalytic activity/Vol] 96 U/L 45-117 [facility] ALT [Catalytic activity/Vol] 45 U/L 16-61 [facility] CO2 [Moles/Vol] 25.0 mmol/L 21.0-32.0 [facility] Globulin (S) [Mass/Vol] 3.8 g/dL 2.2-4.[address] [facility] Urea nitrogen/Creatinine [Mass ratio] 15.9 mg/mg 10-20 [facility] - Hematology and Cell countsOrdered By: Ayo Uriostegui on 08-19-2022 Erythrocyte distribution width (RBC) [Entitic vol] 45.5 fL 35.1-43.9 [facility] Erythrocyte distribution width (RBC) [Ratio] 13.2 % 11.6-14.6 [facility] Immature granulocytes/100 WBC (Bld) 0.300 % 0.0-0.9 [facility] Comment on above: IG% - Immature Granu locytes (promyelocytes, myelocytes and metamyelocytes) > 1% indicates that a LEFT SHIFT is Present. MCH (RBC) [Entitic mass] 31.2 pg 27.0-32.0 [facility] Nucleated RBC/100 WBC (Bld) [Ratio] 0 % 0-5 [facility] MCHC Auto (RBC) [Mass/Vol]Or dered By: Ayo Uriostegui on 08-19-2022 MCHC (RBC) [Mass/Vol] 33.4 g/dL 32-36 [facility] No Panel InformationOrdered By: Ayo Uriostegui on 08-19-2022 Estimated GFR (MDRD) Amer 122 mL/min >60 [facility] Comment on above: GFR Calc Estimated GFR (MDRD) Non-Af Amer 101 mL/min >60 [facility] Comment on above: Non- GFR Calc Platelets bldOrdered By: Nell Uriostegui on 08-19-2022 Platelets (Bld) [#/Vol] 283 10*3/uL 150-450 [facility] Serum or plasma albumin karissa urement (mass/volume)Ordered By: Ayo Uriostegui on 08-19-2022 Albumin [Mass/Vol] 3.4 g/dL 3.2-5.0 [facility] Serum or plasma albumin/glob ulin mass ratioOrdered By: Ayo Uriostegui on 08-19-2022 Albumin/Globulin [Mass ratio] 0.9 {ratio} 0.9-2.4 [facility] Serum or plasma calcium karissa urement (mass/volume)Ordered By: Ayo Uriostegui on 08-19-2022 Calcium [Mass/Vol] 8.3 mg/dL 8.5-10.1 [facility] Serum or plasma creatinine m easurement (mass/volume)Ordered By: Ayo Uriostegui on 08-19-2022 Creatinine [Mass/Vol] 0.82 mg/dL 0.70-1.30 [facility] Comment on above: The validity of the calculated GFR & GFRAA in patients over 70 years has not been determined. Clinical correlation is essential. Serum or plasma urea nitroge n measurement (mass/volume)Ordered By: Ayo Uriostegui on 08-19-2022 Urea nitrogen [Mass/Vol] 13 mg/dL 7-18 [facility] Thin prep Papanicolaou smear with manual screeningOrdered By: Ayo Uriostegui on 08-19-2022 Thin prep Papanicolaou smear with manual screening 24 U/L 15- [facility] Thin prep Papanicolaou smear with manual screening 6 5-15 [facility] Absolute lymphocyte counton 05-20-2022 Lymphocytes Auto (Unsp spec) [#/Vol] 2.09 10*3/uL 0.83-4.51 [facility] Work Phone: Basophil percentageon 2021 Basophils/100 WBC (Bld) 0.4 % 0-[address] [facility] Work Phone: Bilirubin [Mass/Vol] 0.20 mg/dL 0.20-1.00 [facility] Work Phone: Comment on above: For patients on eltr ombopag therapy, use of Dimension [place] TBIL is not recommended. Chloride [Moles/Vol] 107 mmol/L 98-107 [facility] Work Phone: Eosinophils/100 WBC (Bld) 4.4 % 0-5 [facility] Work Phone: Glucose [Mass/Vol] 122 mg/dL 74-106 [facility] Work Phone: Comment on above: Fasting Glucose resu lt from 100 to 125 mg/dL suggests IMPAIRED HOMEOSTASIS per A.D.A. criteria. Neutrophils (Bld) [#/Vol] 4.1 10*3/uL 2.0-7.7 [facility] Work Phone: Neutrophils/100 WBC (Bld) 55.8 % 47-70 [facility] Work Phone: Potassium [Moles/Vol] 3.7 mmol/L 3.5-5.1 [facility] Work Phone: Comment on above: Slight Hemolysis, Re sult may be falsely increased. Protein [Mass/Vol] 7.1 g/dL 6.4-8.2 [facility] Work Phone: Sodium [Moles/Vol] 138 mmol/L 136-145 [facility] Work Phone: WBC (Bld) [#/Vol] 7.3 10*3/uL 4.4-11.0 [facility] Work Phone: Blood erythrocytes count (nu mber/volume)on 05-20-2022 RBC (Bld) [#/Vol] 4.27 10*6/uL 4.6-6.2 [facility] Work Phone: Blood hemoglobin measurement (mass/volume)on 05-20-2022 Hemoglobin (Bld) [Mass/Vol] 13.4 g/dL 13.0-16.5 [facility] Work Phone: Blood lymphocytes/100 leukoc yteson 05-20-2022 Lymphocytes/100 WBC (Bld) 28.6 % 19-41 [facility] Work Phone: Blood monocytes/100 leukocyt eson 05-20-2022 Monocytes/100 WBC (Bld) 10.5 % 0-[address] [facility] Work Phone: Blood platelet mean volumeon 05-20-2022 Platelet mean volume (Bld) [Entitic vol] 10.1 fL 6.2-12.0 [facility] Work Phone: Determination of erythrocyte mean corpuscular volume (MCV)on 05-20-2022 MCV (RBC) [Entitic vol] 94.8 fL 80-[address] [facility] Work Phone: Hematocrit Auto (Bld) [Volum e fraction]on 05-20-2022 Hematocrit (Bld) [Volume fraction] 40.5 % 40-54 [facility] Work Phone: Laboratory - Chemistry and C hemistry - challengeon 05-20-2022 ALP [Catalytic activity/Vol] 98 U/L 45-117 [facility] Work Phone: ALT [Catalytic activity/Vol] 38 U/L 16-61 [facility] Work Phone: CO2 [Moles/Vol] 23.0 mmol/L 21.0-32.0 [facility] Work Phone: Globulin (S) [Mass/Vol] 3.8 g/dL 2.2-4.[address] [facility] Work Phone: Urea nitrogen/Creatinine [Mass ratio] 14.3 mg/mg 10-20 [facility] Work Phone: Laboratory - Hematology and Cell countson 05-20-2022 Erythrocyte distribution width (RBC) [Entitic vol] 46.5 fL 35.1-43.9 [facility] Work Phone: Erythrocyte distribution width (RBC) [Ratio] 13.3 % 11.6-14.6 [facility] Work Phone: Immature granulocytes/100 WBC (Bld) 0.300 % 0.0-0.9 [facility] Work Phone: Comment on above: IG% - Immature Granu locytes (promyelocytes, myelocytes and metamyelocytes) > 1% indicates that a LEFT SHIFT is Present. MCH (RBC) [Entitic mass] 31.4 pg 27.0-32.0 [facility] Work Phone: Nucleated RBC/100 WBC (Bld) [Ratio] 0 % 0-5 [facility] Work Phone: MCHC Auto (RBC) [Mass/Vol]on 05-20-2022 MCHC (RBC) [Mass/Vol] 33.1 g/dL 32-36 [facility] Work Phone: No Panel Informationon 05-20 Estimated GFR (MDRD) Amer 131 mL/min >60 [facility] Work Phone: Comment on above: GFR Calc Estimated GFR (MDRD) Non-Af Amer 108 mL/min >60 [facility] Work Phone: Comment on above: Non- GFR Calc Platelets bldon 05-20-2022 Platelets (Bld) [#/Vol] 234 10*3/uL 150-450 [facility] Work Phone: Serum or plasma albumin karissa urement (mass/volume)on 05-20-2022 Albumin [Mass/Vol] 3.3 g/dL 3.2-5.0 [facility] Work Phone: Serum or plasma albumin/glob ulin mass ratioon 05-20-2022 Albumin/Globulin [Mass ratio] 0.9 {ratio} 0.9-2.4 [facility] Work Phone: Serum or plasma calcium karissa urement (mass/volume)on 05-20-2022 Calcium [Mass/Vol] 8.2 mg/dL 8.5-10.1 [facility] Work Phone: Serum or plasma creatinine m easurement (mass/volume)on 05-20-2022 Creatinine [Mass/Vol] 0.77 mg/dL 0.70-1.30 [facility] Work Phone: Comment on above: The validity of the calculated GFR & GFRAA in patients over 70 years has not been determined. Clinical correlation is essential. Serum or plasma urea nitroge n measurement (mass/volume)on 05-20-2022 Urea nitrogen [Mass/Vol] 11 mg/dL 7-18 [facility] Work Phone: Thin prep Papanicolaou smear with manual screeningon 05-20-2022 Thin prep Papanicolaou smear with manual screening 19 U/L 15-37 [facility] Work Phone: Comment on above: Slight Hemolysis, Re sult may be falsely increased. Thin prep Papanicolaou smear with manual screening 8 5-15 [facility] Work Phone: Basophil percentageon 2021 Cholesterol [Mass/Vol] 135 mg/dL <200 [facility] Work Phone: Comment on above: <200 mg/dL Desirable 200-240 mg/dL Borderline >240 mg/dL High Risk Triglyceride [Mass/Vol] 231 mg/dL <[address] [facility] Work Phone: Comment on above: The drugs N-Acetylcy steine and Metamizole may falsely depress this assay.Serum Triglycerides Reference Interval Normal <150 mg/dL Borderline high 150 - 199 mg/dL High 200 - 499 mg/dL Very High > or = 500 mg/dL Serum or plasma cholesterol in HDL measurement (mass/volume)on 03-17-2022 Cholesterol in HDL [Mass/Vol] 28 mg/dL >40 [facility] Work Phone: Comment on above: The drugs N-Acetylcy steine and Metamizole may falsely depress this assay. Reference Range HDL <40 mg/dL Low HDL Cholesterol HDL >or= 60 mg/dL High HDL Cholesterol Serum or plasma cholesterol in VLDL measurement (mass/volume)on 03-17-2022 Cholesterol in VLDL [Mass/Vol] 46 mg/dL 5-40 [facility] Work Phone: Serum or plasma low density lipoprotein (LDL) cholesterol measurement (mass/volume)on 03-17-2022 Cholesterol in LDL [Mass/Vol] 61 mg/dL 0-130 [facility] Work Phone: Whole blood hemoglobin A1c/t otal hemoglobin ratio (mass fraction)on 03-17-2022 HbA1c (Bld) [Mass fraction] 7.6 % 3.8-5.6 [facility] Work Phone: Comment on above: Normal < 5.7 % Predi abetic 5.7 - 6.4 % Diabetic >or= 6.5 % Please note range changes. Absolute lymphocyte counton 02-18-2022 Lymphocytes Auto (Unsp spec) [#/Vol] 2.32 10*3/uL 0.83-4.51 [facility] Work Phone: Basophil percentageon 2021 Basophils/100 WBC (Bld) 0.5 % 0-[address] [facility] Work Phone: Bilirubin [Mass/Vol] 0.40 mg/dL 0.20-1.00 [facility] Work Phone: Comment on above: For patients on eltr ombopag therapy, use of Dimension [place] TBIL is not recommended. Chloride [Moles/Vol] 106 mmol/L 98-107 [facility] Work Phone: Eosinophils/100 WBC (Bld) 3.2 % 0-5 [facility] Work Phone: Glucose [Mass/Vol] 126 mg/dL 74-106 [facility] Work Phone: Comment on above: Fasting Glucose resu lt greater than or equal to 126 mg/dL suggests DIABETES MELLITUS per A.D.A. criteria. Neutrophils (Bld) [#/Vol] 4.6 10*3/uL 2.0-7.7 [facility] Work Phone: Neutrophils/100 WBC (Bld) 56.3 % 47-70 [facility] Work Phone: Potassium [Moles/Vol] 3.8 mmol/L 3.5-5.1 [facility] Work Phone: Protein [Mass/Vol] 7.1 g/dL 6.4-8.2 [facility] Work Phone: Sodium [Moles/Vol] 136 mmol/L 136-145 [facility] Work Phone: WBC (Bld) [#/Vol] 8.1 10*3/uL 4.4-11.0 [facility] Work Phone: Blood erythrocytes count (nu mber/volume)on 02-18-2022 RBC (Bld) [#/Vol] 4.45 10*6/uL 4.6-6.2 [facility]: Blood hemoglobin measurement (mass/volume)on 02-18-2022 Hemoglobin (Bld) [Mass/Vol] 13.5 g/dL 13.0-16.5 [facility] Work Phone: Blood lymphocytes/100 leukoc yteson 02-18-2022 Lymphocytes/100 WBC (Bld) 28.7 % 19-41 [facility] Work Phone: Blood monocytes/100 leukocyt eson 02-18-2022 Monocytes/100 WBC (Bld) 10.9 % 0-[address] [facility] Work Phone: Blood platelet mean volumeon 02-18-2022 Platelet mean volume (Bld) [Entitic vol] 10.3 fL 6.2-12.0 [facility] Work Phone: Determination of erythrocyte mean corpuscular volume (MCV)on 02-18-2022 MCV (RBC) [Entitic vol] 92.6 fL 80-[address] [facility] Work Phone: Hematocrit Auto (Bld) [Volum e fraction]on 02-18-2022 Hematocrit (Bld) [Volume fraction] 41.2 % 40-54 [facility] Work Phone: Laboratory - Chemistry and C hemistry - challengeon 02-18-2022 ALP [Catalytic activity/Vol] 104 U/L 45-117 [facility] Work Phone: ALT [Catalytic activity/Vol] 37 U/L 16-61 [facility] Work Phone: CO2 [Moles/Vol] 23.0 mmol/L 21.0-32.0 [facility] Work Phone: Globulin (S) [Mass/Vol] 3.6 g/dL 2.2-4.[address] [facility] Work Phone: Urea nitrogen/Creatinine [Mass ratio] 16.5 mg/mg 10-20 [facility] Work Phone: Laboratory - Hematology and Cell countson 02-18-2022 Erythrocyte distribution width (RBC) [Entitic vol] 46.1 fL 35.1-43.9 [facility] Work Phone: Erythrocyte distribution width (RBC) [Ratio] 13.4 % 11.6-14.6 [facility] Work Phone: Immature granulocytes/100 WBC (Bld) 0.400 % 0.0-0.9 [facility] Work Phone: Comment on above: IG% - Immature Granu locytes (promyelocytes, myelocytes and metamyelocytes) > 1% indicates that a LEFT SHIFT is Present. MCH (RBC) [Entitic mass] 30.3 pg 27.0-32.0 [facility] Work Phone: Nucleated RBC/100 WBC (Bld) [Ratio] 0 % 0-5 [facility] Work Phone: MCHC Auto (RBC) [Mass/Vol]on 02-18-2022 MCHC (RBC) [Mass/Vol] 32.8 g/dL 32-36 [facility] Work Phone: No Panel Informationon 02-18 Estimated GFR (MDRD) Amer 108 mL/min >60 [facility] Work Phone: Comment on above: GFR Calc Estimated GFR (MDRD) Non-Af Amer 89 mL/min >60 [facility] Work Phone: Comment on above: Non- GFR Calc Platelets bldon 02-18-2022 Platelets (Bld) [#/Vol] 252 10*3/uL 150-450 [facility] Work Phone: Serum or plasma albumin karissa urement (mass/volume)on 02-18-2022 Albumin [Mass/Vol] 3.5 g/dL 3.2-5.0 [facility] Work Phone: Serum or plasma albumin/glob ulin mass ratioon 02-18-2022 Albumin/Globulin [Mass ratio] 1.0 {ratio} 0.9-2.4 [facility] Work Phone: Serum or plasma calcium karissa urement (mass/volume)on 02-18-2022 Calcium [Mass/Vol] 8.5 mg/dL 8.5-10.1 [facility] Work Phone: Serum or plasma creatinine m easurement (mass/volume)on 02-18-2022 Creatinine [Mass/Vol] 0.91 mg/dL 0.70-1.30 [facility] Work Phone: Comment on above: The validity of the calculated GFR & GFRAA in patients over 70 years has not been determined. Clinical correlation is essential. Serum or plasma urea nitroge n measurement (mass/volume)on 02-18-2022 Urea nitrogen [Mass/Vol] 15 mg/dL 7-18 [facility] Work Phone: Thin prep Papanicolaou smear with manual screeningon 02-18-2022 Thin prep Papanicolaou smear with manual screening 20 U/L 15-37 [facility] Work Phone: Thin prep Papanicolaou smear with manual screening 7 5-15 [facility] Work Phone: Absolute lymphocyte counton 11-19-2021 Lymphocytes Auto (Unsp spec) [#/Vol] 2.32 10*3/uL 0.83-4.51 [facility] Work Phone: Basophil percentageon 2021 Basophils/100 WBC (Bld) 0.6 % 0-[address] [facility] Work Phone: Bilirubin [Mass/Vol] 0.30 mg/dL 0.20-1.00 [facility] Work Phone: Comment on above: For patients on eltr ombopag therapy, use of Dimension [place] TBIL is not recommended. Chloride [Moles/Vol] 106 mmol/L 98-107 [facility] Work Phone: Eosinophils/100 WBC (Bld) 3.3 % 0-5 [facility] Work Phone: Glucose [Mass/Vol] 110 mg/dL 74-106 [facility] Work Phone: Comment on above: Fasting Glucose resu lt from 100 to 125 mg/dL suggests IMPAIRED HOMEOSTASIS per A.D.A. criteria. Neutrophils (Bld) [#/Vol] 3.7 10*3/uL 2.0-7.7 [facility] Work Phone: Neutrophils/100 WBC (Bld) 53.3 % 47-70 [facility] Work Phone: Potassium [Moles/Vol] 3.8 mmol/L 3.5-5.1 [facility] Work Phone: Protein [Mass/Vol] 6.9 g/dL 6.4-8.2 [facility] Work Phone: Sodium [Moles/Vol] 137 mmol/L 136-145 [facility] Work Phone: WBC (Bld) [#/Vol] 7.0 10*3/uL 4.4-11.0 [facility] Work Phone: Blood erythrocytes count (nu mber/volume)on 11-19-2021 RBC (Bld) [#/Vol] 4.43 10*6/uL 4.6-6.2 [facility] Work Phone: Blood hemoglobin measurement (mass/volume)on 11-19-2021 Hemoglobin (Bld) [Mass/Vol] 13.6 g/dL 13.0-16.5 [facility] Work Phone: Blood lymphocytes/100 leukoc yteson 11-19-2021 Lymphocytes/100 WBC (Bld) 33.0 % 19-41 [facility] Work Phone: Blood monocytes/100 leukocyt eson 11-19-2021 Monocytes/100 WBC (Bld) 9.5 % 0-[address] [facility] Work Phone: Blood platelet mean volumeon 11-19-2021 Platelet mean volume (Bld) [Entitic vol] 10.1 fL 6.2-12.0 [facility] Work Phone: Determination of erythrocyte mean corpuscular volume (MCV)on 11-19-2021 MCV (RBC) [Entitic vol] 92.3 fL 80-[address] [facility] Work Phone: Hematocrit Auto (Bld) [Volum e fraction]on 11-19-2021 Hematocrit (Bld) [Volume fraction] 40.9 % 40-54 [facility] Work Phone: Laboratory - Chemistry and C hemistry - challengeon 11-19-2021 ALP [Catalytic activity/Vol] 98 U/L 45-117 [facility] Work Phone: ALT [Catalytic activity/Vol] 41 U/L 16-61 [facility] Work Phone: CO2 [Moles/Vol] 26.0 mmol/L 21.0-32.0 [facility] Work Phone: Globulin (S) [Mass/Vol] 3.5 g/dL 2.2-4.[address] [facility] Work Phone: Urea nitrogen/Creatinine [Mass ratio] 13.9 mg/mg 10-20 [facility] Work Phone: Laboratory - Hematology and Cell countson 11-19-2021 Erythrocyte distribution width (RBC) [Entitic vol] 46.4 fL 35.1-43.9 [facility] Work Phone: Erythrocyte distribution width (RBC) [Ratio] 13.5 % 11.6-14.6 [facility] Work Phone: Immature granulocytes/100 WBC (Bld) 0.300 % 0.0-0.9 [facility] Work Phone: Comment on above: IG% - Immature Granu locytes (promyelocytes, myelocytes and metamyelocytes) > 1% indicates that a LEFT SHIFT is Present. MCH (RBC) [Entitic mass] 30.7 pg 27.0-32.0 [facility] Work Phone: Nucleated RBC/100 WBC (Bld) [Ratio] 0 % 0-5 [facility] Work Phone: MCHC Auto (RBC) [Mass/Vol]on 11-19-2021 MCHC (RBC) [Mass/Vol] 33.3 g/dL 32-36 [facility] Work Phone: No Panel Informationon 11-19 Estimated GFR (MDRD) Amer 115 mL/min >60 [facility] Work Phone: Comment on above: GFR Calc Estimated GFR (MDRD) Non-Af Amer 95 mL/min >60 [facility] Work Phone: Comment on above: Non- GFR Calc Platelets bldon 11-19-2021 Platelets (Bld) [#/Vol] 237 10*3/uL 150-450 [facility] Work Phone: Serum or plasma albumin karissa urement (mass/volume)on 11-19-2021 Albumin [Mass/Vol] 3.4 g/dL 3.2-5.0 [facility] Work Phone: Serum or plasma albumin/glob ulin mass ratioon 11-19-2021 Albumin/Globulin [Mass ratio] 1.0 {ratio} 0.9-2.4 [facility] Work Phone: Serum or plasma calcium karissa urement (mass/volume)on 11-19-2021 Calcium [Mass/Vol] 8.4 mg/dL 8.5-10.1 [facility] Work Phone: Serum or plasma creatinine m easurement (mass/volume)on 11-19-2021 Creatinine [Mass/Vol] 0.86 mg/dL 0.70-1.30 [facility] Work Phone: Comment on above: The validity of the calculated GFR & GFRAA in patients over 70 years has not been determined. Clinical correlation is essential. Serum or plasma urea nitroge n measurement (mass/volume)on 11-19-2021 Urea nitrogen [Mass/Vol] 12 mg/dL 7-18 [facility] Work Phone: Thin prep Papanicolaou smear with manual screeningon 11-19-2021 Thin prep Papanicolaou smear with manual screening 21 U/L 15-37 [facility] Work Phone: Thin prep Papanicolaou smear with manual screening 5 5-15 [facility] Work Phone: Vital Signs Date Time Vital Sign Value Performing Clinician Faci lity 10-04-2024 00:38-0500 Body temperature 98.5 [degF] Dr. Ayo Uriostegui MD Work Phone: [facility] 10-04-2024 00:38-0500 Diastolic blood pressure 82 mm[Hg] Dr. Ayo Uriostegui MD Work Phone: [facility] 10-04-2024 00:38-0500 Heart rate 94 /min Dr. Ayo Uriostegui MD Work Phone: [facility] 10-04-2024 00:38-0500 Respiratory rate 16 /min Dr. Ayo Uriostegui MD Work Phone: [facility] 10-04-2024 00:38-0500 SaO2% (BldA) [Mass fraction] 93 % Dr. Ayo Uriostegui MD Work Phone: [facility] 10-04-2024 00:38-0500 Systolic blood pressure 150 mm[Hg] Dr. Ayo Uriostegui MD Work Phone: [facility] 10-03-2024 22:19-0500 Inhaled oxygen flow rate 2 L/min Dr. Ayo Uriostegui MD Work Phone: [facility] 10-03-2024 21:49-0500 Body height 170.[address] Ayo Uriostegui MD Work Phone: [facility] 10-03-2024 21:49-0500 Body mass index (BMI) [Ratio] 39.3 kg/m2 Dr. Ayo Uriostegui MD Work Phone: [facility] 10-03-2024 21:49-0500 Body weight [address] Ayo Uriostegui MD Work Phone: [facility] Encounters Encounter Date Encounter Type Care Provider Facility Start: 03-05-2025 ambulatory [facility] Facility:[facility] Start: 12-11-2024 End: 12-11-[address] Ayo Uriostegui MD Work Phone: [facility] Work Phone: Start: 12-11-2024 End: 12-11-[address] Mark Stovall MD -[facility] Start: 12-11-2024 End: 12-11-2024 ambulatory Ayo Uriostegui Facility:[facility] Start: 11-12-2024 End: 11-12-[address] Ayo Uriostegui MD Work Phone: [facility] Work Phone: Start: 11-12-2024 End: 11-12-[address] Arcaeli Fernandez MD -[facility] Start: 11-12-2024 End: 11-12-2024 ambulatory Ayo Uriostegui Facility:[facility] Start: 10-03-2024 End: 10-04-2024 Emergency department patient visit Dr. Mohsen [place] MD -Emergency Department Work Phone: Start: 09-13-20[facility] Start: 09-13-[address] Araceli Fernandez MD -[facility] Start: 03-19-2024 End: 03-19-2024 ambulatory Ayo Uriostegui Facility:[facility] Start: 03-12-2024 End: 03-12-2024 ambulatory Ayo Uriostegui Facility:[facility] Start: 09-19-2023 End: 09-19-2023 ambulatory [facility] Work Phone: Start: 09-19-2023 End: 09-19-2023 Departed Referred [facility] Start: 06-21-2023 End: 06-21-2023 ambulatory [facility] Work Phone: Start: 06-21-2023 End: 06-21-2023 Departed [facility]erred [facility] Start: 03-21-2023 End: 03-21-2023 ambulatory [facility] Work Phone: Start: 03-21-2023 End: 03-21-2023 Departed [facility] Start: 03-11-2023 End: 03-11-2023 Departed [facility] Start: 03-11-2023 Registered Referred [facility] Start: 02-17-2023 End: 02-17-2023 ambulatory [facility] Work Phone: Start: 02-17-2023 End: 02-17-2023 Departed [facility] Start: 02-17-2023 Registered [facility]erred [facility] Start: 12-23-2022 End: 12-23-2022 Departed [facility] Start: 11-18-2022 End: 11-18-2022 ambulatory [facility] Work Phone: Start: 11-18-2022 End: 11-18-2022 Departed [facility] Start: 09-24-2022 End: 09-24-2022 Departed [facility] Start: 09-24-2022 Registered [facility]erred [facility] Start: 09-14-2022 End: 09-14-2022 ambulatory [facility] Work Phone: Start: 09-14-2022 End: 09-14-2022 Departed [facility] Start: 08-19-2022 Registered [facility]erred [facility] Start: 05-20-2022 End: 05-20-2022 ambulatory [facility] Work Phone: Start: 05-20-2022 End: 05-20-2022 Departed Referred [place] [id number] Start: 03-17-2022 End: 03-17-2022 Departed Referred [place] [id number] Start: 02-18-2022 Registered Referred [place] [id number] Start: 11-19-2021 End: 11-19-2021 Departed Referred [place] [id number] Procedures Date Procedure Procedure Detail Performing Clinician Start: 11-12-2024 Insulin C-peptide measurement Dr. Ayo Uriostegui MD Work Phone: Comment on above: C-Peptide reference interval is for fasting patients.Performed at: [id number] [id number] Director: Osiel Vazquez PhD, Phone: [phone] Start: 10-03-2024 X-ray of chest, PA a [...] Influenz a & RSV (PCR) Dr. Ayo Uriosetgui MD Work Phone: Plan of Treatment Date Care Activity Detail Author Start: 10-04-2024 [facility] Start: 10-03-2024 [facility] [facility] Patient Education ED [facility] Fl[facility] Work Phone: Patient referral [facility] Work Phone: Payers Date Payer Category Payer Self-pay [id number] 2024 Unknown [id number] 2024 Unknown [id number] 2003 Medicare [id number] 2.16.8 [id number] Unknown [id number] 2.16.8 [id number] Unknown [id number] 2.16.8 [id number] Unknown [id number] 2.16.8 [id number] Unknown [id number] 2.16.8 [id number] Unknown [id number] 2.16.8 [id number] Unknown [id number] 2.16.8 [id number] Social History Date Type Detail Facility Start: 12-08-2018 End: 12-08-2018 Tobacco smoking status NHIS Unknown if ever smoked [facility] Start: 12-03-2018 None [facility] Start: 12-03-2018 - [facility] Start: 12-08-2018 Cigarettes [facility] Start: 1955 Sex Assigned At Male [facility] Start: 10[facility]03-2024 [facility] Start: 12-06-2024 Sex Male (finding) [facility] Medical Equipment Procedure Code Equipment Code Equipment [...] Evaluation note No assessment information availa ble [facility] Work Phone: Reason for referral (narrative) Note Date & Type Note Facility Reason for referral (narrative) No reason for referral information available [facility] Work Phone: Chief Complaint and Reason for Visit Chief Complaint CUSTODIAL LAB WOR K Chief Complaint NUSING HOME LAB WORK Chief Complaint NUSING HOME LAB WORK CUSTODIAL LAB WORK CUSTODIAL LAB WORK Chief Complaint LABWORK CUSTODIAL LAB WORK Chief Complaint LABWORK CUSTODIAL LAB WORK CUSTODIAL LABWORK CUSTODIAL LABWORK Chief Complaint CUSTODIAL LAB WOR K CUSTODIAL LABWORK CUSTODIAL LABWORK LABWORK Chief Complaint CUSTODIAL LABWORK LABWORK CUSTODIAL LAB WORK Chief Complaint CUSTODIAL LAB WOR K CUSTODIAL LAB WORK Chief Complaint Admit Date CUSTODIAL LAB WORK September 13, 2024 5:00am SOB October 03, 2024 9:48pm CUSTODIAL LAB WORK November 12, 2024 5 :00am Chief Complaint Admit Date CUSTODIAL LAB WORK September 13, 2024 5:00am SOB October 03, 2024 9:48pm CUSTODIAL LAB WORK November 12, 2024 5 :00am CUSTODIAL LAB WORK December 11, 2024 6 :20am [...] No December 03, 2018 4:46am Power of Ict Programmer No December 03 4:46am Advance Directive Response Recorded Date/ Time Living Will No December 03, 2018 3:46am Power of Ict Programmer No December 03 3:46am Advance Directive Response Recorded Date/ Time Living Will No October 03 11:27pm Do you have a Healthcare Power of Ict Programmer? No October 03, 2024 11:27pm Summary Purpose [...] Uriostegui MD Primary Care Provider Active Start: November [...] ized section and content) DATE CREATED AUTHOR 03/08/2025 [facility] FOR RECORDS PERTAINING TO PATIENTS WHO ARE [...] BE BASED ON THE PRIMARY CLINICAL RECORDS. [employer] provides no warranty or guarantee of the accuracy or completeness of information in this document.
[2025-03-14 08:43] LABS: Cholesterol 136 mg/dL (<=200); Low Density Lipoprotein Calc. 61 mg/dL; Triglycerides 226 mg/dL; Very Low Density Lipoprotein 45 mg/dL (5-40); cholesterol:hdl ratio screen 4.56
== END ==
LOC: OLS.SW 05:00
PROVIDERS: PCP Family Medicine; Visit Provider Family Medicine
DX: E11.9 Type 2 diabetes mellitus without complications (principal); E78.5 Hyperlipidemia, unspecified
CPT/HCPCS: 36415; 80061

== ENCOUNTER → 2025-06-04 | Outpatient (REF) | payer MEDICARE, MEDICAID, SELFPAY | LOC: OLS.SW 04:00 | PROVIDERS: PCP Family Medicine; Referring Provider Family Medicine; Visit Provider Family Medicine | DX: E11.9 Type 2 diabetes mellitus without complications (principal); Z79.899 Other long term (current) drug therapy | CPT/HCPCS: 36415; 83036 ==

== ENCOUNTER → 2025-08-13 05:00 | Outpatient (REF) | payer MEDICARE, MEDICAID, SELFPAY ==
--- OUTSIDE RECORDS SUMMARY | 2025-08-13 04:06 | XMS RPT_ITS | CCD ---
Author Organization [facility] Informat ion Partnership [facility] Care Team Providers Care Mammography Tech Name Role Phone Gila PINZON, Dr. Rollins Primary Care Provider Jim PINZON, Dr. Charles Attending Provider Unavailtj [place] MD, Dr. Connolly Attending Provider Stanislav PINZON, Dr. Connolly Emergency Provider Wilman PINZON, Dr. Flores Attending Provider Unavail able Gila PINZON, Dr. Rollins Primary Care Physician Wilman PINZON, Dr. Flores Attending Physician Ayo Baird Primary Care Unavailable Mark Franco Attending Unavailable Gila, Ayo Primary Care Unavailable Araceli Mcmahan Attending Unavailable Gila, Ayo Primary Care Unavailable Araceli Mcmahan Attending Unavailable Gila, Ayo Primary Care Unavailable Mark Franco Attending Unavailable Mark Franco Referring Unavailable Gila, Ayo Primary Care Unavailable Mohsen [place] Attending Unavailable Gila, Ayo Primary Care Unavailable Mark Franco Attending Unavailable Gila, Ayo Primary Care Unavailable Mark Franco Attending Unavailable Medications Current Medications Medication Drug Class(es) Dates Sig (Normalized) Sig (Original) acetaminophen 325 mg oral tablet (13 sources) Start: 12-07-2018 take 2 tablets by mouth every six hours as needed for pain amLODIPine 10 mg oral tablet (13 sources) Dihydropyridine Calcium Channel Anjel Start: 12-03-2018 take 1 tablet by mouth once daily doxazosin 2 mg oral tablet (13 sources) alpha-Adrenergic Anjel Start: 12-03-2018 take 1 tablet by mouth once daily 1 ml haloperidol decanoate 100 mg/ml injection (13 sources) Typical Antipsychotic Start: 12-03-2018 inject 100 mg by intramuscular injection every week Start: 12-03-2018 inject 100 mg by int ramuscular injection every week Haloperidol Decanoate Active 100 MG IM EVERY WEEK December 02, 2018 11:00pm lisinopril 20 mg oral tablet (13 sources) Angiotensin Converting Enzyme Inhibitor Start: 12-03-2018 take 1 tablet by mouth once daily Needle (Disp) 16 G (10 sources) Start: [...] 12:00am Needle (Disp) 16 G 1 EACH ne edle (3 sources) Start: 12-07-2018 Needle (Disp) 16 G 1 EACH needle Active 1 NMA MC 3 TIMES DAILY WITH MEALS 100 0 December 07, 2018 12:00am Start: 12-07-2018 Needle (Disp) 16 G 1 EACH needle Active 1 NMA MC 3 TIMES DAILY WITH MEALS 100 December 07, 2018 12:00am OXcarbazepine 300 mg oral tablet (13 sources) Anti-epileptic Agent Start: 12-03-2018 take 1 tablet by mouth once daily predniSONE 20 mg oral tablet (3 sources) Start: 10-04-2024 take 2 tablets by mouth once daily QUEtiapine 100 mg oral tablet (13 sources) Atypical Antipsychotic Start: 12-03-2018 take 1 tablet by mouth once daily Completed/Discontinued Medications Medication Drug Class(es) Dates Sig (Normalized) Sig (Original) 3 ml insulin aspart, human 100 unt/ml pen injector (13 sources) Insulin Analog Start: 12-07-2018 End: 12-08-2018 [...] ml insulin glargine 100 unt/ml pen injector (13 sources) Insulin Analog Start: 12-07-2018 End: 12-08-2018 Insulin Glargine 100 UNITS/ML insulin pen Discontinued 40 U SC TWICE A DAY 1 December 07, 2018 12:00am December 07, 2018 12:00am December 08, 2018 12:08am Start: 12-07-2018 End: 12-08-2018 Insulin Glargine Discontinue d 40 UNITS SC TWICE A DAY December 06, 2018 11:00pm December 07, 2018 11:08pm Problems Active Problems Problem Classification Problem Date Documented Da te Episodic/Chronic Acute and unspecified renal failure (13 sources) Injury of kidney; Translations: [Acute kidney failure, unspecified] 12-03-2018 Episodic Anxiety disorders (13 sources) Mixed anxiety and depressive disorder; Translations: [Anxiety disorder, unspecified] 12-03-2018 Chronic Chronic obstructive pulmonary disease and bronchiectasis (3 sources) Acute exacerbation of chronic obstructive airways disease; Translations: [Chronic obstructive pulmonary disease with (acute) exacerbation] 10-12-2024 Chronic Diabetes mellitus with complications (14 sources) Diabetic ketoacidosis; Translations: [Type 2 diabetes mellitus with ketoacidosis without coma] Onset: 01-17-2025 12-03-2018 Chronic Diabetes mellitus without complication (2 sources) Type 2 diabetes mellitus without complications; Translations: [Type 2 diabetes mellitus without complications] Onset: 04-02-2025 Chronic Disorders of lipid metabolism (2 sources) Hyperlipidemia, unspecified; Translations: [Hyperlipidemia, unspecified] Onset: 01-17-2025 Chronic Essential hypertension (14 sources) Hypertensive disorder; Translations: [Essential (primary) hypertension] Onset: 05-24-2025 12-03-2018 Chronic Mood disorders (13 sources) Bipolar disorder; Translations: [Bipolar disorder, unspecified] 12-03-2018 Chronic Other aftercare (1 source) Other chcf (current) drug therapy; Translations: [Other manager sales and marketing (current) drug therapy] Onset: 06-21-2025 Episodic Other nutritional; endocrine; and metabolic disorders (3 sources) H/O: diabetes mellitus; Translations: [Personal history of other endocrine, nutritional and metabolic disease] 10-12-2024 Episodic Residual codes; unclassified (13 sources) Tobacco use and exposure - finding; Translations: [Tobacco use] 12-03-2018 Episodic Past or Other Problems Problem Classification Problem Date Documented Da te Episodic/Chronic Other lower respiratory disease (1 source) Shortness of breath; Translations: [Shortness of breath] Onset: 10-18-2024 Episodic Results Test Name Value Interpretation Reference Range Facility Hemoglobin A1con 06-04-2025 HbA1c (Bld) [Mass fraction] 7.8 % High <=5.6 [facility] Comment on above: Order Comment: 307.1 Result Comment: Norm al < 5.7 % Prediabetic 5.7 - 6.4 % Diabetic >or= 6.5 % Please note range changes. Performed By: #### L 501.9985 ####[facility] [address] [place], [address] Calculated very low density lipoprotein (VLDL) cholesterol measurementOrdered By: Mark Stovall on 03-14-2025 Calculated very low density lipoprotein (VLDL) cholesterol measurement 45 mg/dL High 5-40 [facility] LDL calc ser/plasOrdered By: Mark Stovall on 03-14-2025 Cholesterol in LDL [Mass/Vol] 61 mg/dL [facility] Comment on above: Bwdohfxiko=446-778 m g/dL & Higher Nhos=863 mg/dL or greater Lipid Profileon 03-14-2025 CHOL:HDL 4.56 Normal [facility] Comment on above: Order Comment: 307.1 Performed By: #### L 500.1142 #### [facility] [address] [place], [address] Cholesterol [Mass/Vol] 136 mg/dL Normal <=200 [facility] Comment on above: Order Comment: 307.1 Result Comment: Chol esterol level, Desirable <200 mg/dL Borderline high cholesterol 200-239 mg/dL High cholesterol >=240 mg/dL Recommendations of the NCEP Adult Treatment Panel for the following risk-cutoff thresholds for the [place] population. Performed By: #### L 500.2530 #### [facility] [address] [place], [place], [id number] Cholesterol in HDL [Mass/Vol] 30 mg/dL Low [facility] Comment on above: Order Comment: 307.1 Result Comment: Lakshmi onal Cholesterol Education Program (NCEP) guidelines: <40 mg/dL: Low HDL-cholesterol (major risk factor for CHD) >= 60 mg/dL: High HDL-cholesterol (negative risk factor for CHD) HDL-cholesterol is affected by a number of factors, e.g. smoking, exercise, hormones, sex and age. Performed By: #### L 500.4100 #### [facility] [address] [place], [address] Cholesterol in LDL [Mass/Vol] 61 mg/dL Normal [facility] Comment on above: Order Comment: 307.1 Result Comment: Bord otjdru=857-281 mg/dL Higher Rsqq=190 mg/dL or greater Performed By: #### L 500.4100 #### [facility] [address] [place], [address] Cholesterol in VLDL [Mass/Vol] 45 mg/dL High 5-40 [facility] Comment on above: Order Comment: 307.1 Performed By: #### L 500.4100 #### [facility] [address] [place], [address] Triglyceride [Mass/Vol] 226 mg/dL High [facility] Comment on above: Order Comment: 307.1 Result Comment: The drugs N-Acetylcysteine and Metamizole may falsely depress this assay. Normal range: <150 mg/dL Borderline High: 150-199 mg/dL High: 200-499 mg/dL Very High: >500 mg/dL Performed By: #### L 500.4100 #### [facility] [address] [place], [address] Screening total cholesterol/ high density lipoprotein (HDL) cholesterol ratioOrdered By: Mark Stovall on 03-14-2025 Cholesterol.total/Cholest natividad in HDL [Mass ratio] 4.56 {ratio} [facility] Serum or plasma cholesterol in HDL measurement (mass/volume)Ordered By: Mark Stovall on 03-14-2025 Cholesterol in HDL [Mass/Vol] 30 mg/dL Low >40 [facility] Comment on above: National Cholesterol Education Program (NCEP) guidelines:<40 mg/dL: Low HDL-cholesterol (major risk factor for CHD)>= 60 mg/dL: High HDL-cholesterol (negative risk factor for CHD)HDL-cholesterol is affected by a number of factors, e.g. smoking, exercise, hormones, sex and age. Serum or plasma cholesterol measurement (mass/volume)Ordered By: Mark Stovall on 03-14-2025 Cholesterol [Mass/Vol] 136 mg/dL <201 [facility] Comment on above: Cholesterol level, D esirable <200 mg/dLBorderline high cholesterol 200-239 mg/dLHigh cholesterol >=240 mg/dLRecommendations of the NCEP Adult Treatment Panel for the following risk-cutoff thresholds for the [place] population. Triglycerides measurementOrd ered By: Mark Stovall on 03-14-2025 Triglyceride [Mass/Vol] 226 mg/dL High <199 [facility] Comment on above: The drugs N-Acetylcy steine and Metamizole may falsely depress this assay. Normal range: <150 mg/dLBorderline High: 150-199 mg/dLHigh: 200-499 mg/dLVery High: >500 mg/dL Absolute lymphocyte countOrd ered By: Mark Stovall on 03-05-2025 Lymphocytes Auto (Unsp spec) [#/Vol] 1.81 10*3/uL 0.83-4.51 [facility] Absolute neutrophil countOrd ered By: Mark Stovall on 03-05-2025 Neutrophils (Bld) [#/Vol] 6.3 10*3/uL 2.0-7.7 [facility] Anion gap in Serum or Plasma Ordered By: Mark Stovall on 03-05-2025 Anion gap [Moles/Vol] 14 mmol/L - [facility] Automated lymphocyte count a s percentage of total leukocytesOrdered By: Mark Stovall on 03-05-2025 Lymphocytes/100 WBC Auto (Unsp spec) 19.5 % [facility] BUN/creatinine ratioOrdered By: Mark Stovall on 03-05-2025 Urea nitrogen/Creatinine [Mass ratio] 14.2 mg/mg 10- [facility] Basophil percentageOrdered B y: Mark Stovall on 03-05-2025 Basophils/100 WBC (Bld) 0.5 % 0-1 [facility] Bilirubin, totalOrdered By: Mark Stovall on 03-05-2025 Bilirubin [Mass/Vol] 0.17 mg/dL 0.00-1.30 [facility] CBC W/Diff, Automatedon 02-19-2024 Absolute Lymph 1.81 X10 3/uL Normal 0.83-4.51 [facility] Comment on above: Order Comment: 307.1 Performed By: #### M 100.678 #### [facility] [address] [place], [address] Absolute Neut 6.3 X10 3/uL Normal 2.0-7.7 [facility] Comment on above: Order Comment: 307.1 Result Comment: DESTINEE HAMILTON, SPOKE WITH MARCUS Performed By: #### M 100.678 #### [facility] [address] [place], [address] Basophils/100 WBC (Bld) 0.5 % Normal 0-1 [facility] Comment on above: Order Comment: 307.1 Performed By: #### M 100.678 #### [facility] [address] [place], [address] Eosinophils/100 WBC (Bld) 2.8 % Normal 0-5 [facility] Comment on above: Order Comment: 307.1 Performed By: #### M 100.678 #### [facility] [address] [place], [address] Erythrocyte distribution width (RBC) [Ratio] 13.1 % Normal 11.6-14.6 [facility] Comment on above: Order Comment: 307.1 Result Comment: DESTINEE HAMILTON, SPOKE WITH MARCUS Performed By: #### M 100.678 #### [facility] [address] [place], [address] Hematocrit (Bld) [Volume fraction] 38.1 % Low 40-54 [facility] Comment on above: Order Comment: 307.1 Result Comment: DESTINEE HAMILTON, SPOKE WITH MARCUS Performed By: #### M 100.678 #### [facility] [address] [place], [address] Hemoglobin (Bld) [Mass/Vol] 13.0 g/dL Normal 13.0-16.5 [facility] Comment on above: Order Comment: 307.1 Result Comment: DESTINEE HAMILTON, SPOKE WITH MARCUS Performed By: #### M 100.678 #### [facility] [address] [place], [address] IG% 0.300 Normal 0.0-0.9 [facility] Comment on above: Order Comment: 307.1 Result Comment: IG% - Immature Granulocytes (promyelocytes, myelocytes and metamyelocytes) > 1% indicates that a LEFT SHIFT is Present. Performed By: #### M 100.678 #### [facility] [address] [place], [address] Lymphocytes/100 WBC (Bld) 19.5 % Normal 19-41 [facility] Comment on above: Order Comment: 307.1 Performed By: #### M 100.678 #### [facility] [address] [place], [address] MCH (RBC) [Entitic mass] 30.4 pg Normal 27.0-32.0 [facility] Comment on above: Order Comment: 307.1 Result Comment: DESTINEE HAMILTON, SPOKE WITH MARCUS Performed By: #### M 100.678 #### [facility] [address] [place], [address] MCHC (RBC) [Mass/Vol] 34.1 g/dL Normal 32-36 [facility] Comment on above: Order Comment: 307.1 Result Comment: DESTINEE HAMILTON, SPOKE WITH MARCUS Performed By: #### M 100.678 #### [facility] [address] [place], [address] MCV (RBC) [Entitic vol] 89.2 fL Normal 80-94 [facility] Comment on above: Order Comment: 307.1 Result Comment: DESTINEE HAMILTON, SPOKE WITH MARCUS Performed By: #### M 100.678 #### [facility] [address] [place], [address] Monocytes/100 WBC (Bld) 8.9 % Normal 0-10 [facility] Comment on above: Order Comment: 307.1 Performed By: #### M 100.678 #### [facility] [address] [place], [address] Neutrophils/100 WBC (Bld) 68.0 % Normal 47-70 [facility] Comment on above: Order Comment: 307.1 Result Comment: DESTINEE HAMILTON, SPOKE WITH MARCUS Performed By: #### M 100.678 #### [facility] [address] [place], [address] Nucleated RBC (Bld) [#/Vol] 0 10*3/uL Normal 0-5 [facility] Comment on above: Order Comment: 307.1 Performed By: #### M 100.678 #### [facility] [address] [place], [address] Platelet mean volume (Bld) [Entitic vol] 10.0 fL Normal 6.2-12.0 [facility] Comment on above: Order Comment: 307.1 Performed By: #### M 100.678 #### [facility] [address] [place], [address] Platelets (Bld) [#/Vol] 268 10*3/uL Normal 150-450 [facility] Comment on above: Order Comment: 307.1 Result Comment: DESTINEE HAMILTON, SPOKE WITH MARCUS Performed By: #### M 100.678 #### [facility] [address] [place], [address] RBC (Bld) [#/Vol] 4.27 10*6/uL Low 4.6-6.2 [facility] Comment on above: Order Comment: 307.1 Result Comment: DESTINEE HAMILTON, SPOKE WITH MARCUS Performed By: #### M 100.678 #### [facility] [address] [place], [address] RDW SD 42.7 fl Normal 35.1-43.9 [facility] Comment on above: Order Comment: 307.1 Result Comment: DESTINEE HAMILTON, SPOKE WITH MARCUS Performed By: #### M 100.678 #### [facility] [address] [place], [address] WBC (Bld) [#/Vol] 9.3 10*3/uL Normal 4.4-11.0 [facility] Comment on above: Order Comment: 307.1 Result Comment: DESTINEE HAMILTON, SPOKE WITH MARCUS Performed By: #### M 100.678 #### [facility] [address] [place], [address] Carbon dioxide, total [Moles /volume] in Central venous bloodOrdered By: Mark Stovall on 03-05-2025 CO2 [Moles/Vol] 22.5 mmol/L 21.0-32.0 [facility] Chloride assayOrdered By: Eduar Stovall on 03-05-2025 Chloride [Moles/Vol] 98 mmol/L 98-108 [facility] Comprehensive Metabolic Prof ilon 03-05-2025 Albumin [Mass/Vol] 4.0 g/dL Normal 3.4-4.8 [facility] Comment on above: Order Comment: 307.1 Performed By: #### M 100.678 #### [facility] [address] [place], [address] Albumin/Globulin [Mass ratio] 1.3 {ratio} Normal 0.9-2.4 [facility] Comment on above: Order Comment: 307.1 Performed By: #### M 100.678 #### [facility] [address] [place], [address] ALK PHOS 97 U/L Normal 40-129 [facility] Comment on above: Order Comment: 307.1 Performed By: #### M 100.678 #### [facility] [address] [place], [address] ALT [Catalytic activity/Vol] 32 U/L Normal <=46 [facility] Comment on above: Order Comment: 307.1 Performed By: #### M 100.678 #### [facility] [address] [place], [address] AST [Catalytic activity/Vol] 27 U/L Normal <=37 [facility] Comment on above: Order Comment: 307.1 Result Comment: Hemo lysis present, Results??could be affected. ?? Performed By: #### M 100.678 #### [facility] [address] [place], [address] Bilirubin [Mass/Vol] 0.17 mg/dL Normal 0.00-1.30 [facility] Comment on above: Order Comment: 307.1 Performed By: #### M 100.678 #### [facility] [address] [place], [address] BUN/CRE 14.2 RATIO Normal 10-20 [facility] Comment on above: Order Comment: 307.1 Performed By: #### M 100.678 #### [facility] [address] [place], [address] Calcium [Mass/Vol] 9.0 mg/dL Normal 7.6-11.0 [facility] Comment on above: Order Comment: 307.1 Performed By: #### M 100.678 #### [facility] [address] [place], [address] Chloride [Moles/Vol] 98 mmol/L Normal 98-108 [facility] Comment on above: Order Comment: 307.1 Performed By: #### M 100.678 #### [facility] [address] [place], [address] CO2 [Moles/Vol] 22.5 mmol/L Normal 21.0-32.0 [facility] Comment on above: Order Comment: 307.1 Performed By: #### M 100.678 #### [facility] [address] [place], [address] Creatinine [Mass/Vol] 0.99 mg/dL Normal 0.70-1.20 [facility] Comment on above: Order Comment: 307.1 Performed By: #### M 100.678 #### [facility] [address] [place], [address] GAP 14 Normal 5-15 [facility] Comment on above: Order Comment: 307.1 Performed By: #### M 100.678 #### [facility] [address] [place], [address] GFR/1.73 sq M.predicted among non-blacks MDRD (S/P/Bld) [Vol rate/Area] 84 mL/min/{1.73_m2} Normal >60 [facility] Comment on above: Order Comment: 307.1 Result Comment: mL/m in/1.73m2 CKD-EPI Creatinine Equation (2020) Performed By: #### M 100.678 #### [facility] [address] [place], [address] Globulin (S) [Mass/Vol] 3.0 g/dL Normal 2.2-4.2 [facility] Comment on above: Order Comment: 307.1 Performed By: #### M 100.678 #### [facility] [address] [place], [address] Glucose [Mass/Vol] 172 mg/dL High 70-99 [facility] Comment on above: Order Comment: 307.1 Performed By: #### M 100.678 #### [facility] [address] [place], [address] Potassium [Moles/Vol] 4.4 mmol/L Normal 3.3-5.1 [facility] Comment on above: Order Comment: 307.1 Result Comment: Hemo lysis present, Results??could be affected. ?? Performed By: #### M 100.678 #### [facility] [address] [place], [address] Sodium [Moles/Vol] 134 mmol/L Normal 133-145 [facility] Comment on above: Order Comment: 307.1 Performed By: #### M 100.678 #### [facility] [address] [place], [address] T PROT 7.1 g/dL Normal 5.9-8.4 [facility] Comment on above: Order Comment: 307.1 Performed By: #### M 100.678 #### [facility] [address] [place], [address] Urea nitrogen [Mass/Vol] 14 mg/dL Normal 4-19 [facility] Comment on above: Order Comment: 307.1 Performed By: #### M 100.678 #### [facility] [address] [place], [address] Eosinophil percentageOrdered By: Mark Stovall on 03-05-2025 Eosinophils/100 WBC (Bld) 2.8 % 0-5 [facility] Erythrocyte distribution wid th ratioOrdered By: Mark Stovall on 03-05-2025 Erythrocyte distribution width (RBC) [Ratio] 13.1 % 11.6-14.6 [facility] Erythrocyte distribution wid th standard deviationOrdered By: Mark Stovall on 03-05-2025 Erythrocyte distribution width (RBC) [Ratio] 42.7 fl 35.1-43.9 [facility] Glomerular filtration rate ( GFR) estimation/1.73 sq m using serum, plasma, or whole bOrdered By: Mark Stovall on 03-05-2025 GFR/1.73 sq M.predicted among non-blacks MDRD (S/P/Bld) [Vol rate/Area] 84 mL/min/{1.73_m2} >60 [facility] Comment on above: mL/min/1.73m2 CKD-EP I Creatinine Equation (2020) Hematocrit Auto (Bld) [Volum e fraction]Ordered By: Mark Stovall on 03-05-2025 Hematocrit (Bld) [Volume fraction] 38.1 % Low 40-54 [facility] Hemoglobin A1con 03-05-2025 HbA1c (Bld) [Mass fraction] 8.5 % High <=5.6 [facility] Comment on above: Order Comment: 307.1 Result Comment: Norm al < 5.7 % Prediabetic 5.7 - 6.4 % Diabetic >or= 6.5 % Please note range changes. Performed By: #### M 100.678 #### [facility] [address] [place] [address]. [place], [place], [address] Hemoglobin A1c percentageOrd ered By: Mark Stovall on 03-05-2025 HbA1c (Bld) [Mass fraction] 8.5 % High <5.7 [facility] Comment on above: Normal < 5.7 % Predi abetic 5.7 - 6.4 % Diabetic >or= 6.5 % Please note range changes. Hemoglobin measurementOrdere d By: Mark Stovall on 03-05-2025 Hemoglobin (Bld) [Mass/Vol] 13.0 g/dL 13.0-16.5 [facility] Immature granulocytes/100 WB C Auto (Bld)Ordered By: Mark Stovall on 03-05-2025 Immature granulocytes/100 WBC (Bld) 0.300 % 0.0-0.9 [facility] Comment on above: IG% - Immature Granu locytes (promyelocytes, myelocytes and metamyelocytes) > 1% indicates that a LEFT SHIFT is Present. Laboratory - Chemistry and C hemistry - challengeOrdered By: Mark Stovall on 03-05-2025 AST [Catalytic activity/Vol] 27 U/L <38 [facility] Comment on above: Hemolysis present, R esults could be affected. MCV (mean corpuscular volume ) determinationOrdered By: Mark Stovall on 03-05-2025 MCV (RBC) [Entitic vol] 89.2 fL 80-94 [facility] Mean corpuscular hemoglobin (MCH) determinationOrdered By: Mark Stovall on 03-05-2025 MCH (RBC) [Entitic mass] 30.4 pg 27.0-32.0 [facility] Mean corpuscular hemoglobin concentration (MCHC) determinationOrdered By: Mark Stovall on 03-05-2025 MCHC (RBC) [Mass/Vol] 34.1 g/dL 32-36 [facility] Mean platelet volume determi nationOrdered By: Mark Stovall on 03-05-2025 Platelet mean volume (Bld) [Entitic vol] 10.0 fL 6.2-12.0 [facility] Monocyte percentageOrdered B y: Mark Stovall on 03-05-2025 Monocytes/100 WBC (Bld) 8.9 % 0-10 [facility] [facility] Neutrophil percentageOrdered By: Mark Stovall on 03-05-2025 Neutrophils/100 WBC (Bld) 68.0 % 47-70 [facility] Nucleated red blood cell per centageOrdered By: Mark Stovall on 03-05-2025 Nucleated RBC/100 WBC (Bld) [Ratio] 0 % 0-5 [facility] Platelet countOrdered By: Eduar Stovall on 03-05-2025 Platelets (Bld) [#/Vol] 268 10*3/uL 150-450 [facility] Potassium measurement (mass/ volume)Ordered By: Mark Stovall on 03-05-2025 Potassium (Unsp spec) [Mass/Vol] 4.4 mmol/L 3.3-5.1 [facility] Comment on above: Hemolysis present, R esults could be affected. RBC Auto (Bld) [#/Vol]Ordere d By: Mark Stovall on 03-05-2025 RBC (Bld) [#/Vol] 4.27 10*6/uL Low 4.6-6.2 [facility] Serum creatinine measurement (mass/volume)Ordered By: Mark tSovall on 03-05-2025 Creatinine [Mass/Vol] 0.99 mg/dL 0.70-1.20 [facility] Serum globulin measurementOr dered By: Mark Stovall on 03-05-2025 Globulin (S) [Mass/Vol] 3.0 g/dL 2.2-4.2 [facility] Serum glucose measurement (m ass/volume)Ordered By: Mark Stovall on 03-05-2025 Glucose [Mass/Vol] 172 mg/dL High 70-99 [facility] Serum or plasma alanine moy otransferase (ALT) measurementOrdered By: Mark Stovall on 03-05-2025 ALT [Catalytic activity/Vol] 32 U/L <47 [facility] Serum or plasma albumin karissa urement (mass/volume)Ordered By: Mark Stovall on 03-05-2025 Albumin [Mass/Vol] 4.0 g/dL 3.4-4.8 [facility] Serum or plasma albumin/glob ulin mass ratioOrdered By: Mark Stovall on 03-05-2025 Albumin/Globulin [Mass ratio] 1.3 {ratio} 0.9-2.4 [facility] Serum or plasma alkaline cyril sphatase measurementOrdered By: Mark Stovall on 03-05-2025 ALP [Catalytic activity/Vol] 97 U/L 40-129 [facility] Serum or plasma calcium karissa urement (mass/volume)Ordered By: Mark Stovall on 03-05-2025 Calcium [Mass/Vol] 9.0 mg/dL 7.6-11.0 [facility] Serum or plasma urea nitroge n measurement (mass/volume)Ordered By: Mark Stovall on 03-05-2025 Urea nitrogen [Mass/Vol] 14 mg/dL 4-19 [facility] Sodium levelOrdered By: Liang Stovall on 03-05-2025 Sodium [Moles/Vol] 134 mmol/L 133-145 [facility] Total proteinOrdered By: Zac Stovall on 03-05-2025 Protein [Mass/Vol] 7.1 g/dL 5.9-8.4 [facility] White blood cell (WBC) count Ordered By: Mark Stovall on 03-05-2025 WBC (Bld) [#/Vol] 9.3 10*3/uL 4.4-11.0 [facility] Hemoglobin A1con 12-11-2024 HbA1c (Bld) [Mass fraction] 9.7 % High <=5.6 [facility] Comment on above: Result Comment: Norm al < 5.7 % Prediabetic 5.7 - 6.4 % Diabetic >or= 6.5 % Please note range changes. Performed By: #### L 501.9985 #### [facility] [address] [place], [place], [id number] Hemoglobin A1c percentageOrd ered By: Mark Stovall on 12-11-2024 HbA1c (Bld) [Mass fraction] 9.7 % High <5.7 [facility] Comment on above: Normal < 5.7 % Predi abetic 5.7 - 6.4 % Diabetic >or= 6.5 % Please note range changes. L3410.9998on 11-16-2024 [facility]. COMMENT Normal . [facility] Comment on above: Order Comment: SERUM ROOM [id number] ACID DECARBOXYLASE Result Comment: Test Ordered: [id number] HARI-65 Autoantibody HARI-65 <5.0 U/mL Reference Range: 0.0-5.0 Performed at: - [address] [id number] Continuous Improvement Consultant: Nataliia Catalan MD, Phone: [phone] Performed at: [address] [id number] Continuous Improvement Consultant: Osiel Vazquez PhD, Phone: [phone] Performed By: #### L 3410.9998, L501.9985, L502.0250, L501.9520, L500.4100, L501.9310, L3100.7750, L500.4050 ####[facility] [address] [place], [address] C-Peptideon 11-13-2024 C PEPTIDE 1.9 ng/mL Normal 1.1-4.4 [facility] Comment on above: Order Comment: 308.1 Result Comment: C-Pe ptide reference interval is for fasting patients. Performed at: [address] [id number] Continuous Improvement Consultant: Osiel Vazquez PhD, Phone: [phone] Performed By: #### L 3410.9998, L501.9985, L502.0250, L501.9520, L500.4100, L501.9310, L3100.7750, L500.4050 ####[facility] [address] [place], [place], [id number] Hemoglobin A1con 11-13-2024 HbA1c (Bld) [Mass fraction] 9.7 % Normal <=5.6 [facility] Comment on above: Order Comment: 308.1 Performed By: #### L 3410.9998, L501.9985, L502.0250, L501.9520, L500.4100, L501.9310, L3100.7750, L500.4050 ####[facility] [address] [facility] [place], [place], [address] Anion gap in Serum or Plasma Ordered By: Araceli Fernandez on 11-12-2024 Anion gap [Moles/Vol] 14 mmol/L 01-03 [facility] BUN/creatinine ratioOrdered By: Araceli Fernandez on 11-12-2024 Urea nitrogen/Creatinine [Mass ratio] 16.6 mg/mg 06-10 [facility] Bilirubin, totalOrdered By: Araceli Fernandez on 11-12-2024 Bilirubin [Mass/Vol] 0.19 mg/dL 0.00-1.30 [facility] C-peptideOrdered By: Araceli Fernandez on 11-12-2024 C-Peptide 1.9 ng/mL 1.1-4.4 [facility] Comment on above: C-Peptide reference interval is for fasting patients.Performed at: [facility] [address] [id number] Director: Osiel Vazquez PhD, Phone: [phone] Calculated very low density lipoprotein (VLDL) cholesterol measurementOrdered By: Araceli Fernandez on 11-12-2024 Calculated very low density lipoprotein (VLDL) cholesterol measurement 46 mg/dL High 5-40 [facility] VLDL Cholesterol 46 mg/dL High 5-40 [facility] Carbon dioxide, total [Moles /volume] in Central venous bloodOrdered By: Araceli Fernandez on 11-12-2024 CO2 [Moles/Vol] 21.2 mmol/L 21.0-32.0 [facility] Chloride assayOrdered By: Edwin Fernandez on 11-12-2024 Chloride [Moles/Vol] 100 mmol/L 98-108 [facility] Comprehensive Metabolic Prof ilon 11-12-2024 Albumin [Mass/Vol] 3.9 g/dL Normal 3.4-4.8 [facility] Comment on above: Order Comment: 308.1 Performed By: #### L 3410.9998, L501.9985, L502.0250, L501.9520, L500.4100, L501.9310, L3100.7750, L500.4050 ####[facility] [address] [place], [place], [phone] Albumin/Globulin [Mass ratio] 1.3 {ratio} Normal 0.9-2.4 [facility] Comment on above: Order Comment: 308.1 Performed By: #### L 3410.9998, L501.9985, L502.0250, L501.9520, L500.4100, L501.9310, L3100.7750, L500.4050 ####[facility] [address] [place], [place], [id number] ALK PHOS 98 U/L Normal 40-129 [facility] Comment on above: Order Comment: 308.1 Performed By: #### L 3410.9998, L501.9985, L502.0250, L501.9520, L500.4100, L501.9310, L3100.7750, L500.4050 ####[facility] [address] [place], [place], [id number] ALT [Catalytic activity/Vol] 26 U/L Normal <=46 [facility] Comment on above: Order Comment: 308.1 Performed By: #### L 3410.9998, L501.9985, L502.0250, L501.9520, L500.4100, L501.9310, L3100.7750, L500.4050 ####[facility] [address] [place], [place], [phone]44) AST [Catalytic activity/Vol] 22 U/L Normal <=37 [facility] Comment on above: Order Comment: 308.1 Performed By: #### L 3410.9998, L501.9985, L502.0250, L501.9520, L500.4100, L501.9310, L3100.7750, L500.4050 ####[facility] [address] [place], [place], [phone]) Bilirubin [Mass/Vol] 0.19 mg/dL Normal 0.00-1.30 [facility] Comment on above: Order Comment: 308.1 Performed By: #### L 3410.9998, L501.9985, L502.0250, L501.9520, L500.4100, L501.9310, L3100.7750, L500.4050 ####[facility] [address] [place], [place], [phone](124) BUN/CRE 16.6 RATIO Normal 10-20 [facility] Comment on above: Order Comment: 308.1 Performed By: #### L 3410.9998, L501.9985, L502.0250, L501.9520, L500.4100, L501.9310, L3100.7750, L500.4050 ####[facility] [address] [place], [place], [phone]) Calcium [Mass/Vol] 9.0 mg/dL Normal 7.6-11.0 [facility] Comment on above: Order Comment: 308.1 Performed By: #### L 3410.9998, L501.9985, L502.0250, L501.9520, L500.4100, L501.9310, L3100.7750, L500.4050 ####[facility] [address] [place], [place], [address] Chloride [Moles/Vol] 100 mmol/L Normal 98-108 [facility] Comment on above: Order Comment: 308.1 Performed By: #### L 3410.9998, L501.9985, L502.0250, L501.9520, L500.4100, L501.9310, L3100.7750, L500.4050 ####[facility] [address] [place], [place], [address] CO2 [Moles/Vol] 21.2 mmol/L Normal 21.0-32.0 [facility] Comment on above: Order Comment: 308.1 Performed By: #### L 3410.9998, L501.9985, L502.0250, L501.9520, L500.4100, L501.9310, L3100.7750, L500.4050 ####[facility] [address] [place], [place], [address] Creatinine [Mass/Vol] 0.91 mg/dL Normal 0.70-1.20 [facility] Comment on above: Order Comment: 308.1 Performed By: #### L 3410.9998, L501.9985, L502.0250, L501.9520, L500.4100, L501.9310, L3100.7750, L500.4050 ####[facility] [address] [place], [address] GAP 14 Normal 5-15 [facility] Comment on above: Order Comment: 308.1 Performed By: #### L 3410.9998, L501.9985, L502.0250, L501.9520, L500.4100, L501.9310, L3100.7750, L500.4050 ####[facility] [address] [place], [address] GFR/1.73 sq M.predicted among non-blacks MDRD (S/P/Bld) [Vol rate/Area] 92 mL/min/{1.73_m2} Normal >60 [facility] Comment on above: Order Comment: 308.1 Result Comment: mL/m in/1.73m2 CKD-EPI Creatinine Equation (2020) Performed By: #### L 3410.9998, L501.9985, L502.0250, L501.9520, L500.4100, L501.9310, L3100.7750, L500.4050 ####[facility] [address] [place], [address] Globulin (S) [Mass/Vol] 3.0 g/dL Normal 2.2-4.2 [facility] Comment on above: Order Comment: 308.1 Performed By: #### L 3410.9998, L501.9985, L502.0250, L501.9520, L500.4100, L501.9310, L3100.7750, L500.4050 ####[facility] [address] [place], [address] Glucose [Mass/Vol] 228 mg/dL High 70-99 [facility] Comment on above: Order Comment: 308.1 Performed By: #### L 3410.9998, L501.9985, L502.0250, L501.9520, L500.4100, L501.9310, L3100.7750, L500.4050 ####[facility] [address] [place], [address] Potassium [Moles/Vol] 4.3 mmol/L Normal 3.3-5.1 [facility] Comment on above: Order Comment: 308.1 Performed By: #### L 3410.9998, L501.9985, L502.0250, L501.9520, L500.4100, L501.9310, L3100.7750, L500.4050 ####[facility] [address] [place], [place], [phone](101) Sodium [Moles/Vol] 135 mmol/L Normal 133-145 [facility] Comment on above: Order Comment: 308.1 Performed By: #### L 3410.9998, L501.9985, L502.0250, L501.9520, L500.4100, L501.9310, L3100.7750, L500.4050 ####[facility] [address] [place], [address] T PROT 7.0 g/dL Normal 5.9-8.4 [facility] Comment on above: Order Comment: 308.1 Performed By: #### L 3410.9998, L501.9985, L502.0250, L501.9520, L500.4100, L501.9310, L3100.7750, L500.4050 ####[facility] [address] [place], [address] Urea nitrogen [Mass/Vol] 15 mg/dL Normal 4-19 [facility] Comment on above: Order Comment: 308.1 Performed By: #### L 3410.9998, L501.9985, L502.0250, L501.9520, L500.4100, L501.9310, L3100.7750, L500.4050 ####[facility] [address] [place], [address] GFR/1.73 sq M.predicted odell g non-blacks MDRD (S/P/Bld) [Vol rate/Area]Ordered By: Araceli Fernandez on 11-12-2024 Estimated GFR (MDRD) Non-Af Amer 92 >60 [facility] Comment on above: mL/min/1.73m2 CKD-EP I Creatinine Equation (2020) Glomerular filtration rate ( GFR) estimation/1.73 sq m using serum, plasma, or whole bOrdered By: Araceli Fernandez on 11-12-2024 GFR/1.73 sq M.predicted among non-blacks MDRD (S/P/Bld) [Vol rate/Area] 92 mL/min/{1.73_m2} >60 [facility] Comment on above: mL/min/1.73m2 CKD-EP I Creatinine Equation (2020) Hemoglobin A1c percentageOrd ered By: Araceli Fernandez on 11-12-2024 HbA1c (Bld) [Mass fraction] 9.7 % >5.7 [facility] LDL calc ser/plasOrdered By: Araceli Fernandez on 11-12-2024 Cholesterol in LDL [Mass/Vol] 90 mg/dL [facility] Comment on above: Endvoiqvdx=820-749 m g/dL & Higher Rqfx=218 mg/dL or greater LDL Cholesterol, Calculated 90 mg/dL [facility] Comment on above: Uxenttnoga=628-847 m g/dL & Higher Mnja=127 mg/dL or greater Laboratory - Chemistry and C hemistry - challengeOrdered By: Araceli Fernandez on 11-12-2024 AST [Catalytic activity/Vol] 22 U/L <38 [facility] Lipid Profileon 11-12-2024 CHOL:HDL 5.28 Normal [facility] Comment on above: Order Comment: 308.1 Performed By: #### L 3410.9998, L501.9985, L502.0250, L501.9520, L500.4100, L501.9310, L3100.7750, L500.4050 ####[facility] [address] [place], [address] Cholesterol [Mass/Vol] 168 mg/dL Normal <=200 [facility] Comment on above: Order Comment: 308.1 Result Comment: Chol esterol level, Desirable <200 mg/dL Borderline high cholesterol 200-239 mg/dL High cholesterol >=240 mg/dL Recommendations of the NCEP Adult Treatment Panel for the following risk-cutoff thresholds for the [place] population. Performed By: #### L 3410.9998, L501.9985, L502.0250, L501.9520, L500.4100, L501.9310, L3100.7750, L500.4050 ####[facility] [address] [place], [address] Cholesterol in HDL [Mass/Vol] 32 mg/dL Low [facility] Comment on above: Order Comment: 308.1 Result Comment: Lakshmi onal Cholesterol Education Program (NCEP) guidelines: <40 mg/dL: Low HDL-cholesterol (major risk factor for CHD) >= 60 mg/dL: High HDL-cholesterol (negative risk factor for CHD) HDL-cholesterol is affected by a number of factors, e.g. smoking, exercise, hormones, sex and age. Performed By: #### L 3410.9998, L501.9985, L502.0250, L501.9520, L500.4100, L501.9310, L3100.7750, L500.4050 ####[facility] [address] [place], [address] Cholesterol in LDL [Mass/Vol] 90 mg/dL Normal [facility] Comment on above: Order Comment: 308.1 Result Comment: Bord enhhxt=280-976 mg/dL Higher Qqqf=019 mg/dL or greater Performed By: #### L 3410.9998, L501.9985, L502.0250, L501.9520, L500.4100, L501.9310, L3100.7750, L500.4050 ####[facility] [address] [place], [address] Cholesterol in VLDL [Mass/Vol] 46 mg/dL High 5-40 [facility] Comment on above: Order Comment: 308.1 Performed By: #### L 3410.9998, L501.9985, L502.0250, L501.9520, L500.4100, L501.9310, L3100.7750, L500.4050 ####[facility] [address] [place], [address] Triglyceride [Mass/Vol] 232 mg/dL High [facility] Comment on above: Order Comment: 308.1 Result Comment: The drugs N-Acetylcysteine and Metamizole may falsely depress this assay. Normal range: <150 mg/dL Borderline High: 150-199 mg/dL High: 200-499 mg/dL Very High: >500 mg/dL Performed By: #### L 3410.9998, L501.9985, L502.0250, L501.9520, L500.4100, L501.9310, L3100.7750, L500.4050 ####[facility] [address] [place], [place], [phone] Microalb:Creat Ratio,Random URon 11-12-2024 Creatinine [Mass/Vol] 95.30 mg/dL Normal 39.00-259.00 [facility] Comment on above: Performed By: #### L 3410.9998, L501.9985, L502.0250, L501.9520, L500.4100, L501.9310, L3100.7750, L500.4050 ####[facility] [address] [place], [address] MALB:CREAT UNABLE TO CALCULATE Normal [facility] Comment on above: Performed By: #### L 3410.9998, L501.9985, L502.0250, L501.9520, L500.4100, L501.9310, L3100.7750, L500.4050 ####[facility] [address] [place], [place], [phone] MICROALBUMIN,UR < 12.0 Normal NO RANGE EST. [facility] Comment on above: Performed By: #### L 3410.9998, L501.9985, L502.0250, L501.9520, L500.4100, L501.9310, L3100.7750, L500.4050 ####[facility] [address] [place], [place], [id number] No Panel InformationOrdered By: Araceli Fernandez on 11-12-2024 Miscellaneous Test COMMENT . [facility] Comment on above: Test Ordered: [id number] HARI-65 AutoantibodyGAD-65 <5.0 U/mL BN Reference Range: 0.0-5.0Performed at: BN - [facility] [address] [id number] Director: Nataliia Catalan MD, Phone: [phone] at: - [facility] [id number] Director: Osiel Vazquez PhD, Phone: [phone] Potassium (Unsp spec) [Mass/ Vol]Ordered By: Araceli Fernandez on 11-12-2024 Potassium [Moles/Vol] 4.3 mmol/L 3.3-5.1 [facility] Potassium measurement (mass/ volume)Ordered By: Araceli Fernandez on 11-12-2024 Potassium (Unsp spec) [Mass/Vol] 4.3 mmol/L 3.3-5.1 [facility] Screening total cholesterol/ high density lipoprotein (HDL) cholesterol ratioOrdered By: Araceli Fernandez on 11-12-2024 Cholesterol.total/Cholest natividad in HDL [Mass ratio] 5.28 {ratio} [facility] Serum creatinine measurement (mass/volume)Ordered By: Araceli Fernandez on 11-12-2024 Creatinine [Mass/Vol] 0.91 mg/dL 0.70-1.20 [facility] Serum globulin measurementOr dered By: Araceli Fernandez on 11-12-2024 Globulin (S) [Mass/Vol] 3.0 g/dL 2.2-4.2 [facility] Serum glucose measurement (m ass/volume)Ordered By: Araceli Fernandez on 11-12-2024 Glucose [Mass/Vol] 228 mg/dL High 70-99 [facility] Serum or plasma alanine moy otransferase (ALT) measurementOrdered By: Araceli Fernandez on 11-12-2024 ALT [Catalytic activity/Vol] 26 U/L <47 [facility] Serum or plasma albumin karissa urement (mass/volume)Ordered By: Araceli Fernandez on 11-12-2024 Albumin [Mass/Vol] 3.9 g/dL 3.4-4.8 [facility] Serum or plasma albumin/glob ulin mass ratioOrdered By: Araceli Fernandze on 11-12-2024 Albumin/Globulin [Mass ratio] 1.3 {ratio} 0.9-2.4 [facility] Serum or plasma alkaline cyril sphatase measurementOrdered By: Araceli Fernandez on 11-12-2024 ALP [Catalytic activity/Vol] 98 U/L 40-129 [facility] Serum or plasma calcium karissa urement (mass/volume)Ordered By: Araceli Fernandez on 11-12-2024 Calcium [Mass/Vol] 9.0 mg/dL 7.6-11.0 [facility] Serum or plasma cholesterol in HDL measurement (mass/volume)Ordered By: Araceli Fernandez on 11-12-2024 Cholesterol in HDL [Mass/Vol] 32 mg/dL Low >40 [facility] Comment on above: National Cholesterol Education Program (NCEP) guidelines:<40 mg/dL: Low HDL-cholesterol (major risk factor for CHD)>= 60 mg/dL: High HDL-cholesterol (negative risk factor for CHD)HDL-cholesterol is affected by a number of factors, e.g. smoking, exercise, hormones, sex and age. Serum or plasma cholesterol measurement (mass/volume)Ordered By: Araceli Fernandez on 11-12-2024 Cholesterol [Mass/Vol] 168 mg/dL <201 [facility] Comment on above: Cholesterol level, D esirable <200 mg/dLBorderline high cholesterol 200-239 mg/dLHigh cholesterol >=240 mg/dLRecommendations of the NCEP Adult Treatment Panel for the following risk-cutoff thresholds for the [place] population. Serum or plasma urea nitroge n measurement (mass/volume)Ordered By: Araceli Fernandez on 11-12-2024 Urea nitrogen [Mass/Vol] 15 mg/dL 4-19 [facility] Sodium levelOrdered By: Megan Fernandez on 11-12-2024 Sodium [Moles/Vol] 135 mmol/L 133-145 [facility] T4 Total, Thyroxinon 025 T4 [Mass/Vol] 6.1 ug/dL Normal 4.5-12.1 [facility] Comment on above: Order Comment: 308.1 Performed By: #### L 3410.9998, L501.9985, L502.0250, L501.9520, L500.4100, L501.9310, L3100.7750, L500.4050 ####[facility] [address] [place], [address] TSH DL <= 0.005 mIU/L QnOrde red By: Araceli Fernandez on 11-12-2024 Thyroid Stimulating Hormone (TSH) 1.510 uIU/mL 0.300-4.200 [facility] TSH Qn 1.510 uIU/mL 0.300-4.200 [facility] Thyroid Stim Hormone (TSH)on 11-12-2024 TSH 1.510 uIU/mL Normal 0.300-4.200 [facility] Comment on above: Order Comment: 308.1 Performed By: #### L 3410.9998, L501.9985, L502.0250, L501.9520, L500.4100, L501.9310, L3100.7750, L500.4050 ####[facility] [address] [place], [address] ThyroxineOrdered By: Araceli Fernandez on 11-12-2024 T4 [Mass/Vol] 6.1 ug/dL 4.5-12.1 [facility] Total proteinOrdered By: Sera Fernandez on 11-12-2024 Protein [Mass/Vol] 7.0 g/dL 5.9-8.4 [facility] Triglycerides measurementOrd ered By: Araceli Fernandez on 11-12-2024 Triglyceride [Mass/Vol] 232 mg/dL High <199 [facility] Comment on above: The drugs N-Acetylcy steine and Metamizole may falsely depress this assay. Normal range: <150 mg/dLBorderline High: 150-199 mg/dLHigh: 200-499 mg/dLVery High: >500 mg/dL Albumin DL <= 20 mg/L (U) [M ass/Vol]Ordered By: Araceli Fenrandez on 11-11-2024 Urine Random Microalbumin < 12.0 mg/L NO RANGE EST. [facility] Creatinine Unsp time (U) [Ma ss/Vol]Ordered By: Araceli Fernandez on 11-11-2024 Creatinine (U) [Mass/Vol] 95.30 mg/dL 39.00-259 .00 [facility] Microalbumin/creat ratio urO rdered By: Araceli Fernandez on 11-11-2024 Urine Microalbumin/Creatinine Ratio UNABLE TO CALCULATE mg/g CRE [facility] Urine microalbumin/creatinine ratio measurement UNABLE TO CALCULATE mg/g CRE [facility] Random urine creatinine karissa urement (mass/volume)Ordered By: Araceli Fernandez on 11-11-2024 Creatinine Unsp time (U) [Mass/Vol] 95.30 mg/dL 39.00-259.00 [facility] Urine albumin measurement [facility] detection limit of 20 mg/L or less (mass/volume)Ordered By: Araceli Fernandez on 11-11-2024 Albumin DL <= 20 mg/L (U) [Mass/Vol] < 12.0 mg/L NO RANGE EST. [facility] 12 Lead EKGon 10-03-2024 12 Lead EKG [facility] Cardiovascular Services [address] [place] [address] 12 Lead EKG 10/03/24 2156 MR#: [id number] Acct: [id number] Name: SNEHA ROBLERO Rep #: [id number] : 1955 69 From: David Oscar MD [...] Confirmed by DWIGHT PINZON, OSCAR ([id number]), editor school photograph ROBERT HADDAD ([id number]) on 10/05/2024 1:02:29 PM Referred By: DOROTHY Confirmed By: OSCAR OSCAR MD 10/05/24 1302 Date David Oscar MD CC: Dr. Mohsen [place] MD; Dr. Ayo Uriostegui MD Signed Normal [facility] Absolute lymphocyte countOrd ered By: Mohsen [place] on 10-03-2024 Lymphocytes Auto (Unsp spec) [#/Vol] 2.23 10*3/uL 0.83-4.51 [facility] Absolute neutrophil countOrd ered By: Mohsen [place] on 10-03-2024 Neutrophils (Bld) [#/Vol] 4.0 10*3/uL 2.0-7.7 [facility] Automated lymphocyte count a s percentage of total leukocytesOrdered By: Mohsen [place] on 10-03-2024 Lymphocytes/100 WBC Auto (Unsp spec) 32.3 % 19-41 [facility] Basic Metabolic Profile (BMP )on 10-03-2024 BUN/CRE 15.5 RATIO Normal 10-20 [facility] Comment on above: Order Comment: 'TROP ' Serial specimen #1, #2 or #3: 1 Performed By: #### L 501.4020, L500.2500, L100.0100 #### [facility] [address] [place], [address] [place],Total 8.6 mg/dL Normal 8.5-10.1 [facility] Comment on above: Order Comment: 'TROP ' Serial specimen #1, #2 or #3: 1 Performed By: #### L 501.4020, L500.2500, L100.0100 #### [facility] [address] [place], [address] Chloride [Moles/Vol] 103 mmol/L Normal 98-107 [facility] Comment on above: Order Comment: 'TROP ' Serial specimen #1, #2 or #3: 1 Performed By: #### L 501.4020, L500.2500, L100.0100 #### [facility] [address] [place], [address] CO2 [Moles/Vol] 26.0 mmol/L Normal 21.0-32.0 [facility] Comment on above: Order Comment: 'TROP ' Serial specimen #1, #2 or #3: 1 Performed By: #### L 501.4020, L500.2500, L100.0100 #### [facility] [address] [place], [address] Creatinine [Mass/Vol] 0.90 mg/dL Normal 0.70-1.30 [facility] Comment on above: Order Comment: 'TROP ' Serial specimen #1, #2 or #3: 1 Result Comment: The validity of the calculated GFR GFRAA in patients over 70 years has not been determined. Clinical correlation is essential. Performed By: #### L 501.4020, L500.2500, L100.0100 #### [facility] [address] [place], [address] ECRCL 96.05 ml/min Normal [facility] Comment on above: Order Comment: 'TROP ' Serial specimen #1, #2 or #3: 1 Performed By: #### L 501.4020, L500.2500, L100.0100 #### [facility] [address] [place], [address] EST GFR - AA 108 mL/min Normal >60 [facility] Comment on above: Order Comment: 'TROP ' Serial specimen #1, #2 or #3: 1 Result Comment: Afri can [facility] GFR Calc Performed By: #### L 501.4020, L500.2500, L100.0100 #### [facility] [address] [place], [address] GAP 7 Normal 5-15 [facility] Comment on above: Order Comment: 'TROP ' Serial specimen #1, #2 or #3: 1 Performed By: #### L 501.4020, L500.2500, L100.0100 #### [facility] [address] [place], [address] GFR/1.73 sq M.predicted among non-blacks MDRD (S/P/Bld) [Vol rate/Area] 89 mL/min/{1.73_m2} Normal >60 [facility] Comment on above: Order Comment: 'TROP ' Serial specimen #1, #2 or #3: 1 Result Comment: Non- GFR Calc Performed By: #### L 501.4020, L500.2500, L100.0100 #### [facility] [address] [place], [address] Glucose [Mass/Vol] 174 mg/dL High 74-106 [facility] Comment on above: Order Comment: 'TROP ' Serial specimen #1, #2 or #3: 1 Result Comment: Fast ing Glucose result greater than or equal to 126 mg/dL suggests DIABETES MELLITUS per A.D.A. criteria. Performed By: #### L 501.4020, L500.2500, L100.0100 #### [facility] [address] [place], [address] Potassium [Moles/Vol] 3.9 mmol/L Normal 3.5-5.1 [facility] Comment on above: Order Comment: 'TROP ' Serial specimen #1, #2 or #3: 1 Performed By: #### L 501.4020, L500.2500, L100.0100 #### [facility] [address] [place], [address] Sodium [Moles/Vol] 136 mmol/L Normal 136-145 [facility] Comment on above: Order Comment: 'TROP ' Serial specimen #1, #2 or #3: 1 Performed By: #### L 501.4020, L500.2500, L100.0100 #### [facility] [address] [place], [address] Urea nitrogen [Mass/Vol] 14 mg/dL Normal 7-18 [facility] Comment on above: Order Comment: 'TROP ' Serial specimen #1, #2 or #3: 1 Performed By: #### L 501.4020, L500.2500, L100.0100 #### [facility] [address] [place], [address] Basophil percentageOrdered B y: Mohsen [place] on 10-03-2024 Basophils/100 WBC (Bld) 0.4 % 0-1 [facility] Blood manual differential co mment interpretation (narrative result)Ordered By: Mohsen [place] on 10-03-2024 Manual differential comment Jayme (Bld) [Interp] SCANNED [facility] Blood urea nitrogen (BUN)/cr eatinine ratioOrdered By: Mohsen [place] on 10-03-2024 Urea nitrogen/Creatinine [Mass ratio] 15.5 mg/mg 10-20 [facility] CBC W/Diff, Automatedon 09-22 SMEAR COMMENT SCANNED Normal [facility] Comment on above: Performed By: #### L 501.4020, L500.2500, L100.0100 #### [facility] [address] [place], [address] Carbon dioxide measurementOr dered By: Mohsen [place] on 10-03-2024 CO2 [Moles/Vol] 26.0 mmol/L 21.0-32.0 [facility] Chest PA and Lateralon 10-03 Chest PA and Lateral [facility] Imaging Services [address] [place] [address] Chest PA and Lateral MR#: [id number] Acct: [id number] Name: SNEHA ROBLERO Jr. Rep #: [id number] : 1955 M 69 From: [facility] PCP: Dr. Ayo Uriostegui MD Status: REG ER Study: Chest PA and Lateral Date of Exam: 10/03/24 Exam# [id number] Ordering Dr: Mohsen [place] MD PROCEDURE: CHEST [...] IMPRESSION: No acute cardiopulmonary process. Reading Location: [facility] CC: Dr. Mohsen Colorado MD; Dr. Ayo Uriostegui MD Chalk Machine Operator: Signed Normal [facility] Chloride measurementOrdered By: Mohsen [place] on 10-03-2024 Chloride [Moles/Vol] 103 mmol/L 98-107 [facility] D-Dimer Quantitative (DVT/PE )on 10-03-2024 D-DIMER QUANT 0.45 FEU/ug/m Normal 0.27-0.49 [facility] Comment on above: Result Comment: NORM AL D-Dimer level (<0.50) indicates no DVT or PE. Performed By: #### L 300.8000 ####[facility] [address] [facility] [place], [address] D-dimer measurement for deep venous thrombosisOrdered By: Mohsen Colorado on 10-03-2024 D-Dimer Quantitative (PE/DVT) 0.45 FEU/ug/m 0.27-0.49 [facility] Comment on above: NORMAL D-Dimer level (<0.50) indicates no DVT or PE. Emergency Department Summary on 10-03-2024 Emergency Department Summary [facility] Medical Records Department [address] [place] [address] Emergency Department Summary 10/03/24 MR#: [id number] Acct: [id number] Name: SNEHA ROBLERO JrMaryam Rep #: [id number] : 1955 69 From: Mohsen [place] MD [...] of diabetes. Patient is a resident of [facility]. States has been short of [...] similar symptoms: No Recent Illness[facility] t[facility]: [facility] Medical History (Updated 10/04/24 @ 00:19 [...] needle (disp) 16 G 16 gauge x 1 ##100 12/07/18 Unknown Rx prednisone 20 mg [...] Back nontender. Moving all 4 extremities. Normal clinical radiologist strength. Normal dorsi plantarflexion. Calves are nontender [...] 105 H (more content not included)... Normal [facility] Eosinophil percentageOrdered By: Mohsen [place] on 10-03-2024 Eosinophils/100 WBC (Bld) 0.4 % 0-5 [facility] Erythrocyte distribution wid th (RBC) [Ratio]Ordered By: Mohsen [place] on 10-03-2024 Erythrocyte distribution width (RBC) [Entitic vol] 43.8 fL 35.1-43.9 [facility] Erythrocyte distribution wid th ratioOrdered By: Mohsen [place] on 10-03-2024 Erythrocyte distribution width (RBC) [Ratio] 13.3 % 11.6-14.6 [facility] Erythrocyte distribution wid th standard deviationOrdered By: Mohsen [place] on 10-03-2024 Erythrocyte distribution width (RBC) [Ratio] 43.8 fl 35.1-43.9 [facility] Estimated glomerular filtrat ion rate (GFR) AmericanOrdered By: Mohsen Colorado on 10-03-2024 Estimated GFR (MDRD) Amer 108 mL/min >60 [facility] Comment on above: GFR Calc Estimation of creatinine agus aranceOrdered By: Mohsen [place] on 10-03-2024 Estimated Creatinine Clearance Calc 96.05 ml/min [facility] Glomerular filtration rate ( GFR) estimationOrdered By: Mohsen [place] on 10-03-2024 Estimated GFR (MDRD) Non-Af Amer 89 mL/min >60 [facility] Comment on above: Non- GFR Calc GFR/1.73 sq M.predicted among non-blacks MDRD (S/P/Bld) [Vol rate/Area] 89 mL/min/{1.73_m2} >60 [facility] Comment on above: Non- GFR Calc Glucose measurementOrdered B y: Mohsen [place] on 10-03-2024 Glucose [Mass/Vol] 174 mg/dL High 74-106 [facility] Comment on above: Fasting Glucose resu lt greater than or equal to 126 mg/dL suggests DIABETES MELLITUS per A.D.A. criteria. Hematocrit Auto (Bld) [Volum e fraction]Ordered By: Mohsen [place] on 10-03-2024 Hematocrit (Bld) [Volume fraction] 39.6 % Low 40-54 [facility] Hemoglobin measurementOrdere d By: Mohsen [place] on 10-03-2024 Hemoglobin (Bld) [Mass/Vol] 13.3 g/dL 13.0-16.5 [facility] Immature granulocytes/100 WB C Auto (Bld)Ordered By: Mohsen [place] on 10-03-2024 Immature granulocytes/100 WBC (Bld) 0.300 % 0.0-0.9 [facility] Comment on above: IG% - Immature Granu locytes (promyelocytes, myelocytes and metamyelocytes) > 1% indicates that a LEFT SHIFT is Present. Influenza virus A and B and SARS-CoV-2 (COVID-19) and Respiratory syncytial virus RNAOrdered By: Mohsen [place] on 10-03-2024 SARS-CoV-2 (COVID-19) RNA DIXON+probe Ql (Unsp spec) [facility] L501.4020on 10-03-2024 TROPONIN-I HS 5 pg/mL Normal 3.0-78.0 [facility] Comment on above: Order Comment: 'TROP ' Serial specimen #1, #2 or #3: 1 Result Comment: Plea se Note: New Test Units and Gender Specific Reference Ranges. For more information see Policy Stat Procedure [place] High Sensitivity Troponin (TNIH) and attachments. Performed By: #### L 501.4020, L500.2500, L100.0100 #### [facility] [address] [place], [address] Lymphocytes Auto (Unsp spec) [#/Vol]Ordered By: Mohsen [place] on 10-03-2024 Lymphocytes (Bld) [#/Vol] 2.23 10*3/uL 0.83-4.5 1 [facility] Lymphocytes/100 WBC Auto (Un sp spec)Ordered By: Mohsen [place] on 10-03-2024 Lymphocytes/100 WBC (Bld) 32.3 % 19-41 [facility] M100.678on 10-03-2024 M100.678 Normal Reference Range = Negative FLUABV+SARS-CoV-2+R SV Pnl Resp DIXON+probe GeneXpert Instrument, PCR method SARS-CoV-2 (COVID 19) Negative INFLUENZA A Negative INFLUENZA B Negative RSV PCR Negative Normal [facility] Comment on above: Performed By: #### M [id number] #### [facility] [place], [address] MCV (mean corpuscular volume ) determinationOrdered By: Mohsen [place] on 10-03-2024 MCV (RBC) [Entitic vol] 89.6 fL 80-94 [facility] Manual differential comment Jayme (Bld) [Interp]Ordered By: Mohsen [place] on 10-03-2024 Differential Comment SCANNED [facility] Mean corpuscular hemoglobin (MCH) determinationOrdered By: Mohsen [place] on 10-03-2024 MCH (RBC) [Entitic mass] 30.1 pg 27.0-32.0 [facility] Mean corpuscular hemoglobin concentration (MCHC) determinationOrdered By: Mohsen [place] on 10-03-2024 MCHC (RBC) [Mass/Vol] 33.6 g/dL 32-36 [facility] Mean platelet volume determi nationOrdered By: Mohsen [place] on 10-03-2024 Platelet mean volume (Bld) [Entitic vol] 9.8 fL 6.2-12.0 [facility] Monocyte percentageOrdered B y: Mohsen [place] on 10-03-2024 Monocytes/100 WBC (Bld) 9.4 % 0-10 [facility] Neutrophil percentageOrdered By: Mohsen [place] on 10-03-2024 Neutrophils/100 WBC (Bld) 57.2 % 47-70 [facility] Nucleated red blood cell per centageOrdered By: Mohsen [place] on 10-03-2024 Nucleated RBC/100 WBC (Bld) [Ratio] 0 % 0-5 [facility] Platelet countOrdered By: Hussain [place] on 10-03-2024 Platelets (Bld) [#/Vol] 249 10*3/uL 150-450 [facility] Potassium measurementOrdered By: Mohsen [place] on 10-03-2024 Potassium [Moles/Vol] 3.9 mmol/L 3.5-5.1 [facility] RBC Auto (Bld) [#/Vol]Ordere d By: Mohsen [place] on 10-03-2024 RBC (Bld) [#/Vol] 4.42 10*6/uL Low 4.6-6.2 [facility] Serum anion gap measurementO rdered By: Mohsen [place] on 10-03-2024 Anion gap [Moles/Vol] 7 mmol/L 5-15 [facility] Serum or plasma calcium karissa urement (mass/volume)Ordered By: Mohsen [place] on 10-03-2024 Calcium [Mass/Vol] 8.6 mg/dL 8.5-10.1 [facility] Serum or plasma creatinine m easurement (mass/volume)Ordered By: Mohsen [place] on 10-03-2024 Creatinine [Mass/Vol] 0.90 mg/dL 0.70-1.30 [facility] Comment on above: The validity of the calculated GFR & GFRAA in patients over 70 years has not been determined. Clinical correlation is essential. Serum or plasma urea nitroge n measurement (mass/volume)Ordered By: Mohsen [place] on 10-03-2024 Urea nitrogen [Mass/Vol] 14 mg/dL 7-18 [facility] Sodium levelOrdered By: Mohsen [place] on 10-03-2024 Sodium [Moles/Vol] 136 mmol/L 136-145 [facility] Troponin IOrdered By: Mohsen banks on 10-03-2024 Troponin I 5 pg/mL 3.0-78.0 [facility] Comment on above: Please Note: New [place] t Units and Gender Specific Reference Ranges. For more information see Policy Stat Procedure [place] High Sensitivity Troponin (TNIH) and attachments. Troponin I High Sensitivity 5 pg/mL 3.0-78.0 [facility] Comment on above: Please Note: New [place] t Units and Gender Specific Reference Ranges. For more information see Policy Stat Procedure [place] High Sensitivity Troponin (TNIH) and attachments. White blood cell (WBC) count Ordered By: Mohsen [place] on 10-03-2024 WBC (Bld) [#/Vol] 6.9 10*3/uL 4.4-11.0 [facility] Hemoglobin A1con 09-13-2024 HbA1c (Bld) [Mass fraction] 10.5 % High 3.8-5.6 [facility] Comment on above: Order Comment: 304.1 Result Comment: Norm al < 5.7 % Prediabetic 5.7 - 6.4 % Diabetic >or= 6.5 % Please note range changes. Performed By: #### L 501.9985 #### [facility] [address] [place], [address] Hemoglobin A1c percentageOrd ered By: Araceli Fernandez on 09-13-2024 HbA1c (Bld) [Mass fraction] 10.5 % High 3.8-5.6 [facility] Comment on above: Normal < 5.7 % Predi abetic 5.7 - 6.4 % Diabetic >or= 6.5 % Please note range changes. Basophil percentageOrdered B y: Ayo Uriostegui on 09-19-2023 Cholesterol [Mass/Vol] 139 mg/dL <200 [facility] Comment on above: <200 mg/dL Desirable 200-240 mg/dL Borderline >240 mg/dL High Risk Triglyceride [Mass/Vol] 201 mg/dL <199 [facility] Comment on above: The drugs N-Acetylcy steine and Metamizole may falsely depress this assay.Serum Triglycerides Reference Interval Normal <150 mg/dL Borderline high 150 - 199 mg/dL High 200 - 499 mg/dL Very High > or = 500 mg/dL Laboratory - Chemistry and C hemistry - challengeOrdered By: Ayo Uriostegui on 09-19-2023 Cholesterol in HDL (Body fld) [Mass/Vol] 30 mg/dL >40 [facility] Comment on above: The drugs N-Acetylcy steine and Metamizole may falsely depress this assay. Reference Range HDL <40 mg/dL Low HDL Cholesterol HDL >or= 60 mg/dL High HDL Cholesterol Cholesterol in LDL (Body fld) [Moles/Vol] 69 mg/dL 0-130 [facility] Cholesterol in VLDL Calc [Moles/Vol] 40 mg/dL 5-40 [facility] Whole blood hemoglobin A1c/t otal hemoglobin ratio (mass fraction)Ordered By: Ayo Uriostegui on 09-19-2023 HbA1c (Bld) [Mass fraction] 7.5 % 3.8-5.6 [facility] Comment on above: Normal < 5.7 % Predi abetic 5.7 - 6.4 % Diabetic >or= 6.5 % Please note range changes. Whole blood hemoglobin A1c/t otal hemoglobin ratio (mass fraction)Ordered By: Ayo Uriostegui on 06-21-2023 HbA1c (Bld) [Mass fraction] 7.3 % 3.8-5.6 [facility] Comment on above: Normal < 5.7 % Predi abetic 5.7 - 6.4 % Diabetic >or= 6.5 % Please note range changes. Whole blood hemoglobin A1c/t otal hemoglobin ratio (mass fraction)Ordered By: Ayo Uriostegui on 03-23-2023 HbA1c (Bld) [Mass fraction] 6.7 % 3.8-5.6 [facility] Comment on above: Normal < 5.7 % Predi abetic 5.7 - 6.4 % Diabetic >or= 6.5 % Please note range changes. Basophil percentageOrdered B y: Ayo Uriostegui on 03-21-2023 Cholesterol [Mass/Vol] 117 mg/dL <200 [facility] Comment on above: <200 mg/dL Desirable 200-240 mg/dL Borderline >240 mg/dL High Risk Triglyceride [Mass/Vol] 162 mg/dL <199 [facility] Comment on above: The drugs N-Acetylcy steine and Metamizole may falsely depress this assay.Serum Triglycerides Reference Interval Normal <150 mg/dL Borderline high 150 - 199 mg/dL High 200 - 499 mg/dL Very High > or = 500 mg/dL Serum or plasma cholesterol in HDL measurement (mass/volume)Ordered By: Ayo Uriostegui on 03-21-2023 Cholesterol in HDL [Mass/Vol] 28 mg/dL >40 [facility] Comment on above: The drugs N-Acetylcy steine and Metamizole may falsely depress this assay. Reference Range HDL <40 mg/dL Low HDL Cholesterol HDL >or= 60 mg/dL High HDL Cholesterol Serum or plasma cholesterol in VLDL measurement (mass/volume)Ordered By: Ayo Uriostegui on 03-21-2023 Cholesterol in VLDL [Mass/Vol] 32 mg/dL 5-40 [facility] Serum or plasma low density lipoprotein (LDL) cholesterol measurement (mass/volume)Ordered By: Ayo Uriostegui on 03-21-2023 Cholesterol in LDL [Mass/Vol] 57 mg/dL 0-130 [facility] Absolute lymphocyte countOrd ered By: Ayo Uriostegui on 03-11-2023 Lymphocytes Auto (Unsp spec) [#/Vol] 2.17 10*3/uL 0.83-4.51 [facility] Basophil percentageOrdered B y: Ayo Uriostegui on 03-11-2023 Basophils/100 WBC (Bld) 0.6 % 0-1 [facility] Bilirubin [Mass/Vol] 0.30 mg/dL 0.20-1.00 [facility] Comment on above: For patients on eltr ombopag therapy, use of Dimension [place] TBIL is not recommended. Chloride [Moles/Vol] 107 mmol/L 98-107 [facility] Eosinophils/100 WBC (Bld) 3.5 % 0-5 [facility] Glucose [Mass/Vol] 128 mg/dL 74-106 [facility] Comment on above: Fasting Glucose resu lt greater than or equal to 126 mg/dL suggests DIABETES MELLITUS per A.D.A. criteria. Neutrophils (Bld) [#/Vol] 4.8 10*3/uL 2.0-7.7 [facility] Neutrophils/100 WBC (Bld) 59.5 % 47-70 [facility] Potassium [Moles/Vol] 3.7 mmol/L 3.5-5.1 [facility] Protein [Mass/Vol] 7.3 g/dL 6.4-8.2 [facility] Sodium [Moles/Vol] 139 mmol/L 136-145 [facility] WBC (Bld) [#/Vol] 8.0 10*3/uL 4.4-11.0 [facility] Blood erythrocytes count (nu mber/volume)Ordered By: Ayo Uriostegui on 03-11-2023 RBC (Bld) [#/Vol] 4.62 10*6/uL 4.6-6.2 [facility] Blood hemoglobin measurement (mass/volume)Ordered By: Ayo Uriostegui on 03-11-2023 Hemoglobin (Bld) [Mass/Vol] 14.0 g/dL 13.0-16.5 [facility] Blood lymphocytes/100 leukoc ytesOrdered By: Ayo Uriostegui on 03-11-2023 Lymphocytes/100 WBC (Bld) 27.1 % 19-41 [facility] Blood monocytes/100 leukocyt esOrdered By: Ayo Uriostegui on 03-11-2023 Monocytes/100 WBC (Bld) 8.9 % 0-10 [facility] Blood platelet mean volumeOr dered By: Ayo Uriostegui on 03-11-2023 Platelet mean volume (Bld) [Entitic vol] 10.0 fL 6.2-12.0 [facility] Determination of erythrocyte mean corpuscular volume (MCV)Ordered By: Ayo Uriostegui on 03-11-2023 MCV (RBC) [Entitic vol] 92.4 fL 80-94 [facility] Hematocrit Auto (Bld) [Volum e fraction]Ordered By: Ayo Uriostegui on 03-11-2023 Hematocrit (Bld) [Volume fraction] 42.7 % 40-54 [facility] - Chemistry and C hemistry - challengeOrdered By: Ayo Uriostegui on 03-11-2023 ALP [Catalytic activity/Vol] 104 U/L 45-117 [facility] ALT [Catalytic activity/Vol] 36 U/L 16-61 [facility] CO2 [Moles/Vol] 25.0 mmol/L 21.0-32.0 [facility] Globulin (S) [Mass/Vol] 3.7 g/dL 2.2-4.2 [facility] Urea nitrogen/Creatinine [Mass ratio] 14.3 mg/mg 10-20 [facility] - Hematology and Cell countsOrdered By: Ayo Uriostegui on 03-11-2023 Erythrocyte distribution width (RBC) [Entitic vol] 45.1 fL 35.1-43.9 [facility] Erythrocyte distribution width (RBC) [Ratio] 13.2 % 11.6-14.6 [facility] Immature granulocytes/100 WBC (Bld) 0.400 % 0.0-0.9 [facility] Comment on above: IG% - Immature Granu locytes (promyelocytes, myelocytes and metamyelocytes) > 1% indicates that a LEFT SHIFT is Present. MCH (RBC) [Entitic mass] 30.3 pg 27.0-32.0 [facility] Nucleated RBC/100 WBC (Bld) [Ratio] 0 % 0-5 [facility] MCHC Auto (RBC) [Mass/Vol]Or dered By: Ayo Uriostegui on 03-11-2023 MCHC (RBC) [Mass/Vol] 32.8 g/dL 32-36 [facility] No Panel InformationOrdered By: Ayo Uriostegui on 03-11-2023 Estimated GFR (MDRD) Amer 118 mL/min >60 [facility] Comment on above: GFR Calc Estimated GFR (MDRD) Non-Af Amer 97 mL/min >60 [facility] Comment on above: Non- GFR Calc Platelets bldOrdered By: Nell Uriostegui on 03-11-2023 Platelets (Bld) [#/Vol] 255 10*3/uL 150-450 [facility] Serum or plasma albumin karissa urement (mass/volume)Ordered By: Ayo Uriostegui on 03-11-2023 Albumin [Mass/Vol] 3.6 g/dL 3.2-5.0 [facility] Serum or plasma albumin/glob ulin mass ratioOrdered By: Ayo Uriostegui on 03-11-2023 Albumin/Globulin [Mass ratio] 1.0 {ratio} 0.9-2.4 [facility] Serum or plasma calcium karissa urement (mass/volume)Ordered By: Ayo Uriostegui on 03-11-2023 Calcium [Mass/Vol] 8.3 mg/dL 8.5-10.1 [facility] Serum or plasma creatinine m easurement (mass/volume)Ordered By: Ayo Uriostegui on 03-11-2023 Creatinine [Mass/Vol] 0.84 mg/dL 0.70-1.30 [facility] Comment on above: The validity of the calculated GFR & GFRAA in patients over 70 years has not been determined. Clinical correlation is essential. Serum or plasma urea nitroge n measurement (mass/volume)Ordered By: Ayo Uriostegui on 03-11-2023 Urea nitrogen [Mass/Vol] 12 mg/dL 7-18 [facility] Thin prep Papanicolaou smear with manual screeningOrdered By: Ayo Uriostegui on 03-11-2023 Thin prep Papanicolaou smear with manual screening 16 U/L 15-37 [facility] Thin prep Papanicolaou smear with manual screening 7 5-15 [facility] Absolute lymphocyte countOrd ered By: Ayo Uriostegui on 02-17-2023 Lymphocytes Auto (Unsp spec) [#/Vol] 2.37 10*3/uL 0.83-4.51 [facility] Basophil percentageOrdered B y: Ayo Uriostegui on 02-17-2023 Basophils/100 WBC (Bld) 0.8 % 0-1 [facility] Bilirubin [Mass/Vol] 0.20 mg/dL 0.20-1.00 [facility] Comment on above: For patients on eltr ombopag therapy, use of Dimension [place] TBIL is not recommended. Chloride [Moles/Vol] 106 mmol/L 98-107 [facility] Eosinophils/100 WBC (Bld) 5.2 % 0-5 [facility] Glucose [Mass/Vol] 85 mg/dL 74-106 [facility] Neutrophils (Bld) [#/Vol] 4.3 10*3/uL 2.0-7.7 [facility] Neutrophils/100 WBC (Bld) 54.6 % 47-70 [facility] Potassium [Moles/Vol] 3.8 mmol/L 3.5-5.1 [facility] Protein [Mass/Vol] 7.3 g/dL 6.4-8.2 [facility] Sodium [Moles/Vol] 138 mmol/L 136-145 [facility] WBC (Bld) [#/Vol] 7.9 10*3/uL 4.4-11.0 [facility] Blood erythrocytes count (nu mber/volume)Ordered By: Ayo Uriostegui on 02-17-2023 RBC (Bld) [#/Vol] 4.51 10*6/uL 4.6-6.2 [facility] Blood hemoglobin measurement (mass/volume)Ordered By: Ayo Uriostegui on 02-17-2023 Hemoglobin (Bld) [Mass/Vol] 13.8 g/dL 13.0-16.5 [facility] Blood lymphocytes/100 leukoc ytesOrdered By: Ayo Uriostegui on 02-17-2023 Lymphocytes/100 WBC (Bld) 29.9 % 19-41 [facility] Blood monocytes/100 leukocyt esOrdered By: Ayo Uriostegui on 02-17-2023 Monocytes/100 WBC (Bld) 9.1 % 0-10 [facility] Blood platelet mean volumeOr dered By: Ayo Uriostegui on 02-17-2023 Platelet mean volume (Bld) [Entitic vol] 9.8 fL 6.2-12.0 [facility] Determination of erythrocyte mean corpuscular volume (MCV)Ordered By: Ayo Uriostegui on 02-17-2023 MCV (RBC) [Entitic vol] 92.9 fL 80-94 [facility] Hematocrit Auto (Bld) [Volum e fraction]Ordered By: Ayo Uriostegui on 02-17-2023 Hematocrit (Bld) [Volume fraction] 41.9 % 40-54 [facility] Laboratory - Chemistry and C hemistry - challengeOrdered By: Ayo Uriostegui on 02-17-2023 ALP [Catalytic activity/Vol] 95 U/L 45-117 [facility] ALT [Catalytic activity/Vol] 33 U/L 16-61 [facility] CO2 [Moles/Vol] 28.0 mmol/L 21.0-32.0 [facility] Globulin (S) [Mass/Vol] 3.9 g/dL 2.2-4.2 [facility] Urea nitrogen/Creatinine [Mass ratio] 14.1 mg/mg 10-20 [facility] Laboratory - Hematology and Cell countsOrdered By: Ayo Uriostegui on 02-17-2023 Erythrocyte distribution width (RBC) [Entitic vol] 45.8 fL 35.1-43.9 [facility] Erythrocyte distribution width (RBC) [Ratio] 13.4 % 11.6-14.6 [facility] Immature granulocytes/100 WBC (Bld) 0.400 % 0.0-0.9 [facility] Comment on above: IG% - Immature Granu locytes (promyelocytes, myelocytes and metamyelocytes) > 1% indicates that a LEFT SHIFT is Present. MCH (RBC) [Entitic mass] 30.6 pg 27.0-32.0 [facility] Nucleated RBC/100 WBC (Bld) [Ratio] 0 % 0-5 [facility] MCHC Auto (RBC) [Mass/Vol]Or dered By: Ayo Uriostegui on 02-17-2023 MCHC (RBC) [Mass/Vol] 32.9 g/dL 32-36 [facility] No Panel InformationOrdered By: Ayo Uriostegui on 02-17-2023 Estimated GFR (MDRD) Amer 116 mL/min >60 [facility] Comment on above: GFR Calc Estimated GFR (MDRD) Non-Af Amer 96 mL/min >60 [facility] Comment on above: Non- GFR Calc Platelets bldOrdered By: Nell Uriostegui on 02-17-2023 Platelets (Bld) [#/Vol] 255 10*3/uL 150-450 [facility] Serum or plasma albumin karissa urement (mass/volume)Ordered By: Ayo Uriostegui on 02-17-2023 Albumin [Mass/Vol] 3.4 g/dL 3.2-5.0 [facility] Serum or plasma albumin/glob ulin mass ratioOrdered By: Ayo Uriostegui on 02-17-2023 Albumin/Globulin [Mass ratio] 0.9 {ratio} 0.9-2.4 [facility] Serum or plasma calcium karissa urement (mass/volume)Ordered By: Ayo Uriostegui on 02-17-2023 Calcium [Mass/Vol] 8.3 mg/dL 8.5-10.1 [facility] Serum or plasma creatinine m easurement (mass/volume)Ordered By: Ayo Uriostegui on 02-17-2023 Creatinine [Mass/Vol] 0.85 mg/dL 0.70-1.30 [facility] Comment on above: The validity of the calculated GFR & GFRAA in patients over 70 years has not been determined. Clinical correlation is essential. Serum or plasma urea nitroge n measurement (mass/volume)Ordered By: Ayo Uriostegui on 02-17-2023 Urea nitrogen [Mass/Vol] 12 mg/dL 7-18 [facility] Thin prep Papanicolaou smear with manual screeningOrdered By: Ayo Uriostegui on 02-17-2023 Thin prep Papanicolaou smear with manual screening 19 U/L 15-37 [facility] Thin prep Papanicolaou smear with manual screening 4 5-15 [facility] Whole blood hemoglobin A1c/t otal hemoglobin ratio (mass fraction)Ordered By: Ayo Uriostegui on 12-23-2022 HbA1c (Bld) [Mass fraction] 6.6 % 3.8-5.6 [facility] Comment on above: Normal < 5.7 % Predi abetic 5.7 - 6.4 % Diabetic >or= 6.5 % Please note range changes. Absolute lymphocyte countOrd ered By: Ayo Uriostegui on 11-18-2022 Lymphocytes Auto (Unsp spec) [#/Vol] 2.41 10*3/uL 0.83-4.51 [facility] Basophil percentageOrdered B y: Ayo Uriostegui on 11-18-2022 Basophils/100 WBC (Bld) 0.6 % 0-1 [facility] Bilirubin [Mass/Vol] 0.30 mg/dL 0.20-1.00 [facility] Comment on above: For patients on eltr ombopag therapy, use of [employer] [place] TBIL is not recommended. Chloride [Moles/Vol] 105 mmol/L 98-107 [facility] Eosinophils/100 WBC (Bld) 4.2 % 0-5 [facility] Glucose [Mass/Vol] 109 mg/dL 74-106 [facility] Comment on above: Fasting Glucose resu lt from 100 to 125 mg/dL suggests IMPAIRED HOMEOSTASIS per A.D.A. criteria. Neutrophils (Bld) [#/Vol] 4.8 10*3/uL 2.0-7.7 [facility] Neutrophils/100 WBC (Bld) 57.0 % 47-70 [facility] Potassium [Moles/Vol] 3.7 mmol/L 3.5-5.1 [facility] Protein [Mass/Vol] 7.3 g/dL 6.4-8.2 [facility] Sodium [Moles/Vol] 136 mmol/L 136-145 [facility] WBC (Bld) [#/Vol] 8.4 10*3/uL 4.4-11.0 [facility] Blood erythrocytes count (nu mber/volume)Ordered By: Ayo Uriostegui on 11-18-2022 RBC (Bld) [#/Vol] 4.51 10*6/uL 4.6-6.2 [facility] Blood hemoglobin measurement (mass/volume)Ordered By: Ayo Uriostegui on 11-18-2022 Hemoglobin (Bld) [Mass/Vol] 14.1 g/dL 13.0-16.5 [facility] Blood lymphocytes/100 leukoc ytesOrdered By: Ayo Uriostegui on 11-18-2022 Lymphocytes/100 WBC (Bld) 28.9 % 19-41 [facility] Blood monocytes/100 leukocyt esOrdered By: Ayo Uriostegui on 11-18-2022 Monocytes/100 WBC (Bld) 9.1 % 0-10 [facility] Blood platelet mean volumeOr dered By: Ayo Uriostegui on 11-18-2022 Platelet mean volume (Bld) [Entitic vol] 9.9 fL 6.2-12.0 [facility] Determination of erythrocyte mean corpuscular volume (MCV)Ordered By: Ayo Uriostegui on 11-18-2022 MCV (RBC) [Entitic vol] 92.5 fL 80-94 [facility] Hematocrit Auto (Bld) [Volum e fraction]Ordered By: Ayo Uriostegui on 11-18-2022 Hematocrit (Bld) [Volume fraction] 41.7 % 40-54 [facility] Laboratory - Chemistry and C hemistry - challengeOrdered By: Ayo Uriostegui on 11-18-2022 ALP [Catalytic activity/Vol] 99 U/L 45-117 [facility] ALT [Catalytic activity/Vol] 36 U/L 16-61 [facility] CO2 [Moles/Vol] 25.0 mmol/L 21.0-32.0 [facility] Globulin (S) [Mass/Vol] 3.8 g/dL 2.2-4.2 [facility] Urea nitrogen/Creatinine [Mass ratio] 18.3 mg/mg 10-20 [facility] Laboratory - Hematology and Cell countsOrdered By: Ayo Uriostegui on 11-18-2022 Erythrocyte distribution width (RBC) [Entitic vol] 44.1 fL 35.1-43.9 [facility] Erythrocyte distribution width (RBC) [Ratio] 13.0 % 11.6-14.6 [facility] Immature granulocytes/100 WBC (Bld) 0.200 % 0.0-0.9 [facility] Comment on above: IG% - Immature Granu locytes (promyelocytes, myelocytes and metamyelocytes) > 1% indicates that a LEFT SHIFT is Present. MCH (RBC) [Entitic mass] 31.3 pg 27.0-32.0 [facility] Nucleated RBC/100 WBC (Bld) [Ratio] 0 % 0-5 [facility] MCHC Auto (RBC) [Mass/Vol]Or dered By: Ayo Uriostegui on 11-18-2022 MCHC (RBC) [Mass/Vol] 33.8 g/dL 32-36 [facility] No Panel InformationOrdered By: Ayo Uriostegui on 11-18-2022 Estimated GFR (MDRD) Amer 113 mL/min >60 [facility] Comment on above: GFR Calc Estimated GFR (MDRD) Non-Af Amer 93 mL/min >60 [facility] Comment on above: Non- GFR Calc Platelets bldOrdered By: Nell Uriostegui on 11-18-2022 Platelets (Bld) [#/Vol] 242 10*3/uL 150-450 [facility] Serum or plasma albumin karissa urement (mass/volume)Ordered By: Ayo Uriostegui on 11-18-2022 Albumin [Mass/Vol] 3.5 g/dL 3.2-5.0 [facility] Serum or plasma albumin/glob ulin mass ratioOrdered By: Ayo Uriostegui on 11-18-2022 Albumin/Globulin [Mass ratio] 0.9 {ratio} 0.9-2.4 [facility] Serum or plasma calcium karissa urement (mass/volume)Ordered By: Ayo Uriostegui on 11-18-2022 Calcium [Mass/Vol] 8.5 mg/dL 8.5-10.1 [facility] Serum or plasma creatinine m easurement (mass/volume)Ordered By: Ayo Uriostegui on 11-18-2022 Creatinine [Mass/Vol] 0.87 mg/dL 0.70-1.30 [facility] Comment on above: The validity of the calculated GFR & GFRAA in patients over 70 years has not been determined. Clinical correlation is essential. Serum or plasma urea nitroge n measurement (mass/volume)Ordered By: Ayo Uriostegui on 11-18-2022 Urea nitrogen [Mass/Vol] 16 mg/dL 7-18 [facility] Thin prep Papanicolaou smear with manual screeningOrdered By: Ayo Uriostegui on 11-18-2022 Thin prep Papanicolaou smear with manual screening 17 U/L 15-37 [facility] Thin prep Papanicolaou smear with manual screening 6 5-15 [facility] Whole blood hemoglobin A1c/t otal hemoglobin ratio (mass fraction)Ordered By: Ayo Uriostegui on 09-24-2022 HbA1c (Bld) [Mass fraction] 6.3 % 3.8-5.6 [facility] Comment on above: Normal < 5.7 % Predi abetic 5.7 - 6.4 % Diabetic >or= 6.5 % Please note range changes. Basophil percentageOrdered B y: Ayo Uriostegui on 09-14-2022 Bilirubin [Mass/Vol] 0.30 mg/dL 0.20-1.00 [facility] Comment on above: For patients on eltr ombopag therapy, use of [employer] [place] TBIL is not recommended. Protein [Mass/Vol] 7.3 g/dL 6.4-8.2 [facility] Direct bilirubinOrdered By: Ayo Uriostegui on 09-14-2022 Bilirubin.direct [Mass/Vol] 0.06 mg/dL 0.00-0.30 [facility] Laboratory - Chemistry and C hemistry - challengeOrdered By: Ayo Uriostegui on 09-14-2022 ALP [Catalytic activity/Vol] 99 U/L 45-117 [facility] ALT [Catalytic activity/Vol] 37 U/L 16-61 [facility] Globulin (S) [Mass/Vol] 3.7 g/dL 2.2-4.2 [facility] Serum or plasma albumin karissa urement (mass/volume)Ordered By: Ayo Uriostegui on 09-14-2022 Albumin [Mass/Vol] 3.6 g/dL 3.2-5.0 [facility] Thin prep Papanicolaou smear with manual screeningOrdered By: Ayo Uriostegui on 09-14-2022 Thin prep Papanicolaou smear with manual screening 23 U/L 15-37 [facility] Whole blood hemoglobin A1c/t otal hemoglobin ratio (mass fraction)Ordered By: Ayo Uriostegui on 09-14-2022 HbA1c (Bld) [Mass fraction] 6.4 % 3.8-5.6 [facility] Comment on above: Normal < 5.7 % Predi abetic 5.7 - 6.4 % Diabetic >or= 6.5 % Please note range changes. Absolute lymphocyte countOrd ered By: Ayo Uriostegui on 08-19-2022 Lymphocytes Auto (Unsp spec) [#/Vol] 2.47 10*3/uL 0.83-4.51 [facility] Basophil percentageOrdered B y: Ayo Uriostegui on 08-19-2022 Basophils/100 WBC (Bld) 0.4 % 0-1 [facility] Bilirubin [Mass/Vol] 0.30 mg/dL 0.20-1.00 [facility] Comment on above: For patients on eltr ombopag therapy, use of [employer] TBIL is not recommended. Chloride [Moles/Vol] 106 mmol/L 98-107 [facility] Eosinophils/100 WBC (Bld) 4.1 % 0-5 [facility] Glucose [Mass/Vol] 71 mg/dL 74-106 [facility] Neutrophils (Bld) [#/Vol] 5.6 10*3/uL 2.0-7.7 [facility] Neutrophils/100 WBC (Bld) 60.3 % 47-70 [facility] Potassium [Moles/Vol] 3.7 mmol/L 3.5-5.1 [facility] Protein [Mass/Vol] 7.2 g/dL 6.4-8.2 [facility] Sodium [Moles/Vol] 137 mmol/L 136-145 [facility] WBC (Bld) [#/Vol] 9.3 10*3/uL 4.4-11.0 [facility] Blood erythrocytes count (nu mber/volume)Ordered By: Ayo Uriostegui on 08-19-2022 RBC (Bld) [#/Vol] 4.45 10*6/uL 4.6-6.2 [facility] Blood hemoglobin measurement (mass/volume)Ordered By: Ayo Uriostegui on 08-19-2022 Hemoglobin (Bld) [Mass/Vol] 13.9 g/dL 13.0-16.5 [facility] Blood lymphocytes/100 leukoc ytesOrdered By: Ayo Uriostegui on 08-19-2022 Lymphocytes/100 WBC (Bld) 26.7 % 19-41 [facility] Blood monocytes/100 leukocyt esOrdered By: Ayo Uriostegui on 08-19-2022 Monocytes/100 WBC (Bld) 8.2 % 0-10 [facility] Blood platelet mean volumeOr dered By: Ayo Uriostegui on 08-19-2022 Platelet mean volume (Bld) [Entitic vol] 9.9 fL 6.2-12.0 [facility] Determination of erythrocyte mean corpuscular volume (MCV)Ordered By: Ayo Uriostegui on 08-19-2022 MCV (RBC) [Entitic vol] 93.5 fL 80-94 [facility] Hematocrit Auto (Bld) [Volum e fraction]Ordered By: Ayo Uriostegui on 08-19-2022 Hematocrit (Bld) [Volume fraction] 41.6 % 40-54 [facility] Laboratory - Chemistry and C hemistry - challengeOrdered By: Ayo Uriostegui on 08-19-2022 ALP [Catalytic activity/Vol] 96 U/L 45-117 [facility] ALT [Catalytic activity/Vol] 45 U/L 16-61 [facility] CO2 [Moles/Vol] 25.0 mmol/L 21.0-32.0 [facility] Globulin (S) [Mass/Vol] 3.8 g/dL 2.2-4.2 [facility] Urea nitrogen/Creatinine [Mass ratio] 15.9 mg/mg 10-20 [facility] Laboratory - Hematology and Cell countsOrdered By: Ayo Uriostegui on 08-19-2022 Erythrocyte distribution width (RBC) [Entitic vol] 45.5 fL 35.1-43.9 [facility] Erythrocyte distribution width (RBC) [Ratio] 13.2 % 11.6-14.6 [facility] Immature granulocytes/100 WBC (Bld) 0.300 % 0.0-0.9 [facility] Comment on above: IG% - Immature Granu locytes (promyelocytes, myelocytes and metamyelocytes) > 1% indicates that a LEFT SHIFT is Present. MCH (RBC) [Entitic mass] 31.2 pg 27.0-32.0 [facility] Nucleated RBC/100 WBC (Bld) [Ratio] 0 % 0-5 [facility] MCHC Auto (RBC) [Mass/Vol]Or dered By: Ayo Uriostegui on 08-19-2022 MCHC (RBC) [Mass/Vol] 33.4 g/dL 32-36 [facility] No Panel InformationOrdered By: Ayo Uriostegui on 08-19-2022 Estimated GFR (MDRD) Amer 122 mL/min >60 [facility] Comment on above: GFR Calc Estimated GFR (MDRD) Non-Af Amer 101 mL/min >60 [facility] Comment on above: Non- GFR Calc Platelets bldOrdered By: Nell Uriostegui on 08-19-2022 Platelets (Bld) [#/Vol] 283 10*3/uL 150-450 [facility] Serum or plasma albumin karissa urement (mass/volume)Ordered By: Ayo Uriostegui on 08-19-2022 Albumin [Mass/Vol] 3.4 g/dL 3.2-5.0 [facility] Serum or plasma albumin/glob ulin mass ratioOrdered By: Ayo Uriostegui on 08-19-2022 Albumin/Globulin [Mass ratio] 0.9 {ratio} 0.9-2.4 [facility] Serum or plasma calcium karissa urement (mass/volume)Ordered By: Ayo Uriostegui on 08-19-2022 Calcium [Mass/Vol] 8.3 mg/dL 8.5-10.1 [facility] Serum or plasma creatinine m easurement (mass/volume)Ordered By: Ayo Uriostegui on 08-19-2022 Creatinine [Mass/Vol] 0.82 mg/dL 0.70-1.30 [facility] Comment on above: The validity of the calculated GFR & GFRAA in patients over 70 years has not been determined. Clinical correlation is essential. Serum or plasma urea nitroge n measurement (mass/volume)Ordered By: Ayo Uriostegui on 08-19-2022 Urea nitrogen [Mass/Vol] 13 mg/dL 7-18 [facility] Thin prep Papanicolaou smear with manual screeningOrdered By: Ayo Uriostegui on 08-19-2022 Thin prep Papanicolaou smear with manual screening 24 U/L 15-37 [facility] Thin prep Papanicolaou smear with manual screening 6 5-15 [facility] Absolute lymphocyte counton 05-20-2022 Lymphocytes Auto (Unsp spec) [#/Vol] 2.09 10*3/uL 0.83-4.51 [facility] Work Phone: Basophil percentageon 2021 Basophils/100 WBC (Bld) 0.4 % 0-1 [facility] Work Phone: Bilirubin [Mass/Vol] 0.20 mg/dL 0.20-1.00 [facility] Work Phone: Comment on above: For patients on eltr ombopag therapy, use of [employer] TBIL is not recommended. Chloride [Moles/Vol] 107 mmol/L 98-107 [facility] Work Phone: Eosinophils/100 WBC (Bld) 4.4 % 0-5 [facility] Work Phone: Glucose [Mass/Vol] 122 mg/dL 74-106 [facility] Work Phone: Comment on above: Fasting Glucose resu lt from 100 to 125 mg/dL suggests IMPAIRED HOMEOSTASIS per A.D.A. criteria. Neutrophils (Bld) [#/Vol] 4.1 10*3/uL 2.0-7.7 [facility] Work Phone: Neutrophils/100 WBC (Bld) 55.8 % 47-70 [facility] Work Phone: Potassium [Moles/Vol] 3.7 mmol/L 3.5-5.1 [facility] Work Phone: Comment on above: Slight Hemolysis, Re sult may be falsely increased. Protein [Mass/Vol] 7.1 g/dL 6.4-8.2 [facility] Work Phone: Sodium [Moles/Vol] 138 mmol/L 136-145 [facility] Work Phone: WBC (Bld) [#/Vol] 7.3 10*3/uL 4.4-11.0 [facility] Work Phone: Blood erythrocytes count (nu mber/volume)on 05-20-2022 RBC (Bld) [#/Vol] 4.27 10*6/uL 4.6-6.2 [facility] Work Phone: Blood hemoglobin measurement (mass/volume)on 05-20-2022 Hemoglobin (Bld) [Mass/Vol] 13.4 g/dL 13.0-16.5 [facility] Work Phone: Blood lymphocytes/100 leukoc yteson 05-20-2022 Lymphocytes/100 WBC (Bld) 28.6 % 19-41 [facility] Work Phone: Blood monocytes/100 leukocyt eson 05-20-2022 Monocytes/100 WBC (Bld) 10.5 % 0-10 [facility] Work Phone: Blood platelet mean volumeon 05-20-2022 Platelet mean volume (Bld) [Entitic vol] 10.1 fL 6.2-12.0 [facility] Work Phone: Determination of erythrocyte mean corpuscular volume (MCV)on 05-20-2022 MCV (RBC) [Entitic vol] 94.8 fL 80-94 [facility] Work Phone: Hematocrit Auto (Bld) [Volum e fraction]on 05-20-2022 Hematocrit (Bld) [Volume fraction] 40.5 % 40-54 [facility] Work Phone: Laboratory - Chemistry and C hemistry - challengeon 05-20-2022 ALP [Catalytic activity/Vol] 98 U/L 45-117 [facility] Work Phone: ALT [Catalytic activity/Vol] 38 U/L 16-61 [facility] Work Phone: CO2 [Moles/Vol] 23.0 mmol/L 21.0-32.0 [facility] Work Phone: Globulin (S) [Mass/Vol] 3.8 g/dL 2.2-4.2 [facility] Work Phone: Urea nitrogen/Creatinine [Mass ratio] 14.3 mg/mg 10-20 [facility] Work Phone: Laboratory - Hematology and Cell countson 05-20-2022 Erythrocyte distribution width (RBC) [Entitic vol] 46.5 fL 35.1-43.9 [facility] Work Phone: Erythrocyte distribution width (RBC) [Ratio] 13.3 % 11.6-14.6 [facility] Work Phone: Immature granulocytes/100 WBC (Bld) 0.300 % 0.0-0.9 [facility] Work Phone: Comment on above: IG% - Immature Granu locytes (promyelocytes, myelocytes and metamyelocytes) > 1% indicates that a LEFT SHIFT is Present. MCH (RBC) [Entitic mass] 31.4 pg 27.0-32.0 [facility] Work Phone: Nucleated RBC/100 WBC (Bld) [Ratio] 0 % 0-5 [facility] Work Phone: MCHC Auto (RBC) [Mass/Vol]on 05-20-2022 MCHC (RBC) [Mass/Vol] 33.1 g/dL 32-36 [facility] Work Phone: No Panel Informationon 05-20 Estimated GFR (MDRD) Amer 131 mL/min >60 [facility] Work Phone: Comment on above: GFR Calc Estimated GFR (MDRD) Non-Af Amer 108 mL/min >60 [facility] Work Phone: Comment on above: Non- GFR Calc Platelets bldon 05-20-2022 Platelets (Bld) [#/Vol] 234 10*3/uL 150-450 [facility] Work Phone: Serum or plasma albumin karissa urement (mass/volume)on 05-20-2022 Albumin [Mass/Vol] 3.3 g/dL 3.2-5.0 [facility] Work Phone: Serum or plasma albumin/glob ulin mass ratioon 05-20-2022 Albumin/Globulin [Mass ratio] 0.9 {ratio} 0.9-2.4 [facility] Work Phone: Serum or plasma calcium karissa urement (mass/volume)on 05-20-2022 Calcium [Mass/Vol] 8.2 mg/dL 8.5-10.1 [facility] Work Phone: Serum or plasma creatinine m easurement (mass/volume)on 05-20-2022 Creatinine [Mass/Vol] 0.77 mg/dL 0.70-1.30 [facility] Work Phone: Comment on above: The validity of the calculated GFR & GFRAA in patients over 70 years has not been determined. Clinical correlation is essential. Serum or plasma urea nitroge n measurement (mass/volume)on 05-20-2022 Urea nitrogen [Mass/Vol] 11 mg/dL 7-18 [facility] Work Phone: Thin prep Papanicolaou smear with manual screeningon 05-20-2022 Thin prep Papanicolaou smear with manual screening 19 U/L 15-37 [facility] Work Phone: Comment on above: Slight Hemolysis, Re sult may be falsely increased. Thin prep Papanicolaou smear with manual screening 8 5-15 [facility] Work Phone: Basophil percentageon 2021 Cholesterol [Mass/Vol] 135 mg/dL <200 [facility] Work Phone: Comment on above: <200 mg/dL Desirable 200-240 mg/dL Borderline >240 mg/dL High Risk Triglyceride [Mass/Vol] 231 mg/dL <199 [facility] Work Phone: Comment on above: The drugs N-Acetylcy steine and Metamizole may falsely depress this assay.Serum Triglycerides Reference Interval Normal <150 mg/dL Borderline high 150 - 199 mg/dL High 200 - 499 mg/dL Very High > or = 500 mg/dL Serum or plasma cholesterol in HDL measurement (mass/volume)on 03-17-2022 Cholesterol in HDL [Mass/Vol] 28 mg/dL >40 [facility] Work Phone: Comment on above: The drugs N-Acetylcy steine and Metamizole may falsely depress this assay. Reference Range HDL <40 mg/dL Low HDL Cholesterol HDL >or= 60 mg/dL High HDL Cholesterol Serum or plasma cholesterol in VLDL measurement (mass/volume)on 03-17-2022 Cholesterol in VLDL [Mass/Vol] 46 mg/dL 5-40 [facility] Work Phone: Serum or plasma low density lipoprotein (LDL) cholesterol measurement (mass/volume)on 03-17-2022 Cholesterol in LDL [Mass/Vol] 61 mg/dL 0-130 [facility] Work Phone: Whole blood hemoglobin A1c/t otal hemoglobin ratio (mass fraction)on 03-17-2022 HbA1c (Bld) [Mass fraction] 7.6 % 3.8-5.6 [facility] Work Phone: Comment on above: Normal < 5.7 % Predi abetic 5.7 - 6.4 % Diabetic >or= 6.5 % Please note range changes. Absolute lymphocyte counton 02-18-2022 Lymphocytes Auto (Unsp spec) [#/Vol] 2.32 10*3/uL 0.83-4.51 [facility] Work Phone: Basophil percentageon 2021 Basophils/100 WBC (Bld) 0.5 % 0-1 [facility] Work Phone: Bilirubin [Mass/Vol] 0.40 mg/dL 0.20-1.00 [facility] Work Phone: Comment on above: For patients on eltr ombopag therapy, use of [place] TBIL is not recommended. Chloride [Moles/Vol] 106 mmol/L 98-107 [facility] Work Phone: Eosinophils/100 WBC (Bld) 3.2 % 0-5 [facility] Work Phone: Glucose [Mass/Vol] 126 mg/dL 74-106 [facility] Work Phone: Comment on above: Fasting Glucose resu lt greater than or equal to 126 mg/dL suggests DIABETES MELLITUS per A.D.A. criteria. Neutrophils (Bld) [#/Vol] 4.6 10*3/uL 2.0-7.7 [facility] Work Phone: Neutrophils/100 WBC (Bld) 56.3 % 47-70 [facility] Work Phone: Potassium [Moles/Vol] 3.8 mmol/L 3.5-5.1 [facility] Work Phone: Protein [Mass/Vol] 7.1 g/dL 6.4-8.2 [facility] Work Phone: Sodium [Moles/Vol] 136 mmol/L 136-145 [facility] Work Phone: WBC (Bld) [#/Vol] 8.1 10*3/uL 4.4-11.0 [facility] Work Phone: Blood erythrocytes count (nu mber/volume)on 02-18-2022 RBC (Bld) [#/Vol] 4.45 10*6/uL 4.6-6.2 [facility] Work Phone: Blood hemoglobin measurement (mass/volume)on 02-18-2022 Hemoglobin (Bld) [Mass/Vol] 13.5 g/dL 13.0-16.5 [facility] Work Phone: Blood lymphocytes/100 leukoc yteson 02-18-2022 Lymphocytes/100 WBC (Bld) 28.7 % 19-41 [facility] Work Phone: Blood monocytes/100 leukocyt eson 02-18-2022 Monocytes/100 WBC (Bld) 10.9 % 0-10 [facility] Work Phone: Blood platelet mean volumeon 02-18-2022 Platelet mean volume (Bld) [Entitic vol] 10.3 fL 6.2-12.0 [facility] Work Phone: Determination of erythrocyte mean corpuscular volume (MCV)on 02-18-2022 MCV (RBC) [Entitic vol] 92.6 fL 80-94 [facility] [facility] Work Phone: Hematocrit Auto (Bld) [Volum e fraction]on 02-18-2022 Hematocrit (Bld) [Volume fraction] 41.2 % 40-54 [facility] Work Phone: Laboratory - Chemistry and C hemistry - challengeon 02-18-2022 ALP [Catalytic activity/Vol] 104 U/L 45-117 [facility] Work Phone: ALT [Catalytic activity/Vol] 37 U/L 16-61 [facility] Work Phone: [phone] CO2 [Moles/Vol] 23.0 mmol/L 21.0-32.0 [facility] Work Phone: Globulin (S) [Mass/Vol] 3.6 g/dL 2.2-4.2 [facility] Work Phone: Urea nitrogen/Creatinine [Mass ratio] 16.5 mg/mg 10-20 [facility] Work Phone: Laboratory - Hematology and Cell countson 02-18-2022 Erythrocyte distribution width (RBC) [Entitic vol] 46.1 fL 35.1-43.9 [facility]: Erythrocyte distribution width (RBC) [Ratio] 13.4 % 11.6-14.6 [facility] Work Phone: Immature granulocytes/100 WBC (Bld) 0.400 % 0.0-0.9 [facility] Work Phone: Comment on above: IG% - Immature Granu locytes (promyelocytes, myelocytes and metamyelocytes) > 1% indicates that a LEFT SHIFT is Present. MCH (RBC) [Entitic mass] 30.3 pg 27.0-32.0 [facility] Work Phone: Nucleated RBC/100 WBC (Bld) [Ratio] 0 % 0-5 [facility] Work Phone: MCHC Auto (RBC) [Mass/Vol]on 02-18-2022 MCHC (RBC) [Mass/Vol] 32.8 g/dL 32-36 [facility] Work Phone: No Panel Informationon 02-18 Estimated GFR (MDRD) Amer 108 mL/min >60 [facility] Work Phone: Comment on above: GFR Calc Estimated GFR (MDRD) Non-Af Amer 89 mL/min >60 [facility] Work Phone: Comment on above: Non- GFR Calc Platelets bldon 02-18-2022 Platelets (Bld) [#/Vol] 252 10*3/uL 150-450 [facility] Work Phone: Serum or plasma albumin karissa urement (mass/volume)on 02-18-2022 Albumin [Mass/Vol] 3.5 g/dL 3.2-5.0 [facility] Work Phone: Serum or plasma albumin/glob ulin mass ratioon 02-18-2022 Albumin/Globulin [Mass ratio] 1.0 {ratio} 0.9-2.4 [facility] Work Phone: Serum or plasma calcium karissa urement (mass/volume)on 02-18-2022 Calcium [Mass/Vol] 8.5 mg/dL 8.5-10.1 [facility] Work Phone: Serum or plasma creatinine m easurement (mass/volume)on 02-18-2022 Creatinine [Mass/Vol] 0.91 mg/dL 0.70-1.30 [facility] Work Phone: Comment on above: The validity of the calculated GFR & GFRAA in patients over 70 years has not been determined. Clinical correlation is essential. Serum or plasma urea nitroge n measurement (mass/volume)on 02-18-2022 Urea nitrogen [Mass/Vol] 15 mg/dL 7-18 [facility] Work Phone: Thin prep Papanicolaou smear with manual screeningon 02-18-2022 Thin prep Papanicolaou smear with manual screening 20 U/L 15-37 [facility] Work Phone: Thin prep Papanicolaou smear with manual screening 7 5-15 [facility] Work Phone: Absolute lymphocyte counton 11-19-2021 Lymphocytes Auto (Unsp spec) [#/Vol] 2.32 10*3/uL 0.83-4.51 [facility] Work Phone: Basophil percentageon 2021 Basophils/100 WBC (Bld) 0.6 % 0-1 [facility] Work Phone: Bilirubin [Mass/Vol] 0.30 mg/dL 0.20-1.00 [facility] Work Phone: Comment on above: For patients on eltr ombopag therapy, use of Dimension [place] TBIL is not recommended. Chloride [Moles/Vol] 106 mmol/L 98-107 [facility] Work Phone: Eosinophils/100 WBC (Bld) 3.3 % 0-5 [facility] Work Phone: Glucose [Mass/Vol] 110 mg/dL 74-106 [facility] Work Phone: Comment on above: Fasting Glucose resu lt from 100 to 125 mg/dL suggests IMPAIRED HOMEOSTASIS per A.D.A. criteria. Neutrophils (Bld) [#/Vol] 3.7 10*3/uL 2.0-7.7 [facility] Work Phone: Neutrophils/100 WBC (Bld) 53.3 % 47-70 [facility] Work Phone: Potassium [Moles/Vol] 3.8 mmol/L 3.5-5.1 [facility] Work Phone: Protein [Mass/Vol] 6.9 g/dL 6.4-8.2 [facility] Work Phone: Sodium [Moles/Vol] 137 mmol/L 136-145 [facility] Work Phone: WBC (Bld) [#/Vol] 7.0 10*3/uL 4.4-11.0 [facility] Work Phone: Blood erythrocytes count (nu mber/volume)on 11-19-2021 RBC (Bld) [#/Vol] 4.43 10*6/uL 4.6-6.2 [facility]: Blood hemoglobin measurement (mass/volume)on 11-19-2021 Hemoglobin (Bld) [Mass/Vol] 13.6 g/dL 13.0-16.5 [facility] Work Phone: Blood lymphocytes/100 leukoc yteson 11-19-2021 Lymphocytes/100 WBC (Bld) 33.0 % 19-41 [facility] Work Phone: Blood monocytes/100 leukocyt eson 11-19-2021 Monocytes/100 WBC (Bld) 9.5 % 0-10 [facility] Work Phone: Blood platelet mean volumeon 11-19-2021 Platelet mean volume (Bld) [Entitic vol] 10.1 fL 6.2-12.0 [facility] Work Phone: Determination of erythrocyte mean corpuscular volume (MCV)on 11-19-2021 MCV (RBC) [Entitic vol] 92.3 fL 80-94 [facility] Work Phone: Hematocrit Auto (Bld) [Volum e fraction]on 11-19-2021 Hematocrit (Bld) [Volume fraction] 40.9 % 40-54 [facility] Work Phone: Laboratory - Chemistry and C hemistry - challengeon 11-19-2021 ALP [Catalytic activity/Vol] 98 U/L 45-117 [facility] Work Phone: ALT [Catalytic activity/Vol] 41 U/L 16-61 [facility] Work Phone: CO2 [Moles/Vol] 26.0 mmol/L 21.0-32.0 [facility] Work Phone: Globulin (S) [Mass/Vol] 3.5 g/dL 2.2-4.2 [facility] Work Phone: Urea nitrogen/Creatinine [Mass ratio] 13.9 mg/mg 10-20 [facility] Work Phone: Laboratory - Hematology and Cell countson 11-19-2021 Erythrocyte distribution width (RBC) [Entitic vol] 46.4 fL 35.1-43.9 [facility] Work Phone: Erythrocyte distribution width (RBC) [Ratio] 13.5 % 11.6-14.6 [facility] Work Phone: Immature granulocytes/100 WBC (Bld) 0.300 % 0.0-0.9 [facility] Work Phone: Comment on above: IG% - Immature Granu locytes (promyelocytes, myelocytes and metamyelocytes) > 1% indicates that a LEFT SHIFT is Present. MCH (RBC) [Entitic mass] 30.7 pg 27.0-32.0 [facility] Work Phone: Nucleated RBC/100 WBC (Bld) [Ratio] 0 % 0-5 [facility] Work Phone: MCHC Auto (RBC) [Mass/Vol]on 11-19-2021 MCHC (RBC) [Mass/Vol] 33.3 g/dL 32-36 [facility] Work Phone: No Panel Informationon 11-19 Estimated GFR (MDRD) Amer 115 mL/min >60 [facility] Work Phone: Comment on above: GFR Calc Estimated GFR (MDRD) Non-Af Amer 95 mL/min >60 [facility] Work Phone: Comment on above: Non- GFR Calc Platelets bldon 11-19-2021 Platelets (Bld) [#/Vol] 237 10*3/uL 150-450 [facility] Work Phone: Serum or plasma albumin karissa urement (mass/volume)on 11-19-2021 Albumin [Mass/Vol] 3.4 g/dL 3.2-5.0 [facility] Work Phone: Serum or plasma albumin/glob ulin mass ratioon 11-19-2021 Albumin/Globulin [Mass ratio] 1.0 {ratio} 0.9-2.4 [facility] Work Phone: Serum or plasma calcium karissa urement (mass/volume)on 11-19-2021 Calcium [Mass/Vol] 8.4 mg/dL 8.5-10.1 [facility] Work Phone: Serum or plasma creatinine m easurement (mass/volume)on 11-19-2021 Creatinine [Mass/Vol] 0.86 mg/dL 0.70-1.30 [facility] Work Phone: Comment on above: The validity of the calculated GFR & GFRAA in patients over 70 years has not been determined. Clinical correlation is essential. Serum or plasma urea nitroge n measurement (mass/volume)on 11-19-2021 Urea nitrogen [Mass/Vol] 12 mg/dL 7-18 [facility] Work Phone: Thin prep Papanicolaou smear with manual screeningon 11-19-2021 Thin prep Papanicolaou smear with manual screening 21 U/L 15-37 [facility] Work Phone: Thin prep Papanicolaou smear with manual screening 5 5-15 [facility] Work Phone: Vital Signs Date Time Vital Sign Value Performing Clinician Faci lity 10-04-2024 00:38-0500 Body temperature 98.5 [degF] Dr. Ayo Uriostegui MD Work Phone: [facility] 10-04-2024 00:38-0500 Diastolic blood pressure 82 mm[Hg] Dr. Ayo Uriostegui MD Work Phone: [facility] 10-04-2024 00:38-0500 Heart rate 94 /min Dr. Ayo Uriostegui MD Work Phone: [facility] 10-04-2024 00:38-0500 Respiratory rate 16 /min Dr. Ayo Uriostegui MD Work Phone: [facility] 10-04-2024 00:38-0500 SaO2% (BldA) [Mass fraction] 93 % Dr. Ayo Uriostegui MD Work Phone: [facility] 10-04-2024 00:38-0500 Systolic blood pressure 150 mm[Hg] Dr. Ayo Uriostegui MD Work Phone: [facility] 10-03-2024 22:19-0500 Inhaled oxygen flow rate 2 L/min Dr. Ayo Uriostegui MD Work Phone: [facility] 10-03-2024 21:49-0500 Body height 170.[address] Ayo Uriostegui MD Work Phone: [facility] 10-03-2024 21:49-0500 Body mass index (BMI) [Ratio] 39.3 kg/m2 Dr. Aoy Uriostegui MD Work Phone: [facility] 10-03-2024 21:49-0500 Body weight [address] Ayo Uriostegui MD Work Phone: [facility] Encounters Encounter Date Encounter Type Care Provider Facility Start: 06-04-2025 End: 06-04-2025 ambulatory Ayo Uriostegui Facility:[facility] Start: 03-14-2025 ambulatory Ayo Uriostegui Facility:[facility] Start: 03-14-[address] Mark chisholm MD -[facility] Start: 03-05-2025 End: 03-05-[address] Ayo Uriostegui MD Work Phone: [facility] Start: 03-05-2025 End: 03-05-[address] Mark Stovall MD -[facility] Start: 03-05-2025 End: 03-05-2025 ambulatory Ayo Uriostegui Facility:[facility] Start: 12-11-2024 End: 12-11-[address] Ayo Uriostegui MD Work Phone: [facility] Work Phone: Start: 12-11-2024 End: 12-11-[address] Mark Stovall MD -[facility] Start: 12-11-2024 End: 12-11-2024 ambulatory [facility] Facility:[facility] Start: 11-12-2024 End: 11-12-[address] Ayo Uriostegui MD Work Phone: [facility] Work Phone: Start: 11-12-2024 End: 11-12-[address] Araceli Fernandez MD -[facility] Start: 11-12-2024 End: 11-12-2024 [facility] Start: 10-03-2024 End: 10-04-2024 Emergency department patient visit Dr. Mohsen Colorado MD -Emergency Department Work Phone: Start: 09-13-2024 ambulatory [facility] Facility:[facility] Start: 09-13-[address] Araceli Fernandez MD -[facility] Start: 09-19-2023 End: 09-19-2023 ambulatory [facility] Work Phone: Start: 09-19-2023 End: 09-19-2023 Departed Referred [facility] Start: 06-21-2023 End: 06-21-2023 ambulatory [facility] Work Phone: Start: 06-21-2023 End: 06-21-2023 Departed Referred [facility] Start: 03-21-2023 End: 03-21-2023 ambulatory [facility] Work Phone: Start: 03-21-2023 End: 03-21-2023 Departed Referred [facility] Start: 03-11-2023 End: 03-11-2023 Departed Referred [facility] Start: 03-11-2023 Registered Referred [facility] Start: 02-17-2023 End: 02-17-2023 ambulatory [facility] Work Phone: Start: 02-17-2023 End: 02-17-2023 Departed Referred [facility] Start: 02-17-2023 Registered Referred [facility] Start: 12-23-2022 End: 12-23-2022 Departed Referred [facility] Start: 11-18-2022 End: 11-18-2022 ambulatory [facility] Work Phone: Start: 11-18-2022 End: 11-18-2022 Departed Referred [facility] Start: 09-24-2022 End: 09-24-2022 Departed Referred [facility] Start: 09-24-2022 Registered Referred [facility] Start: 09-14-2022 End: 09-14-2022 ambulatory [facility] Work Phone: Start: 09-14-2022 End: 09-14-2022 Departed Referred [facility] Start: 08-19-2022 Registered Referred [facility] Start: 05-20-2022 End: 05-20-2022 ambulatory [facility] Work Phone: Start: 05-20-2022 End: 05-20-2022 Departed Referred [place] [id number] Start: 03-17-2022 End: 03-17-2022 Departed Referred [facility] [address] Start: 02-18-2022 Registered Referred [facility] Start: 11-19-2021 End: 11-19-2021 Departed Referred [place] [id number] Procedures Date Procedure Procedure Detail Performing Clinician Start: 11-12-2024 Insulin C-peptide measurement Dr. Ayo Uriostegui MD Work Phone: Comment on above: C-Peptide reference interval is for fasting patients.Performed at: [address] [id number] Director: Osiel Vazquez PhD, Phone: [phone] Start: 10-03-2024 X-ray of chest, PA a [...] Date Care Activity Detail Author Start: 10-04-2024 [facility] Start: 10-03-2024 [facility] Patient Education ED COPD Flare [facility] Work Phone: Patient referral [facility] Work Phone: Payers Date Payer Category Payer Self-pay [id number] 2024 Unknown [id number] 2024 Unknown [id number] 2003 Medicare [id number] Unknown [id number] Unknown [id number] 2.16.8 [id number] Unknown [id number] 2.16.8 [id number] Unknown [id number] 2.16.8 [id number] Unknown [id number] 2.16.8 [id number] Unknown [id number] 2.16.8 [id number] Unknown [id number] 2.16.8 [id number] Unknown [id number] 2.16.8 [id number] Social History Date Type Detail Facility Start: 12-08-2018 End: 12-08-2018 Tobacco smoking status MTIS Unknown if ever smoked [facility] Start: 12-03-2018 None [facility] Start: 12-03-2018 - [facility] Start: 12-08-2018 Cigarettes [facility] Start: 1955 Sex Assigned At Male [facility] Start: 10-03-2024 [facility] Start: 12-06-2024 Sex Male (finding) [facility] Sex Male [facility] Medical Equipment Procedure Code Equipment Code [...] Evaluation note No assessment information availa ble [facility] Work Phone: Reason for referral (narrative) Note Date & Type Note Facility Reason for referral (narrative) No reason for referral information available [facility] Work Phone: Chief Complaint and Reason for Visit Chief Complaint [facility] HOME [facility] WOR K Chief Complaint NUSING HOME LAB WORK Chief Complaint NUSING HOME LAB WORK [facility] HOME [facility] WORK [facility] WORK Chief Complaint LABWORK [facility] HOME [facility] WORK Chief Complaint LABWORK GROUP HOME LAB WORK GROUP HOME LABWORK GROUP HOME LABWORK Chief Complaint GROUP HOME LAB WOR K GROUP HOME LABWORK GROUP HOME LABWORK LABWORK Chief Complaint GROUP HOME LABWORK LABWORK GROUP HOME LAB WORK Chief Complaint GROUP HOME LAB WOR K [facility] HOME [facility] WORK Chief Complaint Admit Date GROUP HOME LAB WORK September 13, 2024 5:00am SOB October 03, 2024 9:48pm GROUP [facility] WORK November 12, 2024 5 :00am Chief Complaint Admit Date GROUP HOME LAB WORK September 13, 2024 5:00am SOB October 03, 2024 9:48pm GROUP HOME [facility] WORK November 12, 2024 5 :00am GROUP HOME LAB WORK December 11, 2024 6 :20am Chief Complaint Admit Date GROUP HOME LAB WORK March 05, 2025 5: 00am GROUP HOME LAB WORK March 14, 2025 5: 00am Family History No Family History Records Found [...] No December 03, 2018 4:46am Power of Furniture Inspector No December 03 4:46am Advance Directive Response Recorded Date/ Time Living Will No December 03, 2018 3:46am Power of Furniture Inspector No December 03 3:46am Advance Directive Response Recorded Date/ Time Living Will No October 03 025 11:27pm Do you have a Healthcare Power of Furniture Inspector? No October 03, 2024 11:27pm Summary Purpose [...] Status: Active Member Role Status Dates Dr. Aoy Uriostegui MD Primary Care Provider Active Start: [...] December 11, 2024 End: December 11, 2024 Team Status: Active Member Role/Relationship Status Dates Dr. Ayo Uriostegui MD Primary care physician Active Team Status: Inactive Member Role/Relationship Status Dates Dr. Ayo Uriostegui MD Primary care physician Active Start: March 05, 2025 End: March 05, 2025 Dr. Mark HAYES MD Attending physician Active Start: March 05, 2025 End: March 05, 2025 Team Status: Active Member Role/Relationship Status Dates Dr. Ayo Uriostegui MD Primary care physician Active Start: March 14, 2025 Dr. Mark HAYES MD Attending physician Active Start: March 14, 2025 (unrecognized sect ion and content) No Status Records Found INFORMATION SOURCE (unrecogn ized section and content) DATE CREATED AUTHOR 06/23/2025 [facility] FOR RECORDS PERTAINING TO PATIENTS WHO ARE [...] BE BASED ON THE PRIMARY CLINICAL RECORDS. [employer] provides no warranty or guarantee of the accuracy or completeness of information in this document.
[2025-08-13 08:41] LABS: Hematocrit 38.8 % (40-54); Hemoglobin 12.8 g/dL (13.0-16.5); Mean Corp Hgb Conc 33.0 g/dL (32-36); Mean Corpuscular Volume 91.1 fL (80-94); Mean Platelet Vol. 9.9 fl (6.2-12.0); Platelet Count 300 K/mm3 (150-450); RBC Distribution Width CV 13.4 % (11.6-14.6); RBC Distribution Width SD 45.2 fl (35.1-43.9); Red Blood Count 4.26 M/mm3 (4.6-6.2); White Blood Count 10.4 K/mm3 (4.4-11.0)
[2025-08-13 08:50] LABS: Anion Gap 11 (7-18); BUN 15 mg/dL (4-19); BUN/Creat Ratio 15.7 RATIO (10-20); Calcium,Total 8.8 mg/dL (7.6-11.0); Carbon Dioxide 25.2 mmol/L (20.0-29.0); Chloride 98 mmol/L (96-106); Cholesterol 121 mg/dL (<=200); Glucose 94 mg/dL (70-99); Low Density Lipoprotein Calc. 58 mg/dL; Potassium 3.8 mmol/L (3.5-5.1); Triglycerides 224 mg/dL; Very Low Density Lipoprotein 45 mg/dL (5-40); cholesterol:hdl ratio screen 4.60
== END ==
LOC: OLS.SW 05:00
PROVIDERS: PCP Family Medicine; Visit Provider Internal Medicine
DX: E11.9 Type 2 diabetes mellitus without complications (principal)
CPT/HCPCS: 36415; 80048; 80061; 83036; 85027